=== PATIENT | female | born 1970 | race Caucasian/White ===

== ENCOUNTER 2020-06-22 14:26 | Outpatient (REF) | payer MEDICARE, MEDICAID, SELFPAY | END 2020-06-22 14:27 | disposition home or self-care (01) | LOC: HO.MRI 14:26 | PROVIDERS: Visit Provider Nurse Practitioner Family | DX: Z13.89 Encounter for screening for other disorder (principal) ==

== ENCOUNTER → 2020-07-28 14:13 | Outpatient (BNVA) | payer MEDICARE, MEDICAID, SELFPAY | PROVIDERS: PCP Family Medicine; Visit Provider Orthopaedic Surgery | DX: Z13.89 Encounter for screening for other disorder (principal) | CPT/HCPCS: Q3014 ==

== ENCOUNTER → 2020-12-03 12:54 | Outpatient (REF) | payer MEDICARE, MEDICAID, SELFPAY ==
--- NOTE | 2020-12-03 12:57 | CA_ITS ---
Transthoracic Echocardiogram Patient (Last, First, Middle): Nyla Wiley, Gender: Female Date of : 1970 Age: 50 Procedure Date: 12/03/2020 Procedure Type: Transthoracic Echocardiogram Location: OP Height: 167.64 cm Weight: 158.76 kg BSA: 2.54 m2 Heart Rate: bpm BP: 140 / 92 mmHg Digital Marketing Program Manager: UMAIR Khan MD: Rl Laguerre MD Chemistry Associate: Gautam Javier MD Symptoms: CHEST PAIN Study Quality: Fair ECG Rhythm: Sinus Conclusions: - 1. Normal LV systolic and diastolic function 2. Mild fibrocalcific aortic valve changes noted with trivial aortic regurgitation 3. No gross pericardial effusion Findings Left Ventricle Normal left ventricular size, thickness, and systolic function. The visually estimated ejection fraction is between 60-65%. Spectral Doppler is indicative of a normal filling pattern. Right Ventricle Normal right ventricular cavity size and systolic function. Atria The left atrium is normal in size. There is no evidence of interatrial shunt. The right atrium is normal in size. Aortic Valve There are fibrocalcifications on the aortic valve leaflets. There is no aortic valve stenosis. There is trace (trivial) aortic valve regurgitation. Mitral Valve Normal mitral valve structure and function. There is trace mitral valve regurgitation. There is no mitral valve stenosis. Pulmonic Valve The pulmonic valve was not well visualized. Tricuspid Valve The tricuspid valve was not well visualized. Tricuspid regurgitation envelope is inadequate for calculation of right ventricular systolic pressure. Great Vessels All visible segments of the aorta are normal in size. The pulmonary artery was not well visualized. Venous The inferior vena cava is normal in size and collapses greater than 50% with inspiration. Pericardium/Pleural There is no evidence of pericardial effusion. Prior Study Comparison No previous study in the last 5 years for comparison Measurements 2D Linear Measurements RVIDd: 2.93 RVIDd Index: 1.15 IVSd: 1.56 0.6-0.9/0.6-1.0 cm LVIDd: 4.36 3.9-5.3/4.2-5.9 cm LVIDd Index: 1.72 2.4-3.2/2.2-3.1 cm/m2 LVIDs: 3.18 2.0-3.6 cm LVPWd: 1.46 0.7-1.1 cm Ao Root: 3.10 2.1-3.5 cm LA Diam: 4.00 2.7-3.8/3.0-4.0 cm LAIDs Index: 1.57 1.5-2.3 cm/m2 LV Mass: 331.83 67-162/88-224 g LV Mass Index: 130.64 43-95/49-115 g/m2 LVOT Diam: 2.20 3.0+(-)1.3 cm 2D Systolic Function EF 4C: 60.90 >55% EF 2C: 77.60 >55% EF BiP: 70.30 >55% Mitral Valve MV Pk E: 0.73 MV PK A: 0.58 MV Decel Time: 138.00 E/A: 1.30 E'Lateral: 10.40 E'Medial: 6.96 E/E' Med: 10.50 E/E' Lat: 7.00 Aortic Valve AoV Pk Denys: 1.84 AoV Mn Denys: 1.31 AoV VTI: 0.34 AoV Pk Grad: 14.00 Aov Mn Grad: 8.00 WILFREDO Cont.VTI: 2.90 LVOT LVOT Pk Denys: 1.39 LVOT Mn Denys: 0.95 LVOT VTI: 0.26 LVOT Pk Grad: 8.00 LVOT Mn Grad: 4.00 LVOT Diam: 2.20 LVOT Area: 3.80 Diastolic Function MV Pk E: 0.73 MV Pk A: 0.58 E/A: 1.30 E'Medial: 6.96 E/E' Med: 10.50 E' Laterial: 10.40 E/E' Lat: 7.00 Tricuspid Valve RA Press: 3.00 Great Vessels Aorta Ao Root-2D: 3.10 2.0-3.7 cm Ao Asc: 3.70 2.1-3.4 cm Updated in Other Vendor System with Status of Final Gautam Javier MD electronically signed on 12/04/2020 2:44:51 PM with status of Final
== END ==
LOC: HO.CARD 12:54
PROVIDERS: PCP Family Medicine; Visit Provider Internal Medicine Cardiovascular Disease
DX: R07.9 Chest pain, unspecified (principal)
CPT/HCPCS: 93306

== ENCOUNTER → 2020-12-08 10:03 | Outpatient (REF) | payer MEDICARE, MEDICAID, SELFPAY ==
--- NOTE | ~2020-12-08 | NM_ITS ---
Myocardial perfusion study Indication: Chest pain to evaluate for myocardial ischemia Technique: The patient was brought in for a Lexiscan perfusion study on 12/08/2020. Patient performed low-level exercise and was injected 0.4 mg of Lexiscan intravenously. Within a minute of injection, 45 mCi of sestamibi was given intravenously. Images were obtained using the SPECT gamma camera interlaced with the gating device. Images were obtained in supine position. Resting perfusion study was performed on 12/09/2020. Patient was administered 45 mCi of sestamibi intravenously at rest. Images were then obtained in supine position. Images obtained with and without CT attenuation. Total DLP 200 mGy-cm. Images were processed with the software and compared side to side in short axis, horizontal long axis and vertical long axis views. Findings: The stress perfusion study showed nonattenuated images show mildly reduced uptake in the basal anterior and basal inferior wall of the LV myocardium. Remainder of the LV myocardium is normally perfused. Attenuation corrected images show mildly reduced uptake in the distal septum, distal anterior and apical wall of the LV myocardium.. The gated study shows normal LV systolic function with calculated LVEF of 57%. LV cavity is normal in size. The gated study shows normal systolic wall thickening and contraction of segments. Resting study shows no change in perfusion pattern compared to stress perfusion findings. Gating at rest reveals normal systolic wall motion with ejection fraction at 67%. The findings are consistent with no clear reversible defect suggestive of ischemia. Most likely normal myocardial perfusion. NM/NM russell perf SPECT rest & str Impression: 1. Myocardial perfusion imaging study shows likely normal myocardial perfusion 2. Gated LVEF is 57% 3. Transient ischemic dilatation not present EKG is nondiagnostic for ischemia
--- NOTE | 2020-12-08 10:08 | CA_ITS ---
Acquisition Time: 2020-12-08 10:13:02 Total Exercise Time: 00:02:00 Test Indications: cp on exertion Medications: see med list Protocol: LEXISCAN Max HR: 098 BPM 57% of Pred: 169 BPM Max BP: 122/080 mmHG Max Work Load: 1.0 METS Pharmacological stress test with Lexican injection, while sitting and kicking her legs, without anginal symptoms, without arrythmia, with normotensive response to injection, with nondiagnostic EKG for ischemia. At 5 min recovery she reported getting chest tightness, up to a 6/10, wihtout EKG changes, that was then treated with Aminophyllne 75mg IVP to reverse Lexiscan and given 6oz caffinated soda with resolution of symptom. Nuclear images pending. Test reviewed with Dr Rob. Referred By: Rl Laguerre Overread By: LEONA RIVERA
== END ==
LOC: HO.CARD 10:03
PROVIDERS: Visit Provider Internal Medicine Cardiovascular Disease
DX: R07.9 Chest pain, unspecified (principal)
CPT/HCPCS: 78452; 93017; A9500; J0280; J2785

== ENCOUNTER → 2020-12-09 12:14 | Outpatient (REF) | payer MEDICARE, MEDICAID, SELFPAY ==
--- NOTE | 2020-12-09 12:30 | ECG_ITS ---
Hook-up date: 2020-12-09 12:26:00 Duration: 47:59:00 Test Indications: UNSPEC CHEST PAIN Medications: 770800 QRS complexes 1 Ventricular ectopics which represent <1 % of total QRS comp. 10 Supraventricular ectopics which represent <1 % of total QRS comp. * Paced QRS complexs which represent % of total QRS comp. VENTRICULAR ECTOPY 1 Isolated 0 Bigeminal Cycles 0 Couplets 0 Runs 0 Beats in Runs * Beats LONGEST at * BPM at :: -- * Beats FASTEST at * BPM at :: -- SUPRAVENTRICULAR ECTOPY 10 Isolated 0 Couplets 0 Runs 0 Beats in Runs * Beats LONGEST at * BPM at :: -- * Beats FASTEST at * BPM at :: -- HEART RATES 73 MIN at 12:26:10 2020-12-10 87 AVG 122 MAX at 13:11:34 2020-12-09 LONGEST RR 0.8640 secs at 12:26:08 2020-12-10 S-T LEVELS Channel 1 - 128 mm at 12:26:00 2020-12-09 - 128 mm at 12:26:00 2020-12-09 Channel 2 - 128 mm at 12:26:00 2020-12-09 - 128 mm at 12:26:00 2020-12-09 Channel 3 - 128 mm at 03:14:51 -- - 128 mm at 03:14:51 Basic rhythm Normal sinus rhythm No long pause or profound bradycardia No dangerous dysrhythm periods No diary submitted Referred By: Smitha Coyne Overread By: TUAN DARNELL MD
== END ==
LOC: HO.CARD 12:14
PROVIDERS: Visit Provider Family Medicine
DX: R07.9 Chest pain, unspecified (principal)
CPT/HCPCS: 93225; 93226

== ENCOUNTER 2021-01-28 13:56 | Outpatient (REF) | payer MEDICARE, MEDICAID, SELFPAY ==
--- NOTE | ~2021-01-28 | XR_ITS ---
EXAMINATION: XR CHEST CLINICAL INFORMATION: Dysphagia COMPARISON: Previous chest x-rays most recent December 2017 TECHNIQUE: 2 views of the chest were obtained. FINDINGS: The cardiac and mediastinal contours are stable. The lungs are clear. There is no pleural effusion or pneumothorax. There are degenerative changes of the spine. XR/XR chest 2V IMPRESSION: No evidence for acute disease in the chest.
== END 2021-01-28 13:57 | disposition home or self-care (01) ==
LOC: HO.XRAY 13:56
PROVIDERS: PCP Family Medicine; Visit Provider Emergency Medicine
DX: R13.10 Dysphagia, unspecified (principal)
CPT/HCPCS: 71046

== ENCOUNTER → 2021-05-03 14:18 | Outpatient (BNVA) | payer MEDICARE, MEDICAID, SELFPAY | PROVIDERS: PCP Family Medicine; Visit Provider Internal Medicine | DX: M47.816 Spondylosis without myelopathy or radiculopathy, lumbar region (principal) | CPT/HCPCS: 99202 ==

== ENCOUNTER 2021-06-18 15:00 | Outpatient (RCR) | payer MEDICARE, MEDICAID, SELFPAY ==
--- NOTE | 2021-05-17 16:57 | MHC.PT.EP ---
[facility] [place] Office [place] Office [place] Office [address] Annalee Coronel [address] [phone] F: [phone] F: [phone] F: [phone] F: [phone] Physical Therapy Plan of Care Date of Evaluation: Date of Surgery: Diagnosis: Pt reports she has been having neck and back ache for years. Reports she has DDD of her spine and has been using heat and TENS unit. Pt reports her [pain is worse in the winter time and feels some significant tightness. Reports lower back her pain is a lot sharper; and states she can have sharp stabbing pains in her back with and without activity and is constant. Reports no real limitations Denies radicular Sx, saddle anesthesia, and incontinence. Reports she sits and spends a lot of time sitting on her futon playing playing laptop computer games on her coffee table. Assessment: Pt is a 51 y/o female referred to PT for eval and treat of lumbar spondylosis who presents with spinal instability and postural dysfunction resulting in decreased tolerance for standing chores, and chronic pain secondary to poor home computer posture, sedentary lifestyle, increased body habitus, decreased core strength, moderate decreased trunk ROM. Pt is deemed an appropriate candidate to receive skilled PT in order to address her physical limitations to improve her functional ability. Frequency and Duration: The patient will be seen 2 x / wk x 4 wks. Short Term Goals: Pt will change home sitting laptop setup in which she spends most of the day to an ergonomic set up. initiate HEP for gentle mobility and spinal stability. Retirement Goals: I with HEP. Pt will be able to perform standing tasks > 1 hour with managed Sx; initial 30 min tolerance. improve core strength to > Fair +, initial fair. Treatment Plan: Modalities to reduce pain, spasms and effusion. Manual therapy to restore motion and function. Therapeutic exercise to improve strength and flexibility. Neuromuscular re-education for posture and balance. Therapeutic activities to return to functional activities of daily living. Electronically signed by: Abel Palacio PT. Please sign and return to therapist. Thank you for your referral.
--- NOTE | 2021-06-18 16:30 | MHC.PT.DC ---
[facility] [place] Office [place] Office [place] Office [address] Annalee Coronel [address] [phone] F: [phone] F: [phone] F: [phone] F: [phone] Physical Therapy Discharge Report Diagnosis: Pt reports she has been having neck and back ache for years. Reports she has DDD of her spine and has been using heat and TENS unit. Pt reports her [pain is worse in the winter time and feels some significant tightness. Reports lower back her pain is a lot sharper; and states she can have sharp stabbing pains in her back with and without activity and is constant. Reports no real limitations Denies radicular Sx, saddle anesthesia, and incontinence. Reports she sits and spends a lot of time sitting on her futon playing playing laptop computer games on her coffee table. Date of Surgery: Date of Evaluation: 05/17/21 Date of Discharge: 06/18/21 Treatments to Date: 7 Cancellations to Date: No Shows to Date: Discharge Status: Achieved Goals Improved Function Independent with HEP Discharge Summary: Nyla elects to end therapy today, reports to PT that she has made some improvements though still has some pain. Pt was refused to make significant postural changes to her preferred activity of computer cyn which therapy suggests plays a role in her pain; Pt has been an active participant in her therapy in the clinic with fair to good home exercise compliance. She has met many of her therapeutic goals and is I with her home program; PT in agreement with DC at this time. Electronically signed by: Abel Palacio PT. Please sign and return to therapist. Thank you for your referral.
== END 2021-06-18 16:19 | disposition home or self-care (01) ==
LOC: HO.PTCHIC 15:00
PROVIDERS: PCP Family Medicine; Visit Provider Internal Medicine
DX: M47.816 Spondylosis without myelopathy or radiculopathy, lumbar region (principal)
CPT/HCPCS: 97014; 97110; 97140; 97150; 97161; 97530

== ENCOUNTER 2021-06-24 14:33 | Outpatient (REF) | payer MEDICARE, MEDICAID, SELFPAY ==
[2021-06-24 15:03] LABS: MANUAL DIFF FLAG NO
[2021-06-24 15:29] LABS: Basophils Absolute Auto 0.1 X10*3/uL (0.0-0.2); Basophils Percent Auto 0.7 % (0-2); Eosinophils Absolute Auto 0.3 X10*3/uL (0.0-0.4); Hematocrit 30.7 % (37.0-47.0); Hemoglobin 9.8 g/dl (12.0-16.0); Imm Gran Pct Auto 1.2 % (0.0-0.4); Lymphocytes Absolute Auto 1.3 X10*3/uL (1.2-4.9); Lymphocytes Percent Auto 15.1 % (20-40); Mean Corpuscular HGB Conc 31.9 g/dl (31.0-35.0); Mean Corpuscular Hemoglobin 26.3 pg (27.0-33.0); Mean Corpuscular Volume 82.5 fL (80.0-98.0); Mean Platelet Volume 9.3 fL (9.4-12.3); Monocytes Absolute Auto 0.4 X10*3/uL (0.1-1.2); Monocytes Percent Auto 4.7 % (2-11); Neutrophils Absolute Auto 6.1 x10*3/uL (2.0-8.3); Neutrophils Percent Auto 74.3 % (45-73); Platelet Count 220 X10*3/uL (160-400); Red Blood Count 3.72 X10*6/uL (4.20-5.50); Red Cell Distribution Width 14.6 % (11.0-16.0); White Blood Count 8.3 X10*3/uL (4.8-10.8)
[2021-06-24 16:00] LABS: Anion Gap 13 (12-20); Blood Urea Nitrogen 31 mg/dL (9-16); Calcium 9.2 mg/dL (8.4-10.2); Carbon Dioxide 22 mmol/L (22-29); Chloride 108 mmol/L (96-108); Estimated Glomerular Filt Rate 21; Iron 52 mcg/dL (30-160); Percent Iron Saturation 15 % (15-50); Potassium 5.4 mmol/L (3.3-5.1); Sodium 138 mmol/L (135-145); Total Iron Binding Capacity 337 mcg/dL (228-428); Unsaturated Iron Binding 285 ug/dL
== END 2021-06-24 14:34 | disposition home or self-care (01) ==
LOC: HO.LAB 14:33
PROVIDERS: Absent Provider Internal Medicine; PCP Family Medicine; Visit Provider Internal Medicine Nephrology
DX: R80.1 Persistent proteinuria, unspecified (principal); N20.0 Calculus of kidney; E11.21 Type 2 diabetes mellitus with diabetic nephropathy; N18.4 Chronic kidney disease, stage 4 (severe)
CPT/HCPCS: 36415; 80051; 82310; 82565; 83540; 84520; 85025

== ENCOUNTER 2021-06-28 14:01 | Outpatient (REF) | payer MEDICARE, MEDICAID, SELFPAY ==
[2021-06-28 15:05] LABS: Creatinine Urine 94.81 mg/dL
[2021-06-28 15:18] LABS: Microalbum/Creatinine Ratio Ur 1548.3 ug/mg cr; Protein/Creatinine Ratio, Ur 2.18 (<0.2); Total Protein Urine Random 207 mg/dL (<12)
[2021-06-28 15:35] LABS: Appearance Urine CLEAR; Color Urine YELLOW; Glucose Urine UA 250 MG/DL (NEG); Leukocyte Esterase Urine NEG (NEG); Nitrite Urine NEG (NEG); Specific Gravity - Urine >= 1.030 (1.005-1.025); Urine Blood TRACE (NEG); Urine Ketones NEG (NEG); Urine Protein 2+ MG/DL (NEG-TRACE)
[2021-06-28 17:55] LABS: Bacteria Urine 2+ /LPF; RBC Urine 0-2 /HPF (0); Squamous Epithelial Cell Urine 2+ /LPF
== END 2021-06-28 14:02 | disposition home or self-care (01) ==
LOC: HO.LNP 14:01
PROVIDERS: Visit Provider Internal Medicine Nephrology
DX: N20.0 Calculus of kidney (principal); R80.1 Persistent proteinuria, unspecified; E11.21 Type 2 diabetes mellitus with diabetic nephropathy; N18.4 Chronic kidney disease, stage 4 (severe)
CPT/HCPCS: 81001; 82043; 84156

== ENCOUNTER 2021-09-11 12:25 | Inpatient (IN) | payer MEDICARE, MEDICAID, SELFPAY ==
--- NOTE | ~2021-09-11 | XR_ITS ---
EXAMINATION: XR FOOT, RIGHT CLINICAL INFORMATION: Heel wound. COMPARISON: None TECHNIQUE: AP, lateral, and oblique views of the right foot. FINDINGS: There is a mild hallux valgus deformity. No acute fracture or dislocation is seen. The tarsal bones are normally aligned. There is a type I accessory navicular bone. Mild to moderate dorsal spurring is seen at the tarsometatarsal joints. There are very small plantar and retrocalcaneal spurs. Mild soft tissue swelling is seen. XR/XR foot RT 2V IMPRESSION: 1. Mild hallux valgus deformity and degenerative spurring without overt acute abnormality. 2. Mild soft tissue swelling without definitive soft tissue defect. No overt evidence for osteomyelitis.
[2021-09-11 12:39] VITALS: BP 109/62; PULSE 76; RESP 16; TEMP 37.2; O2SAT 96; BMI 55.5
--- NOTE | 2021-09-11 13:27 | ED.WOUNDLAC ---
HPI - Wound/Laceration General Chief Complaint: Wound/Laceration Stated Complaint: Foot wound Time Seen by Provider: 09/11/21 13:22 Source: patient Mode of arrival: ambulatory Limitations: no limitations History of Present Illness HPI narrative: 51 yo female with a history of IDDM, anemia, bipolar disorder, depression, GERD, HTN, HLD, UC, CKD here with complaints of wound to the right heel first noticed 08/23 as a 'blister . Patient tells me the wound opened up and then appeared red and painful so she was started on a 10 day course of keflex which she completed. Patient tells me she is concerned because the wound continues to have redness, pain and her temperature has been running high 99-100F). She has not been seen by any specialists for this. Related Data Home Medications Medication Instructions Recorded Confirmed aspirin 81 mg tablet,delayed 81 mg PO BEDTIME 07/08/20 09/11/21 release atorvastatin 20 mg tablet 1 tab PO BEDTIME 07/08/20 09/11/21 cholecalciferol (vitamin D3) 50 50 mcg PO BEDTIME 07/08/20 09/11/21 mcg (2,000 unit) capsule (Vitamin D3) enalapril maleate 20 mg tablet 1 tab PO BEDTIME 07/08/20 09/11/21 ferrous sulfate 325 mg (65 mg 325 mg PO BEDTIME 07/08/20 09/11/21 iron) tablet (Iron (ferrous sulfate)) insulin aspar prot-insulin aspart See Protocol SUBCUT BIDAC 07/08/20 09/11/21 100 unit/mL (70-30) subcutaneous pen (Novolog Mix 70-30FlexPen U-100) insulin degludec 200 unit/mL (3 66 unit SUBCUT BEDTIME 07/08/20 09/11/21 mL) subcutaneous pen (Tresiba FlexTouch U-200 insulin) metoprolol succinate 200 mg 1 tab PO BEDTIME 07/08/20 09/11/21 tablet,extended release 24 hr chlorthalidone 25 mg tablet 1 tab PO BEDTIME 09/11/21 09/11/21 cyanocobalamin (vitamin B-12) 1,000 mcg PO BEDTIME 09/11/21 09/11/21 1,000 mcg tablet (Vitamin B-12) hydrocodone 5 mg-acetaminophen 325 1 tab PO Q8H PRN 09/11/21 09/11/21 mg tablet lansoprazole 30 mg capsule,delayed 1 cap PO BEDTIME 09/11/21 09/11/21 release sodium zirconium cyclosilicate 10 1 packet PO BEDTIME 09/11/21 09/11/21 gram oral powder packet (Lokelma) Allergies Allergy/AdvReac Type Severity Reaction Status Date / Time oxcarbazepine Allergy Intermediate AGITATION Unverified 05/03/21 14:40 [From TRILEPTAL] topiramate [From TOPAMAX] Allergy Intermediate KIDNEY Unverified 05/03/21 14:40 STONES aripiprazole [From ABILIFY] Allergy Mild HIVES Unverified 05/03/21 14:40 acetaminophen [Percocet] Allergy Unknown Unknown Verified 05/03/21 14:40 carbamazepine [From Tegretol] Allergy Unknown AGITATION, Unverified 05/03/21 14:40 SUICIDAL clonazepam [From Klonopin] Allergy Unknown RASH Unverified 05/03/21 14:40 codeine [Codeine] Allergy Unknown VOMIT Unverified 05/03/21 14:40 cylert Allergy Unknown Unknown Unverified 05/03/21 14:40 haloperidol [From HALDOL] Allergy Unknown RASH Unverified 05/03/21 14:40 lorazepam [From ATIVAN] Allergy Unknown RASH Unverified 05/03/21 14:40 oxycodone [Percocet] Allergy Unknown Unknown Verified 05/03/21 14:40 pemoline [From Cylert] Allergy Unknown RASH Unverified 05/03/21 14:40 risperidone [From Risperdal] Allergy Unknown INCREASE Unverified 05/03/21 14:40 PROLECTIN LEVEL Sulfa (Sulfonamide Allergy Unknown JAUNDICE Unverified 05/03/21 14:40 Antibiotics) abilify Allergy Unknown Unknown Uncoded 05/03/21 14:40 ativan Allergy Unknown Unknown Uncoded 05/03/21 14:40 buspar Allergy Unknown Unknown Uncoded 05/03/21 14:40 celexa Allergy Unknown rash Uncoded 05/03/21 14:40 codeine Allergy Unknown Unknown Uncoded 05/03/21 14:40 depakote Allergy Unknown Unknown Uncoded 05/03/21 14:40 From BuSpar Allergy Unknown RASH Uncoded 05/03/21 14:40 From Celexa Allergy Unknown RASH Uncoded 05/03/21 14:40 From Tolectin Allergy Unknown RASH Uncoded 05/03/21 14:40 From Zoloft Allergy Unknown RASH,KIDNEY Uncoded 05/03/21 14:40 PAIN haldol Allergy Unknown Unknown Uncoded 05/03/21 14:40 hydrodiuril Allergy Unknown Unknown Uncoded 05/03/21 14:40 klonopin Allergy Unknown Unknown Uncoded 05/03/21 14:40 percocet Allergy Unknown Unknown Uncoded 05/03/21 14:40 risperdal Allergy Unknown Unknown Uncoded 05/03/21 14:40 tegretol Allergy Unknown Unknown Uncoded 05/03/21 14:40 tolectin DS Allergy Unknown Unknown Uncoded 05/03/21 14:40 Topamax Allergy Unknown kidney Uncoded 05/03/21 14:40 stones zesteril Allergy Unknown Unknown Uncoded 05/03/21 14:40 zoloft Allergy Unknown rash Uncoded 05/03/21 14:40 From Percocet AdvReac Unknown VOMIT Uncoded 05/03/21 14:40 Review of Systems Review of Systems: Yes all other systems are reviewed and are negative Constitutional: Constitutional: Reports no additional constitutional complaints, Denies body ache(s), Denies chills, Denies fever(s), Denies headache(s) and Denies weakness Eyes: Eyes: Reports no additional eye complaints and Denies change in vision ENT: Reports system reviewed and no additional complaints, except as documented, Denies dizziness, Denies headache(s), Denies nasal congestion, Denies nasal discharge and Denies neck pain Cardiovascular: Cardiovascular: Reports no additional cardiovascular complaints, Denies chest pain, Denies leg edema and Denies dyspnea Respiratory: Respiratory: Reports no additional respiratory complaints, Denies cough and Denies dyspnea Gastrointestinal: Gastrointestinal: Reports no additional gastrointestinal complaints, Denies abdominal pain, Denies diarrhea, Denies nausea and Denies vomiting Genitourinary: Genitourinary: Reports no additional female genitourinary complaints and Denies urinary incontinence Musculoskeletal: Musculoskeletal: Reports no additional musculoskeletal complaints, Denies back pain, Denies arthralgias, Denies joint swelling, Denies neck pain, Denies numbness and Denies tingling Integumentary/Breasts: Skin/Breast: Reports system reviewed and no additional complaints, except as docu, Reports swelling, Reports erythema, Denies rash and Reports wounds Neurologic: Reports system reviewed and no additional complaints, except as documented, Denies Abnormal speech present, Denies dizziness, Denies headache(s), Denies numbness, Denies tingling and Denies weakness PMFSH Past Medical History Attestation statement: The following information was validated with the patient. Source: old records reviewed and nursing notes reviewed Medical History Anemia Bipolar disorder Chronic kidney disease, stage 3 Chronic knee pain Depression Diabetes GERD (gastroesophageal reflux disease) HTN (hypertension) Hyperlipidemia Hypogammaglobulinemia Morbid obesity TYLOR (obstructive sleep apnea) Ulcerative colitis Surgical History Hx of resection of large bowel Family History Family History Mother Coronary artery disease Father High cholesterol HTN (hypertension) Social History Social History Alcohol intake: never Patient Tobacco Use Status: Never used Tobacco Cigarette Packs Per Day: 1 Use of substances other than those prescribed or required for medical reasons: No Advance Directives: No Advance Directives Information Provided: No Physical Exam Vital Signs: Vital Signs: Last Vital Signs Temp 99.5 F 09/11/21 13:43 Pulse 79 09/11/21 13:43 Resp 20 09/11/21 13:43 BP 116/75 09/11/21 14:05 Pulse Ox 95 09/11/21 13:43 BMI result Body Mass Index 55.5 Const: General: cooperative, healthy appearing, comfortable and no acute distress Orientation/consciousness: patient oriented x3 Limitations: no limitations HEENT: Head: Yes normal to inspection Ears: hearing grossly normal bilaterally General nose exam: Normal external nose present Face and sinus: Yes normal facial exam Mouth: Normal oral and palatal mucosa present Throat: Yes posterior oropharynx normal Eyes: General: appearance normal, both eyes and all related structures Pupils: Equal, round and reactive pupils present Neck: Neck: Yes normal visual inspection Chest: Chest palpation & inspection: normal inspection of the chest Resp: Effort & Inspection: normal respiratory effort Auscultation: clear to auscultation bilaterally Cardio: Rate: regular rate Rhythm: regular rhythm Peripheral pulses: Peripheral pulses 2+ throughout GI: Inspection: Yes normal to inspection Palpation (GI): Soft to palpation and nontender Auscultation: normal bowel sounds Back/Spine/Pelvis: Thoracic/Lumbar Spine: thoracic and lumbar spine normal to inspection Skin: General skin exam: no rashes or lesions noted Neuro: General: patient oriented x3, no focal motor deficits and normal sensation to monofilament Cranial nerves: Yes Equal, round and reactive pupils present Cognition (Neuro): normal cognition Speech: No Abnormal speech present Gait exam (Neuro): Normal gait present Motor exam (neuro): 5/5 motor strength present throughout Extrem: Other: No surrounding fluctuance/induration General: Yes normal to inspection Course Course Course Narrative: 51-year-old female here with nonhealing wound to the right heel and concern for fever at home which she describes as temperature 99- 100 degrees F despite completing a course of Keflex. Will obtain labs, x-ray Anticipate discharge on oral antibiotics and [facility] [id number] the patient has an acute on chronic kidney injury. Followed by Dr Mcgill. She tells me she has had decreased appetite and has not been eating or drinking much over the last few weeks. She is also on multiple medications that may worsen renal function. ?multifactorial. Will give NSB. Patient has a wound with evidence of leukopenia, thrombocytopenia, elevated inflammatory markers which may be from underlying infection. Anemia with no active bleeding. At this time infection suspected. Antibiotics ordered. Reevaluation(s) Reevaluation #1: BP low from dehydration and not infection. Giving fluids. Time: 14:45 [facility] - Wound/Laceration Medical Records Attestation: I reviewed the patient's medical records. Lab Data Attestation: I reviewed the patient's lab results. Result diagrams: 09/11/21 14:03 09/11/21 14:03 Labs: Lab Results 09/11/21 09/11/21 09/11/21 Range/Units 14:03 14:03 14:03 WBC 4.2 L (4.8-10.8) X10*3/uL RBC 3.50 L (4.20-5.50) X10*6/uL Hgb 9.0 L (12.0-16.0) g/dl Hct 28.0 L (37.0-47.0) % MCV 80.0 (80.0-98.0) fL MCH 25.7 L (27.0-33.0) pg MCHC 32.1 (31.0-35.0) g/dl RDW 15.5 (11.0-16.0) % Plt Count 149 L D (160-400) X10*3/uL MPV 9.5 (9.4-12.3) fL Immature Gran % (Auto) 0.5 H (0.0-0.4) % Neut % (Auto) 70.0 (45-73) % Lymph % (Auto) 18.7 L (20-40) % [place] % (Auto) 8.4 (2-11) % Eos % (Auto) 1.9 (0-4) % Baso % (Auto) 0.5 (0-2) % Lymph # (Auto) 0.8 L (1.2-4.9) X10*3/uL [place] # (Auto) 0.4 (0.1-1.2) X10*3/uL Eos # (Auto) 0.1 (0.0-0.4) X10*3/uL Baso # (Auto) 0.0 (0.0-0.2) X10*3/uL Abs Immat Gran (auto) 0.02 (0.00-0.03) X10*3/uL Absolute Neuts (auto) 2.9 (2.0-8.3) x10*3/uL Absolute Nucleated RBC 0.000 (0.0-0.012) X10*3/uL Nucleated RBC % (auto) 0.0 (0.0-0.2) /100WBC ESR 67 H (0-20) MM/HR Sodium 137 (135-145) mmol/L Potassium 4.7 (3.3-5.1) mmol/L Chloride 108 (96-108) mmol/L Carbon Dioxide 18 L (22-29) mmol/L Anion Gap 16 (12-20) BUN 66 H D (9-16) mg/dL Creatinine 4.14 H* (0.5-1.4) mg/dL Estim Creat Clear Calc 24.6 Estimated GFR 11 Random Glucose 204 H (60-115) mg/dL Lactic Acid (0.5-2.0) mmol/L Calcium 8.6 D (8.4-10.2) mg/dL Total Bilirubin 0.4 (0.0-1.0) mg/dL Direct Bilirubin 0.2 (0.0-0.5) mg/dL AST 34 H (5-31) U/L ALT 20 (0-31) U/L Alkaline Phosphatase 62 D (39-117) U/L C-Reactive Protein 2.04 H (< or = 0.50) mg/dL Total Protein 6.8 (6.5-8.0) g/dL Albumin 3.9 D (3.5-5.0) g/dL 09/11/21 Range/Units 14:03 WBC (4.8-10.8) X10*3/uL RBC (4.20-5.50) X10*6/uL Hgb (12.0-16.0) g/dl Hct (37.0-47.0) % MCV (80.0-98.0) fL MCH (27.0-33.0) pg MCHC (31.0-35.0) g/dl RDW (11.0-16.0) % Plt Count (160-400) X10*3/uL MPV (9.4-12.3) fL Immature Gran % (Auto) (0.0-0.4) % Neut % (Auto) (45-73) % Lymph % (Auto) (20-40) % [place] % (Auto) (2-11) % Eos % (Auto) (0-4) % Baso % (Auto) (0-2) % Lymph # (Auto) (1.2-4.9) X10*3/uL [place] # (Auto) (0.1-1.2) X10*3/uL Eos # (Auto) (0.0-0.4) X10*3/uL Baso # (Auto) (0.0-0.2) X10*3/uL Abs Immat Gran (auto) (0.00-0.03) X10*3/uL Absolute Neuts (auto) (2.0-8.3) x10*3/uL Absolute Nucleated RBC (0.0-0.012) X10*3/uL Nucleated RBC % (auto) (0.0-0.2) /100WBC ESR (0-20) MM/HR Sodium (135-145) mmol/L Potassium (3.3-5.1) mmol/L Chloride (96-108) mmol/L Carbon Dioxide (22-29) mmol/L Anion Gap (12-20) BUN (9-16) mg/dL Creatinine (0.5-1.4) mg/dL Estim Creat Clear Calc Estimated GFR Random Glucose (60-115) mg/dL Lactic Acid 1.2 (0.5-2.0) mmol/L Calcium (8.4-10.2) mg/dL Total Bilirubin (0.0-1.0) mg/dL Direct Bilirubin (0.0-0.5) mg/dL AST (5-31) U/L ALT (0-31) U/L Alkaline Phosphatase (39-117) U/L C-Reactive Protein (< or = 0.50) mg/dL Total Protein (6.5-8.0) g/dL Albumin (3.5-5.0) g/dL Imaging Data foot xray: Attestation: I personally reviewed and interpreted this imaging study as follows: Radiologist's impression: FINDINGS: There is a mild hallux valgus deformity. No acute fracture or dislocation is seen. The tarsal bones are normally aligned. There is a type I accessory navicular bone. Mild to moderate dorsal spurring is seen at the tarsometatarsal joints.? There are very small plantar and retrocalcaneal spurs. Mild soft tissue swelling is seen. XR/XR foot RT 2V IMPRESSION: 1. Mild hallux valgus deformity and degenerative spurring without overt acute abnormality. 2. Mild soft tissue swelling without definitive soft tissue defect. No overt evidence for osteomyelitis. Discharge Plan Discharge Clinical Impression: Acute on chronic kidney failure, Non-healing wound of right heel, Anemia Patient Disposition: Admitted As Inpatient
[2021-09-11 13:43] VITALS: BP 93/56; PULSE 79; RESP 20; TEMP 37.5; O2SAT 95
[2021-09-11 14:05] VITALS: BP 116/75
[2021-09-11 14:08] LABS: MANUAL DIFF FLAG NO
[2021-09-11 14:10] LABS: Basophils Percent Auto 0.5 % (0-2); Eosinophils Absolute Auto 0.1 X10*3/uL (0.0-0.4); Eosinophils Percent Auto 1.9 % (0-4); Imm Gran Abs Auto 0.02 X10*3/uL (0.00-0.03); Imm Gran Pct Auto 0.5 % (0.0-0.4); Lymphocytes Absolute Auto 0.8 X10*3/uL (1.2-4.9); Lymphocytes Percent Auto 18.7 % (20-40); Mean Corpuscular HGB Conc 32.1 g/dl (31.0-35.0); Mean Corpuscular Hemoglobin 25.7 pg (27.0-33.0); Mean Platelet Volume 9.5 fL (9.4-12.3); Monocytes Absolute Auto 0.4 X10*3/uL (0.1-1.2); Monocytes Percent Auto 8.4 % (2-11); Neutrophils Absolute Auto 2.9 x10*3/uL (2.0-8.3); Platelet Count 149 X10*3/uL (160-400); Red Cell Distribution Width 15.5 % (11.0-16.0); White Blood Count 4.2 X10*3/uL (4.8-10.8)
[2021-09-11 14:24] LABS: Lactic Acid 1.2 mmol/L (0.5-2.0)
[2021-09-11 14:32] LABS: Anion Gap 16 (12-20); Blood Urea Nitrogen 66 mg/dL (9-16); C Reactive Protein 2.04 mg/dL (< or = 0.50); Calcium 8.6 mg/dL (8.4-10.2); Carbon Dioxide 18 mmol/L (22-29); Chloride 108 mmol/L (96-108); Creatinine Clr Calc Pharmacy 24.6; Estimated Glomerular Filt Rate 11; Glucose Random 204 mg/dL (60-115); Potassium 4.7 mmol/L (3.3-5.1); Sodium 137 mmol/L (135-145)
[2021-09-11 14:51] LABS: Erythrocyte Sedimentation Rate 67 MM/HR (0-20)
[2021-09-11 15:07] LABS: Alanine Aminotransferase 20 U/L (0-31); Albumin Level 3.9 g/dL (3.5-5.0); Alkaline Phosphatase 62 U/L (39-117); Aspartate Amino Transferase 34 U/L (5-31); Bilirubin Direct 0.2 mg/dL (0.0-0.5); Bilirubin Total 0.4 mg/dL (0.0-1.0); Total Protein 6.8 g/dL (6.5-8.0)
--- NOTE | 2021-09-11 15:12 | PHA.MEDREC ---
Pharmacy Consult ? Medication Reconciliation Pharmacy has completed the medication reconciliation. Spoke with patient in the ED. She takes all of her medications at night. She takes her Metoprolol, lansoprazole, chlorthalidone, lokelma and enalapril every night. She takes insulin based on her BG level and does not take every day. She takes atorvastatin, vitamins and aspirin occasionally.
--- NOTE | 2021-09-11 15:15 | P.HPHOSP_ITS ---
History of Present Illness Date of Service: 09/11/21 Chief Complaint: foot wound, weakness a 51 years old lady with PMH of type 2 diabetes, bipolar, depression, HTN, CKD stage 4 among others who presents to the hospital with a complaint of right foot wound that was started 2 weeks ago as the blisters any fold over the last few weeks until popped 2 days ago and started to be painful with no reported discharge. She reported taking antibiotic of Keflex for the last 10 days with no improvement and associated fever of 99-100 Along with increased weakness and decreased oral intake. She reported decreased sensation in her feet secondary to diabetes this. Denies any chest pain, palpitation, shortness of breath, change in bowel habits or urinary symptoms. In the emergency blood work was consistent with acute on chronic kidney injury. Admitted for further evaluation and treatment. Review of Systems Review of Systems: reporting fever, chills and generalized weakness No chest pain, palpitation No shortness of breath or coughing No abdominal pain, nausea or vomiting No urinary symptoms foot wound PMFSH Medical History Anemia Bipolar disorder Chronic kidney disease, stage 3 Chronic knee pain Depression Diabetes GERD (gastroesophageal reflux disease) HTN (hypertension) Hyperlipidemia Hypogammaglobulinemia Morbid obesity TYLOR (obstructive sleep apnea) Ulcerative colitis Family History Mother Coronary artery disease Father High cholesterol HTN (hypertension) Surgical History Hx of resection of large bowel Social History Alcohol intake: never Patient Tobacco Use Status: Never used Tobacco Cigarette Packs Per Day: 1 Use of substances other than those prescribed or required for medical reasons: No Advance Directives: No Advance Directives Information Provided: No Meds Allergies Allergy/AdvReac Type Severity Reaction Status Date / Time oxcarbazepine Allergy Intermediate AGITATION Unverified 05/03/21 14:40 [From TRILEPTAL] topiramate [From TOPAMAX] Allergy Intermediate KIDNEY Unverified 05/03/21 14:40 STONES aripiprazole [From ABILIFY] Allergy Mild HIVES Unverified 05/03/21 14:40 acetaminophen [Percocet] Allergy Unknown Unknown Verified 05/03/21 14:40 carbamazepine [From Tegretol] Allergy Unknown AGITATION, Unverified 05/03/21 14:40 SUICIDAL clonazepam [From Klonopin] Allergy Unknown RASH Unverified 05/03/21 14:40 codeine [Codeine] Allergy Unknown VOMIT Unverified 05/03/21 14:40 cylert Allergy Unknown Unknown Unverified 05/03/21 14:40 haloperidol [From HALDOL] Allergy Unknown RASH Unverified 05/03/21 14:40 lorazepam [From ATIVAN] Allergy Unknown RASH Unverified 05/03/21 14:40 oxycodone [Percocet] Allergy Unknown Unknown Verified 05/03/21 14:40 pemoline [From Cylert] Allergy Unknown RASH Unverified 05/03/21 14:40 risperidone [From Risperdal] Allergy Unknown INCREASE Unverified 05/03/21 14:40 PROLECTIN LEVEL Sulfa (Sulfonamide Allergy Unknown JAUNDICE Unverified 05/03/21 14:40 Antibiotics) abilify Allergy Unknown Unknown Uncoded 05/03/21 14:40 ativan Allergy Unknown Unknown Uncoded 05/03/21 14:40 buspar Allergy Unknown Unknown Uncoded 05/03/21 14:40 celexa Allergy Unknown rash Uncoded 05/03/21 14:40 codeine Allergy Unknown Unknown Uncoded 05/03/21 14:40 depakote Allergy Unknown Unknown Uncoded 05/03/21 14:40 From BuSpar Allergy Unknown RASH Uncoded 05/03/21 14:40 From Celexa Allergy Unknown RASH Uncoded 05/03/21 14:40 From Tolectin Allergy Unknown RASH Uncoded 05/03/21 14:40 From Zoloft Allergy Unknown RASH,KIDNEY Uncoded 05/03/21 14:40 PAIN haldol Allergy Unknown Unknown Uncoded 05/03/21 14:40 hydrodiuril Allergy Unknown Unknown Uncoded 05/03/21 14:40 klonopin Allergy Unknown Unknown Uncoded 05/03/21 14:40 percocet Allergy Unknown Unknown Uncoded 05/03/21 14:40 risperdal Allergy Unknown Unknown Uncoded 05/03/21 14:40 tegretol Allergy Unknown Unknown Uncoded 05/03/21 14:40 tolectin DS Allergy Unknown Unknown Uncoded 05/03/21 14:40 Topamax Allergy Unknown kidney Uncoded 05/03/21 14:40 stones zesteril Allergy Unknown Unknown Uncoded 05/03/21 14:40 zoloft Allergy Unknown rash Uncoded 05/03/21 14:40 From Percocet AdvReac Unknown VOMIT Uncoded 05/03/21 14:40 Active Medications: Current Medications Sodium Chloride (Ns) 1,000 mls @ 999 mls/hr IV .Q1H1M STA Stop: 09/11/21 15:32 Pharmacy Consult (Consult Rx Perform Med Rec) 1 each MISCELLANE ONCE PRN PRN Reason: Consult order Home Medications Medication Instructions Recorded Confirmed Last Taken Type aspirin 81 mg tablet,delayed 81 mg PO BEDTIME 07/08/20 09/11/21 09/10/21 History release atorvastatin 20 mg tablet 1 tab PO BEDTIME 07/08/20 09/11/21 Unknown History cholecalciferol (vitamin D3) 50 50 mcg PO BEDTIME 07/08/20 09/11/21 Unknown History mcg (2,000 unit) capsule (Vitamin D3) enalapril maleate 20 mg tablet 1 tab PO BEDTIME 07/08/20 09/11/21 09/10/21 History ferrous sulfate 325 mg (65 mg 325 mg PO BEDTIME 07/08/20 09/11/21 09/10/21 History iron) tablet (Iron (ferrous sulfate)) insulin aspar prot-insulin aspart See Protocol SUBCUT BIDAC 07/08/20 09/11/21 09/10/21 History 100 unit/mL (70-30) subcutaneous pen (Novolog Mix 70-30FlexPen U-100) insulin degludec 200 unit/mL (3 66 unit SUBCUT BEDTIME 07/08/20 09/11/21 09/10/21 History mL) subcutaneous pen (Tresiba FlexTouch U-200 insulin) metoprolol succinate 200 mg 1 tab PO BEDTIME 07/08/20 09/11/21 09/10/21 History tablet,extended release 24 hr chlorthalidone 25 mg tablet 1 tab PO BEDTIME 09/11/21 09/11/21 09/10/21 History cyanocobalamin (vitamin B-12) 1,000 mcg PO BEDTIME 09/11/21 09/11/21 Unknown History 1,000 mcg tablet (Vitamin B-12) hydrocodone 5 mg-acetaminophen 325 1 tab PO Q8H PRN 09/11/21 09/11/21 09/10/21 History mg tablet lansoprazole 30 mg capsule,delayed 1 cap PO BEDTIME 09/11/21 09/11/21 09/10/21 History release sodium zirconium cyclosilicate 10 1 packet PO BEDTIME 09/11/21 09/11/21 09/10/21 History gram oral powder packet (Lokelma) Physical Exam Vital Signs and Narrative: Vital Signs: Last Vital Signs Temp 99.5 F 09/11/21 13:43 Pulse 79 09/11/21 13:43 Resp 20 09/11/21 13:43 BP 116/75 09/11/21 14:05 Pulse Ox 95 09/11/21 13:43 BMI result Body Mass Index 55.5 Const: Other: Constitutional : Alert, interactive, morbidly obese, not in distress Neck : Normal inspection, Supple Cardiovascular : RRR, no JVP, no lower extremity edema Respiratory : fair bilateral air entry, no crackles, wheezes or rhonchi Gastrointestinal: soft, lax, Normal bowel sounds, Non tender Skin : Warm, Dry covert 2 x 2 ft wound with mildly surrounding erythema at the heel with surrounding callus no drainagen noted. Neurological : Alert & oriented x3, No focal deficit , CN 2-12 within normal Results Labs CBC and Chem 7: 09/11/21 14:03 09/11/21 14:03 Labs: Laboratory Results - last 24 hr 09/11/21 09/11/21 09/11/21 14:03 14:03 14:03 MCV 80.0 MCH 25.7 L MCHC 32.1 RDW 15.5 Plt Count 149 L D MPV 9.5 Immature Gran % (Auto) 0.5 H Neut % (Auto) 70.0 Lymph % (Auto) 18.7 L [place] % (Auto) 8.4 Eos % (Auto) 1.9 Baso % (Auto) 0.5 Lymph # (Auto) 0.8 L [place] # (Auto) 0.4 Eos # (Auto) 0.1 Baso # (Auto) 0.0 Abs Immat Gran (auto) 0.02 Absolute Neuts (auto) 2.9 Absolute Nucleated RBC 0.000 Nucleated RBC % (auto) 0.0 ESR 67 H Anion Gap 16 Estim Creat Clear Calc 24.6 Estimated GFR 11 Random Glucose 204 H Lactic Acid Calcium 8.6 D Total Bilirubin 0.4 Direct Bilirubin 0.2 AST 34 H ALT 20 Alkaline Phosphatase 62 D C-Reactive Protein 2.04 H Total Protein 6.8 Albumin 3.9 D 09/11/21 14:03 MCV MCH MCHC RDW Plt Count MPV Immature Gran % (Auto) Neut % (Auto) Lymph % (Auto) [place] % (Auto) Eos % (Auto) Baso % (Auto) Lymph # (Auto) [place] # (Auto) Eos # (Auto) Baso # (Auto) Abs Immat Gran (auto) Absolute Neuts (auto) Absolute Nucleated RBC Nucleated RBC % (auto) ESR Anion Gap Estim Creat Clear Calc Estimated GFR Random Glucose Lactic Acid 1.2 Calcium Total Bilirubin Direct Bilirubin AST ALT Alkaline Phosphatase C-Reactive Protein Total Protein Albumin Imaging Radiologist's Impressions: Impressions Foot X-Ray 09/11/21 13:37 IMPRESSION: 1. Mild hallux valgus deformity and degenerative spurring without overt acute abnormality. 2. Mild soft tissue swelling without definitive soft tissue defect. No overt evidence for osteomyelitis. Assessment and Plan (1) Acute on chronic kidney failure: Status: Acute (2) Non-healing wound of right heel: Status: Acute Plan a 51 years old lady with PMH of type 2 diabetes, bipolar, depression, HTN, CKD stage4 among others who presents to the hospital with a complaint of right foot wound Found to have Robert I on CKD Robert I on CKD stage 4 non anion gap metabolic acidosis secondary to crease oral intake and medications To check urinalysis and electrolytes hold nephrotoxic medications Start gentle hydration Monitor intake and output Get Nephrology consult Monitor BMP Nonhealing wound in feet Diabetic foot with possible infection Will need good wound care, get wound care nurse consult Start doxycycline HTN Hold enalapril and chlorthalidone Continue metoprolol Type 2 diabetes Start Lantus 60 units bedtime SSI HLD continue statin DVT PPX Heparin the patient will likely need to overnight hospital stay for evaluation and treatment of acute kidney injury and evaluation of the diabetic foot wound. Quality Stroke Does the patient have a stroke diagnosis?: No VTE Prior VTE?: No VTE Risk Level:: Medical - moderate - high VTE Device Contraindication: Treatment Not Indicated VTE Drug Contraindication: N/A - Med Ordered
[2021-09-11 15:37] LABS: COVID-19 Test Positive (Negative); IDNOW Serial# 16C4AD1C
[2021-09-11 15:40] VITALS: BP 125/80; PULSE 80; RESP 19; TEMP 37.6; O2SAT 94
[2021-09-11] MEDS: 0.9 % Sodium Chloride Flush 3 ML SYRINGE IVFLUSH (15:42)
[2021-09-11] MEDS: Piperacillin Sodium/Tazobactam 2.25 GM in 0.9 % Sodium Chloride 50 ML IV (15:42)
[2021-09-11] MEDS: 0.9 % Sodium Chloride 1,000 ML 999 ML IV (15:44)
[2021-09-11 16:00] VITALS: BP 112/87; PULSE 88; RESP 18; TEMP 36.6; O2SAT 98
--- NOTE | 2021-09-11 17:17 | PC.NURSE ---
Maintenance fluids not running due to current bolus infusion runnng.
[2021-09-11 18:18] LABS: Glucose, Whole Blood 137 mg/dL (60-115)
[2021-09-11] MEDS: 0.9 % Sodium Chloride 1,000 ML 100 ML IVCONT (19:34)
[2021-09-11 19:38] VITALS: BP 127/89; PULSE 87; RESP 18; TEMP 36.7; O2SAT 98
--- NOTE | 2021-09-11 20:06 | PM.EVENT ---
Event Note Date of Service: 09/11/21 Event Note: doxy changed to Vanco as pt reports severe allergies to doxy
--- NOTE | 2021-09-11 20:23 | PHA.PROG ---
Admission Date/Time: September 11, 2021 15:13 Indication: diabetic foot infection Weight in k.036 kg Adjusted body weight in K kg [place] body weight in K.3 Obesity Dosing Indication % IBW: Serum Creatinine - Last 168 Hours 09/11/21 14:03 Creatinine 4.14 H* Estimated CrCl and GFR - Last 168 Hours 09/11/21 14:03 Estim Creat Clear Calc 24.6 Estimated GFR 11 Vancomycin Loading Dose: 1250 mg x 1 Current Vancomycin Dosing Regimen: 500 mg q24h Vancomycin Monitoring using AUC goal of 400 - 600 range with trough as surrogate marker: predicted auc 465 Date and Time for next Vancomycin Level to be drawn: 09/12/21 @1800 Pharmacist Comments on Vancomycin Plan: pt has ARMINDA on CKD. Check levels daily and dose based on level. Obese model used in insight. Vancomycin dosing will take advantage of [employer] as a clinical decision support tool that uses Bayesian modeling to calculate individual patient's pharmacokinetic parameters and forecast the patient's drug concentration time course with the target goal AUC 24 range of 400 - 600 mg/L/hr.
[2021-09-11 20:45] LABS: Glucose, Whole Blood 153 mg/dL (60-115)
[2021-09-11] MEDS: vancomycin HCL 1,250 MG in 0.9 % Sodium Chloride 250 ML 166.67 MG IV (21:06)
[2021-09-11] MEDS: Metoprolol Succinate ER 100 MG TAB.ER.24H 200 MG PO (21:09)
[2021-09-11] MEDS: Atorvastatin Calcium 20 MG TABLET PO (21:09)
[2021-09-11] MEDS: Insulin Glargine,Hum.rec.anlog 100 UNIT/ML 10 ML VIAL 60 UNIT SUBCUT (21:09)
[2021-09-11] MEDS: Aspirin Enteric Coated 81 MG TABLET.DR PO (21:09)
[2021-09-11] MEDS: Heparin Sodium,Porcine 5,000 UNIT/ML VIAL 5000 UNIT SUBCUT (21:10)
[2021-09-11] MEDS: Sodium Zirconium Cyclosilicate 10 GM POWD.PACK PO (21:11)
[2021-09-11] MEDS: Insulin Lispro 100 UNIT/ML 3 ML VIAL SUBCUT (21:19)
--- NOTE | 2021-09-11 22:51 | PC.NURSE ---
pt stated that she has cpap machine at home but she is not using it
[2021-09-12] VITALS: BP 99/57; PULSE 79; RESP 15; RESP 16; TEMP 36.3; O2SAT 98
[2021-09-12] MEDS: 0.9 % Sodium Chloride Flush 3 ML SYRINGE IVFLUSH (00:43)
[2021-09-12] MEDS: 0.9 % Sodium Chloride 1,000 ML 100 ML IVCONT ×2 (02:50→13:14)
[2021-09-12 03:40] VITALS: BP 113/57; PULSE 76; RESP 15; TEMP 36.3; O2SAT 96
[2021-09-12] MEDS: Omeprazole 20 MG CAPSULE.DR PO (05:37)
[2021-09-12 05:57] LABS: Appearance Urine CLEAR; Color Urine YELLOW; Glucose Urine UA NEG (NEG); Leukocyte Esterase Urine NEG (NEG); Nitrite Urine NEG (NEG); PH 5.5 (5.0-8.0); Specific Gravity - Urine 1.025 (1.005-1.025); UACC Culture Trigger NO; Urine Blood 2+ (NEG); Urine Ketones NEG (NEG); Urine Protein 2+ MG/DL (NEG-TRACE)
[2021-09-12 06:01] LABS: Hematocrit 26.5 % (37.0-47.0); Hemoglobin 8.3 g/dl (12.0-16.0); Mean Corpuscular HGB Conc 31.3 g/dl (31.0-35.0); Mean Corpuscular Hemoglobin 25.5 pg (27.0-33.0); Mean Corpuscular Volume 81.3 fL (80.0-98.0); Mean Platelet Volume 9.6 fL (9.4-12.3); Platelet Count 135 X10*3/uL (160-400); Red Blood Count 3.26 X10*6/uL (4.20-5.50); Red Cell Distribution Width 15.6 % (11.0-16.0); White Blood Count 3.7 X10*3/uL (4.8-10.8)
[2021-09-12 06:15] LABS: Creatinine Urine 144.91 mg/dL
[2021-09-12 06:18] LABS: Anion Gap 15 (12-20); Blood Urea Nitrogen 63 mg/dL (9-16); Calcium 8.1 mg/dL (8.4-10.2); Carbon Dioxide 17 mmol/L (22-29); Chloride 110 mmol/L (96-108); Creatinine Clr Calc Pharmacy 26.3; Estimated Glomerular Filt Rate 12; Glucose Random 145 mg/dL (60-115); Potassium 4.4 mmol/L (3.3-5.1); Sodium 138 mmol/L (135-145)
[2021-09-12 07:11] LABS: Bacteria Urine 1+ /LPF; Squamous Epithelial Cell Urine 1+ /LPF
[2021-09-12 07:35] LABS: Glucose, Whole Blood 158 mg/dL (60-115)
[2021-09-12 08:00] VITALS: BP 107/56; PULSE 76; RESP 20; TEMP 37; O2SAT 96
--- NOTE | 2021-09-12 09:18 | MHC.CM.PN ---
Patient lives at home alone (with cat). Per brother Zelalem, she is independent and still drives. She has a colostomy, he does not know who the supplier company is for the supplies, but he did indicate that she is independent with caring for this colostomy. He brought her the supplies to [facility] so she has them in the hospital. He indicated that he took her car keys from her at [facility] so that she could not leave prior to completion of treatment (he states she is very interested in getting home as soon as possible). Zelalem states he believes (but is unsure) that she previously had a VNA that comes into her house M, W, F to assist w/medication administration, as she struggles w/compliance issues. At time of D/C, plan is for CM dept to call Zelalem directly and he will bring her car keys and car back to the hospital for her so that she may drive herself home. CM to follow.
[2021-09-12] MEDS: Omeprazole 40 MG CAPSULE.DR PO ×2 (09:44→20:43)
[2021-09-12 11:03] LABS: Glucose, Whole Blood 160 mg/dL (60-115)
[2021-09-12 11:42] VITALS: BP 115/60; PULSE 72; RESP 20; TEMP 36.4; O2SAT 98
[2021-09-12] MEDS: Insulin Lispro 100 UNIT/ML 3 ML VIAL SUBCUT ×2 (12:16→20:46)
--- NOTE | 2021-09-12 12:32 | P.PNIM_ITS ---
Subjective Subjective Date of Service: 09/12/21 Review of Systems reporting fever, chills and generalized weakness No chest pain, palpitation No shortness of breath or coughing No abdominal pain, nausea or vomiting No urinary symptoms foot wound Physical Exam Vital Signs: Vital Signs: Last Vital Signs Temp 97.5 F 09/12/21 11:42 Pulse 72 09/12/21 11:42 Resp 20 09/12/21 11:42 BP 115/60 09/12/21 11:42 Pulse Ox 98 09/12/21 11:42 BMI result Body Mass Index 55.5 Const: Other: Constitutional : Alert, interactive, morbidly obese, not in distress Neck : Normal inspection, Supple Cardiovascular : RRR, no JVP, no lower extremity edema Respiratory : fair bilateral air entry, no crackles, wheezes or rhonchi Gastrointestinal: soft, lax, Normal bowel sounds, Non tender Skin : Warm, Dry covert 2 x 2 ft wound with mildly surrounding erythema at the heel with surrounding callus no drainagen noted. Neurological : Alert & oriented x3, No focal deficit , CN 2-12 within normal Objective Data Active Medications Acetaminophen (Acetaminophen 325 Mg Tablet) 650 mg PO Q6H PRN PRN Reason: Pain, Mild (Pain Scale 1-3) Hydrocodone Bitart/Acetaminophen (Hydrocodone Bit/Acetam 5/325 Tablet) 1 tab PO Q8H PRN PRN Reason: Pain (Scale Score 7-10) Aspirin (Aspirin Enteric Coated 81 Mg Tablet.) 81 mg PO BEDTIME [facility] Last Admin: 09/11/21 21:09 Dose: 81 mg Documented by: CLARE Atorvastatin Calcium (Atorvastatin Calcium 20 Mg Tablet) 20 mg PO BEDTIME [facility] Last Admin: 09/11/21 21:09 Dose: 20 mg Documented by: CLARE Cephalexin HCl (Cephalexin 250 Mg Capsule) 250 mg PO Q24H [facility] Heparin Sodium (Porcine) (Heparin Sodium,Porcine 5,000 Unit/Ml Vial) 5,000 unit SUBCUT Q12H [facility] Last Admin: 09/12/21 09:40 Dose: Not Given Documented by: TELMA Non-Admin Reason: Patient Refused Sodium Chloride (Ns) 1,000 mls @ 100 mls/hr IVCONT .Q10H [facility] Last Admin: 09/12/21 02:50 Dose: 100 mls/hr Documented by: LEOBARDO Insulin Glargine (Insulin Glargine,Hum.Rec.Anlog 100 Unit/Ml 10 Ml Vial) 60 unit SUBCUT BEDTIME [facility] Last Admin: 09/11/21 21:09 Dose: 60 unit Documented by: CLARE Insulin Human Lispro (Insulin Lispro 100 Unit/Ml 3 Ml Vial) 0 unit SUBCUT QIDACHS [facility]; Protocol Last Admin: 09/12/21 12:16 Dose: 2 unit Documented by: TELMA Metoprolol Succinate (Metoprolol Succinate Er 100 Mg Tab.Er.24h) 200 mg PO BEDTIME [facility]; Protocol Last Admin: 09/11/21 21:09 Dose: 200 mg Documented by: CLARE Omeprazole (Omeprazole 40 Mg Capsule.Dr) 40 mg PO BID [facility] Last Admin: 09/12/21 09:44 Dose: 40 mg Documented by: TELMA Ondansetron HCl (Ondansetron Hcl 4 Mg/2 Ml Vial) 4 mg IVPUSH Q8H PRN PRN Reason: Nausea and Vomiting Pharmacy Consult (Consult Rx Perform Med Rec) 1 each MISCELLANE ONCE PRN PRN Reason: Consult order Pharmacy Consult (Consult Rx Vancomycin Dosing) 1 each MISCELLANE DAILY PRN PRN Reason: Consult order Sodium Chloride (0.9 % Sodium Chloride Flush 3 Ml Syringe) 3 ml IVFLUSH QSHIFT [facility] Last Admin: 09/12/21 09:39 Dose: Not Given Documented by: TELMA Non-Admin Reason: IV Running Sodium Zirconium Cyclosilicate (Sodium Zirconium Cyclosilicate 10 Gm Powd.Pack) 10 gm PO BEDTIME [facility] Last Admin: 09/11/21 21:11 Dose: 10 gm Documented by: CLARE Labs CBC & Chem 7: 09/12/21 05:36 09/12/21 05:36 Labs: Laboratory Results - last 24 hr 09/11/21 09/11/21 09/11/21 14:03 14:03 14:03 MCV 80.0 MCH 25.7 L MCHC 32.1 RDW 15.5 Plt Count 149 L D MPV 9.5 Immature Gran % (Auto) 0.5 H Neut % (Auto) 70.0 Lymph % (Auto) 18.7 L [place] % (Auto) 8.4 Eos % (Auto) 1.9 Baso % (Auto) 0.5 Lymph # (Auto) 0.8 L [place] # (Auto) 0.4 Eos # (Auto) 0.1 Baso # (Auto) 0.0 Abs Immat Gran (auto) 0.02 Absolute Neuts (auto) 2.9 Absolute Nucleated RBC 0.000 Nucleated RBC % (auto) 0.0 ESR 67 H Anion Gap 16 Estim Creat Clear Calc 24.6 Estimated GFR 11 POC Glucose Random Glucose 204 H Lactic Acid Calcium 8.6 D Total Bilirubin 0.4 Direct Bilirubin 0.2 AST 34 H ALT 20 Alkaline Phosphatase 62 D C-Reactive Protein 2.04 H Total Protein 6.8 Albumin 3.9 D Urine Color Urine Appearance Urine pH Ur Specific [place] Urine Protein Urine Glucose (UA) Urine Ketones Urine Blood Urine Nitrite Ur Leukocyte Esterase Urine RBC Urine WBC Ur Squamous Epith Cells Urine Bacteria Ur Random Sodium Urine Creatinine COVID-19 (GARY) COVID-[employer] 09/11/21 09/11/21 09/11/21 14:03 15:26 18:14 MCV MCH MCHC RDW Plt Count MPV Immature Gran % (Auto) Neut % (Auto) Lymph % (Auto) [place] % (Auto) Eos % (Auto) Baso % (Auto) Lymph # (Auto) [place] # (Auto) Eos # (Auto) Baso # (Auto) Abs Immat Gran (auto) Absolute Neuts (auto) Absolute Nucleated RBC Nucleated RBC % (auto) ESR Anion Gap Estim Creat Clear Calc Estimated GFR POC Glucose 137 H Random Glucose Lactic Acid 1.2 Calcium Total Bilirubin Direct Bilirubin AST ALT Alkaline Phosphatase C-Reactive Protein Total Protein Albumin Urine Color Urine Appearance Urine pH Ur Specific [place] Urine Protein Urine Glucose (UA) Urine Ketones Urine Blood Urine Nitrite Ur Leukocyte Esterase Urine RBC Urine WBC Ur Squamous Epith Cells Urine Bacteria Ur Random Sodium Urine Creatinine COVID-19 (GARY) Positive A COVID-19 eRelyx See Note 09/11/21 09/12/21 09/12/21 20:13 05:36 05:36 MCV 81.3 MCH 25.5 L MCHC 31.3 RDW 15.6 Plt Count 135 L MPV 9.6 Immature Gran % (Auto) Neut % (Auto) Lymph % (Auto) [place] % (Auto) Eos % (Auto) Baso % (Auto) Lymph # (Auto) [place] # (Auto) Eos # (Auto) Baso # (Auto) Abs Immat Gran (auto) Absolute Neuts (auto) Absolute Nucleated RBC 0.000 Nucleated RBC % (auto) 0.0 ESR Anion Gap 15 Estim Creat Clear Calc 26.3 Estimated GFR 12 POC Glucose 153 H Random Glucose 145 H Lactic Acid Calcium 8.1 L Total Bilirubin Direct Bilirubin AST ALT Alkaline Phosphatase C-Reactive Protein Total Protein Albumin Urine Color Urine Appearance Urine pH Ur Specific [place] Urine Protein Urine Glucose (UA) Urine Ketones Urine Blood Urine Nitrite Ur Leukocyte Esterase Urine RBC Urine WBC Ur Squamous Epith Cells Urine Bacteria Ur Random Sodium Urine Creatinine COVID-19 (GARY) COVID-19 Clin Com 09/12/21 09/12/21 09/12/21 07:30 10:59 Unknown MCV MCH MCHC RDW Plt Count MPV Immature Gran % (Auto) Neut % (Auto) Lymph % (Auto) [place] % (Auto) Eos % (Auto) Baso % (Auto) Lymph # (Auto) [place] # (Auto) Eos # (Auto) Baso # (Auto) Abs Immat Gran (auto) Absolute Neuts (auto) Absolute Nucleated RBC Nucleated RBC % (auto) ESR Anion Gap Estim Creat Clear Calc Estimated GFR POC Glucose 158 H 160 H Random Glucose Lactic Acid Calcium Total Bilirubin Direct Bilirubin AST ALT Alkaline Phosphatase C-Reactive Protein Total Protein Albumin Urine Color Urine Appearance Urine pH Ur Specific [place] Urine Protein Urine Glucose (UA) Urine Ketones Urine Blood Urine Nitrite Ur Leukocyte Esterase Urine RBC Urine WBC Ur Squamous Epith Cells Urine Bacteria Ur Random Sodium Urine Creatinine 144.91 COVID-19 (GARY) COVID-19 Clin Com 09/12/21 09/12/21 Unknown Unknown MCV MCH MCHC RDW Plt Count MPV Immature Gran % (Auto) Neut % (Auto) Lymph % (Auto) [place] % (Auto) Eos % (Auto) Baso % (Auto) Lymph # (Auto) [place] # (Auto) Eos # (Auto) Baso # (Auto) Abs Immat Gran (auto) Absolute Neuts (auto) Absolute Nucleated RBC Nucleated RBC % (auto) ESR Anion Gap Estim Creat Clear Calc Estimated GFR POC Glucose Random Glucose Lactic Acid Calcium Total Bilirubin Direct Bilirubin AST ALT Alkaline Phosphatase C-Reactive Protein Total Protein Albumin Urine Color YELLOW Urine Appearance CLEAR Urine pH 5.5 Ur Specific [place] 1.025 Urine Protein 2+ H Urine Glucose (UA) NEG Urine Ketones NEG Urine Blood 2+ H Urine Nitrite NEG Ur Leukocyte Esterase NEG Urine RBC 1-4 Urine WBC 1-4 Ur Squamous Epith Cells 1+ Urine Bacteria 1+ Ur Random Sodium 60.0 Urine Creatinine COVID-19 (GARY) COVID-19 Clin Com Assessment and Plan (1) COVID-19: Status: Acute (2) Acute on chronic kidney failure: Status: Acute (3) Non-healing wound of right heel: Status: Acute Plan a 51 years old lady with PMH of type 2 diabetes, bipolar, depression, HTN, CKD stage4 among others who presents to the hospital with a complaint of right foot wound Found to have Robert I on CKD Robert I on CKD stage 4 non anion gap metabolic acidosis secondary to Decrease oral intake, medications creatinine mildly improved 3.8 from 4.1 at admission urinalysis and electrolytes showing large sodium in the urine ( unsure about the timing of the test) hold nephrotoxic medications continue gentle hydration Monitor intake and output pending Nephrology consult Monitor BMP Nonhealing wound in feet Diabetic foot with possible infection x-ray negative for osteomyelitis Will need good wound care, get wound care nurse consult start Levaquin renally adjusted dose COVID-19 infection Not requiring oxygen supplement Monitor hold on treatment for now HTN Hold enalapril and chlorthalidone Continue metoprolol Type 2 diabetes Start Lantus 60 units bedtime SSI HLD continue statin DVT PPX Heparin the patient will likely need to overnight hospital stay for evaluation and treatment of acute kidney injury and evaluation of the diabetic foot wound. Quality Stroke Does the patient have a stroke diagnosis?: No VTE Prior VTE?: No VTE Risk Level:: Medical - moderate - high VTE Device Contraindication: Treatment Not Indicated VTE Drug Contraindication: N/A - Med Ordered
[2021-09-12 15:25] VITALS: BP 90/60; PULSE 77; RESP 19; TEMP 37.1; O2SAT 98
[2021-09-12 15:39] LABS: Glucose, Whole Blood 155 mg/dL (60-115)
[2021-09-12] MEDS: HYDROcodone Bit/Acetam 5/325 TABLET 1 TAB PO (15:56)
[2021-09-12 18:55] VITALS: BP 100/58; PULSE 79; RESP 17; TEMP 37.1; O2SAT 98
[2021-09-12 20:33] LABS: Glucose, Whole Blood 177 mg/dL (60-115)
[2021-09-12] MEDS: Aspirin Enteric Coated 81 MG TABLET.DR PO (20:43)
[2021-09-12] MEDS: Metoprolol Succinate ER 100 MG TAB.ER.24H 200 MG PO (20:43)
[2021-09-12] MEDS: Atorvastatin Calcium 20 MG TABLET PO (20:44)
[2021-09-12] MEDS: levoFLOXacin 250 MG TABLET PO (20:44)
[2021-09-12] MEDS: Insulin Glargine,Hum.rec.anlog 100 UNIT/ML 10 ML VIAL 60 UNIT SUBCUT (20:45)
--- NOTE | 2021-09-12 22:49 | PC.NURSE ---
pt refused IV access,
[2021-09-13] VITALS: BP 127/64; PULSE 81; RESP 19; RESP 20; TEMP 36.7; O2SAT 95; O2SAT 97
[2021-09-13] MEDS: HYDROcodone Bit/Acetam 5/325 TABLET 1 TAB PO (02:35)
[2021-09-13 03:48] VITALS: BP 111/66; PULSE 89; RESP 20; TEMP 36.8; O2SAT 98
[2021-09-13 06:46] LABS: MANUAL DIFF FLAG NO
[2021-09-13 07:04] LABS: Basophils Percent Auto 0.5 % (0-2); Eosinophils Absolute Auto 0.1 X10*3/uL (0.0-0.4); Eosinophils Percent Auto 3.6 % (0-4); Hematocrit 25.8 % (37.0-47.0); Hemoglobin 8.1 g/dl (12.0-16.0); Imm Gran Abs Auto 0.02 X10*3/uL (0.00-0.03); Imm Gran Pct Auto 0.5 % (0.0-0.4); Mean Corpuscular HGB Conc 31.4 g/dl (31.0-35.0); Mean Corpuscular Volume 82.7 fL (80.0-98.0); Mean Platelet Volume 10.1 fL (9.4-12.3); Monocytes Absolute Auto 0.3 X10*3/uL (0.1-1.2); Monocytes Percent Auto 7.9 % (2-11); Neutrophils Absolute Auto 2.2 x10*3/uL (2.0-8.3); Neutrophils Percent Auto 60.5 % (45-73); Platelet Count 127 X10*3/uL (160-400); Red Blood Count 3.12 X10*6/uL (4.20-5.50); Red Cell Distribution Width 15.5 % (11.0-16.0); White Blood Count 3.7 X10*3/uL (4.8-10.8)
[2021-09-13 07:07] LABS: Anion Gap 14 (12-20); Blood Urea Nitrogen 62 mg/dL (9-16); Calcium 7.9 mg/dL (8.4-10.2); Carbon Dioxide 16 mmol/L (22-29); Chloride 113 mmol/L (96-108); Creatinine Clr Calc Pharmacy 28.5; Estimated Glomerular Filt Rate 13; Glucose Random 162 mg/dL (60-115); Potassium 4.5 mmol/L (3.3-5.1); Sodium 138 mmol/L (135-145)
[2021-09-13 07:09] LABS: C Reactive Protein 1.45 mg/dL (< or = 0.50)
[2021-09-13 07:29] LABS: Glucose, Whole Blood 150 mg/dL (60-115)
[2021-09-13 08:00] VITALS: BP 105/53; PULSE 71; RESP 16; TEMP 36.3; O2SAT 99
[2021-09-13 08:35] LABS: EOS Counted 0 CELLS; EOS QC POS YES; EOS Stain Quality OK YES; WBC, Counted 50 CELLS
[2021-09-13] MEDS: Omeprazole 40 MG CAPSULE.DR PO (10:00)
[2021-09-13 11:04] LABS: COVID-19 Test Negative (Negative); IDNOW Serial# 16C4AD1C
[2021-09-13 11:30] LABS: Glucose, Whole Blood 149 mg/dL (60-115)
--- NOTE | 2021-09-13 11:30 | PM.CNNEP ---
History of Present Illness Reason for Consult Consult date: 09/13/21 Reason for consult: ARMINDA Chief Complaint Chief complaint: Foot wound,ARMINDA History of Present Illness Narrative: 51 years old lady with known CKD among others who presented to the hospital with right foot wound that was started 2 weeks ago which has been getting worse.? She reported taking antibiotic of Keflex for the last 10 days with no improvement . She also had increased weakness and decreased oral intake.? She denies any chest pain, palpitation, shortness of breath, change in bowel habits or urinary symptoms.?In the emergency blood work was consistent with acute on chronic kidney injury.? She was admitted for further treatment. Nephrology has been consulted to assist in her clinical care during her current hospital stay Review of Systems Review of Systems Yes all other systems are reviewed and are negative PMFSH Past Medical History Medical History Anemia Bipolar disorder Chronic kidney disease, stage 3 Chronic knee pain Depression Diabetes GERD (gastroesophageal reflux disease) HTN (hypertension) Hyperlipidemia Hypogammaglobulinemia Morbid obesity TYLOR (obstructive sleep apnea) Ulcerative colitis Family History Family History Mother Coronary artery disease Father High cholesterol HTN (hypertension) Surgical History Surgical History Hx of resection of large bowel Social History Social History Household Members: None Housing: Apartment Do you presently have visiting nurse or other home services: No Alcohol intake: never Patient Tobacco Use Status: Never used Tobacco Cigarette Packs Per Day: 1 Use of substances other than those prescribed or required for medical reasons: No Currently Displaying Signs/Symptoms of Drug Intoxication Withdrawal: No Have you been hit, kicked, punched, or otherwise hurt by someone within the past year? If so, by whom?: No Do you feel safe in your current relationship?: No Current Relationship Is there a partner from a previous relationship who is making you feel unsafe now?: No Are you made to feel afraid or neglected: No Advance Directives: No Advance Directives Information Provided: No Do you have thoughts of harming others: None Do you have a plan to hurt others: No Plan Recently lost weight without trying: Yes How much weight loss: 2-13 pounds Eating poorly because of decreased appetite: Yes Nutrition screen score: 4 Nutrition Risks: No Nutritional Risk Patient : No : No Poor oral hygiene: No service: No Current occupational status: disabled Meds Allergies Allergy/AdvReac Type Severity Reaction Status Date / Time oxcarbazepine Allergy Intermediate AGITATION Unverified 05/03/21 14:40 [From TRILEPTAL] topiramate [From TOPAMAX] Allergy Intermediate KIDNEY Unverified 05/03/21 14:40 STONES aripiprazole [From ABILIFY] Allergy Mild HIVES Unverified 05/03/21 14:40 acetaminophen [Percocet] Allergy Unknown Unknown Verified 05/03/21 14:40 carbamazepine [From Tegretol] Allergy Unknown AGITATION, Unverified 05/03/21 14:40 SUICIDAL clonazepam [From Klonopin] Allergy Unknown RASH Unverified 05/03/21 14:40 codeine [Codeine] Allergy Unknown VOMIT Unverified 05/03/21 14:40 cylert Allergy Unknown Unknown Unverified 05/03/21 14:40 haloperidol [From HALDOL] Allergy Unknown RASH Unverified 05/03/21 14:40 lorazepam [From ATIVAN] Allergy Unknown RASH Unverified 05/03/21 14:40 oxycodone [Percocet] Allergy Unknown Unknown Verified 05/03/21 14:40 pemoline [From Cylert] Allergy Unknown RASH Unverified 05/03/21 14:40 risperidone [From Risperdal] Allergy Unknown INCREASE Unverified 05/03/21 14:40 PROLECTIN LEVEL Sulfa (Sulfonamide Allergy Unknown JAUNDICE Unverified 05/03/21 14:40 Antibiotics) doxycycline AdvReac Severe Chest Pain Verified 09/11/21 19:33 abilify Allergy Unknown Unknown Uncoded 05/03/21 14:40 ativan Allergy Unknown Unknown Uncoded 05/03/21 14:40 buspar Allergy Unknown Unknown Uncoded 05/03/21 14:40 celexa Allergy Unknown rash Uncoded 05/03/21 14:40 codeine Allergy Unknown Unknown Uncoded 05/03/21 14:40 depakote Allergy Unknown Unknown Uncoded 05/03/21 14:40 From BuSpar Allergy Unknown RASH Uncoded 05/03/21 14:40 From Celexa Allergy Unknown RASH Uncoded 05/03/21 14:40 From Tolectin Allergy Unknown RASH Uncoded 05/03/21 14:40 From Zoloft Allergy Unknown RASH,KIDNEY Uncoded 05/03/21 14:40 PAIN haldol Allergy Unknown Unknown Uncoded 05/03/21 14:40 hydrodiuril Allergy Unknown Unknown Uncoded 05/03/21 14:40 klonopin Allergy Unknown Unknown Uncoded 05/03/21 14:40 percocet Allergy Unknown Unknown Uncoded 05/03/21 14:40 risperdal Allergy Unknown Unknown Uncoded 05/03/21 14:40 tegretol Allergy Unknown Unknown Uncoded 05/03/21 14:40 tolectin DS Allergy Unknown Unknown Uncoded 05/03/21 14:40 Topamax Allergy Unknown kidney Uncoded 05/03/21 14:40 stones zesteril Allergy Unknown Unknown Uncoded 05/03/21 14:40 zoloft Allergy Unknown rash Uncoded 05/03/21 14:40 From Percocet AdvReac Unknown VOMIT Uncoded 05/03/21 14:40 Active Medications: Current Medications Acetaminophen (Acetaminophen 325 Mg Tablet) 650 mg PO Q6H PRN PRN Reason: Pain, Mild (Pain Scale 1-3) Hydrocodone Bitart/Acetaminophen (Hydrocodone Bit/Acetam 5/325 Tablet) 1 tab PO Q8H PRN PRN Reason: Pain (Scale Score 7-10) Last Admin: 09/13/21 02:35 Dose: 1 tab Documented by: Aspirin (Aspirin Enteric Coated 81 Mg Tablet.) 81 mg PO BEDTIME [facility] Last Admin: 09/12/21 20:43 Dose: 81 mg Documented by: Atorvastatin Calcium (Atorvastatin Calcium 20 Mg Tablet) 20 mg PO BEDTIME [facility] Last Admin: 09/12/21 20:44 Dose: 20 mg Documented by: Heparin Sodium (Porcine) (Heparin Sodium,Porcine 5,000 Unit/Ml Vial) 5,000 unit SUBCUT Q12H [facility] Last Admin: 09/13/21 10:02 Dose: Not Given Documented by: Insulin Glargine (Insulin Glargine,Hum.Rec.Anlog 100 Unit/Ml 10 Ml Vial) 60 unit SUBCUT BEDTIME [facility] Last Admin: 09/12/21 20:45 Dose: 60 unit Documented by: Insulin Human Lispro (Insulin Lispro 100 Unit/Ml 3 Ml Vial) 0 unit SUBCUT QIDACHS [facility]; Protocol Last Admin: 09/13/21 10:02 Dose: Not Given Documented by: Levofloxacin (Levofloxacin 250 Mg Tablet) 250 mg PO Q48H [facility] Last Admin: 09/12/21 20:44 Dose: 250 mg Documented by: Metoprolol Succinate (Metoprolol Succinate Er 100 Mg Tab.Er.24h) 200 mg PO BEDTIME [facility]; Protocol Last Admin: 09/12/21 20:43 Dose: 200 mg Documented by: Omeprazole (Omeprazole 40 Mg Capsule.Dr) 40 mg PO BID [facility] Last Admin: 09/13/21 10:00 Dose: 40 mg Documented by: Ondansetron HCl (Ondansetron Hcl 4 Mg/2 Ml Vial) 4 mg IVPUSH Q8H PRN PRN Reason: Nausea and Vomiting Pharmacy Consult (Consult Rx Perform Med Rec) 1 each MISCELLANE ONCE PRN PRN Reason: Consult order Pharmacy Consult (Consult Rx Vancomycin Dosing) 1 each MISCELLANE DAILY PRN PRN Reason: Consult order Sodium Chloride (0.9 % Sodium Chloride Flush 3 Ml Syringe) 3 ml IVFLUSH QSHIFT [facility] Last Admin: 09/13/21 10:02 Dose: Not Given Documented by: Sodium Zirconium Cyclosilicate (Sodium Zirconium Cyclosilicate 10 Gm Powd.Pack) 10 gm PO BEDTIME [facility] Last Admin: 09/12/21 20:53 Dose: Not Given Documented by: Home Medications Medication Instructions Recorded Confirmed Last Taken Type aspirin 81 mg tablet,delayed 81 mg PO BEDTIME 07/08/20 09/11/21 09/10/21 History release atorvastatin 20 mg tablet 1 tab PO BEDTIME 07/08/20 09/11/21 Unknown History cholecalciferol (vitamin D3) 50 50 mcg PO BEDTIME 07/08/20 09/11/21 Unknown History mcg (2,000 unit) capsule (Vitamin D3) enalapril maleate 20 mg tablet 1 tab PO BEDTIME 07/08/20 09/11/21 09/10/21 History ferrous sulfate 325 mg (65 mg 325 mg PO BEDTIME 07/08/20 09/11/21 09/10/21 History iron) tablet (Iron (ferrous sulfate)) insulin aspar prot-insulin aspart See Protocol SUBCUT BIDAC 07/08/20 09/11/21 09/10/21 History 100 unit/mL (70-30) subcutaneous pen (Novolog Mix 70-30FlexPen U-100) insulin degludec 200 unit/mL (3 66 unit SUBCUT BEDTIME 07/08/20 09/11/21 09/10/21 History mL) subcutaneous pen (Tresiba FlexTouch U-200 insulin) metoprolol succinate 200 mg 1 tab PO BEDTIME 07/08/20 09/11/21 09/10/21 History tablet,extended release 24 hr chlorthalidone 25 mg tablet 1 tab PO BEDTIME 09/11/21 09/11/21 09/10/21 History cyanocobalamin (vitamin B-12) 1,000 mcg PO BEDTIME 09/11/21 09/11/21 Unknown History 1,000 mcg tablet (Vitamin B-12) hydrocodone 5 mg-acetaminophen 325 1 tab PO Q8H PRN 09/11/21 09/11/21 09/10/21 History mg tablet lansoprazole 30 mg capsule,delayed 1 cap PO BEDTIME 09/11/21 09/11/21 09/10/21 History release sodium zirconium cyclosilicate 10 1 packet PO BEDTIME 09/11/21 09/11/21 09/10/21 History gram oral powder packet (Lokelma) Physical Exam Vital Signs: Last Vital Signs Temp 97.4 F 09/13/21 08:00 Pulse 71 09/13/21 08:00 Resp 16 09/13/21 08:00 BP 105/53 L 09/13/21 08:00 Pulse Ox 99 09/13/21 08:00 BMI result Body Mass Index 55.5 Const General: no acute distress Eyes EOM: EOMs intact bilaterally Neck Neck: Yes supple Resp Auscultation: diminished lung sounds Cardio Rate: regular rate GI Palpation (GI): Soft to palpation Neuro General: moves all extremities Results Lab Results Result Diagrams: 09/13/21 06:35 09/13/21 06:35 Lab results: Chemistry 09/11/21 09/12/21 09/13/21 14:03 05:36 06:35 Sodium 137 138 138 Potassium 4.7 4.4 4.5 Carbon Dioxide 18 L 17 L 16 L BUN 66 H D 63 H 62 H Creatinine 4.14 H* 3.87 H 3.57 H Calcium 8.6 D 8.1 L 7.9 L Hematology 09/11/21 09/12/21 09/13/21 14:03 05:36 06:35 WBC 4.2 L 3.7 L 3.7 L Hgb 9.0 L 8.3 L 8.1 L Plt Count 149 L D 135 L 127 L Urinalysis 09/12/21 Unknown Urine Color YELLOW Urine Appearance CLEAR Urine pH 5.5 Ur Specific [place] 1.025 Urine Protein 2+ H Urine Glucose (UA) NEG Urine Ketones NEG Urine Blood 2+ H Urine Nitrite NEG Ur Leukocyte Esterase NEG Urine RBC 1-4 Urine WBC 1-4 Ur Squamous Epith Cells 1+ Urine Studies 09/12/21 Unknown Urine Creatinine 144.91 Assessment and Plan (1) Acute on chronic kidney failure: Status: Acute Plan ARMINDA likely due to tubular injury Has CKD 4 at baseline Had been taking thiazide/ACEI @ home- On hold DDx- margie infectious GN/ AIN from Keflex( both unlikely as renal fn better with supp care) Ordered C3/C4 for AM; Metabolically acidotic- Could start NaHCO3 650 mg bid No reason to suspect obstructive uropathy; C/W rest of current supportive care Labs AM. Shall closely follow up Procedures Date of Service Date of Service: 09/13/21
--- NOTE | 2021-09-13 11:31 | MHC.CM.PN ---
pt dcd home no skilled servceis orderdf by
--- NOTE | 2021-09-13 11:44 | PM.DS ---
DS: Providers Provider Date of Service: 09/13/21 Date of admission: 09/11/21 15:13 Primary care physician: Smitha Coyne DO Consults: 09/11/21 15:11 Consult to Nephrology Routine Consulting Provider: Terri Gonzalez Reason for consultation: ARMINDA on CKD DS: Diagnosis Discharge Diagnosis (1) Acute on chronic kidney failure: Status: Acute (2) Pancytopenia: Status: Acute (3) Metabolic acidosis: Status: Acute (4) COVID-19: Status: Acute (5) Non-healing wound of right heel: Status: Acute DS: Summary Hospital Course Hospital Course: Admission note HPI ?a 51 years old lady with PMH of type 2 diabetes, bipolar, depression, HTN, CKD stage 4 among others who presents to the hospital with a complaint of right foot wound that was started 2 weeks ago as the blisters any fold over the last few weeks until popped 2 days ago and started to be painful with no reported discharge.? She reported taking antibiotic of Keflex for the last 10 days with no improvement and associated? fever of 99-100? Along with increased weakness and decreased oral intake.? She reported decreased sensation in her feet secondary to diabetes this.? Denies any chest pain, palpitation, shortness of breath, change in bowel habits or urinary symptoms.? In the emergency blood work was consistent with acute on chronic kidney injury.? Admitted for further evaluation and treatment. Hospital course The patient was admitted to the hospital for evaluation of acute kidney injury on top of CKD stage for associated with non anion gap metabolic acidosis which believed to be secondary to decreased oral intake, home medications and recent COVID infection. Her kidney function responded to IV fluids and improved from 4.1 at time of admission to 3.57 and remained stable around the number. Evaluated by Nephrology team who recommended starting sodium bicarbonate at time of discharge and to follow-up as outpatient the clinic in 2 weeks. Will repeat BMP as outpatient. She reported nonhealing right foot wound which an x-ray was negative for any osteomyelitis. Treated with IV antibiotics of vancomycin and then deescalated to Levaquin as no drainage, erythema noted. Wound looks generally clean and need better wound care. Tested positive for Covid19 at time of admission with symptoms of chills and weakness over the last few days. Repeated test at time of discharge was negative. The patient did not require any active treatment for COVID as she was saturating 99% on room air. She was noted to have pancytopenia which remained stable during the hospital stay and believed to be secondary to having COVID-19 infection advance kidney disease. To be re-evaluated as outpatient after her condition stabilize. Continue Levaquin for 4 more days To start sodium bicarbonate twice Daily To repeat BMP in 1 week To follow-up with Nephrology as outpatient in 2 weeks Time Spent with Patient Time attestation: Total time spent providing and/or coordinating discharge services: Discharge coordination time: Greater than 30 minutes Quality: Safe Use of Opioids Does Pt have an Active Cancer Diagnosis on the Problem List?: No Quality: Stroke Does the patient have a stroke diagnosis?: No Physical Exam Vital Signs: Vital Signs: Last Vital Signs Temp 97.4 F 09/13/21 08:00 Pulse 71 09/13/21 08:00 Resp 16 09/13/21 08:00 BP 105/53 L 09/13/21 08:00 Pulse Ox 99 09/13/21 08:00 BMI result Body Mass Index 55.5 Const: Other: Constitutional : Alert, interactive, morbidly obese, not in distress Neck : Normal inspection, Supple Cardiovascular : RRR, no JVP, no lower extremity edema Respiratory : fair bilateral air entry, no crackles, wheezes or rhonchi Gastrointestinal: soft, lax, Normal bowel sounds, Non tender Skin : Warm, Dry covert 2 x 2 ft wound with no surrounding erythema at the heel with surrounding callus no drainagen noted. Neurological : Alert & oriented x3, No focal deficit , CN 2-12 within normal DS: Data Data Completed and Pending Labs on day of discharge: Laboratory Results - last 24 hr 09/12/21 09/12/21 09/12/21 15:24 20:23 Unknown WBC RBC Hgb Hct MCV MCH MCHC RDW Plt Count MPV Immature Gran % (Auto) Neut % (Auto) Lymph % (Auto) [place] % (Auto) Eos % (Auto) Baso % (Auto) Lymph # (Auto) [place] # (Auto) Eos # (Auto) Baso # (Auto) Abs Immat Gran (auto) Absolute Neuts (auto) Absolute Nucleated RBC Nucleated RBC % (auto) Sodium Potassium Chloride Carbon Dioxide Anion Gap BUN Creatinine Estim Creat Clear Calc Estimated GFR POC Glucose 155 H 177 H Random Glucose Calcium C-Reactive Protein Urine Eosinophils % 0.0 COVID-19 (GARY) COVID-19 [employer] 09/13/21 09/13/21 09/13/21 06:35 06:35 06:35 WBC 3.7 L RBC 3.12 L Hgb 8.1 L Hct 25.8 L MCV 82.7 MCH 26.0 L MCHC 31.4 RDW 15.5 Plt Count 127 L MPV 10.1 Immature Gran % (Auto) 0.5 H Neut % (Auto) 60.5 Lymph % (Auto) 27.0 [place] % (Auto) 7.9 Eos % (Auto) 3.6 Baso % (Auto) 0.5 Lymph # (Auto) 1.0 L [place] # (Auto) 0.3 Eos # (Auto) 0.1 Baso # (Auto) 0.0 Abs Immat Gran (auto) 0.02 Absolute Neuts (auto) 2.2 Absolute Nucleated RBC 0.000 Nucleated RBC % (auto) 0.0 Sodium 138 Potassium 4.5 Chloride 113 H Carbon Dioxide 16 L Anion Gap 14 BUN 62 H Creatinine 3.57 H Estim Creat Clear Calc 28.5 Estimated GFR 13 POC Glucose Random Glucose 162 H Calcium 7.9 L C-Reactive Protein 1.45 H Urine Eosinophils % COVID-19 (GARY) COVID-[employer] 09/13/21 09/13/21 09/13/21 07:24 10:35 11:22 WBC RBC Hgb Hct MCV MCH MCHC RDW Plt Count MPV Immature Gran % (Auto) Neut % (Auto) Lymph % (Auto) [place] % (Auto) Eos % (Auto) Baso % (Auto) Lymph # (Auto) [place] # (Auto) Eos # (Auto) Baso # (Auto) Abs Immat Gran (auto) Absolute Neuts (auto) Absolute Nucleated RBC Nucleated RBC % (auto) Sodium Potassium Chloride Carbon Dioxide Anion Gap BUN Creatinine Estim Creat Clear Calc Estimated GFR POC Glucose 150 H 149 H Random Glucose Calcium C-Reactive Protein Urine Eosinophils % COVID-19 (GARY) Negative COVID-Contorion See Note Preliminary micro results at discharge 09/11/21 15:15 Blood Culture - Preliminary Blood - Venous No growth after 24 hours. 09/11/21 14:03 Blood Culture - Preliminary Blood - Venous No growth after 24 hours. Discharge Plan Discharge Patient Disposition: Home, Self-Care Discharge Diagnosis: Acute kidney injury Nonhealing wound of right heel Referrals: Smitha Coyne DO [Primary Care Provider] - 1 Week Discharge Medications: New levofloxacin 250 mg Tablet 250 mg PO Q24W 4 Days Qty: 1 0RF sodium bicarbonate 650 mg tablet 650 mg PO BID Qty: 60 0RF Continued atorvastatin 20 mg tablet 1 tab PO BEDTIME 0RF metoprolol succinate 200 mg tablet extended release 24 hr 1 tab PO BEDTIME 0RF aspirin 81 mg Tablet,Delayed Release (Dr/Ec) 81 mg PO BEDTIME 0RF insulin asp prt-insulin aspart [Novolog Mix 70-30FlexPen U-100] 100 unit/mL (70-30) insulin pen See Protocol unit subcut BIDAC 0RF Protocol: Insulin Correction Scale Less than or equal to 110 ---- Give (units): 0 111 to 150 Give (units): 0 151 to 200 Give (units): 2 201 to 250 Give (units): 4 251 to 300 Give (units): 6 301 to 350 Give (units): 8 Greater than 350 Give (units): 10 Call MD if Blood Glucose > : 350 Tresiba FlexTouch U-200 200 unit/mL (3 mL) insulin pen 66 unit subcut BEDTIME 0RF ferrous sulfate [Iron (ferrous sulfate)] 325 mg (65 mg iron) Tablet 325 mg PO BEDTIME 0RF cholecalciferol (vitamin D3) [Vitamin D3] 50 mcg (2,000 unit) Capsule 50 mcg PO BEDTIME 0RF hydrocodone-acetaminophen 5-325 mg tablet 1 tab PO Q8H PRN (Reason: Pain (Scale Score 7-10)) 0RF chlorthalidone 25 mg tablet 1 tab PO BEDTIME 0RF lansoprazole 30 mg capsule,delayed release(DR/EC) 1 cap PO BEDTIME 0RF Lokelma 10 gram powder in packet 1 packet PO BEDTIME 0RF cyanocobalamin (vitamin B-12) [Vitamin B-12] 1,000 mcg tablet 1,000 mcg PO BEDTIME 0RF Held enalapril maleate 20 mg tablet 1 tab PO BEDTIME 0RF Hold Instructions: Resume on 09/16/21. Discharge Orders: Discharge Order (Routine); Ordered 09/13/21 Ordered By: Joel Royal Diet: advance to usual diet Activity on Discharge: As tolerated Stand Alone Forms: Patient Portal Discharge page Other Ambulatory Orders: Basic Metabolic Panel (Routine) Timeframe: 1 Week Facility: [facility] - Location: Laboratory Ordered By: Joel Royal Care Plan Goals: Read below Health Concerns: Read below Plan of Treatment: Read below Assessment: You were admitted to the hospital for evaluation of nonhealing wound of the right she. Treated with IV antibiotics with fair response. To continue with Levaquin at time of discharge. Hold lisinopril for the next 3 days Start sodium bicarbonate twice Daily To repeat BMP next week To follow up with Nephrology as outpatient in 2 weeks. Discharge Date/Time: 09/13/21 13:06
== END 2021-09-13 13:06 | disposition home or self-care (01) | DRG 637 ==
LOC: HO.ED 15:01 → HO.EDOVER 15:31 → HO.IMC 16:42
PROVIDERS: Nurse Practitioner Family; Admitting Provider Student in an Organized Health Care Education/Training Program; Emergency Provider Emergency Medicine; PCP Family Medicine; Visit Provider Student in an Organized Health Care Education/Training Program
DX: E11.621 Type 2 diabetes mellitus with foot ulcer (principal); U07.1 COVID-19; E87.2 Acidosis; L97.419 Non-pressure chronic ulcer of right heel and midfoot with unspecified severity; Z68.43 Body mass index [BMI] 50.0-59.9, adult; D61.818 Other pancytopenia; N17.0 Acute kidney failure with tubular necrosis; N18.4 Chronic kidney disease, stage 4 (severe); E78.5 Hyperlipidemia, unspecified; I12.9 Hypertensive chronic kidney disease with stage 1 through stage 4 chronic kidney disease, or unspecified chronic kidney disease; K21.9 Gastro-esophageal reflux disease without esophagitis; E66.01 Morbid (severe) obesity due to excess calories; E11.22 Type 2 diabetes mellitus with diabetic chronic kidney disease; F31.9 Bipolar disorder, unspecified; G47.33 Obstructive sleep apnea (adult) (pediatric); Z88.5 Allergy status to narcotic agent; Z88.2 Allergy status to sulfonamides; Z79.4 Long term (current) use of insulin; Z79.82 Long term (current) use of aspirin; Z79.899 Other long term (current) drug therapy
CPT/HCPCS: 36415; 73620; 80048; 80076; 81001; 82947; 83605; 84300; 85025; 85027; 85652; 86140; 87040; 87635; 89190; 96361; 96374; 99284; 99285; J2543; J3370

== ENCOUNTER 2021-09-16 11:18 | Outpatient (REF) | payer MEDICARE, MEDICAID, SELFPAY ==
[2021-09-16 13:42] LABS: Potassium 5.3 mmol/L (3.3-5.1)
[2021-09-16 13:47] LABS: Anion Gap 17 (12-20); Blood Urea Nitrogen 52 mg/dL (9-16); Calcium 8.3 mg/dL (8.4-10.2); Carbon Dioxide 18 mmol/L (22-29); Chloride 110 mmol/L (96-108); Estimated Glomerular Filt Rate 14; Iron 85 mcg/dL (30-160); Percent Iron Saturation 26 % (15-50); Potassium 5.2 mmol/L (3.3-5.1); Sodium 140 mmol/L (135-145); Total Iron Binding Capacity 331 mcg/dL (228-428); Unsaturated Iron Binding 246 ug/dL
== END 2021-09-16 11:19 | disposition home or self-care (01) ==
LOC: HO.LAB 11:18
PROVIDERS: Absent Provider Internal Medicine Nephrology; PCP Family Medicine; Referring Provider Family Medicine; Visit Provider Surgery
DX: Z00.00 Encounter for general adult medical examination without abnormal findings (principal); N30.01 Acute cystitis with hematuria; I12.9 Hypertensive chronic kidney disease with stage 1 through stage 4 chronic kidney disease, or unspecified chronic kidney disease; N18.4 Chronic kidney disease, stage 4 (severe); E11.22 Type 2 diabetes mellitus with diabetic chronic kidney disease; N20.0 Calculus of kidney; R80.1 Persistent proteinuria, unspecified; L72.0 Epidermal cyst
CPT/HCPCS: 36415; 80051; 82310; 82565; 83540; 84132; 84520; 99202

== ENCOUNTER 2021-11-15 13:26 | Outpatient (REF) | payer MEDICARE, MEDICAID, SELFPAY | END 2021-11-15 13:27 | disposition home or self-care (01) | LOC: HO.LAB 13:26 | PROVIDERS: PCP Family Medicine; Visit Provider Surgery | DX: L72.0 Epidermal cyst (principal) | CPT/HCPCS: 11404; 88304 ==

== ENCOUNTER 2021-11-19 12:21 | Outpatient (REF) | payer MEDICARE, MEDICAID, SELFPAY ==
--- NOTE | 2021-11-19 12:32 | ECG_ITS ---
Test Reason : ESSENT. HTN Blood Pressure : / mmHG Vent. Rate : 073 BPM Atrial Rate : 073 BPM P-R Int : 162 ms QRS Dur : 078 ms QT Int : 388 ms P-R-T Axes : 006 022 072 degrees QTc Int : 427 ms Normal sinus rhythm Nonspecific T wave abnormality Abnormal ECG When compared with ECG of 06-DEC-2012 15:16, Nonspecific T wave abnormality now evident in Lateral leads Referred By: Janie Lynch Electronically Signed By:Lauri Vasquez
[2021-11-19 12:52] LABS: MANUAL DIFF FLAG NO
[2021-11-19 13:11] LABS: Basophils Percent Auto 0.5 % (0-2); Eosinophils Absolute Auto 0.4 X10*3/uL (0.0-0.4); Eosinophils Percent Auto 4.2 % (0-4); Hematocrit 29.8 % (37.0-47.0); Hemoglobin 9.4 g/dl (12.0-16.0); Imm Gran Abs Auto 0.05 X10*3/uL (0.00-0.03); Imm Gran Pct Auto 0.6 % (0.0-0.4); Lymphocytes Percent Auto 11.7 % (20-40); Mean Corpuscular HGB Conc 31.5 g/dl (31.0-35.0); Mean Corpuscular Volume 82.5 fL (80.0-98.0); Mean Platelet Volume 9.5 fL (9.4-12.3); Monocytes Absolute Auto 0.5 X10*3/uL (0.1-1.2); Monocytes Percent Auto 5.7 % (2-11); Neutrophils Absolute Auto 6.5 x10*3/uL (2.0-8.3); Neutrophils Percent Auto 77.3 % (45-73); Platelet Count 186 X10*3/uL (160-400); Red Blood Count 3.61 X10*6/uL (4.20-5.50); Red Cell Distribution Width 15.9 % (11.0-16.0); White Blood Count 8.4 X10*3/uL (4.8-10.8)
[2021-11-19 13:19] LABS: Estimated Average Glucose 169 mg/dL; Hemoglobin A1C 150.3916 umol/L; Hemoglobin A1c % 7.5 %
[2021-11-19 13:42] LABS: Alanine Aminotransferase 13 U/L (0-31); Albumin Level 3.7 g/dL (3.5-5.0); Alkaline Phosphatase 83 U/L (39-117); Anion Gap 13 (12-20); Aspartate Amino Transferase 18 U/L (5-31); Bilirubin Direct 0.3 mg/dL (0.0-0.5); Bilirubin Total 0.5 mg/dL (0.0-1.0); Blood Urea Nitrogen 32 mg/dL (9-16); Calcium 8.5 mg/dL (8.4-10.2); Carbon Dioxide 21 mmol/L (22-29); Chloride 109 mmol/L (96-108); Cholesterol 126 mg/dL; Estimated Glomerular Filt Rate 16; Glucose Random 200 mg/dL (60-115); HDL Cholesterol 40 mg/dL; Iron 36 mcg/dL (30-160); LDL Cholesterol Calculated 55 mg/dl; Percent Iron Saturation 11 % (15-50); Phosphorus 4.5 mg/dL (2.7-4.5); Potassium 5.3 mmol/L (3.3-5.1); Sodium 138 mmol/L (135-145); Total Iron Binding Capacity 341 mcg/dL (228-428); Total Protein 6.4 g/dL (6.5-8.0); Triglycerides 155 mg/dL; Unsaturated Iron Binding 305 ug/dL
[2021-11-19 13:43] LABS: Magnesium 1.2 mg/dL (1.6-2.6)
[2021-11-19 13:56] LABS: Syphilis Screen Nonreactive (Nonreactive)
[2021-11-19 14:03] LABS: Ferritin 172 ng/mL (10-250); Free T4 (Free Thyroxine) 1.22 ng/dL (0.71-1.85); Thyroid Stimulating Hormone 1.18 uIU/mL (0.32-4.0)
[2021-11-19 14:11] LABS: Folate 7.8 ng/mL (> or = 4.0); Vitamin B12 348 pg/mL (200-900)
[2021-11-19 14:20] LABS: Appearance Urine HAZY; Color Urine YELLOW; Glucose Urine UA NEG (NEG); Leukocyte Esterase Urine 1+ (NEG); Nitrite Urine NEG (NEG); PH 5.5 (5.0-8.0); Specific Gravity - Urine 1.025 (1.005-1.025); UACC Culture Trigger YES; Urine Blood 3+ (NEG); Urine Ketones NEG (NEG); Urine Protein 3+ MG/DL (NEG-TRACE)
[2021-11-19 14:28] LABS: RBC Urine TNTC /HPF (0); Squamous Epithelial Cell Urine 1+ /LPF
[2021-11-19 14:29] LABS: Bacteria Urine 2+ /LPF
[2021-11-19 14:46] LABS: Protein/Creatinine Ratio, Ur 3.04 (<0.2); Total Protein Urine Random 368 mg/dL (<12)
[2021-11-19 15:01] LABS: Microalbum/Creatinine Ratio Ur 1333.3 ug/mg cr
[2021-11-22 04:02] LABS: HBS Num1 0.82 mIU/mL (0-7.99); HBsAGNum1 0.18 S/CO (0.00-0.99); HIV AB/AG Nonreactive (Nonreactive); HIV Num 1 0.09 S/CO (0.00-0.99); Hepatitis B Surface Antigen Negative (Negative); ~Hepatitis B Surface Antibody NONREACTIVE (Nonreactive)
[2021-11-22 04:12] LABS: ~HepC Num1 0.05 S/CO (0.00-0.79); ~Hepatitis C Antibody Nonreactive (Nonreactive)
[2021-11-22 16:21] LABS: Calcium (PTHI) 8.5 mg/dL (8.6-10.4); PTHI 100 pg/mL (16-77)
[2021-11-24 04:04] LABS: Hepatitis A Antibody IgG Nonreactive (Nonreactive); ~Hepatitis A Antibody IgG 0.37 S/CO (0.00-0.99)
== END 2021-11-19 12:22 | disposition home or self-care (01) ==
LOC: HO.LAB 12:21
PROVIDERS: Absent Provider Internal Medicine Nephrology; PCP Family Medicine; Visit Provider Internal Medicine
DX: Z11.4 Encounter for screening for human immunodeficiency virus [HIV] (principal); I12.9 Hypertensive chronic kidney disease with stage 1 through stage 4 chronic kidney disease, or unspecified chronic kidney disease; N18.4 Chronic kidney disease, stage 4 (severe); E11.22 Type 2 diabetes mellitus with diabetic chronic kidney disease; E78.5 Hyperlipidemia, unspecified; E11.65 Type 2 diabetes mellitus with hyperglycemia; D63.1 Anemia in chronic kidney disease
CPT/HCPCS: 36415; 80048; 80061; 80076; 81001; 82043; 82306; 82607; 82728; 82746; 83036; 83540; 83735; 83970; 84100; 84156; 84439; 84443; 85025; 86706; 86708; 86780; 86803; 87086; 87340; 87389; 93005

== ENCOUNTER 2021-11-22 13:27 | Outpatient (REF) | payer MEDICARE, MEDICAID, SELFPAY ==
[2021-11-22 14:20] LABS: Anion Gap 15 (12-20); Blood Urea Nitrogen 28 mg/dL (9-16); Calcium 8.2 mg/dL (8.4-10.2); Carbon Dioxide 19 mmol/L (22-29); Chloride 109 mmol/L (96-108); Estimated Glomerular Filt Rate 15; Potassium 5.3 mmol/L (3.3-5.1); Sodium 138 mmol/L (135-145)
== END 2021-11-22 13:28 | disposition home or self-care (01) ==
LOC: HO.LAB 13:27
PROVIDERS: PCP Family Medicine; Visit Provider Internal Medicine Hypertension Specialist
DX: N18.4 Chronic kidney disease, stage 4 (severe) (principal)
CPT/HCPCS: 36415; 80051; 82310; 82565; 84520

== ENCOUNTER 2021-12-22 15:14 | Outpatient (REF) | payer MEDICARE, MEDICAID, SELFPAY ==
--- NOTE | ~2021-12-22 | US_ITS ---
EXAMINATION: US VENOUS WITH DOPPLER UPPER EXTREMITY, RIGHT CLINICAL INFORMATION: Pain in right forearm with swelling COMPARISON: None TECHNIQUE: Ultrasound of the upper extremity is performed using compression sonography and color and pulse Doppler flow with assessment of augmentation of flow. There is also imaging and Doppler assessment of the jugular and subclavian veins. Spectral analysis with color-flow imaging is performed. FINDINGS: There is normal compressibility and augmentation in the deep venous system of the right arm. There is lack of compressibility and intraluminal thrombus in the right cephalic vein extending into the mid to distal forearm. No suspicious fluid collections. If the patient's symptoms progress, a followup ultrasound in 5 -7 days might be of value to exclude proximal propagation from a nonvisualized distal arm vein. US/US venous duplex UE RT IMPRESSION: No DVT demonstrated in the right upper extremity. Noncompressibility and intraluminal thrombus in the right cephalic vein extending into the forearm as noted above.
== END 2021-12-22 15:15 | disposition home or self-care (01) ==
LOC: HO.US 15:14
PROVIDERS: PCP Family Medicine; Visit Provider Emergency Medicine
DX: R60.0 Localized edema (principal); M79.631 Pain in right forearm
CPT/HCPCS: 93971

== ENCOUNTER 2021-12-29 13:43 | Outpatient (REF) | payer MEDICARE, MEDICAID, SELFPAY ==
[2021-12-29 14:23] LABS: Hematocrit 29.4 % (37.0-47.0); Hemoglobin 9.4 g/dl (12.0-16.0); Mean Corpuscular Hemoglobin 26.9 pg (27.0-33.0); Mean Platelet Volume 9.9 fL (9.4-12.3); Platelet Count 224 X10*3/uL (160-400); Red Cell Distribution Width 15.9 % (11.0-16.0); White Blood Count 8.5 X10*3/uL (4.8-10.8)
[2021-12-29 14:56] LABS: Anion Gap 15 (12-20); Blood Urea Nitrogen 37 mg/dL (9-16); Calcium 8.2 mg/dL (8.4-10.2); Carbon Dioxide 23 mmol/L (22-29); Chloride 107 mmol/L (96-108); Estimated Glomerular Filt Rate 14; Glucose Random 220 mg/dL (60-115); Iron 60 mcg/dL (30-160); Percent Iron Saturation 17 % (15-50); Potassium 5.3 mmol/L (3.3-5.1); Sodium 140 mmol/L (135-145); Total Iron Binding Capacity 352 mcg/dL (228-428); Unsaturated Iron Binding 292 ug/dL
[2021-12-29 15:16] LABS: Ferritin 528 ng/mL (10-250)
[2021-12-29 15:27] LABS: Folate 12.3 ng/mL (> or = 4.0); Vitamin B12 319 pg/mL (200-900)
== END 2021-12-29 13:44 | disposition home or self-care (01) ==
LOC: HO.LAB 13:43
PROVIDERS: PCP Family Medicine; Visit Provider Family Medicine
DX: N17.9 Acute kidney failure, unspecified (principal)
CPT/HCPCS: 36415; 80048; 82607; 82728; 82746; 83540; 85027; 99211

== ENCOUNTER 2022-01-13 14:16 | Outpatient (REF) | payer MEDICARE, MEDICAID, SELFPAY ==
[2022-01-13 14:56] LABS: MANUAL DIFF FLAG NO
[2022-01-13 15:08] LABS: Basophils Percent Auto 0.5 % (0-2); Eosinophils Absolute Auto 0.3 X10*3/uL (0.0-0.4); Hematocrit 26.3 % (37.0-47.0); Hemoglobin 8.7 g/dl (12.0-16.0); Imm Gran Abs Auto 0.02 X10*3/uL (0.00-0.03); Imm Gran Pct Auto 0.3 % (0.0-0.4); Lymphocytes Percent Auto 15.9 % (20-40); Mean Corpuscular HGB Conc 33.1 g/dl (31.0-35.0); Mean Corpuscular Hemoglobin 27.1 pg (27.0-33.0); Mean Corpuscular Volume 81.9 fL (80.0-98.0); Mean Platelet Volume 9.1 fL (9.4-12.3); Monocytes Absolute Auto 0.3 X10*3/uL (0.1-1.2); Monocytes Percent Auto 4.1 % (2-11); Neutrophils Absolute Auto 4.9 x10*3/uL (2.0-8.3); Neutrophils Percent Auto 75.2 % (45-73); Platelet Count 121 X10*3/uL (160-400); Red Blood Count 3.21 X10*6/uL (4.20-5.50); Red Cell Distribution Width 15.3 % (11.0-16.0); White Blood Count 6.6 X10*3/uL (4.8-10.8)
[2022-01-13 15:52] LABS: Ferritin 454 ng/mL (10-250); Vitamin D 25-OH Total 27.7 ng/mL (>30)
[2022-01-13 15:59] LABS: Albumin Level 3.8 g/dL (3.5-5.0); Anion Gap 16 (12-20); Blood Urea Nitrogen 39 mg/dL (9-16); Calcium 8.7 mg/dL (8.4-10.2); Carbon Dioxide 25 mmol/L (22-29); Chloride 103 mmol/L (96-108); Estimated Glomerular Filt Rate 15; Iron 95 mcg/dL (30-160); Magnesium 1.2 mg/dL (1.6-2.6); Percent Iron Saturation 28 % (15-50); Phosphorus 3.7 mg/dL (2.7-4.5); Potassium 4.7 mmol/L (3.3-5.1); Sodium 139 mmol/L (135-145); Total Iron Binding Capacity 342 mcg/dL (228-428); Unsaturated Iron Binding 247 ug/dL
[2022-01-13 16:12] LABS: Creatinine Urine 78.25 mg/dL; Protein/Creatinine Ratio, Ur 3.02 (<0.2); Total Protein Urine Random 236 mg/dL (<12)
[2022-01-14 12:27] LABS: Calcium (PTHI) 9.1 mg/dL (8.6-10.4); PTHI 98 pg/mL (16-77)
== END 2022-01-13 14:17 | disposition home or self-care (01) ==
LOC: HO.LAB 14:16
PROVIDERS: PCP Family Medicine; Visit Provider Internal Medicine Nephrology
DX: N18.4 Chronic kidney disease, stage 4 (severe) (principal); D63.1 Anemia in chronic kidney disease; E11.22 Type 2 diabetes mellitus with diabetic chronic kidney disease; E66.01 Morbid (severe) obesity due to excess calories; N25.0 Renal osteodystrophy; R80.1 Persistent proteinuria, unspecified
CPT/HCPCS: 36415; 80051; 82040; 82043; 82306; 82310; 82565; 82728; 83540; 83735; 83970; 84100; 84156; 84520; 85025; 87086

== ENCOUNTER 2022-01-27 16:03 | Outpatient (REF) | payer MEDICARE, MEDICAID, SELFPAY | END 2022-01-27 16:04 | disposition home or self-care (01) | LOC: HO.LNP 16:03 | PROVIDERS: Visit Provider Internal Medicine | DX: N39.0 Urinary tract infection, site not specified (principal) | CPT/HCPCS: 87086 ==

== ENCOUNTER 2022-04-07 12:08 | Outpatient (REF) | payer MEDICARE, MEDICAID, SELFPAY ==
--- NOTE | ~2022-04-07 | XR_ITS ---
EXAMINATION: CERVICAL THORACIC AND LUMBAR SPINE. BILATERAL SHOULDERS. CLINICAL INFORMATION: Pain. COMPARISON: None TECHNIQUE: Cervical spine 3 views. Dorsal spine 3 views. Lumbar spine 3 views. 4 views left shoulder and 3 views right shoulder. FINDINGS: Cervical spine: There is mild straightening of cervical lordosis. The vertebral heights and alignment is normal. There is loss of C5-C6 disc height with moderate ventral spondylosis. Rest of the disc heights, vertebral heights and alignment is normal. There is no visible acute fracture, dislocation or subluxation seen. There is moderate left C3-C4 facet joint arthropathy and hypertrophy. Dorsal spine: There is normal thoracic kyphosis. The vertebral heights, alignment and disc heights are normal. There is moderate ventral and lateral spondylosis throughout dorsal spine. No lytic or sclerotic process seen. The paravertebral soft tissues are normal. Lumbar spine: There is abnormal segmentation of lumbar spine with 6 lumbar vertebrae. There is normal lumbar lordosis. Grade 1 anterolisthesis L5 over L6 is seen. Rest of the vertebral alignment is normal. There is mild ventral spondylosis L4-L5 and L5-L6 disc levels. No visible acute fracture, dislocation or lytic process seen. No aggressive lytic or sclerotic process seen. There are surgical christian in the presacral space from previous intervention. Right shoulder: There is loss of right glenohumeral joint space. The AC joint space is normal. No visible acute fracture, dislocation or subluxation seen. No lytic or sclerotic process seen. Left shoulder: There is loss of left glenohumeral joint space with inferior spurring. The AC joint space is normal. No visible acute fracture, dislocation or subluxation seen. The soft tissues are normal. XR/XR shoulder LT min 2V IMPRESSION: 1. Degenerative disc changes C5-C6 disc level with moderate ventral spondylosis. No visible acute fracture, dislocation or subluxation seen. There is moderate left C3-C4 facet joint arthropathy and hypertrophy. 2. Moderate ventral and lateral spondylosis dorsal spine. No acute fracture or lytic process seen. 3. Grade 1 anterolisthesis L5 over L6. There is mild ventral spondylosis L3-L4 and L5-S1 disc levels. Abnormal segmentation of lumbar spine with 6 lumbar vertebrae. 4. Mild degenerative changes bilateral glenohumeral joint space with inferior spurring. No visible acute fracture or dislocation seen.
[2022-04-07 12:25] LABS: MANUAL DIFF FLAG NO
[2022-04-07 12:41] LABS: Basophils Absolute Auto 0.1 X10*3/uL (0.0-0.2); Basophils Percent Auto 0.8 % (0-2); Eosinophils Absolute Auto 0.3 X10*3/uL (0.0-0.4); Eosinophils Percent Auto 3.2 % (0-4); Hematocrit 35.3 % (37.0-47.0); Hemoglobin 11.2 g/dl (12.0-16.0); Imm Gran Abs Auto 0.06 X10*3/uL (0.00-0.03); Imm Gran Pct Auto 0.6 % (0.0-0.4); Lymphocytes Absolute Auto 1.5 X10*3/uL (1.2-4.9); Lymphocytes Percent Auto 14.5 % (20-40); Mean Corpuscular HGB Conc 31.7 g/dl (31.0-35.0); Mean Corpuscular Hemoglobin 26.3 pg (27.0-33.0); Mean Corpuscular Volume 82.9 fL (80.0-98.0); Mean Platelet Volume 9.3 fL (9.4-12.3); Monocytes Absolute Auto 0.4 X10*3/uL (0.1-1.2); Monocytes Percent Auto 4.2 % (2-11); Neutrophils Absolute Auto 7.7 x10*3/uL (2.0-8.3); Neutrophils Percent Auto 76.7 % (45-73); Platelet Count 167 X10*3/uL (160-400); Red Blood Count 4.26 X10*6/uL (4.20-5.50); Red Cell Distribution Width 14.6 % (11.0-16.0); White Blood Count 10.1 X10*3/uL (4.8-10.8)
[2022-04-07 13:26] LABS: Anion Gap 16 (12-20); Blood Urea Nitrogen 54 mg/dL (9-16); Calcium 9.4 mg/dL (8.4-10.2); Carbon Dioxide 21 mmol/L (22-29); Chloride 105 mmol/L (96-108); Estimated Glomerular Filt Rate 17; Glucose Random 195 mg/dL (60-115); Magnesium 1.4 mg/dL (1.6-2.6); Phosphorus 4.4 mg/dL (2.7-4.5); Potassium 5.3 mmol/L (3.3-5.1); Sodium 137 mmol/L (135-145)
[2022-04-07 13:43] LABS: Vitamin D 25-OH Total 29.3 ng/mL (>30)
[2022-04-07 13:57] LABS: Appearance Urine Turbid; Color Urine Yellow; Glucose Urine UA 100 mg/dL (Negative); Leukocyte Esterase Urine Moderate (2+) (Negative); Nitrite Urine Negative (Negative); PH 5.5 (5.0-9.0); Specific Gravity - Urine 1.015 (1.005-1.025); UMIC TRIGGER UA YES; Urine Blood Moderate (2+) (Negative); Urine Ketones Negative (Negative); Urine Protein >=1000 (4+) mg/dL (Neg-Trace)
[2022-04-07 14:23] LABS: Creatinine Urine 102.45 mg/dL; Protein/Creatinine Ratio, Ur 5.64 (<0.2); Total Protein Urine Random 578 mg/dL (<12)
[2022-04-07 14:27] LABS: Bacteria Urine None Seen (None Seen); WBC Urine >50 /HPF (0-5)
[2022-04-07 14:40] LABS: Microalbum/Creatinine Ratio Ur 3900.4 ug/mg cr
[2022-04-11 12:42] LABS: Calcium (PTHI) 9.3 mg/dL (8.6-10.4); PTHI 87 pg/mL (16-77)
== END 2022-04-07 12:09 | disposition home or self-care (01) ==
LOC: HO.LAB 12:08
PROVIDERS: Absent Provider Family Medicine; PCP Family Medicine; Visit Provider Internal Medicine Nephrology
DX: R10.2 Pelvic and perineal pain (principal); M54.50 Low back pain, unspecified; M25.511 Pain in right shoulder; M25.512 Pain in left shoulder; N18.5 Chronic kidney disease, stage 5; D63.1 Anemia in chronic kidney disease
CPT/HCPCS: 36415; 72040; 72070; 72100; 73030; 80048; 81001; 81003; 82040; 82043; 82306; 83735; 83970; 84100; 84156; 85025; 87086; 87088; 87186

== ENCOUNTER 2022-04-19 14:05 | Outpatient (REF) | payer MEDICARE, MEDICAID, SELFPAY ==
[2022-04-19 15:47] LABS: Appearance Urine Cloudy; Color Urine Yellow; Glucose Urine UA 100 mg/dL (Negative); Leukocyte Esterase Urine Moderate (2+) (Negative); Nitrite Urine Negative (Negative); Specific Gravity - Urine 1.025 (1.005-1.025); UMIC TRIGGER UA YES; Urine Blood Large (3+) (Negative); Urine Ketones Negative (Negative); Urine Protein 300 (3+) mg/dL (Neg-Trace)
[2022-04-19 16:10] LABS: WBC Urine >50 /HPF (0-5)
[2022-04-19 16:11] LABS: Bacteria Urine 1+ (None Seen); Hyaline Casts Urine 0-2 /LPF (0-2)
[2022-04-19 16:24] LABS: Anion Gap 15 (12-20); Blood Urea Nitrogen 51 mg/dL (9-16); Carbon Dioxide 21 mmol/L (22-29); Chloride 108 mmol/L (96-108); Estimated Glomerular Filt Rate 17; Glucose Random 189 mg/dL (60-115); Magnesium 1.3 mg/dL (1.6-2.6); Potassium 4.9 mmol/L (3.3-5.1); Sodium 139 mmol/L (135-145)
== END 2022-04-19 14:06 | disposition home or self-care (01) ==
LOC: HO.LAB 14:05
PROVIDERS: PCP Family Medicine; Visit Provider Family Medicine
DX: N18.4 Chronic kidney disease, stage 4 (severe) (principal); N39.0 Urinary tract infection, site not specified
CPT/HCPCS: 36415; 80048; 81001; 83735; 87086; 87147

== ENCOUNTER → 2022-05-05 13:35 | Outpatient (BNVA) | payer MEDICARE, MEDICAID, SELFPAY | PROVIDERS: PCP Family Medicine; Visit Provider Physician Assistant | DX: M75.21 Bicipital tendinitis, right shoulder (principal) | CPT/HCPCS: 99202; 99212 ==

== ENCOUNTER 2022-08-24 15:23 | Outpatient (REF) | payer MEDICARE, MEDICAID, SELFPAY ==
[2022-08-24 15:46] LABS: MANUAL DIFF FLAG NO
[2022-08-24 16:03] LABS: Basophils Absolute Auto 0.1 X10*3/uL (0.0-0.2); Basophils Percent Auto 0.7 % (0-2); Eosinophils Absolute Auto 0.4 X10*3/uL (0.0-0.4); Eosinophils Percent Auto 3.8 % (0-4); Hematocrit 32.1 % (37.0-47.0); Hemoglobin 10.2 g/dl (12.0-16.0); Imm Gran Pct Auto 0.9 % (0.0-0.4); Lymphocytes Absolute Auto 1.2 X10*3/uL (1.2-4.9); Lymphocytes Percent Auto 10.3 % (20-40); Mean Corpuscular HGB Conc 31.8 g/dl (31.0-35.0); Mean Corpuscular Hemoglobin 25.9 pg (27.0-33.0); Mean Corpuscular Volume 81.5 fL (80.0-98.0); Mean Platelet Volume 9.3 fL (9.4-12.3); Monocytes Absolute Auto 0.5 X10*3/uL (0.1-1.2); Monocytes Percent Auto 4.2 % (2-11); Neutrophils Absolute Auto 8.9 x10*3/uL (2.0-8.3); Neutrophils Percent Auto 80.1 % (45-73); Platelet Count 294 X10*3/uL (160-400); Red Blood Count 3.94 X10*6/uL (4.20-5.50); Red Cell Distribution Width 14.7 % (11.0-16.0); White Blood Count 11.1 X10*3/uL (4.8-10.8)
[2022-08-24 17:02] LABS: Albumin Level 3.7 g/dL (3.5-5.0); Anion Gap 18 (12-20); Blood Urea Nitrogen 58 mg/dL (9-16); Carbon Dioxide 15 mmol/L (22-29); Chloride 109 mmol/L (96-108); Estimated Glomerular Filt Rate 10; Iron 31 mcg/dL (30-160); Magnesium 1.2 mg/dL (1.6-2.6); Percent Iron Saturation 13 % (15-50); Potassium 5.3 mmol/L (3.3-5.1); Sodium 137 mmol/L (135-145); Total Iron Binding Capacity 234 mcg/dL (228-428); Unsaturated Iron Binding 203 ug/dL
[2022-08-26 16:23] LABS: Calcium (PTHI) 8.9 mg/dL (8.6-10.4); PTHI 81 pg/mL (16-77)
== END 2022-08-24 15:24 | disposition home or self-care (01) ==
LOC: HO.LAB 15:23
PROVIDERS: PCP Family Medicine; Visit Provider Internal Medicine Nephrology
DX: E11.22 Type 2 diabetes mellitus with diabetic chronic kidney disease (principal); N18.5 Chronic kidney disease, stage 5; N25.0 Renal osteodystrophy; E11.21 Type 2 diabetes mellitus with diabetic nephropathy; R80.1 Persistent proteinuria, unspecified
CPT/HCPCS: 36415; 80051; 82040; 82306; 82310; 82565; 83540; 83735; 83970; 84100; 84520; 85025

== ENCOUNTER 2023-03-16 18:42 | Outpatient (REF) | payer MEDICARE, MEDICAID, SELFPAY | END 2023-03-16 18:43 | disposition home or self-care (01) | LOC: HO.HHCLNP 18:42 | PROVIDERS: Visit Provider Pediatrics | DX: R30.9 Painful micturition, unspecified (principal) | CPT/HCPCS: 87086 ==

== ENCOUNTER 2023-03-30 11:25 | Outpatient (REF) | payer MEDICARE, MEDICAID, SELFPAY ==
[2023-03-31 11:33] LABS: Appearance Urine Cloudy; Color Urine Yellow; Glucose Urine UA 100 mg/dL (Negative); Leukocyte Esterase Urine Large (3+) (Negative); Nitrite Urine Negative (Negative); UMIC TRIGGER UACC YES; Urine Blood Large (3+) (Negative); Urine Ketones Negative (Negative); Urine Protein 300 (3+) mg/dL (Neg-Trace)
[2023-03-31 11:55] LABS: Bacteria Urine None Seen (None Seen); Hyaline Casts Urine 0-2 /LPF (0-2); RBC Urine >20 /HPF (0-2); Squamous Epithelial Cell Urine 0-2 /HPF (0-2); UACC Culture Trigger YES; WBC Urine >50 /HPF (0-5)
== END 2023-03-30 11:26 | disposition home or self-care (01) ==
LOC: HO.HHCLNP 11:25
PROVIDERS: Visit Provider Nurse Practitioner Primary Care
DX: Z13.89 Encounter for screening for other disorder (principal)
CPT/HCPCS: 81001; 87086

== ENCOUNTER 2023-03-30 11:27 | Outpatient (REF) | payer MEDICARE, MEDICAID, SELFPAY ==
--- NOTE | ~2023-03-30 | MM_ITS ---
EXAMINATION: MM SCREENING DIGITAL BREAST TOMOSYNTHESIS, BILATERAL CLINICAL INFORMATION: Screening. Asymptomatic. COMPARISON: Mammography: This study is compared with prior exams dating back to 2013. TECHNIQUE: Digital breast tomosynthesis is performed in both the craniocaudal and mediolateral oblique views along with computer-aided detection (CAD). Synthesized 2D images are generated from the tomosynthesis. FINDINGS: There are scattered areas of fibroglandular density (ACR BI-RADS breast composition Category b). There are no significant masses, abnormal calcifications, or other abnormalities. There is a tissue marker present in the right breast from prior benign percutaneous biopsy. There are few, bilateral, unchanged, benign secretory calcifications in each breast. MM/MM tomosynthesis screening BI IMPRESSION: No mammographic evidence of malignancy. ASSESSMENT: BI-RADS BI-RADS 2 - Benign Findings RECOMMENDATION: Routine annual mammography screening. 1 year F/U This examination should not preclude the clinical evaluation of a suspicious palpable abnormality. This patient's information was entered into a reminder system with a target due date for their next mammogram.
== END 2023-03-30 11:28 | disposition home or self-care (01) ==
LOC: HO.MAMMO 11:27
PROVIDERS: PCP Family Medicine; Visit Provider Family Medicine
DX: Z12.31 Encounter for screening mammogram for malignant neoplasm of breast (principal); R30.0 Dysuria
CPT/HCPCS: 77063; 77067; 81001; 87086

== ENCOUNTER → 2023-03-30 11:45 | Outpatient (BNV) | payer MEDICARE, MEDICAID, SELFPAY | PROVIDERS: PCP Family Medicine; Visit Provider Radiology Diagnostic Radiology | DX: Z12.31 Encounter for screening mammogram for malignant neoplasm of breast (principal) | CPT/HCPCS: 77063; 77067 ==

== ENCOUNTER 2023-05-11 13:35 | Outpatient (REF) | payer MEDICARE, MEDICAID, SELFPAY ==
[2023-05-15 08:37] LABS: Codeine, Ur NEGATIVE; Hydrocodone, Ur NEGATIVE; Hydromorphone, Ur NEGATIVE; Morphine, Ur NEGATIVE; Norhydrocodone, Ur NEGATIVE; Noroxycodone, Ur NEGATIVE; Oxycodone, Ur NEGATIVE; Oxymorphone, Ur NEGATIVE
== END 2023-05-11 13:36 | disposition home or self-care (01) ==
LOC: HO.HHCLNP 13:35
PROVIDERS: Visit Provider Family Medicine
DX: M54.40 Lumbago with sciatica, unspecified side (principal); G89.29 Other chronic pain; R30.0 Dysuria
CPT/HCPCS: 80365; 87086; 87088; 87186; G0480

== ENCOUNTER 2023-06-01 18:05 | Outpatient (REF) | payer MEDICARE, MEDICAID, SELFPAY | END 2023-06-01 18:06 | disposition home or self-care (01) | LOC: HO.HHCLNP 18:05 | PROVIDERS: Visit Provider Family Medicine | DX: L03.317 Cellulitis of buttock (principal) | CPT/HCPCS: 36415; 87070; 87147; 87205; 87255 ==

== ENCOUNTER 2023-07-20 17:45 | Outpatient (REF) | payer MEDICARE, MEDICAID, SELFPAY | END 2023-07-20 17:46 | disposition home or self-care (01) | LOC: HO.HHCLNP 17:45 | PROVIDERS: Visit Provider Internal Medicine | DX: R30.9 Painful micturition, unspecified (principal) | CPT/HCPCS: 87086; 87147 ==

== ENCOUNTER 2023-08-22 12:14 | Outpatient (REF) | payer MEDICARE, MEDICAID, SELFPAY ==
[2023-08-22 13:42] LABS: Hematocrit 34.2 % (37.0-47.0); Hemoglobin 11.1 g/dl (12.0-16.0); Mean Corpuscular HGB Conc 32.5 g/dl (31.0-35.0); Mean Corpuscular Hemoglobin 31.2 pg (27.0-33.0); Mean Corpuscular Volume 96.1 fL (80.0-98.0); Mean Platelet Volume 9.8 fL (9.4-12.3); Platelet Count 149 X10*3/uL (160-400); Red Blood Count 3.56 X10*6/uL (4.20-5.50); Red Cell Distribution Width 17.6 % (11.0-16.0); White Blood Count 8.8 X10*3/uL (4.8-10.8)
[2023-08-22 13:52] LABS: Estimated Average Glucose 206 mg/dL; Hemoglobin A1c % 8.8 % (<6.0)
[2023-08-22 16:53] LABS: Free T4 (Free Thyroxine) 1.16 ng/dL (0.71-1.85); Thyroid Stimulating Hormone 1.37 uIU/mL (0.32-4.0); Vitamin D 25-OH Total 14.7 ng/mL (>30)
[2023-08-22 17:39] LABS: Alanine Aminotransferase 16 U/L (0-31); Albumin Level 3.8 g/dL (3.5-5.0); Alkaline Phosphatase 111 U/L (39-117); Anion Gap 19 (12-20); Aspartate Amino Transferase 19 U/L (5-31); Bilirubin Direct 0.2 mg/dL (0.0-0.5); Bilirubin Total 0.4 mg/dL (0.0-1.0); Blood Urea Nitrogen 23 mg/dL (9-16); Calcium 9.8 mg/dL (8.4-10.2); Carbon Dioxide 29 mmol/L (22-29); Chloride 96 mmol/L (96-108); Cholesterol 106 mg/dL (<200); Estimated Glomerular Filt Rate 7; Glucose Random 299 mg/dL (60-115); HDL Cholesterol 31 mg/dL (>40); LDL Cholesterol Calculated 33 mg/dL (<100); Potassium 4.9 mmol/L (3.3-5.1); Sodium 139 mmol/L (135-145); Total Protein 7.4 g/dL (6.5-8.0); Triglycerides 211 mg/dL (<150)
== END 2023-08-22 12:15 | disposition home or self-care (01) ==
LOC: HO.HHCL 12:14
PROVIDERS: Visit Provider Family Medicine
DX: E11.22 Type 2 diabetes mellitus with diabetic chronic kidney disease (principal); N18.6 End stage renal disease; M75.21 Bicipital tendinitis, right shoulder; M19.011 Primary osteoarthritis, right shoulder
CPT/HCPCS: 36415; 80048; 80061; 80076; 82306; 83036; 84439; 84443; 85027; 99212

== ENCOUNTER 2023-08-22 14:34 | Outpatient (AMB) | payer MEDICARE, MEDICAID, SELFPAY ==
--- NOTE | 2023-08-22 14:39 | MHC.OFFVIS ---
Intake Vital Signs 08/22/23 14:45 Height 5 ft 6 in Weight 315 lb BMI 50.8 Handedness Right Intake Visit Reasons: o/v Biceps tendinitis of right shoulder Intake Note: Nyla is a 52 year old right hand dominant female who presents today for right shoulder pain. Patient reports her pain has been getting worse. She states when she went to PT it didn't give her relief. Patient would like to see what she can do to relieve some of her pain. Allergies oxcarbazepine [From TRILEPTAL] Allergy (Intermediate, Verified 08/22/23 14:42) AGITATION topiramate [From TOPAMAX] Allergy (Intermediate, Verified 08/22/23 14:42) KIDNEY STONES aripiprazole [From ABILIFY] Allergy (Mild, Verified 08/22/23 14:42) HIVES insulin lispro [From Humalog U-100 Insulin] Allergy (Mild, Verified 08/22/23 14:42) rash acetaminophen [Percocet] Allergy (Unknown, Verified 08/22/23 14:42) Unknown carbamazepine [From Tegretol] Allergy (Unknown, Verified 08/22/23 14:42) AGITATION, SUICIDAL clonazepam [From Klonopin] Allergy (Unknown, Verified 08/22/23 14:42) RASH codeine [Codeine] Allergy (Unknown, Verified 08/22/23 14:42) VOMIT cylert Allergy (Unknown, Verified 08/22/23 14:42) Unknown haloperidol [From HALDOL] Allergy (Unknown, Verified 08/22/23 14:42) RASH lorazepam [From ATIVAN] Allergy (Unknown, Verified 08/22/23 14:42) RASH oxycodone [Percocet] Allergy (Unknown, Verified 08/22/23 14:42) Unknown pemoline [From Cylert] Allergy (Unknown, Verified 08/22/23 14:42) RASH risperidone [From Risperdal] Allergy (Unknown, Verified 08/22/23 14:42) INCREASE PROLECTIN LEVEL Sulfa (Sulfonamide Antibiotics) Allergy (Unknown, Verified 08/22/23 14:42) JAUNDICE doxycycline Adverse Reaction (Severe, Verified 08/22/23 14:42) Chest Pain abilify Allergy (Unknown, Uncoded 11/15/21 13:36) Unknown ativan Allergy (Unknown, Uncoded 11/15/21 13:36) Unknown buspar Allergy (Unknown, Uncoded 11/15/21 13:36) Unknown celexa Allergy (Unknown, Uncoded 11/15/21 13:36) rash codeine Allergy (Unknown, Uncoded 11/15/21 13:36) Unknown depakote Allergy (Unknown, Uncoded 11/15/21 13:36) Unknown From BuSpar Allergy (Unknown, Uncoded 11/15/21 13:36) RASH From Celexa Allergy (Unknown, Uncoded 11/15/21 13:36) RASH From Tolectin Allergy (Unknown, Uncoded 11/15/21 13:36) RASH From Zoloft Allergy (Unknown, Uncoded 11/15/21 13:36) RASH,KIDNEY PAIN haldol Allergy (Unknown, Uncoded 11/15/21 13:36) Unknown hydrodiuril Allergy (Unknown, Uncoded 11/15/21 13:36) Unknown klonopin Allergy (Unknown, Uncoded 11/15/21 13:36) Unknown percocet Allergy (Unknown, Uncoded 11/15/21 13:36) Unknown risperdal Allergy (Unknown, Uncoded 11/15/21 13:36) Unknown tegretol Allergy (Unknown, Uncoded 11/15/21 13:36) Unknown tolectin DS Allergy (Unknown, Uncoded 11/15/21 13:36) Unknown Topamax Allergy (Unknown, Uncoded 11/15/21 13:36) kidney stones zesteril Allergy (Unknown, Uncoded 11/15/21 13:36) Unknown zoloft Allergy (Unknown, Uncoded 11/15/21 13:36) rash From Percocet Adverse Reaction (Unknown, Uncoded 11/15/21 13:36) VOMIT HPI o/v Biceps tendinitis of right shoulder HPI Details 53-year-old right hand dominant female who presents in the office today for a follow up of right shoulder bicep tendinitis. I last saw the patient in the office on 05/05/2022 at which time I discussed options with the patient that include oral anti-inflammatories, physical therapy, and cortisone injections all of which were deferred. She decided she would rest and take Dilaudid and Hydrocodone to get pain relief. While in the office today the patient reports she is not having any crunching in the shoulder. She feels the pain is getting worse. She states physical therapy did not give her relief. She would like to know how to get pain relief. Patient has a history of bilateral shoulder fractures. Patient reports having issues with the right knee and states she needs a replacement. She states it flares up when she switches shoes. [facility] Medical History Anemia Anemia Bipolar disorder Chronic kidney disease, stage 3 Chronic knee pain Depression Diabetes Epidermal cyst GERD (gastroesophageal reflux disease) HTN (hypertension) Hyperlipidemia Hypogammaglobulinemia Morbid obesity TYLOR (obstructive sleep apnea) Ulcerative colitis Surgical History Hx of resection of large bowel Family History Mother Coronary artery disease Father High cholesterol HTN (hypertension) Social History Household Members: None Housing: Apartment Do you presently have visiting nurse or other home services: No Alcohol intake: never Patient Tobacco Use Status: Never used Tobacco Cigarette Packs Per Day: 1 service: No Current occupational status: disabled Review of Systems Const All systems reviewed & are unremarkable except as noted in HPI and below Physical Exam Vital Signs: BMI result Body Mass Index 50.8 Const General: cooperative, healthy appearing and no acute distress Resp Effort & Inspection: normal respiratory effort and able to speak in complete sentences Cardio Rate: regular rate Peripheral pulses: Peripheral pulses 2+ throughout GI Palpation (GI): Soft to palpation Skin Lesions: no lesions Rashes: no rashes Extrem Other: Right shoulder: Normal to inspection. No ecchymosis, erythema, or edema. Full shoulder ROM in all planes. Pain with cross-body reach. 4/5 strength with empty can. Negative drop arm. NVI. Assessment & Plan Assessment & Plan (1) Biceps tendinitis of right shoulder: Code(s): M75.21 - Bicipital tendinitis, right shoulder (2) Osteoarthritis of right glenohumeral joint: Code(s): M19.011 - Primary osteoarthritis, right shoulder Plan Ms. Wiley is a 53-year-old right hand dominant female who presents in the office today for a follow up of right shoulder bicep tendinitis. I last saw the patient in the office on 05/05/2022 at which time I discussed options with the patient that include oral anti-inflammatories, physical therapy, and cortisone injections all of which were deferred. She decided she would rest and take Dilaudid and Hydrocodone to get pain relief. While in the office today the patient reports she is not having any crunching in the shoulder. She feels the pain is getting worse. She states physical therapy did not give her relief. She would like to know how to get pain relief. Patient has a history of bilateral shoulder fractures. Patient reports having issues with the right knee and states she needs a replacement. She states it flares up when she switches shoes. We discussed the role of cortisone injections and physical therapy. She states she has an issue with attending physical therapy due to having dialysis 3 days a week. She is not currently interested in an intra-articular cortisone injection at this time due to past cortisone injections not give relief in her knees. She reports taking Vicodin PRN with minor relief. We discussed a referral for Pain Management as well as physical therapy, but she does not want to proceed due to having to attend dialysis three times per week. She was given my card and will contact the office should she decide to move forward with any of these options. Follow up will be PRN, or sooner if needed. X-rays on 04/07/2022 revealed mild glenohumeral joint osteoarthritis. No acute fracture or dislocation. Patient Instructions: Scribed by Aye Corea medical records field technician, for Kelley Del Real PA-C on 08/22/2023 at 2:37 pm, EST. Coding Level of Care Code Est Pt Level 3 (84191) Diagnoses Biceps tendinitis of right shoulder M75.21 Osteoarthritis of right glenohumeral joint M19.011
[2023-08-22 14:45] VITALS: BMI 50.8
== END 2023-08-22 14:57 | disposition home or self-care (01) ==
PROVIDERS: PCP Family Medicine; Visit Provider Physician Assistant
DX: M75.21 Bicipital tendinitis, right shoulder (principal); M19.011 Primary osteoarthritis, right shoulder
CPT/HCPCS: 99213

== ENCOUNTER 2023-09-21 17:33 | Outpatient (REF) | payer MEDICARE, MEDICAID, SELFPAY | END 2023-09-21 17:34 | disposition home or self-care (01) | LOC: HO.HHCLNP 17:33 | PROVIDERS: Visit Provider Family Medicine | DX: M54.50 Low back pain, unspecified (principal); G89.29 Other chronic pain | CPT/HCPCS: 36415; 80307 ==

== ENCOUNTER 2023-12-20 17:45 | Outpatient (REF) | payer MEDICARE, MEDICAID, SELFPAY | END 2023-12-20 17:46 | disposition home or self-care (01) | LOC: HO.LNP 17:45 | PROVIDERS: Visit Provider Family Medicine | DX: L03.311 Cellulitis of abdominal wall (principal) | CPT/HCPCS: 87070; 87147; 87205 ==

== ENCOUNTER → 2024-01-31 14:34 | Outpatient (RCR) | payer MEDICARE, MEDICAID, SELFPAY ==
[2020-07-08 14:39] VITALS: BP 140/84; PULSE 88; RESP 14; TEMP 36.3; O2SAT 97; BMI 56.7
--- NOTE | 2020-07-08 15:16 | MHC.HEMONCMA ---
Patient came in for a follow up on her bloodwork. States she is in pain from back spasms and her knee but other ridley ok. Allergies and medications reviewed and updated. She will have labs and come back in 6 months for a follow up. Appt made and given to patient.
[2020-07-08 15:28] LABS: MANUAL DIFF FLAG NO
[2020-07-08 15:37] LABS: Basophils Absolute Auto 0.1 X10*3/uL (0.0-0.2); Basophils Percent Auto 0.9 % (0-2); Eosinophils Absolute Auto 0.3 X10*3/uL (0.0-0.4); Eosinophils Percent Auto 3.8 % (0-4); Hematocrit 29.5 % (37-47); Hemoglobin 9.8 g/dl (12.0-16.0); Imm Gran Abs Auto 0.05 X10*3/uL (0.00-0.03); Imm Gran Pct Auto 0.7 % (0.0-0.4); Lymphocytes Absolute Auto 1.3 X10*3/uL (1.2-4.9); Lymphocytes Percent Auto 18.9 % (20-40); Mean Corpuscular HGB Conc 33.2 g/dl (31.0-35.0); Mean Corpuscular Hemoglobin 27.7 pg (27.0-33.0); Mean Corpuscular Volume 83.3 fL (80-98); Mean Platelet Volume 9.5 fL (9.4-12.3); Monocytes Absolute Auto 0.4 X10*3/uL (0.1-1.2); Monocytes Percent Auto 5.2 % (2-11); Neutrophils Absolute Auto 4.8 X10*3/uL (2.0-8.3); Neutrophils Percent Auto 70.5 % (45-73); Platelet Count 198 X10*3/uL (160-400); Red Blood Count 3.54 X10*6/uL (4.20-5.50); Red Cell Distribution Width 14.9 % (11.0-16.0); White Blood Count 6.8 X10*3/uL (4.8-10.8)
--- NOTE | 2020-07-08 16:07 | P.PNHO_ITS ---
Medical Summary - Medical Summary Date of Service: 07/10/20 Chief complaint: Scheduled follow-up Medical Summary: DIAGNOSIS: LEUCOCYTOSIS. ANEMIA. Patient has been told of elevated white count as well as anemia for several years. She was diagnosed with ulcerative colitis at the age of 5 or 6, had large bowel resection at the age of 17 and had revision of ileostomy twice since then. She has been told of iron deficiency anemia over the years. Intermittent neutrophilic leukocytosis with a white count going up to 18,000, microcytic anemia with hemoglobin as low as 9 g per DL. Elevated ESR of 67, beta-2 microglobulin elevated 4.13, serum protein electrophoresis consistent with inflammatory pattern, immunofixation showed no monoclonal protein. Chronic renal insufficiency contributing to anemia. Vitamin B12 level in the low range of normal in June 2020. Interval History Interval history: Patient is here in follow-up. She denies any complaints or recent medical issues. She has been home during this pandemic and state healthy. She states that she is compliant with her medications. She denies any fever, chills, chest pain or shortness of breath. Review of Systems - Constitutional Reports no additional constitutional complaints - Cardiovascular Reports no additional cardiovascular complaints - Respiratory Reports no additional respiratory complaints - Gastrointestinal Reports no additional gastrointestinal complaints [facility] Medical History: Medical History (Last Updated 07/08/20 @ 10:25 by Mishel Ladd) Anemia Bipolar disorder Chronic kidney disease, stage 3 Chronic knee pain Depression Diabetes GERD (gastroesophageal reflux disease) HTN (hypertension) Hyperlipidemia Hypogammaglobulinemia Morbid obesity TYLOR (obstructive sleep apnea) Ulcerative colitis Family History: Family History (Last Updated 07/08/20 @ 10:25 by Mishel Ladd) Mother Coronary artery disease Father High cholesterol HTN (hypertension) Surgical History: Surgical History (Last Updated 07/08/20 @ 10:25 by Mishel Ladd) Hx of resection of large bowel Social History: Social History (Last Updated 07/08/20 @ 14:44 by Mishel Ladd) Alcohol History: Alcohol intake: former Alcohol History Details: Alcohol intake frequency: does not drink Tobacco History: Smoking Status: Former smoker Packs Per Day: 1 Smoking Quit Date: 11/2000 Substance Use History: Use of substances other than those prescribed or required for medical reasons : No Smoking status: Former smoker Oncology Screenings - ECOG Performance Status ECOG Performance Status: 1 Home Medications and Allergies Home Medications Medication Instructions Recorded Confirmed Type aspirin [Aspir-81] 81 mg PO DAILY 07/08/20 07/08/20 History atorvastatin 1 tab PO DAILY 07/08/20 07/08/20 History cholecalciferol (vitamin D3) 50 mcg PO DAILY 07/08/20 07/08/20 History [Vitamin D3] cranberry 400 mg PO DAILY 07/08/20 07/08/20 History enalapril maleate 1 tab PO DAILY 07/08/20 07/08/20 History famotidine [Pepcid] 20 mg PO BID 07/08/20 07/08/20 History ferrous sulfate [Iron (ferrous 325 mg PO BID 07/08/20 07/08/20 History sulfate)] insulin asp prt-insulin aspart 100 ml SUBCUT USEASDIRECTD 07/08/20 07/08/20 History [Novolog Mix 70-30FlexPen U-100] insulin degludec [Tresiba 200 unit SUBCUT DAILY 07/08/20 07/08/20 History FlexTouch U-200] magnesium 250 mg PO DAILY 07/08/20 07/08/20 History metoprolol succinate 1 tab PO DAILY 07/08/20 07/08/20 History multivitamin 1 tab PO DAILY 07/08/20 07/08/20 History omeprazole 40 mg PO DAILY 07/08/20 07/08/20 History paroxetine HCl 1 tab PO DAILY 07/08/20 07/08/20 History ranitidine HCl [Zantac] 300 mg PO BEDTIME 07/08/20 07/08/20 History Allergies Allergy/AdvReac Type Severity Reaction Status Date / Time oxcarbazepine Allergy Intermediate AGITATION Unverified 02/20/20 15:50 [From TRILEPTAL] topiramate [From TOPAMAX] Allergy Intermediate KIDNEY Unverified 02/20/20 15:50 STONES aripiprazole [From ABILIFY] Allergy Mild HIVES Unverified 02/20/20 15:50 acetaminophen [Percocet] Allergy Unknown Verified 05/10/19 00:00 carbamazepine [From Tegretol] Allergy Unknown AGITATION, Unverified 02/20/20 15:50 SUICIDAL clonazepam [From Klonopin] Allergy Unknown RASH Unverified 02/20/20 15:50 codeine [Codeine] Allergy Unknown VOMIT Unverified 02/20/20 15:50 cylert Allergy Unknown Unverified 05/10/19 00:00 haloperidol [From HALDOL] Allergy Unknown RASH Unverified 02/20/20 15:50 lorazepam [From ATIVAN] Allergy Unknown RASH Unverified 02/20/20 15:50 oxycodone [Percocet] Allergy Unknown Verified 05/10/19 00:00 pemoline [From Cylert] Allergy Unknown RASH Unverified 02/20/20 15:50 risperidone [From Risperdal] Allergy Unknown INCREASE Unverified 02/20/20 15:50 PROLECTIN LEVEL Sulfa (Sulfonamide Allergy Unknown JAUNDICE Unverified 02/20/20 15:50 Antibiotics) abilify Allergy Unknown Uncoded 05/10/19 00:00 ativan Allergy Unknown Uncoded 05/10/19 00:00 buspar Allergy Unknown Uncoded 05/10/19 00:00 celexa Allergy Unknown rash Uncoded 05/10/19 00:00 codeine Allergy Unknown Uncoded 05/10/19 00:00 depakote Allergy Unknown Uncoded 05/10/19 00:00 From BuSpar Allergy Unknown RASH Uncoded 02/20/20 15:50 From Celexa Allergy Unknown RASH Uncoded 02/20/20 15:50 From Tolectin Allergy Unknown RASH Uncoded 02/20/20 15:50 From Zoloft Allergy Unknown RASH,KIDNEY Uncoded 02/20/20 15:50 PAIN haldol Allergy Unknown Uncoded 05/10/19 00:00 hydrodiuril Allergy Unknown Uncoded 05/10/19 00:00 klonopin Allergy Unknown Uncoded 05/10/19 00:00 percocet Allergy Unknown Uncoded 05/10/19 00:00 risperdal Allergy Unknown Uncoded 05/10/19 00:00 tegretol Allergy Unknown Uncoded 05/10/19 00:00 tolectin DS Allergy Unknown Uncoded 05/10/19 00:00 Topamax Allergy Unknown kidney Uncoded 05/10/19 00:00 stones zesteril Allergy Unknown Uncoded 05/10/19 00:00 zoloft Allergy Unknown rash Uncoded 05/10/19 00:00 From Percocet AdvReac Unknown VOMIT Uncoded 02/20/20 15:50 Exam Vital signs: Vital Signs Temp 97.4 F 07/08/20 14:39 Pulse 88 07/08/20 14:39 Resp 14 07/08/20 14:39 BP 140/84 H 07/08/20 14:39 Pulse Ox 97 07/08/20 14:39 Intake & Output 07/07/20 07/08/20 07/08/20 18:59 06:59 18:59 Other: Weight 159.6 kg Weight 159.6 kg Body Mass Index 56.7 - Constitutional Present: no acute distress, obese - Routine HEENT Exam Head: Present: normal inspection - Routine Respiratory Exam Present: decreased breath sounds - Routine Cardiovascular Exam Cardiovascular: Present: S1, S2 Data - Labs CBC & Chem 7: 07/08/20 15:25 07/08/20 15:25 Labs: 07/08/20 15:25 Complete Blood Count Auto Diff Routine Laboratory Last Values WBC 6.8 X10*3/uL (4.8-10.8) 07/08/20 15:25 RBC 3.54 X10*6/uL (4.20-5.50) L 07/08/20 15:25 Hgb 9.8 g/dl (12.0-16.0) L 07/08/20 15:25 Hct 29.5 % (37-47) L 07/08/20 15:25 MCV 83.3 fL (80-98) 07/08/20 15:25 MCH 27.7 pg (27.0-33.0) 07/08/20 15:25 MCHC 33.2 g/dl (31.0-35.0) 07/08/20 15:25 RDW 14.9 % (11.0-16.0) 07/08/20 15:25 Plt Count 198 X10*3/uL (160-400) 07/08/20 15:25 MPV 9.5 fL (9.4-12.3) 07/08/20 15:25 Immature Gran % (Auto) 0.7 % (0.0-0.4) H 07/08/20 15:25 Neut % (Auto) 70.5 % (45-73) 07/08/20 15:25 Lymph % (Auto) 18.9 % (20-40) L 07/08/20 15:25 [place] % (Auto) 5.2 % (2-11) 07/08/20 15:25 Eos % (Auto) 3.8 % (0-4) 07/08/20 15:25 Baso % (Auto) 0.9 % (0-2) 07/08/20 15:25 Lymph # (Auto) 1.3 X10*3/uL (1.2-4.9) 07/08/20 15:25 [place] # (Auto) 0.4 X10*3/uL (0.1-1.2) 07/08/20 15:25 Eos # (Auto) 0.3 X10*3/uL (0.0-0.4) 07/08/20 15:25 Baso # (Auto) 0.1 X10*3/uL (0.0-0.2) 07/08/20 15:25 Abs Immat Gran (auto) 0.05 X10*3/uL (0.00-0.03) H 07/08/20 15:25 Absolute Neuts (auto) 4.8 X10*3/uL (2.0-8.3) 07/08/20 15:25 Absolute Nucleated RBC 0.000 X10*3/uL (0.0-0.012) 07/08/20 15:25 Nucleated RBC % (auto) 0.0 /100WBC (0.0-0.2) 07/08/20 15:25 Progress Note: A/P (1) Anemia Status: Chronic Assessment and plan: 1. This is a 50 year-old female with Chronic Intermittent Neutrophilic Leukocytosis and Iron Deficiency Anemia. 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 She has been taking iron supplementation intermittently. Blood work today shows mild worsening of her renal function as well as anemia. Her iron studies are normal. Vitamin B12 levels are in the low range of normal. I will ask her to take oral vitamin B12 1000 micro g daily, She was advised about her elevated blood sugars. Follow-up in 6 months. - Time Spent With Patient Total time spent is greater than 50% in coordination of care (as documented) at patient's floor/unit and/or counseling patient: 15 - 24 minutes
[2020-07-08 16:09] LABS: Alanine Aminotransferase 29 U/L (0-31); Albumin Level 3.2 g/dL (3.5-5.0); Alkaline Phosphatase 86 U/L (39-117); Anion Gap 14 (12-20); Aspartate Amino Transferase 38 U/L (5-31); Bilirubin Total 0.3 mg/dL (0.0-1.0); Blood Urea Nitrogen 26 mg/dL (9-16); Calcium 8.2 mg/dL (8.4-10.2); Carbon Dioxide 23 mmol/L (22-29); Chloride 106 mmol/L (96-108); Creatinine Clr Calc Pharmacy 47.4; Estimated Glomerular Filt Rate 24; Glucose Random 422 mg/dL (60-115); Potassium 5.2 mmol/L (3.3-5.1); Sodium 138 mmol/L (135-145); Total Protein 5.9 g/dL (6.5-8.0)
[2020-07-08 16:35] LABS: Immature Retic Fraction 18.1 % (3.0-15.9); Retic HGB Equivalent 29.8 pg (30.0-35.0); Reticulocyte Percent 3.1 % (0.5-1.8); Reticulocytes Absolute 0.109 X10*6/uL (0.026-0.095)
[2020-07-08 16:44] LABS: Iron 55 mcg/dL (30-160); Percent Iron Saturation 17 % (15-50); Total Iron Binding Capacity 315 mcg/dL (228-428); Unsaturated Iron Binding 260 ug/dL
[2020-07-08 17:32] LABS: Folate 12.3 ng/mL (> or = 4.0); Vitamin B12 266 pg/mL (200-900)
--- NOTE | 2020-07-09 16:13 | MHC.HEMONC ---
Late entry for 07/08/20, 1610- Lab called with glucose of 422. Result faxed to [facility]. Spoke with [facility] this morning to confirm that office received result.
--- NOTE | 2020-07-10 09:39 | MHC.HEMONC ---
Spoke with pt on phone. Instructed to take [address] Ceron. Instructed to pick up attendant B-12 prescription at pharmacy
--- NOTE | 2021-07-01 14:19 | HE.ONCSEC ---
PATIENT CAME , SHE THOUGHT SHE HAD AN APPT TODAY , UPON LOOKING AT THE SCHEDULE SHE WAS NOT ON IT , AND I LOOKED AT ALL HER PREVIOUS APPTS AND WHAT I SAW WAS THAT THE PT HAD AN APPT Mon07/01/20 AT 2:00PM IN WHICH WAS CANCELLED , SHE HAD ANOTHER APPT Mon01/06/21 AT 12:30PM AND PT NO SHOWED . I INFORMED PATIENT WE CAN RESCHEDULE AND SHE DECLINED SHE SAID SHE WILL RATHER CALL TO RESCHEDULE .
== END | disposition home or self-care (01) ==
LOC: HO.ONC 07-08 14:28
PROVIDERS: PCP Family Medicine; Visit Provider Internal Medicine
DX: D72.829 Elevated white blood cell count, unspecified (principal); D50.9 Iron deficiency anemia, unspecified; N18.9 Chronic kidney disease, unspecified; Z79.899 Other long term (current) drug therapy
CPT/HCPCS: 36415; 80053; 82607; 82746; 83540; 85025; 85045; 99213

== ENCOUNTER 2024-02-21 16:33 | Outpatient (REF) | payer MEDICARE, MEDICAID, SELFPAY | END 2024-02-21 16:34 | disposition home or self-care (01) | LOC: HO.HHCLNP 16:33 | PROVIDERS: Visit Provider Family Medicine | DX: M54.40 Lumbago with sciatica, unspecified side (principal); G89.29 Other chronic pain | CPT/HCPCS: 36415; 80307 ==

== ENCOUNTER 2024-03-11 18:17 | Outpatient (REF) | payer MEDICARE, MEDICAID, SELFPAY | END 2024-03-11 18:18 | disposition home or self-care (01) | LOC: HO.HHCLNP 18:17 | PROVIDERS: Visit Provider Internal Medicine | DX: R39.9 Unspecified symptoms and signs involving the genitourinary system (principal) | CPT/HCPCS: 87086; 87147 ==

== ENCOUNTER 2024-04-24 17:54 | Outpatient (REF) | payer MEDICARE, MEDICAID, SELFPAY | END 2024-04-24 17:55 | disposition home or self-care (01) | LOC: HO.HHCLNP 17:54 | PROVIDERS: Visit Provider Family Medicine | DX: M54.50 Low back pain, unspecified (principal); G89.29 Other chronic pain | CPT/HCPCS: 36415; 80307 ==

== ENCOUNTER 2024-05-13 09:39 | Outpatient (AMB) | payer MEDICARE, MEDICAID, SELFPAY ==
--- NOTE | 2024-05-13 09:40 | MHC.OFFVIS ---
Vital Signs 05/13/24 09:47 Height 5 ft 6 in Weight 325 lb BMI 52.5 BP 141/74 H Blood Pressure Location Rt radial Position Sitting Pulse 104 H Intake Visit Reasons: Suprapubic abscess Intake Note: Patient referred by pcp Dr. Bryan for recurrent abscess on suprapubic area. Present for months Patient c/o: looks like it healed. Has been I&Ded 3x in the past. Vegetable Handler Required: No Accompanied by: Self / Same As Patient Allergies oxcarbazepine [From TRILEPTAL] Allergy (Intermediate, Verified 05/13/24 09:45) AGITATION topiramate [From TOPAMAX] Allergy (Intermediate, Verified 05/13/24 09:45) KIDNEY STONES aripiprazole [From ABILIFY] Allergy (Mild, Verified 05/13/24 09:45) HIVES insulin lispro [From Humalog U-100 Insulin] Allergy (Mild, Verified 05/13/24 09:45) rash acetaminophen [Percocet] Allergy (Unknown, Verified 05/13/24 09:45) Unknown carbamazepine [From Tegretol] Allergy (Unknown, Verified 05/13/24 09:45) AGITATION, SUICIDAL clonazepam [From Klonopin] Allergy (Unknown, Verified 05/13/24 09:45) RASH codeine [Codeine] Allergy (Unknown, Verified 05/13/24 09:45) VOMIT cylert Allergy (Unknown, Verified 05/13/24 09:45) Unknown haloperidol [From HALDOL] Allergy (Unknown, Verified 05/13/24 09:45) RASH lorazepam [From ATIVAN] Allergy (Unknown, Verified 05/13/24 09:45) RASH oxycodone [Percocet] Allergy (Unknown, Verified 05/13/24 09:45) Unknown pemoline [From Cylert] Allergy (Unknown, Verified 05/13/24 09:45) RASH risperidone [From Risperdal] Allergy (Unknown, Verified 05/13/24 09:45) INCREASE PROLECTIN LEVEL Sulfa (Sulfonamide Antibiotics) Allergy (Unknown, Verified 05/13/24 09:45) JAUNDICE doxycycline Adverse Reaction (Severe, Verified 05/13/24 09:45) Chest Pain abilify Allergy (Unknown, Uncoded 05/13/24 09:45) Unknown ativan Allergy (Unknown, Uncoded 05/13/24 09:45) Unknown buspar Allergy (Unknown, Uncoded 05/13/24 09:45) Unknown celexa Allergy (Unknown, Uncoded 05/13/24 09:45) rash codeine Allergy (Unknown, Uncoded 05/13/24 09:45) Unknown depakote Allergy (Unknown, Uncoded 05/13/24 09:45) Unknown From BuSpar Allergy (Unknown, Uncoded 05/13/24 09:45) RASH From Celexa Allergy (Unknown, Uncoded 05/13/24 09:45) RASH From Tolectin Allergy (Unknown, Uncoded 05/13/24 09:45) RASH From Zoloft Allergy (Unknown, Uncoded 05/13/24 09:45) RASH,KIDNEY PAIN haldol Allergy (Unknown, Uncoded 05/13/24 09:45) Unknown hydrodiuril Allergy (Unknown, Uncoded 05/13/24 09:45) Unknown klonopin Allergy (Unknown, Uncoded 05/13/24 09:45) Unknown percocet Allergy (Unknown, Uncoded 05/13/24 09:45) Unknown risperdal Allergy (Unknown, Uncoded 05/13/24 09:45) Unknown tegretol Allergy (Unknown, Uncoded 05/13/24 09:45) Unknown tolectin DS Allergy (Unknown, Uncoded 05/13/24 09:45) Unknown Topamax Allergy (Unknown, Uncoded 05/13/24 09:45) kidney stones zesteril Allergy (Unknown, Uncoded 05/13/24 09:45) Unknown zoloft Allergy (Unknown, Uncoded 05/13/24 09:45) rash From Percocet Adverse Reaction (Unknown, Uncoded 05/13/24 09:45) VOMIT HPI Comments Details: Patient presents for follow-up status post I&D of a left suprapubic infected sebaceous cyst. She has complete resolution of her symptoms. Patient was a complicated past surgical history. She had a total colectomy in her youth and had an ileostomy which was then repositioned. She now has several ventral hernias as well as a massively corpulent abdomen. [facility] Medical History Anemia Anemia Bipolar disorder Chronic kidney disease, stage 3 Chronic knee pain Depression Diabetes Epidermal cyst GERD (gastroesophageal reflux disease) HTN (hypertension) Hyperlipidemia Hypogammaglobulinemia Morbid obesity TYLOR (obstructive sleep apnea) Ulcerative colitis Surgical History Hx of resection of large bowel Family History Mother Coronary artery disease Father High cholesterol HTN (hypertension) Social History Household Members: None Housing: Apartment Do you presently have visiting nurse or other home services: No Alcohol intake: never Patient Tobacco Use Status: Never used Tobacco Cigarette Packs Per Day: 1 service: No Current occupational status: disabled Physical Exam Vital Signs: Last Vital Signs Pulse 104 H 05/13/24 09:47 BP 141/74 H 05/13/24 09:47 BMI result Body Mass Index 52.5 GI Other: Abdominal findings as noted above. Suprapubic area demonstrates resolution of the infected sebaceous cyst of the left groin. Assessment & Plan Assessment & Plan (1) Infected sebaceous cyst: Code(s): L72.3 - Sebaceous cyst; L08.9 - Local infection of the skin and subcutaneous tissue, unspecified Category: Surgical Plan At present, no further intervention required for sebaceous cyst. Patient will otherwise follow-up p.r.n.. All questions answered Coding Level of Care Code New Pt Level 4 (43836) Diagnoses Infected sebaceous cyst L72.3; L08.9
[2024-05-13 09:47] VITALS: BP 141/74; PULSE 104; BMI 52.5
== END 2024-05-13 09:52 | disposition home or self-care (01) ==
PROVIDERS: PCP Family Medicine; Visit Provider Surgery
DX: L72.3 Sebaceous cyst (principal); L08.9 Local infection of the skin and subcutaneous tissue, unspecified
CPT/HCPCS: 99204

== ENCOUNTER → 2024-05-13 09:39 | Outpatient (BNVA) | payer MEDICARE, MEDICAID, SELFPAY | PROVIDERS: PCP Family Medicine; Visit Provider Surgery | DX: Z09 Encounter for follow-up examination after completed treatment for conditions other than malignant neoplasm (principal); Z87.2 Personal history of diseases of the skin and subcutaneous tissue | CPT/HCPCS: 99202 ==

== ENCOUNTER 2024-06-21 14:15 | Outpatient (REF) | payer MEDICARE, MEDICAID, SELFPAY | END 2024-06-21 14:16 | disposition home or self-care (01) | LOC: HO.MAMMO 14:15 | PROVIDERS: PCP Family Medicine; Visit Provider Family Medicine | DX: Z12.31 Encounter for screening mammogram for malignant neoplasm of breast (principal) | CPT/HCPCS: 77063; 77067 ==

== ENCOUNTER 2024-08-26 12:23 | Outpatient (REF) | payer MEDICARE, MEDICAID, SELFPAY ==
--- NOTE | ~2024-08-26 | XR_ITS ---
EXAMINATION: XR HAND 3 OR MORE VIEWS RIGHT HISTORY: R thumb pain and swelling x one week COMPARISON: Comparison is made with the prior examination dated 12/15/2017. FINDINGS: Three views of the right hand are submitted. Osseous mineralization is normal. There is no fracture or dislocation. The joint spaces are preserved. The soft tissues are unremarkable. XR/XR hand RT min 3V IMPRESSION: Unremarkable examination of the right hand. Electronically signed by: Manuel Gleason MD 08/26/2024 12:53 PM EDT
== END 2024-08-26 12:24 | disposition home or self-care (01) ==
LOC: HO.HHCX 12:23
PROVIDERS: Visit Provider Family Medicine
DX: R39.9 Unspecified symptoms and signs involving the genitourinary system (principal); M79.644 Pain in right finger(s)
CPT/HCPCS: 73130; 87086; 87147

== ENCOUNTER → 2024-08-26 12:25 | Outpatient (BNV) | payer MEDICARE, MEDICAID, SELFPAY | PROVIDERS: Visit Provider Radiology Diagnostic Radiology | DX: M79.641 Pain in right hand (principal) | CPT/HCPCS: 73130 ==

== ENCOUNTER 2024-09-10 11:55 | Outpatient (REF) | payer MEDICARE, MEDICAID, SELFPAY ==
--- OUTSIDE RECORDS SUMMARY | 2024-09-11 14:02 | XMS_ITS | Clinical Summary ---
Author Organization [facility] Address [address] [place] [address] Care Team Providers Care Transaction Manager Name Role Phone Smitha Coyne Kacy Primary Care Provider +1- [phone] Allergies Active Allergy Reactions Criticality Noted Date Comments Aripiprazole Rash,Hives,Other (see comments) 09/29/2015 Other reaction(s): Other (see comments) Other reaction(s): Hives Carbamazepine Suicidal ideation High 05/03/2012 Other reaction(s): suicidal Citalopram Rash Low 10/04/2021 Other reaction(s): rash Clindamycin Heartburn 10/04/2021 Acid reflux Acid reflux Other reaction(s): Acid reflux Acid reflux Other reaction(s): Acid reflux Acid reflux Clonazepam Rash 01/27/2022 Other reaction(s): rash Codeine Vomiting 05/03/2012 Other reaction(s): gi upset Divalproex Unknown 11/14/2023 Doxycycline Heartburn 11/08/2021 Acid Reflux Acid Reflux Other reaction(s): Acid reflux Acid Reflux Acid Reflux Haloperidol Rash Low 06/30/2022 Hydrochlorothiazide Rash Low 11/21/2005 Other reaction(s): rash Hydromorphone Rash 11/22/2022 Other reaction(s): rash nausaea nauseahives nauseahives Other reaction(s): rash nausaea nauseahives Other reaction(s): rash nausaea nauseahives nauseahives Insulin Lispro Rash Low 06/30/2022 Lamotrigine Tachycardia 10/04/2021 Other reaction(s): Tachycardia Lisinopril Rash Low 10/04/2021 Other reaction(s): rash Lorazepam Rash Low 10/04/2021 Fwk-Mrrwo-Wwxf-Lidocaine Unknown 05/19/2023 Other reaction(s): Rash, Inflammation Rotpzpes-Levtmtlrfd-Hpufei mark Dermatitis 11/14/2023 Oxcarbazepine Agitation,Other (see comments),Unknown 01/27/2022 Other reaction(s): Irritability Oxycodone Vomiting 12/12/2011 Other reaction(s): Gi upset Pemoline Rash 05/03/2012 Other reaction(s): rash Perphenazine Rash Low 06/30/2022 Risperidone Vomiting 01/27/2022 Other reaction(s): increase prolectin level Sertraline Rash Low 11/21/2005 Other reaction(s): rash Sulfa (Sulfonamide Antibiotics) Other (see comments) Low 11/21/2005 Sulfa drug Other reaction(s): Jaundice Jaundicehas previously tolerated tamsulosin Other reaction(s): Jaundice Jaundicehas previously tolerated tamsulosin Sumatriptan Rash Low 06/30/2022 Tolmetin Rash Low 01/27/2022 Medications Alcohol Prep Pads pads, medicated 4 Active amitriptyline (ELAVIL) 10 mg tablet Take 2 tablets by mouth at bed time. 4 Active atorvastatin (LIPITOR) 20 mg tablet Take 1 tablet by mouth at bed time. 4 Active baclofen (LIORESAL) 10 mg tablet Take 10 mg by mouth 2 times daily as needed. 3 Active cholecalciferol (VITAMIN D3) 2,000 unit capsule Take 1 capsule by mouth. Active clotrimazole-be tamethasone (LOTRISONE) cream Apply 1 Application topically to the affected area daily. Active Trulicity 0.75 mg/0.5 mL injection dose SMARTSIG:SUB-Q Active ferrous sulfate 325 mg (65 mg iron) EC tablet Take 1 tablet by mouth daily. Active HYDROcodone-sidney taminophen (NORCO) 5-325 mg tablet 4 Active NovoLOG Mix 70-30FlexPen U-100 100 unit/mL (70-30) injection pen inject twice daily per sliding scale: BS 100-149: 28 units, BS 150-199: 30 units, BS 200-249: 32 units, BS: 250-299 34 units, BS 300-349: 36 units, BS 359-399: 38 units, BS >400: 40 units 3 Active Tresiba FlexTouch U-200 200 unit/mL (3 mL) insulin pen Inject 54 Units under the skin. 3 Active lansoprazole (PREVACID) 30 mg capsule TAKE ONE CAPSULE BY MOUTH TWICE A DAY BEFORE MEALS 3 Active loperamide (IMODIUM) 2 mg capsule TAKE ONE TO TWO CAPSULES BY MOUTH EVERY MORNING, AT NOON, IN THE EVENING, AND AT BEDTIME NEEDED FOR DIARRHEA 4 Active loratadine (CLARITIN) 10 mg tablet TAKE ONE TABLET BY MOUTH ONCE DAILY NEEDED FOR ALLERGIES 4 Active metoprolol succinate XL (TOPROL-XL) 200 mg 24 hr tablet Take 1 tablet by mouth. Active midodrine (PROAMATINE) 5 mg tablet 4 Active QUEtiapine (SEROquel) 50 mg tablet 4 Active QUEtiapine (SEROquel) 25 mg tablet 4 Active Active Problems Problem Noted Date Diagnosed Date Recurrent nephrolithiasis 11/14/2023 Chronic interstitial cystitis 06/01/2023 Arteriovenous fistula 01/10/2023 Dependence on renal dialysis 10/06/2022 End stage renal disease on dialysis 10/06/2022 Overview (11/14/2023): Last Assessment & Plan: Continues to go to her dialysis as schedule Ileostomy present 08/18/2022 Severe obesity 11/08/2021 Anemia in chronic kidney disease 06/28/2021 Type 2 diabetes mellitus wit h diabetic chronic kidney disease 06/28/2021 Bipolar disorder 04/20/2015 Essential hypertension 04/20/2015 Overview (11/14/2023): Last Assessment & Plan: - Aerobic exercise to reduce BP. Initial goal of 30 min walk 3-5x/week. Increase as tolerated. - low-sodium diet (goal: <2g/day) and heart healthy diet such as DASH to reduce BP and prevent ASCVD. - Home BP monitoring 1-2 x day with goal of <140/90. - Seek immediate medical attention for chest pain, palpitations, SOB, syncope, or sudden changes in mental status. - Do not change or discontinue current prescriptions without first consulting health care provider Gastroesophageal reflux disease 04/20/2015 Hyperlipidemia 04/20/2015 Mild intermittent asthma 04/20/2015 Obstructive sleep apnea syndrome 04/20/2015 Ulcerative colitis 04/20/2015 Social History Tobacco Use Types Packs/Day Years Used Date Smoking Tobacco: Former Cigarettes Smokeless Tobacco: Never Tobacco Cessation:Counseling Given: Not Answered Comments Unknown Sex and Gender Information Value Date Recorded Sex Assigned at Not on file Legal Sex Female 5:51 PM EDT Gender Identity Not on file Sexual Orientation Not on file Last Filed Vital Signs Vital Sign Reading Time Taken Comments Blood Pressure 121/58 11/14/2023 1:49 PM EDT Pulse 102 11/14/2023 1:49 PM EDT Temperature - - Respiratory Rate - - Oxygen Saturation - - Inhaled Oxygen Concentration - - Weight - - Height - - Body Mass Index - - Plan of Treatment Health Maintenance Due Date Last Done Comments Cervical Cancer Screening 1969 Cologuard 1969 Colonoscopy 1969 HPV and Pap Smear 1969 Hepatitis C Screening 1969 Pap Smear 1969 Medicare AWV 1970 Ophthalmology Exam 1979 Pneumococcal Vaccine: 50+ Ye ars (1 of 2 - PCV) 01/21/1988 CT Lung Cancer Screening (Baseline) 2019 Zoster Vaccines (1 of 2) 2019 Sigmoidoscopy 04/20/2020 04/20/2015 COVID-19 Vaccine ( - season) 2024 Hemoglobin A1C 02/17/2024 08/17/2023 Alcohol/Substance Use Screening 06/05/2024 Depression Screening and Follow-Up 06/05/2024 Social Drivers of Health Randee ual Screening 06/05/2024 Basic Metabolic Panel 08/21/2024 08/22/2023 Colon Cancer Screening 08/21/2024 FOBT / Fit Test 08/21/2024 08/22/2023, 04/20/2015 Influenza Vaccine (Season Ended) 2025 Mammogram 03/30/2025 03/30/2023, 03/06, 03/27/2018 DTaP,Tdap,and Td Vaccines (4 - Td or Tdap) 09/16/2029 09/17/2019, 06/03/2009, 06/03/2001 RSV Vaccine (60+ years old a nd patients) (1 - 1-dose 75+ series) 01/21/2044 Hepatitis B Vaccines Completed 12/14/2006, 07/27/2006, 06/26/2006 HIV Screening Completed 01/28/2021 Insurance MEDICARE [facility] Care Teams Transaction Manager Relationship Specialty Start Date End Date Smitha Coyne [address] [place] [id number] PCP - General Family Medicine 09/05/23
--- OUTSIDE RECORDS SUMMARY | 2024-09-11 14:02 | XMS_ITS | Encounter Summary ---
Author Organization [employer] Address [address] [facility] [address] [place] [address] Care Team Providers Care Leather Scrubber Name Role Phone MirlandeSmitha grande Primary Care Provider + [phone] Encounter Details Date Type Department Care Team (Late st Contact Info) Description 09/10/2024 6:40 PM EDT Office Visit [facility] [address] [phone] Heraclio Bernabe MD [address] [place], [place] [phone] Recurrent UTI Social History Tobacco Use Types Packs/Day Years Used Date Smoking Tobacco: Former Cigarettes Passive Smoke Exposure: Past Smokeless Tobacco: Never Alcohol Use Standard Drinks/Week Comments Not Currently 0 (1 standard drink = 0.6 oz pur e alcohol) Alcohol Answer Date Recorded Frequency of Alcohol Consumption Not on file 08/17/2023 Average Number of Drinks Not on file 024 Frequency of Binge Drinking Not on file 08/03 Score 0 08/17/2023 Depression Answer Date Recorded Patient Health Questionnaire-9 Score 0 08/17/2023 Patient Health Questionnaire-9 Score 0 08/17/2023 Last PHQ-9: Questionnaire Data Not on file 0 08/17/2023 Housing Stability Answer Date Recorded What is your housing situation today? I have yair hyde 03/20/[address] you li ve. Do you have problems with any of the following? None of the above 03/20/2023 Food Insecurity Answer Date Recorded Within the past 12 months, y ou worried that your food would run out before you got money to buy more: Never True 03/20/2023 Within the past 12 months,th e food you bought just didn't last and you didn't have enough money to get more: Never True Transportation Answer Date Recorded In the past 12 months, has l ack of transportation kept you from medical appts, meetings, work or from getting things needed for daily living? No 06/26/2023 Utilities Answer Date Recorded In the past 12 months, has t he electric, gas, oil or water company threatened to shut off services in your home? No 03/20/2023 Depression Answer Date Recorded Patient Health Questionnaire-2 Score 0 08/17/2023 Comments Unknown Sex and Gender Information Value Date Recorded Sex Assigned at Female 04/04/2022 10:16 AM EDT Legal Sex Female 10:16 AM EDT Gender Identity Female 04/04/2022 10:16 AM EDT Sexual Orientation Choose not to disclose 2021 10:16 AM EDT documented as of this encounter Last Filed Vital Signs Vital Sign Reading Time Taken Comments Blood Pressure 152/89 09/10/2024 6:00 PM EDT Pulse 99 09/10/2024 6:00 PM EDT Temperature 36.7 ??C (98 ??F) 09/10/2024 6:00 PM EDT Respiratory Rate 18 09/10/2024 6:00 PM EDT Oxygen Saturation - - Inhaled Oxygen Concentration - - Weight 144 kg (316 lb 12.8 oz) 09/10/2024 6:00 P M EDT Height 167.6 cm (5' 6 ) 09/10/2024 6:00 PM EDT Body Mass Index 51.13 09/10/2024 6:00 PM EDT documented in this encounter Progress Notes * Heraclio Bernabe MD - 09/10/2024 6:40 PM EDT Subjective History was provided by the patient. Nyla Wiley is a 54 y.o. female who presents for evaluation of 2-day duration of dysuria, hematuria, and urinary frequency. Had a temp of 100.0 at the onset of her symptoms. Denies current F/C.Denies N/V/D. Denies flank pain. Underlying interstitial cystitis. Saw her PCP 2 weeks ago (08/26/2024) and was treated for UTI with Levofloxacin. Her Urine Culture showed likely contamination and Streptococcus agalactiae (<10,000cfu/mL). States her symptoms improved until now. She is scheduled to see [facility] on 11/04/2024. Patient has multiple drug allergies, but states she tolerates PCN, Cephalosporins, and Bactrim. Objective Vitals: 09/10/24 1800 BP: (!) 152/89 BP Location: Left arm Patient Position: Sitting BP Cuff Size: Large adult Pulse: 99 Resp: 18 Temp: 98 ??F (36.7 ??C) TempSrc: Temporal Weight: 316 lb 12.8 oz (144 kg) Height: 5' 6 (1.676 m) Physical Exam Constitutional: General: She is not in acute distress. Appearance: Normal appearance. She is not ill-appearing, toxic-appearing or diaphoretic. HENT: Head: Normocephalic and atraumatic. Right Ear: External ear normal. Left Ear: External ear normal. Nose: Nose normal. Mouth/Throat: Mouth: Mucous membranes are dry. Pharynx: Oropharynx is clear. Eyes: Extraocular Movements: Extraocular movements intact. Conjunctiva/sclera: Conjunctivae normal. Pulmonary: Effort: Pulmonary effort is normal. Abdominal: General: There is no distension. Palpations: Abdomen is soft. Tenderness: There is no abdominal tenderness. There is no right CVA tenderness, left CVA tenderness, guarding or rebound. Musculoskeletal: Cervical back: Neck supple. Skin: General: Skin is warm. Neurological: General: No focal deficit present. Mental Status: She is alert and oriented to person, place, and time. Psychiatric: Mood and Affect: Mood normal. Behavior: Behavior normal. Office Visit on 09/10/2024 Component Date Value Ref Range Status Color, UA 09/10/2024 Colorless Final Cream color Clarity, UA 09/10/2024 Turbid Final Glucose, UA 09/10/2024 Negative Final Bilirubin, UA 09/10/2024 Negative Final Ketones, UA 09/10/2024 Negative Final Spec Grav, UA 09/10/2024 1.025 Final Blood, UA 09/10/2024 Positive (A) Negative, None Detected Final LARGE pH, UA 09/10/2024 7.0 Final Protein, UA 09/10/2024 Trace Final 300MG Urobilinogen, UA 09/10/2024 0.2 Final Leukocytes, UA 09/10/2024 Trace Negative, Rare, Trace Final LARGE Nitrite, UA 09/10/2024 Positive (A) Negative, None Detected Final Appearance, UA 09/10/2024 CREAMY TURB Final QC Media Lot # 09/10/2024 [id number] Final Lot# Expiration Date 09/10/2024 [id number] Final Diagnoses and all orders for this visit: Recurrent UTI - POCT Urinalysis - Culture, Urine, Routine; Future - cephalexin (Keflex) 500 MG capsule; Take 1 capsule (500 mg) by mouth 2 times daily for 7 days. Patient with a clinical presentation of acute UTI No clinical evidence of acute abdomen or pyelonephritis Will send out UCx and start antibiotic medication Was recently treated presumed UTI with Levofloxacin (UCx grew low colony Streptococcus agalactiae) Underlying interstitial cystitis Will be seeing [facility] in 11/2024 Will treat with Keflex 500mg PO BID for 7 days Potential adverse effects of the medication reviewed Probiotic use discussed Allergies reviewed Discussed strategies to prevent future infections Advised to contact the clinic if no improvement of symptoms Indications for UC/ER use reviewed documented in this encounter Plan of Treatment Upcoming Encounters Date Type Department Care Team (Late st Contact Info) Description 10/11/2024 1:00 PM EDT Office Visit [facility] [address] [place] [address] Mauricio, Kayleigh, OD [address] [place] [address] 10/30/2024 2:00 PM EDT Clinical Support [facility] [address] [place] [phone] Elza Graham, ROSA 11/01/2024 11:00 AM EDT Office Visit [facility] [address] [place] [phone] Smitha Coyne DO [address] [place] [address] Scheduled Orders Name Type Priority Associated Diagnoses Orde r Schedule Culture, Urine, Routine Microbiology Routine Recurrent UTI Expected: 09/10/2024 (Approximate), Expires: 09/10/2025 documented as of this encounter Goals Goal Patient Goal Type Associated Problems Recent Progress Patient-Stated? Author Patient will adhere to medication regimen General No Puia, Harini, PharmD Record your blood sugar as directed Result Component No Puia, Harini, PharmD Hemoglobin A1c < 7.5 Result Component 8.2( 4 2:42 PM EST) No Puia, Harini, PharmD documented as of this encounter Procedures Procedure Name Priority Date/Time Associated Diagnosis Comments POCT URINALYSIS DIPSTICK Routine 09/10/2024 5:31 PM EDT Recurrent UTI documented in this encounter Results * (ABNORMAL) POCT Urinalysis (09/10/2024 5:31 PM EDT) Color, UA Colorless Comment:Cream color Clarity, UA Turbid Glucose, UA Negative Bilirubin, UA Negative Ketones, UA Negative Spec Grav, UA 1.025 Blood, UA Positive(A) Negative, None Detected Comment:LARGE pH, UA 7.0 Protein, UA Trace Comment:300MG Urobilinogen, UA 0.2 Leukocytes, UA Trace Negative, Rare, Trace Comment:LARGE Nitrite, UA Positive(A) Negative, None Detected Appearance, UA CREAMY TURB QC Media Lot # [id number] Lot# Expiration Date [id number] Urine 09/10/2024 5:31 PM EDT Heraclio Bernabe MD POINT OF CARE TEST ENTER/EDIT OR DERABLES Final Result documented in this encounter Visit Diagnoses Diagnosis Recurrent UTI Urinary tract infection, site not specified documented in this encounter Additional Health Concerns Assessment Noted Time PHQ-9 Depression Total Score: 0 08/17/19 24 11:11 AM EDT documented as of this encounter Care Teams Leather Scrubber Relationship Specialty Start Date End Date Smitha Coyne DO [address] [place] [phone] PCP - General Family Medicine 06/05/18 documented as of this encounter
--- OUTSIDE RECORDS SUMMARY | 2024-09-11 14:02 | XMS_ITS | Encounter Summary ---
Author Organization [employer] Address [address] [facility] [address] [place] [address] Care Team Providers Care Asp Net Mvc Developer Name Role Phone Smitha Coyne DO Primary Care Provider +1- [phone] Harini Marshall PharmD Unavailable [phone] Encounter Details Date Type Department Care Team (Late st Contact Info) Description 08/11/[address] [facility] [address] [place], [place] [phone] Smitha Coyne DO [address] [place], [place] [phone] Social History Tobacco Use Types Packs/Day Years Used Date Smoking Tobacco: Former Cigarettes Smokeless Tobacco: Never Alcohol Use Standard Drinks/Week Comments Not Currently 0 (1 standard drink = 0.6 oz pur e alcohol) PHQ-2 Answer Date Recorded Patient Health Questionnaire-2 Score 2 11/22/2022 Housing Stability Answer Date Recorded What is [...] Answer Date Recorded Patient Health Questionnaire-2 Score 2 11/22/2022 Comments Unknown Sex and Gender Information Value Date Recorded Sex Assigned at Female 04/04/2022 10:16 AM EDT Legal Sex Female 10:16 AM EDT Gender Identity Female 04/04/2022 10:16 AM EDT Sexual Orientation Choose not to disclose 2021 10:16 AM EDT documented as of this encounter Miscellaneous Notes * Telephone Encounter - Fady Gaytan - 08/11/2023 11:59 AM EST Tc from pt stated they received a call, freelance writer didn't see anything tasked. documented in this encounter Plan of Treatment Upcoming Encounters Date Type Department Care Team (Late st Contact Info) Description 10/11/2024 1:00 PM EDT Office Visit [facility] [address] [place] [address] Mauricio, Kayleigh, OD [address] [place] [address] 10/30/2024 2:00 PM EDT Clinical Support [facility] [address] [place] [address] Elza Graham RN 11/01/2024 11:00 AM EDT Office Visit [facility] [address] [place] [address] Smitha Coyne DO [address] [place] [address] documented as of this encounter Visit Diagnoses Not on filedocumented in this encounter Care Teams Asp Net Mvc Developer Relationship Specialty Start Date End Date Smitha Coyne DO [address] [place] [address] PCP - General Family Medicine 06/05/18 Harini Marshall PharmD [address] [place] [id number] Pharmacist Internal Medicine 08/22/23 09/21/23 Elza Au Mottler Machine Feeder 07/04/23 10/03/23 documented as of this encounter
--- OUTSIDE RECORDS SUMMARY | 2024-09-11 14:02 | XMS_ITS | Encounter Summary ---
Author Organization [facility] Address [address] [address] Phone Care Team Providers Care Presser And Blocker Knitted Goods Name Role Phone Unavailable Primary Care Provider Unavailabl e Encounter Details Date Type Department Care Team (Late st Contact Info) Description 09/10/2024 Treatment [facility]. [address] [address] Kylah Thompson MD [address] [address] End stage renal disease; Dependence on renal dialysis Social History Tobacco Use Types Packs/Day Years Used Date Smoking Tobacco: Former Smokeless Tobacco: Never Alcohol Use Standard Drinks/Week Comments No 0 (1 standard drink = 0.6 oz pur e alcohol) Comments Unknown Sex and Gender Information Value Date Recorded Sex Assigned at Not on file Legal Sex Female 5:06 PM EST Gender Identity Not on file Sexual Orientation Not on file documented as of this encounter Miscellaneous Notes * Dialysis Note - Kylah Thompson MD - 09/10/2024 12:00 AM EDT BASIC NOTE Patient: Nyla Wiley : 1970 Note Author: KYLAH THOMPSON MD Service Date: 09/10/2024 This patient was personally seen for a basic visit as part of routine monthly dialysis care for end stage renal disease. Attending Commercial Airplane Pilot: KYLAH THOMPSON MD Dialysis Location: [facility] Schedule: Shift: 2 OVERVIEW Patient is stable. 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 HOME MEDICATIONS Current [facility] Epic Outpatient Medications amLODIPine (NORVASC) 2.5 MG tablet Take 1 tablet (2.5 mg total) by mouth 1 (one) time each day Start Date: 05/03/2022 atorvastatin (LIPITOR) tablet Take 20 mg by mouth Start Date: 10/27/2021 BACLOFEN 5 MG PO TABS Take 10 mg by mouth Start Date: 10/27/2021 BD PEN NEEDLE TEMO U/F 32G X 4 MM MISC Start Date: 08/04/2020 CHOLECALCIFEROL 50 MCG (1999 UT) PO CAPS Take 1 capsule by mouth 1 (one) time each day Start Date: ferrous sulfate EC tablet 325 mg (65 mg elemental) Take 1 tablet by mouth 2 (two) times a day Start Date: fosfomycin (MONUROL) packet DISSOLVE 1 PACKET IN 4 OZ OF WATER AND DRINK ONCE EVERY OTHER MONDAY. ALTERNATE EVERY MONDAY WITH CEPHALEXIN PRESCRIPTION Start Date: 01/07/2022 HYDROcodone-acetaminophen (NORCO) tablet 5-325 mg Take 1 tablet by mouth Start Date: 10/27/2021 HYDROmorphone (DILAUDID) tablet TAKE 1 TABLET BY MOUTH EVERY 4 HOURS NEEDED FOR SEVERE PAIN Start Date: 01/07/2022 metoprolol succinate (TOPROL-XL) 24 hr tablet Take 1 tablet by mouth 1 (one) time each day Start Date: NOVOLOG MIX 70/30 FLEXPEN (70-30) 100 UNIT/ML SC SUPN as directed Start Date: OMRON 3 SERIES BP MONITOR NATALI USE TO CHECK BLOOD PRESSURE 2 OR 3 TIMES DAILY, SEATED WITH FEET ON FLOOR Start Date: 08/04/2020 SM ALCOHOL PREP 70 % PADS Start Date: 08/04/2020 sodium bicarbonate tablet Take 325 mg by mouth in the morning and 325 mg in the evening. Start Date: SODIUM CITRATE PO Take 5 mL by mouth Start Date: TRESIBA FLEXTOUCH 200 UNIT/ML SC SOPN 36 Units Start Date: Current [facility] Epic Allergies Allergen: Abilify [ARIPIPRAZOLE] Reaction: Other (see comments) Allergen: CARBAMAZEPINE Allergen: CITALOPRAM Reaction: Rash Severity: Low Allergen: CLINDAMYCIN Allergen: CODEINE Allergen: DOXYCYCLINE Allergen: HALOPERIDOL Reaction: Rash Severity: Low Allergen: HYDROCHLOROTHIAZIDE Allergen: INSULIN LISPRO Reaction: Rash Severity: Low Allergen: LAMOTRIGINE Allergen: LISINOPRIL Reaction: Rash Severity: Low Allergen: LORAZEPAM Allergen: OXCARBAZEPINE Reaction: Other (see comments) Allergen: OXYCODONE Allergen: PEMOLINE Allergen: PERPHENAZINE Reaction: Rash Severity: Low Allergen: PHENAZOPYRIDINE Reaction: Rash Vomiting Severity: Low Low Allergen: RISPERIDONE Allergen: SERTRALINE Reaction: Rash Severity: Low Allergen: SULFA ANTIBIOTICS Reaction: Other (see comments) Allergen: SUMATRIPTAN Reaction: Rash Severity: Low Allergen: TOLMETIN Reaction: Rash Severity: Low Allergen: VALPROIC ACID ADEQUACY ASSESSMENT Kt/V, Natural Log 1.39 (09/05/24) 1.41 (08/10/24) 1.07 (08/08/24) UREA REDUCTION RATIO (%) 71 (09/05/24) 71 (08/10/24) 62 (08/08/24) BUN 31 (09/05/24) 28 (08/10/24) 29 (08/08/24) BUN Post Dialysis 9 (09/05/24) 8 (08/10/24) 11 (08/08/24) Creatinine 7.39 (09/05/24) 7.63 (08/08/24) 6.12 (07/13/24) Bicarbonate (CO2) 25 (09/05/24) 25 (08/08/24) 23 (07/13/24) Sodium 134 (09/05/24) 138 (08/08/24) 134 (07/13/24) ANEMIA ASSESSMENT Hgb 10.0 (09/05/24) 10.9 (08/22/24) 10.0 (08/08/24) Iron Saturation (TSat) 16 (09/05/24) 27 (08/08/24) 15 (07/13/24) Ferritin 1,754 (09/05/24) 1,805 (08/08/24) 1,758 (07/13/24) Iron 40 (09/05/24) 58 (08/08/24) 35 (07/13/24) TIBC 251 (09/05/24) 216 (08/08/24) 231 (07/13/24) MCV 88.9 (09/05/24) 90.1 (08/08/24) 90.3 (07/13/24) Platelets 182 (09/05/24) 187 (08/08/24) 190 (07/13/24) BMM ASSESSMENT Calcium, Adjusted Total 8.7 09/05/24 8.4 08/08/24 8.9 07/13/24 Calcium 8.7 09/05/24 8.4 08/08/24 8.9 07/13/24 Phosphorus, Serum 4.2 09/05/24 4.3 08/08/24 3.6 07/13/24 Ca*PO4 36.5 09/05/24 36.1 08/08/24 32.0 07/13/24 PTH, Intact 393 09/05/24 329 06/13/24 314 04/11/24 Magnesium 1.6 09/05/24 1.6 08/08/24 1.4 07/13/24 Alkaline Phosphatase 136 09/05/24 146 08/08/24 160 07/13/24 Aluminum 6 06/13/24 2 05/21/24 NUTRITION ASSESSMENT Albumin 4.4 09/05/24 4.0 08/08/24 4.2 07/13/24 Potassium 4.7 09/05/24 4.3 08/08/24 5.0 07/13/24 Hemoglobin A1C 8.9 09/05/24 8.9 06/13/24 ADDITIONAL LABS White Blood Cells 7.2 (09/05/24) 6.8 (08/08/24) 6.8 (07/13/24) Cholesterol 109 (09/05/24) 102 (06/13/24) HDL 29 (09/05/24) 33 (06/13/24) LDL-Calc 25 (09/05/24) 24 (06/13/24) Triglycerides 274 (09/05/24) 226 (06/13/24) Hep B Surface Antibody <4 (06/13/24) Uric Acid 6.6 (06/13/24) ADDITIONAL COMMENT 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
--- OUTSIDE RECORDS SUMMARY | 2024-09-11 14:02 | XMS_ITS | Encounter Summary ---
Author Organization [facility] Address [address] [place] [address] Phone Care Team Providers Care Power Originator Name Role Phone Smitha Coyne DO Primary Care Provider Unava ilable Encounter Details Date Type Department Care Team (Late st Contact Info) Description 02/24/2022 Telephone [facility] [address] [place] [address] Mynor Mcgill MD [address] [facility] [address] [place] [id number] Social History Tobacco Use Types Packs/Day Years [...] encounter Miscellaneous Notes * Telephone Encounter - Alisson Espinal RN - 03/17/2022 12:19 PM EDT Pt called today stating since she has been getting retacrit injections she is not sleeping more then 2 hours a night * Telephone Encounter - Keiry Krishnan - 02/24/2022 4:40 PM EDT Pt called she got a refill for potassium citrate but she was previously told to stop taking this medication. Is this something she needs to continue taking? documented in this encounter Plan of Treatment Not on file documented as of this encounter Visit Diagnoses Not on filedocumented in this encounter Care Teams Power Originator Relationship Specialty Start Date End Date Smitha Coyne DO PCP - General 06/15/20 12/25/22 documented as of this encounter
--- OUTSIDE RECORDS SUMMARY | 2024-09-11 14:02 | XMS_ITS | Encounter Summary ---
Author Organization [employer] Address [address] [facility] 7t [place] [address] Care Team Providers Care Senior Back End Java Developer Name Role Phone Smitha Coyne DO Primary Care Provider [phone]- [phone] Harini Marshall PharmD Unavailable [phone] Reason for Visit * Reason Comments Med Refill Encounter Details Date Type Department Care Team ([facility] st Contact Info) Description 04/22/2023 Refill [facility] [address] [place], [place] [phone] Smitha Coyne DO 230 [place] [address] Watery stools Social History Tobacco Use Types Packs/Day Years [...] from getting things needed for daily living? Yes, it has kept me from medical appointments or getting medications. 03/14/2023 Utilities Answer Date Recorded In the past [...] AM EDT documented as of this encounter Plan of Treatment Upcoming Encounters Date Type Department Care Team (Late st Contact Info) Description 10/11/2024 1:00 PM EDT Office Visit [facility] [address] [place] [address] MauricioKayleigh aguiar, OD [address] [place] [address] 10/30/2024 2:00 PM EDT Clinical Support [facility] [address] [place] [address] Elza Graham RN 11/01/2024 11:00 AM EDT Office Visit [facility] [address] [place] [address] Smitha Coyne DO [address] [place] [phone] documented as of this encounter Visit Diagnoses Diagnosis Watery stools Abnormal feces documented in this encounter Care Teams Senior Back End Java Developer Relationship Specialty Start Date End Date Smitha Coyne DO [address] [place] [phone] PCP - General Family Medicine 06/05/18 Harini Marshall PharmD [address] [place] [phone] Pharmacist Internal Medicine 08/22/23 09/21/23 Elza Au Fish Skinning Machine Feeder 07/04/23 10/03/23 documented as of this encounter
--- OUTSIDE RECORDS SUMMARY | 2024-09-11 14:02 | XMS_ITS | Encounter Summary ---
Author Organization [employer] Address [address] [facility] 7t [place] [address] Care Team Providers Care Quick Print Operator Name Role Phone Smitha Coyne DO Primary Care Provider + [phone] Reason for Visit * Reason Onset Date Comments Hospital Follow-up 04/22/2024 Encounter Details Date Type Department Care Team ([facility] st Contact Info) Description 04/22/2024 Telephone [facility] [address] [place], [place] [phone] Smitha Coyne DO [address] [place], [place] [phone] Hospital Follow-up Social History Tobacco Use Types Packs/Day Years [...] encounter Miscellaneous Notes * Telephone Encounter - Kaitlyn Urias - 04/22/2024 10:31 AM EST Tc from pt requesting a HDF appt. Hospital: [facility] Date of admission: 04/16 Discharge date: 04/21 Diagnosed: Kidney infection *Send message to [place] Clinical Care Coordinators documented in this encounter Plan of Treatment Upcoming Encounters Date Type Department Care Team (Late st Contact Info) Description 10/11/2024 1:00 PM EDT Office Visit [facility] [address] [place] [address] Kayleigh Martínez, OD [address] [place] [address] 10/30/2024 2:00 PM EDT Clinical Support [facility] [address] [place] [address] Elza Graham RN 11/01/2024 11:00 AM EDT Office Visit [facility] [address] [place] [address] Smitha Coyne DO [address] [place] [address] documented as of this encounter Goals Goal Patient Goal Type Associated Problems Recent Progress Patient-Stated? Author Patient will adhere to medication regimen General No Puia, Harini, PharmD Record your blood sugar as directed Result Component No Joanna Harini, PharmD Hemoglobin A1c < 7.5 Result Component 8.2( 4 2:42 PM EST) No Harini Marshall, PharmD documented as of this encounter Visit Diagnoses Not on filedocumented in this encounter Additional Health Concerns Assessment Noted Time PHQ-9 Depression Total Score: 0 08/17/19 24 11:11 AM EDT documented as of this encounter Care Teams Quick Print Operator Relationship Specialty Start Date End Date Smitha Coyne DO [address] [place] [address] PCP - General Family Medicine 06/05/18 documented as of this encounter
--- OUTSIDE RECORDS SUMMARY | 2024-09-11 14:02 | XMS_ITS | Encounter Summary ---
Author Organization [employer] Address [address] [facility] 7t [place] [address] Care Team Providers Care Grant Manager Name Role Phone Smitha Coyne DO Primary Care Provider [phone] Harini Marshall PharmD Unavailable [phone] Reason for Visit * Reason Onset Date Comments Hospital Follow-up 06/26/2023 Encounter Details Date Type Department Care Team (Late st Contact Info) Description 06/26/2023 Telephone [facility] [address] [place], [place] [phone] Smitha Coyne DO [address] [place] [address] Hospital Follow-up Social History Tobacco Use Types [...] * Telephone Encounter - Fady Gaytan - 06/26/2023 11:45 AM EST Tc from pt requesting a HDF appt. Hospital: [facility] Date of admission: 06/09/23 Discharge date: 06/23/23 Diagnosed: N/A documented in this encounter Plan of Treatment Upcoming Encounters Date Type Department Care Team (Late st Contact Info) Description 10/11/2024 1:00 PM EDT Office Visit [facility] [address] [place] [address] Mauricio, Kayleigh, OD [address] [place] [address] 10/30/2024 2:00 PM EDT Clinical Support [facility] [address] [place] [address] Elza Graham, ROSA 11/01/2024 11:00 AM EDT Office Visit [facility] [address] [place] [address] Smitha Coyne DO [address] [place] [address] documented as of this encounter Visit Diagnoses Not on filedocumented in this encounter Care Teams Grant Manager Relationship Specialty Start Date End Date Smitha Coyne DO [address] [place] [address] PCP - General Family Medicine 06/05/18 Harini Marshall, Ronaldo [address] [place] [address] Pharmacist Internal Medicine 08/22/23 09/21/23 Elza Au Sales Representative Aircraft 07/04/23 10/03/23 documented as of this encounter
--- OUTSIDE RECORDS SUMMARY | 2024-09-11 14:02 | XMS_ITS | Encounter Summary ---
Author Organization [employer] Address [address] [facility] 7t [place] [address] Care Team Providers Care Dry Wall Installer Name Role Phone OctaviaSmitha short Primary Care Provider + [phone] Encounter Details Date Type Department Care Team (Latest Contact Info) Description 09/10/2024 Travel Social History Tobacco Use Types Packs/Day Years [...] Description 10/11/2024 1:00 PM EDT Office Visit [facility] [address] [place] [address] Mauricio, Kayleigh, OD 230 [place] [address] 10/30/2024 2:00 PM EDT Clinical Support [facility] [address] [place] [address] Elza Graham, ROSA 11/01/2024 11:00 AM EDT Office Visit [facility] [address] [place] [address] Smitha Coyne DO [address] [place], [place] [phone] documented as of this encounter Goals Goal Patient Goal Type Associated Problems Recent Progress Patient-Stated? Author Patient will adhere to medication regimen General No Puia, Harini, PharmD Record your blood sugar as directed Result Component No Puia, Harini, PharmD Hemoglobin A1c < 7.5 Result Component 8.2( 2:42 PM EST) No Puia, Harini, PharmD documented as of this encounter Visit Diagnoses Not on filedocumented in this encounter Additional Health Concerns Assessment Noted Time PHQ-9 Depression Total Score: 0 08/17/19 24 11:11 AM EDT documented as of this encounter Care Teams Dry Wall Installer Relationship Specialty Start Date End Date Smitha Coyne DO [address] [place] [address] PCP - General Family Medicine 06/05/18 documented as of this encounter
--- OUTSIDE RECORDS SUMMARY | 2024-09-11 14:02 | XMS_ITS | Encounter Summary ---
Author Organization [employer] Address [address] [facility] 7t [place] [address] Care Team Providers Care Cmv Driver Name Role Phone Smitha Coyne DO Primary Care Provider + [phone] Reason for Visit * Reason Onset Date Comments Med Refill 12/06/2023 Encounter Details Date Type Department Care Team (Late st Contact Info) Description 12/06/2023 Telephone [facility] [address] [place], [place] [phone] Smitha Coyne DO 230 [place], [place] [phone] Med Refill Social History Tobacco Use Types Packs/Day Years [...] encounter Miscellaneous Notes * Telephone Encounter - Smitha Moya LPN - 12/06/2023 12:47 PM EDT Medication pended to PCP. * Telephone Encounter - Susan Gao - 12/06/2023 12:32 PM EDT TC from pt requesting medication refill. Medications needing refill : metoprolol succinate XL (Toprol XL) 100 MG 24 hr tablet To be sent to: [facility] - [place] [facility] [address] [facility] documented in this encounter Plan of Treatment Upcoming Encounters Date Type Department Care Team (Late st Contact Info) Description 10/11/2024 1:00 PM EDT Office Visit [facility] [address] [place] [address] Kayleigh Martínez, OD [address] [place] [address] 10/30/2024 2:00 PM EDT Clinical Support [facility] [address] [place] [address] Elza Graham RN 11/01/2024 11:00 AM EDT Office Visit [facility] [address] [place] [address] Smitha Coyne DO [address] [place] [address] documented as of this encounter Goals Goal Patient Goal Type Associated Problems Recent Progress Patient-Stated? Author Patient will adhere to medication regimen General No Puia, Harini, PharmD Record your blood sugar as directed Result Component No PuHector haydenyssa, PharmD Hemoglobin A1c < 7.5 Result Component 8.2( 4 2:42 PM EST) No Puia, Harini, PharmD documented as of this encounter Visit Diagnoses Not on filedocumented in this encounter Additional Health Concerns Assessment Noted Time PHQ-9 Depression Total Score: 0 08/17/19 24 11:11 AM EDT documented as of this encounter Care Teams Cmv Driver Relationship Specialty Start Date End Date Smitha Coyne DO [address] [place] [address] PCP - General Family Medicine 06/05/18 documented as of this encounter
--- OUTSIDE RECORDS SUMMARY | 2024-09-11 14:02 | XMS_ITS | Encounter Summary ---
Author Organization [employer] Address [address] [facility] 7t [place] [address] Care Team Providers Care Community Health Program Coordinator Name Role Phone Smitha Coyne DO Primary Care Provider + [phone] Reason for Visit * Reason Onset Date Comments Nurse Triage 09/10/2024 Encounter Details Date Type Department Care Team (Late st Contact Info) Description 09/10/2024 Telephone [facility] [address] [place], [place] [phone] Smitha Coyne DO [address] [place], [place] [phone] Nurse Triage Social History Tobacco Use Types Packs/Day Years [...] encounter Miscellaneous Notes * Telephone Encounter - Terri Delacruz RN - 09/10/2024 4:40 PM EDT called pt to triage, spoke to pt. pt reports recurrent UTI symptoms and requesting appt. pt states had a UTI about a month ago and completed the antibiotics with partial resolution. pt states in the last several days having increasing urinary burning, pressure, and mild intermittent fevers. pt denies blood in urine, known high fevers, or other associated symptoms. pt completed her dialysis today.pt in no acute distress and was advised no available appt to schedule at this time and advised walkin center. given location, hours, and wait times cautions. advised home care: rest, fluids, monitortemperature, and call back as needed. pt will come into the walk in center later possibly around 6. looking in pt's chart, has frequent UTI and is followed by Urology whom she last saw a little overa month ago. pt's last UTI was Klebsiella and her history is very complicated. insurance verified. Protocol Used: Urinary Symptoms (Adult) Protocol-Based Disposition: See in Office or Video Visit Today or Tomorrow Video visit offer not recorded Positive Triage Question: * Patient wants to be seen * All higher-acuity triage questions were negative Care Advice Discussed: * Reasons To Call Back - Fever occurs - Pain or burning with urination - Unable to urinate and bladder feels full - You become worse * Telephone Encounter - Minerva Francine Verma - 09/10/2024 3:59 PM EDT Symptom: Urination Pain Outcome: Schedule a same-day appointment or talk to a nurse or provider today Reason: Caller denied all higher acuity questions The caller accepted this outcome. [phone] documented in this encounter Plan of Treatment Upcoming Encounters Date Type Department Care Team (Late st Contact Info) Description 10/11/2024 1:00 PM EDT Office Visit [facility] [address] [place], [place] [phone] Kayleigh Martínez, OD 230 [place] [address] 10/30/2024 2:00 PM EDT Clinical Support [facility] [address] [place], [place] [phone] Elza Graham RN 11/01/2024 11:00 AM EDT Office Visit [facility] [address] [place], [place] [phone] Smitha Coyne DO [address] [place], [place] [phone] documented as of this encounter Goals Goal [...] documented as of this encounter Care Teams Community Health Program Coordinator Relationship Specialty Start Date End Date Simtha Coyne DO [address] [place] [phone] PCP - General Family Medicine 06/05/18 documented as of this encounter
--- OUTSIDE RECORDS SUMMARY | 2024-09-11 14:02 | XMS_ITS | Referral Summary ---
Author Organization [facility] Address [address] [place] [address] Care Team Providers Care Vice President Business Development Name Role Phone Smitha Coyne Kacy Primary Care Provider +[phone]- [phone] Allergies Active Allergy Reactions Criticality Noted Date [...] Other reaction(s): rash Lorazepam Rash Low 10/04/2021 Pkr-Jbhks-Yuqs-Lidocaine Unknown 05/19/2023 Other reaction(s): Rash, Inflammation Amnqugtw-Gpteicupvn-Hrsmpx mark Dermatitis 11/14/2023 Oxcarbazepine Agitation,Other (see comments),Unknown [...] Mass Index - - Plan of Treatment Not on file Insurance * Guarantor: Nyla Wiley Account Type Relation to Patient Date of Phone Billing Address Personal/Family Self [address] [place] [address] MEDICARE [facility] Care Teams Vice President Business Development Relationship Specialty Start Date End Date Smitha Coyne [address] [place] [phone] PCP - General Family Medicine 09/05/23
--- OUTSIDE RECORDS SUMMARY | 2024-09-11 14:03 | XMS_ITS | Encounter Summary ---
Author Organization [employer] Address [address] [facility] 7t [place] [address] Care Team Providers Care Security Public Safety Officer Name Role Phone Smitha Coyne DO Primary Care Provider +1- [phone] Harini Marshall PharmD Unavailable [phone] Reason for Visit * Reason Comments Med Refill Encounter Details Date Type Department Care Team (Late st Contact Info) Description 04/20/2023 Refill [facility] [address] [place], [place] [phone] Smitha Coyne DO [address] [place] [address] Social History Tobacco Use Types Packs/Day Years [...] Description 10/11/2024 1:00 PM EDT Office Visit [facility] OPT[facility] [address] [place] [address] Mauricio, Kayleigh, OD [address] [place] [address] 10/30/2024 2:00 PM EDT Clinical Support [facility] [address] [place] [address] Elza Graham RN 11/01/2024 11:00 AM EDT Office Visit [facility] [address] [place] [address] Smitha Coyne DO [address] [place] [address] documented as of this encounter Visit Diagnoses Not on filedocumented in this encounter Care Teams Security Public Safety Officer Relationship Specialty Start Date End Date Smitha Coyne DO [address] [place] [address] PCP - General Family Medicine 06/05/18 Harini Marshall, Ronaldo [address] [place] [phone] Pharmacist Internal Medicine 08/22/23 09/21/23 Elza Au Ironworker Apprentice 07/04/23 10/03/23 documented as of this encounter
--- OUTSIDE RECORDS SUMMARY | 2024-09-11 14:03 | XMS_ITS | Encounter Summary ---
Author Organization [facility] Address [address] [facility] [address] [place] [address] Phone Care Team Providers Care Cinder Pit Worker Name Role Phone Smitha Coyne DO Primary Care Provider Unava ilable Encounter Details Date Type Department Care Team ([facility] st Contact Info) Description 10/26/2021 Telephone [facility] [address] [place] [address] Mynor Mcgill MD [phone] [facility] [address] [place] [address] Social History Tobacco Use Types Packs/Day Years Used Date Smoking Tobacco: Former Smokeless Tobacco: Never Alcohol Use Standard Drinks/Week Comments No 0 (1 standard drink = 0.6 oz pur e alcohol) Comments Unknown Sex and Gender Information Value Date Recorded Sex Assigned at Not on file Legal Sex Female 5:06 PM EST Gender Identity Not on file Sexual Orientation Not on file COVID-19 Exposure Response Date Recorded In the last 10 days, have yo u been in contact with someone who was confirmed or suspected to have Coronavirus/COVID-19? No / Unsure 10/27/2021 3:19 PM EDT documented as of this encounter Miscellaneous Notes * Telephone Encounter - Keiry Krishnan - 10/26/2021 5:02 PM EDT Pt called to let you know she will be going to the ER [facility] due to a kidney stone flare up. If you'd like to speak with her she can be reached at [phone] Thank you documented in this encounter Plan of Treatment Not on file documented as of this encounter Visit Diagnoses Not on filedocumented in this encounter Care Teams Cinder Pit Worker Relationship Specialty Start Date End Date Smitha Coyne DO PCP - General 06/15/20 12/25/22 documented as of this encounter
--- OUTSIDE RECORDS SUMMARY | 2024-09-11 14:03 | XMS_ITS | Clinical Summary ---
Author Organization [employer] Address [address] [place] [address] [address] [place] [address] Care Team Providers Care Major General Name Role Phone OctaviaSmitha short DO Primary Care Provider [phone] Allergies Active Allergy Reactions Criticality Noted Date Comments Wound Dressings 05/19/2023 Other reaction(s): Rash Any type of tape as well as Tegaderm Aripiprazole Hives 09/29/2015 Other reaction(s): Hives Buspirone Rash Low 01/27/2022 Other reaction(s): rash Carbamazepine 05/03/2012 Other reaction(s): suicidal Citalopram Rash Low 10/04/2021 Other reaction(s): rash Clindamycin 10/04/2021 Acid reflux Other reaction(s): Acid reflux Acid reflux Other reaction(s): Acid reflux Acid reflux Clonazepam 01/27/2022 Other reaction(s): rash Codeine 05/03/2012 Other reaction(s): gi upset Doxycycline 11/08/2021 Acid Reflux Other reaction(s): Acid reflux Acid Reflux Acid Reflux Haloperidol Rash Low 06/30/2022 Hydrochlorothiazide Rash Low 11/21/2005 Other reaction(s): rash Hydromorphone 11/22/2022 Other reaction(s): rash nausaea nauseahives nauseahives Other reaction(s): rash nausaea nauseahives Other reaction(s): rash nausaea nauseahives Insulin Lispro Rash Low 06/30/2022 Lamotrigine 10/04/2021 Other reaction(s): Tachycardia Lisinopril Rash Low 10/04/2021 Other reaction(s): rash Lorazepam Rash Low 10/04/2021 Oxcarbazepine Unknown 01/27/2022 Other reaction(s): Irritability Oxycodone 12/12/2011 Other reaction(s): Gi upset Oxycodone-Acetaminophen 11/22/2022 Other reaction(s): gi upset Pemoline 05/03/2012 Other reaction(s): rash Perphenazine Rash Low 06/30/2022 Phenazopyridine Rash Low 06/30/2022 Other reaction(s): Vomiting Risperidone 01/27/2022 Other reaction(s): increase prolectin level Ofy-Ohdwp-Wlzo-Lidocaine 05/19/2023 Other reaction(s): Rash, Inflammation Sertraline Rash Low 11/21/2005 Other reaction(s): rash Sulfa Antibiotics Low 11/21/2005 Other reaction(s): Jaundice Jaundicehas previously tolerated tamsulosin Other reaction(s): Jaundice Jaundicehas previously tolerated tamsulosin Sumatriptan Rash Low 06/30/2022 Tolmetin Rash Low 01/27/2022 Valproic Acid 05/03/2012 Other reaction(s): unknown Medications calcium acetate (Phoslo) 667 MG tablet Take 1 tablet by mouth 3 times daily. 02/04/20 22 Active cholecalciferol (Vitamin D-3) 25 MCG (1000 UT) capsule Take 1 capsule by mouth 1 (one) time each day. Active estradiol (Estrace) 0.1 MG/GM vaginal cream Insert 1 gram vaginally at bedtime twice weekly 04/21/20 22 Active ferrous sulfate 325 (65 Fe) MG EC tablet Take 1 tablet by mouth 1 (one) time each day. Active Lancets 33G misc Test blood sugar 3 times daily Active albuterol 108 (90 Base) MCG/ACT inhalerIndicatio ns:Uncomplicated asthma, unspecified asthma severity, unspecified whether persistent Inhale 2 puffs every 4 (four) hours if needed for wheezing. 18 g 1 07/12/19 23 Active Additional Information Patient not taking.Reported on 07/03/2023 albuterol (2.5 MG/3ML) 0.083% nebulizer solutionIndicati ons:Uncomplicate d asthma, unspecified asthma severity, unspecified whether persistent Inhale 3 mL by nebulization route every 4 hours as needed for cough, wheeze, or shortness of breath. 90 mL 1 07/13/19 23 Active Additional Information Patient not taking.Reported on 07/03/2023 midodrine (Proamatine) 5 MG tablet Take 1 tablet by mouth three times daily Only uses on dialysis days when BP gets low. 09/10/19 23 Active magnesium oxide (Mag-Ox) 400 mg tablet Take 1 tablet by mouth in the morning. OTC Active Multiple Vitamin (multivitamin) tablet Take 1 tablet by mouth in the morning. OTC Active clotrimazole-bet amethasone (Lotrisone) cream Apply 1 Application. topically in the morning. As needed Active budesonide (Pulmicort Flexhaler) 90 MCG/ACT inhaler Inhale 1 puff in the morning and at bedtime. Rinse mouth with water after use to reduce aftertaste and incidence of candidiasis. Do not swallow. 1 each 08/17/19 24 Active NovoLOG MIX 70/30 FLEXPEN (70-30) 100 UNIT/ML injectionIndicat ions:Type 2 diabetes mellitus with ESRD (end-stage renal disease) ([facility]) inject twice daily per sliding scale: BS 100-149: 28 units, BS 150-199: 30 units, BS 200-249: 32 units, BS: 250-299 34 units, BS 300-349: 36 units, BS 359-399: 38 units, BS >400: 40 units 15 mL 5 08/22/19 24 Active metoprolol succinate XL (Toprol-XL) 100 MG 24 hr tabletIndication s:Essential hypertension TAKE ONE TABLET BY MOUTH EVERY MORNING. DO NOT CRUSH OR CHEW 90 tablet 3 12/06/19 24 Active insulin pen needle (BD Pen Needle Archana U/F) 32G x 4 mm [facility] USE WITH LANTUS AND NOVOLOG INSULIN INSTRUCTED. 150 each 12/25/19 24 Active glucose blood (FREESTYLE LITE) test stripIndications :Type 2 diabetes mellitus with ESRD (end-stage renal disease) ([facility]) TEST BLOOD SUGAR THREE TIMES A DAY 100 strip 01/24/20 24 Active Alcohol Swabs (Alcohol Prep) 70 % pads APPLY ONE SWAB TOPICALLY TWO TIMES A DAY 100 each 11 02/08/20 24 Active dulaglutide (Trulicity) 1.5 MG/0.5ML solution pen-injectorIndi cations:Type 2 diabetes mellitus with ESRD (end-stage renal disease) ([facility]) Inject 1.5 mg under the skin 1 (one) time per week. 4 each 11 02/12/20 24 Active lansoprazole (Prevacid) [address] capsule TAKE ONE CAPSULE BY MOUTH TWICE A DAY BEFORE MEALS 180 capsule 1 02/13/20 24 Active baclofen (Lioresal) 10 MG tabletIndication s:Chronic bilateral low back pain, unspecified whether sciatica present Take 0.5 tablets (5 mg) by mouth if needed in the morning and at bedtime for muscle spasms. 30 tablet 3 04/05/20 24 025 Active Diclofenac Sodium 1 % gel Apply 2 g topically if needed in the morning, at noon, in the evening, and at bedtime (pain). 150 g 3 04/05/20 24 Active Tresiba FlexTouch 100 UNIT/ML injection 04/07/20 24 Active QUEtiapine (SEROquel) 25 MG tablet 03/13/20 24 Active atorvastatin (Lipitor) 20 MG tablet TAKE ONE TABLET BY MOUTH AT BEDTIME 90 tablet 1 05/14/20 24 Active amitriptyline (Elavil) 50 MG tablet TAKE ONE TABLET BY MOUTH AT BEDTIME 30 tablet 3 06/17/19 25 Active loperamide (Imodium) 2 MG capsuleIndicatio ns:Watery stools TAKE ONE TO TWO CAPSULES BY MOUTH EVERY MORNING, AT NOON, IN THE EVENING, AND AT BEDTIME NEEDED FOR DIARRHEA 60 capsule 1 08/07/19 25 Active loratadine (Allergy Relief) 10 MG tablet TAKE ONE TABLET BY MOUTH ONCE DAILY NEEDED FOR ALLERGIES 90 tablet 1 08/07/19 25 Active cephalexin (Keflex) 500 MG capsuleIndicatio ns:Recurrent UTI Take 1 capsule (500 mg) by mouth 2 times daily for 7 days. 14 capsule 09/11/19 25 025 Active oxybutynin XL (Ditropan-XL) 5 MG 24 hr tablet Take 1 tablet (5 mg) by mouth in the morning. Do not crush, chew, or split. 30 tablet 11 08/17/19 24 025 HYDROcodone-acet aminophen (Kennedy) 5-325 MG tabletIndication s:Pain of right thumb Take 2 tablets by mouth every 6 (six) hours if needed for severe pain for up to 5 days. 40 tablet 08/27/19 25 025 levoFLOXacin (Levaquin) 750 MG tablet Take 1 tablet (750 mg) by mouth 1 (one) time for 1 dose. Take 750mg tablet today then start 500mg tabs tomorrow after dialysis 1 tablet 08/27/19 25 025 levoFLOXacin (Levaquin) 500 MG tablet Take 1 tablet (500 mg) by mouth every other day for 3 doses. Take after dialaysis. 3 tablet 08/27/19 25 025 Active Problems Problem Noted Date Diagnosed Date Le's esophagus 08/26/2024 Recurrent nephrolithiasis 11/14/2023 Lichen simplex chronicus 08/17/2023 Depression 07/04/2023 Assessment & Plan (07/05/2023 12:04 PM EST): C/w therapist and seroquel 50mg daily Chronic interstitial cystitis 06/01/2023 Arteriovenous fistula 01/10/2023 Osteoarthritis 11/22/2022 Chronic right shoulder pain 11/22/2022 Acquired complex renal cyst 10/28/2022 Lung nodule 10/28/2022 Assessment & Plan (10/28/2022 1:42 PM EDT): CT of the chest to be order in 6-12 months for f/u End stage renal disease on dialysis 10/06/2022 Assessment & Plan (07/05/2023 12:02 PM EST): Continues to go to her dialysis as schedule Assessment & Plan (12/13/2022 11:52 AM EDT): On HD TIW via permacath and chest FU renal, fistula in place Ileostomy present 08/18/2022 Chronic pain of both knees 06/09/2022 History of COVID-19 03/30/2022 Overview (11/22/2022): Problem added by Discern Expert Type 2 diabetes mellitus 09/23/2021 Assessment & Plan (01/04/2023 2:37 PM EDT): F/u with PCP Assessment & Plan (12/13/2022 11:51 AM EDT): pt noncompliant with diet mainly due to MH issues FU with equipment engineering technician this afternoon Assessment & Plan (10/28/2022 1:41 PM EDT): Continue with current interventions f/u with PCP Anemia 04/20/2015 Bipolar disorder 04/20/2015 Chronic low back pain 04/20/2015 Essential hypertension 04/20/2015 Assessment & Plan (07/05/2023 12:02 PM EST): - Aerobic exercise to reduce BP. Initial [...] prescriptions without first consulting health care provider Assessment & Plan (01/04/2023 2:35 PM EDT): F/u with PCP Assessment & Plan (10/28/2022 1:43 PM EDT): Today BP is stable 132/81 she is already taking metoprolol 100mg daily so I will continue with same dose F/u with PCP Chronic gastroesophageal reflux disease 04/20/20 15 Hyperlipidemia 04/20/2015 Mild intermittent asthma 04/20/2015 BMI 50.0-59.9, adult 04/20/2015 Obstructive sleep apnea 04/20/2015 Ulcerative colitis 04/20/2015 Resolved Problems Problem Noted Date Diagnosed Date Resolved Date Hospital discharge follow-up 05/08/2024 08/26/2024 Assessment & Plan (05/08/2024 4:44 PM EST): UTI symptoms have resolved Pt is incontinent and d/t multiple chronic conditions prone to chronic UTIs Educated patient about prophylactic treatment for recurrent cystitis however pt declined at this time. Pt will f/u with PCP prn Abdominal wall cellulitis 12/20/2023 Assessment & Plan (12/20/2023 3:38 PM EDT): Due to stoma. Rx Bactrim with instructions for hemodialysis dosing. Pt reports does not have true sulfa allergy to antibiotics and took earlier without difficulty. Other concerns of choric tachycardia deferred to cardiology and pt advised for chest pain lasting more than a few seconds to go to ER for evaluation. She agrees. Multiple EKGs with artifact but SR 102., no obvious ST changes . Complicated UTI (urinary tract infection) 08/15/2023 08/17/2023 Assessment & Plan (08/15/2023 2:01 PM EDT): Patient could not produce a urine sample today In light of hemodialysis levofloxacin dose adjusted to 500mg every 48hrs for 2 weeks, she will f/u with urology If symptoms persist or worse she will have to go to the emergency room for possible IV antibiotics Hospital discharge follow-up 07/04/2023 08/17/2023 Assessment & Plan (07/05/2023 12:04 PM EST): Medication list reviewed with patient Osteoarthritis of right shoulder 07/04/2023 02/12/2024 Panniculitis 05/19/2023 05/19/2023 06/01/2023 First time seizure 01/04/2023 Assessment & Plan (01/04/2023 2:36 PM EDT): Patient already has an appointment to see neurology ED precautions reviewed Other chest pain 01/04/2023 02/23/2023 Assessment & Plan (01/04/2023 2:36 PM EDT): Patient already has an appointment to see cardiology ED precautions where reviewed Hyperkalemia 12/13/2022 02/23/2023 Assessment & Plan (12/13/2022 11:50 AM EDT): Pt will have hemodylisis office to fax BP she will continue HD per renal Continuous leakage of urine 12/13/2022 02/23/2023 Assessment & Plan (12/13/2022 11:47 AM EDT): see issue #2 secondary to cystocele prescription for pullups XXL to use as needed FU with urology for surgical correction counseled regarding weight reduction and kegel exercises Ulcer of right lower extremity 10/28/2022 06/01/2023 Assessment & Plan (12/13/2022 11:49 AM EDT): almost 100% healing, use lac hydrin cream to prevent skin cracks and ulcerations Assessment & Plan (10/28/2022 1:41 PM EDT): Patient reports her wound is healing, she is being follow by [facility] for this Dependence on renal dialysis 10/06/2022 08/26/2024 Sensitivity to sunlight 09/29/202209/04 Iron deficiency anemia 06/30/202211/22 Recurrent urinary tract infection 06/09/2022 08/17/2023 Assessment & Plan (12/13/2022 11:51 AM EDT): most likely related to urinary incontinence/cystocele no evidence of UTI today, FU urine culture and treat accordingly FU with Urology hopefully for surgical correction of cystocele use desitin daily on perineal area CKD (chronic kidney disease) stage 4, GFR 15-29 ml/min 01/27/2022 02/23/2023 Encounters Date Type Department Care Team Description 09/10/2024 6:40 PM EDT Office Visit [facility] [address] [place] [phone] Heraclio Bernabe MD Recurrent UTI 09/10/2024 Travel 09/10/2024 Telephone [facility] [address] [place] [id number] Smitha Coyne DO Nurse Triage 08/26/2024 11:30 AM EDT Office Visit [address] [address] Smitha Coyne DO Complicated UTI (urinary tract infection) (Primary Dx); UTI symptoms; Pain of right thumb 08/12/2024 Travel 08/09/2024 Telephone [facility] [address] Smitha Coyne DO Results; Appointment Request 08/05/2024 Refill [facility] [place] [address] Smitha Coyne DO 08/05/2024 Refill [facility] [place] [address] Smitha Coyne DO Watery stools 07/24/2024 Telephone [facility] [place] [address] Smitha Coyne DO Recall Letter (Recall Letter sent 07/24/24.); Recall Appt.; Appointment Request 07/01/2024 11:30 AM EST Clinical Support [facility] [place] [address] Elza Graham RN Chronic bilateral low back pain, unspecified whether sciatica present (Primary Dx) 07/01/2024 Travel 07/01/2024 Telephone [facility] [place] [address] Elza Graham RN Recommend DISPENSARY TECHNICIAN Tier 3 06/16/2024 Refill [facility] [address] Smitha Coyne DO from Last 3 Months Immunizations Name Administration Dates Next Due Hep B, adult 12/14/2006,07/27/2006,06/26/2006 Tdap 09/17/2019,06/03/2009,06/03/2001 Family History Medical History Relation Name Comments Colon cancer Father Diabetes type II Father Hypertension Father Relation Name Status Comments Father Social History Tobacco Use Types Packs/Day Years Used Date Smoking Tobacco: Former Cigarettes Passive Smoke Exposure: Past Smokeless Tobacco: Never Tobacco Cessation:Counseling Given: Not Answered Alcohol Use Standard Drinks/Week Comments Not Currently [...] not to disclose 2021 10:16 AM EDT Last Filed Vital Signs Vital Sign Reading Time Taken Comments Blood Pressure 152/89 09/10/2024 6:00 PM EDT Pulse 99 09/10/2024 6:00 PM EDT Temperature 36.7 ??C (98 ??F) 09/10/2024 6:00 PM EDT Respiratory Rate 18 09/10/2024 6:00 PM EDT Oxygen Saturation 98% 08/26/2024 11:12 AM EDT Inhaled Oxygen Concentration - - Weight 144 kg (316 lb 12.8 oz) 09/10/2024 6:00 P M EDT Height 167.6 cm (5' 6 ) 09/10/2024 6:00 PM EDT Body Mass Index 51.13 09/10/2024 6:00 PM EDT Plan of Treatment Upcoming Encounters Date Type Department Care Team (Late st Contact Info) Description 10/11/2024 1:00 PM EDT Office Visit [facility] [address] [place] [address] Mauricio, Kayleigh, OD [address] [place] [address] 10/30/2024 2:00 PM EDT Clinical Support [facility] [address] [place] [address] Elza Graham, ROSA 11/01/2024 11:00 AM EDT Office Visit [facility] [address] [place] [address] Smitha Coyne, [address] [place] [address] Health Maintenance Due Date Last Done Comments CT Colonography 1969 Colonoscopy 1969 Colorectal Cancer Screening 1969 FIT DNA/Cologuard 1969 FIT 1969 FOBT 1969 Sigmoidoscopy 1969 Diabetes: Foot Exam 1979 Alcohol/Substance Use Screening 1981 Pneumococcal Vaccine: 50+ Years (1 of 2 - PCV) 01/21/1988 Pap Smear 1990 Zoster Vaccines (1 of 2) 2019 Cervical Cancer Screening 03/31/2022 HPV/Cotest 03/31/2022 03/31/2017 COVID-19 Vaccine ( - season) 2024 Influenza Vaccine (#1) 2024 Diabetes: Hemoglobin A1C 08/06/202405/08/ 024, 02/12/2024, 08/22/2023, Additional history exists Depression Screening 08/16/2024 08/17/2023, 08/17/19 24 SDOH Screening 08/16/2024 08/17/2023 Lipid Panel 08/21/2024 08/22/2023, 01/28/2021 Eye Exam 04/10/2025 04/10/2024, 11/0 11/2023, 04/10/2024, Additional history exists Mammogram 06/21/2025 06/21/2024, 03/06, 03/27/2018 Tobacco Screening 09/10/2025 09/10/2024 DTaP/Tdap/Td Vaccines (4 - Td or Tdap) 09/16/2029 09/17/2019, 06/03/2009, 06/03/2001 RSV Patients and Patients Aged 60 years or older (1 - 1-dose 75+ series) 01/21/2044 Hepatitis B Vaccines Completed 12/14/2006, 07/27/2006, 06/26/2006 HIV Screening Completed 11/19/2021, 01/28/2021 Hepatitis C Screening Completed 11/19/2021, 021 HIB Vaccines Aged Out No longer eligi ble based on patient's age to complete this topic HPV Vaccines Aged Out No longer eligi ble based on patient's age to complete this topic Hepatitis A Vaccines Aged Out No long er eligible based on patient's age to complete this topic IPV Vaccines Aged Out No longer eligi ble based on patient's age to complete this topic Meningococcal Vaccine Aged Out No cedric ko eligible based on patient's age to complete this topic RSV under 20 months Aged Out No longe r eligible based on patient's age to complete this topic Rotavirus Vaccines Aged Out No longer eligible based on patient's age to complete this topic Goals Goal Patient Goal Type Associated Problems Recent Progress Patient-Stated? Author Patient will adhere to medication regimen General No Puia, Harini, PharmD Record your blood sugar as directed Result Component No Puia, Harini, PharmD Hemoglobin A1c < 7.5 Result Component 8.2( 4 2:42 PM EST) No Puia, Harini, PharmD Procedures Procedure Name Priority Date/Time Associated Diagnosis Comments POCT URINALYSIS DIPSTICK Routine 09/10/2024 5:31 PM EDT Recurrent UTI XR HAND 3+ VIEWS RIGHT STAT 12:25 PM EDT Pain of right thumb CULTURE, URINE, ROUTINE Routine 08/26/2024 11:32 AM EDT UTI symptoms POCT URINALYSIS DIPSTICK Routine 08/26/2024 11:27 AM EDT UTI symptoms POCT RAFAEL-14 URINE DRUG SCREEN Routine 07/01/2024 11:30 AM EST Chronic bilateral low back pain, unspecified whether sciatica present BI MAMMOGRAM SCREENING TOMOSYNTHESIS BILATERAL Routine 06/21/2024 2:20 PM EST Encounter for screening mammogram for malignant neoplasm of breast POCT GLYCATED HEMOGLOBIN, TOTAL Routine 05/08/2024 2:42 PM EST Type 2 diabetes mellitus with ESRD (end-stage renal disease) (CMS/HCC) LIPID PANEL, STANDARD Routine 08/22/2023 12:20 PM EDT Type 2 diabetes mellitus with ESRD (end-stage renal disease) (CMS/HCC) [facility] HISTORICAL HEPATITIS C ANTIBODY RFLX Routine 11/19/2021 12:50 PM EDT [facility] HISTORICAL HEPATITIS B SURFACE ANTIBODY Routine 11/19/2021 12:50 PM EDT [facility] HISTORICAL HPV E6/E7 RFLX ALEJANDRO 16 18/45 Routine 03/31/2017 11:35 AM EDT from Last 3 Months or Most Recently Relevant to Health Maintenance Results * (ABNORMAL) POCT Urinalysis (09/10/2024 5:31 PM EDT) Only the most recent of2 resultswithin the time period is included. Color, UA Colorless Comment:Cream color Clarity, UA Turbid Glucose, UA Negative Bilirubin, UA Negative Ketones, UA Negative Spec Grav, UA 1.025 Blood, UA Positive(A) Negative, None Detected Comment:LARGE pH, UA 7.0 Protein, UA Trace Comment:300MG Urobilinogen, UA 0.2 Leukocytes, UA Trace Negative, Rare, Trace Comment:LARGE Nitrite, UA Positive(A) Negative, None Detected Appearance, UA CREAMY TURB QC Media Lot # [id number] Lot# Expiration Date [id number] Urine 09/10/2024 5:31 PM EDT us Heraclio Bernabe MD POINT OF CARE TEST ENTER/EDIT OR DERABLES Final Result * XR Hand 3+ Views Right (08/26/2024 12:25 PM EDT) Anatomical Region Laterality Modality Upper Extremities, Hand Right Radiogra phic Imaging 08/26/2024 12:2 5 PM EDT Narrative 08/26/2024 12:56 PM EDT ?[facility] ?[address] ?[place] [address] ?XRay Report ? Signed ? Patient: Saurabh,Nyla ?MR#: [id number] ?? [id number] ? : 1970 ?Acct:[id number] ? Age/Sex: 54 / F ?ADM Date: 08/26/24 ? Loc: HO.HHCX ? Attending Dr: Smitha Coyne DO ? Ordering Physician: Smitha Coyne DO ?? Date of Service: 08/26/24 ?? Procedure(s): XR hand RT min 3V ?? Accession Number(s): [id number] ? cc: Smitha Coyne DO ? EXAMINATION: ??XR HAND 3 OR MORE VIEWS RIGHT ? HISTORY: R thumb pain and swelling x one week ? COMPARISON: Comparison is made with the prior examination dated ?? 12/15/2017. ? FINDINGS: ? Three views of the right hand are submitted. ??Osseous mineralization is ?? normal. ??There is no fracture or dislocation. ??The joint spaces are ?? preserved. ??The soft tissues are unremarkable. ? XR/XR hand RT min 3V ?? IMPRESSION: ? Unremarkable examination of the right hand. ? Electronically signed by: ??Manuel Gleason MD ??08/26/2024 12:53 PM EDT ?? RP ? Dictated By: ?Manuel Gleason MD ? Signed By: ?<Electronically signed by Manuel Gleason MD in OV> ?08/26/24 1253 ? DD/ 1225 ? TD/TT: 08/26/24 1249 ? Restaurant Assistant Manager: ? Procedure Note Donotuseinterpreter, Image - 08/26/2024 [facility] [address] [place] [address] XRay Report Signed Patient: Kelvin Wiley#: [id number] : 1970Acct:[id number] Age/Sex: 54 / FADM Date: 08/26/24 Loc: HO.HHCX Attending Dr: Smitha Coyne DO Ordering Physician: Smitha Coyne DO Date of Service: 08/26/24 Procedure(s): XR hand RT min 3V Accession Number(s): [id number] cc: Smitha Coyne DO EXAMINATION: XR HAND 3 OR MORE VIEWS RIGHT HISTORY: R thumb pain and swelling x one week COMPARISON: Comparison is made with the prior examination dated 12/15/2017. FINDINGS: Three views of the right hand are submitted. Osseous mineralization is normal. There is no fracture or dislocation. The joint spaces are preserved. The soft tissues are unremarkable. XR/XR hand RT min 3V IMPRESSION: Unremarkable examination of the right hand. Electronically signed by: Manuel Gleason MD 08/26/2024 12:53 PM EDT Dictated By: Manuel Gleason MD Signed By: <Electronically signed by Manuel Gleason MD in OV> 08/26/24 1253 DD/ 1225 TD/TT: 08/26/24 1249 Restaurant Assistant Manager: us Smitha Coyne DO IMG XR PROCEDURES Final Resu lt * Culture, Urine, Routine (08/26/2024 11:32 AM EDT) Urine Urine specimen obtained by clean catch procedure / Unknown 08/26/2024 11:32 AM EDT 08/26/2024 4:47 PM EDT Comment:[facility] - 08/28/2024 1:58 PM EDT Urine Culture Report Result Urine Culture 10,000 to 50,000 cfu/ml Urine Culture Mixed bacterial vamsi characteristic of Urine Culture urogenital contamination. Strep agalactiae (Grp B) Quant < 10,000 cfu/mL Susc N/A Susceptibility not routinely performed on this isolate. Specimen Source: Urine clean catch Smitha Coyne DO LAB MICROBIOLOGY - GENERAL O RDERABLES Final Result [facility] [address] [place] [address] [phone] * POCT RAFAEL-14 Urine Drug Screen (07/01/2024 11:30 AM EST) TCA, Urine Positive Urine Urine specimen obtained by clean catch procedure / Unknown 07/01/2024 11:30 AM EST Narrative Elza Graham RN - 07/01/2024 11:30 AM EST UTOX cup Lot#[id number] Exp. 02/27/26 Internal Pass Control Smitha Coyne DO POINT OF CARE TEST ENTER/JOSE T ORDERABLES Final Result * BI Mammogram Screening Tomosynthesis Bilateral (06/21/2024 2:20 PM EST) Anatomical Region Laterality Modality Breast Bilateral Mammography 06/21/2024 2:20 PM EST Narrative 06/30/2024 4:20 PM EST ? [facility] [place] ? [address] ?[place] [address] ? Mammography Report ? Signed ? Patient: Saurabh,Nyla ?MR#: [id number] ?? [id number] ? : 1970 ?Acct:[id number] ? Age/Sex: 54 / F ?ADM Date: 01/17/25 ? Loc: HO.MAMMO ? Attending Yary Coyne DO ? Ordering Physician: Smitha Coyne DO ?Results: 2B ?? enign Findings ? Date of Service: 06/21/24 ?Follow Up: 1 Year From Orig ?? inal Mammogram ? Procedure(s): MM tomosynthesis screening BI ?? Accession Number(s): [id number] ? cc: Smitha Coyne DO ? EXAMINATION: ?? MM SCREENING DIGITAL BREAST TOMOSYNTHESIS, BILATERAL ? CLINICAL INFORMATION: ? Screening. Asymptomatic. ? COMPARISON: ?? Mammography: Comparison is made with available priors ? TECHNIQUE: ?? Digital breast mammography with tomosynthesis is performed in both the ?? craniocaudal and mediolateral oblique views along with computer-aided ?? detection (CAD). ? FINDINGS: ?? There are scattered areas of fibroglandular density (ACR BI-RADS breast ?? composition Category b). ?? Right marker clip. ?? Bilateral secretory calcifications. ?? There are no significant masses, abnormal calcifications, or other ?? abnormalities. ? MM/MM tomosynthesis screening BI ?? IMPRESSION: ?? No mammographic evidence of malignancy. ? ASSESSMENT: ? BI-RADS BI-RADS 2 - Benign Findings ? RECOMMENDATION: ?? Routine annual mammography screening. ? 1 year F/U ? This examination should not preclude the clinical evaluation of a ?? suspicious palpable abnormality. ? This patient's information was entered into a reminder system with a ?? target due date for their next mammogram. ? Electronically signed by: ??Lexus Norton DO ??06/30/2024 04:17 PM EST ?? RP ? Dictated By: ?Lexus Norton DO ? Signed By: ?<Electronically signed by Lexus Norton, DO in OV> ? 06/30/24 1617 ? DD/ 1420 ? TD/TT: 06/21/24 1455 ? Restaurant Assistant Manager: ? Procedure Note Donotuseinterpreter, Image - 06/30/2024 [facility] [address] [place] [address] Mammography Report Signed Patient: Kelvin Wiley#: [id number] : 1970Acct:[id number] Age/Sex: 54 / FADM Date: 06/21/24 Loc: HO.MAMMO Attending Dr: Smitha Coyne DO Ordering Physician: Smitha Coyneults: 2B enign Findings Date of Service: 06/21/24Follow Up: 1 Year From Orig ina Mammogram Procedure(s): MM tomosynthesis screening BI Accession Number(s): [id number] cc: Smitha Coyne DO EXAMINATION: MM SCREENING DIGITAL BREAST TOMOSYNTHESIS, BILATERAL CLINICAL INFORMATION: Screening. Asymptomatic. COMPARISON: Mammography: Comparison is made with available priors TECHNIQUE: Digital breast mammography with tomosynthesis is performed in both the craniocaudal and mediolateral oblique views along with computer-aided detection (CAD). FINDINGS: There are scattered areas of fibroglandular density (ACR BI-RADS breast composition Category b). Right marker clip. Bilateral secretory calcifications. There are no significant masses, abnormal calcifications, or other abnormalities. MM/MM tomosynthesis screening BI IMPRESSION: No mammographic evidence of malignancy. ASSESSMENT: BI-RADS BI-RADS 2 - Benign Findings RECOMMENDATION: Routine annual mammography screening. 1 year F/U This examination should not preclude the clinical evaluation of a suspicious palpable abnormality. This patient's information was entered into a reminder system with a target due date for their next mammogram. Electronically signed by: Lexus Norton DO 06/30/2024 04:17 PM EST Dictated By: Lexus Norton DO Signed By: <Electronically signed by Lexus Norton DO in OV> 06/30/24 1617 DD/ 1420 TD/TT: 06/21/24 1455 Restaurant Assistant Manager: Smitha Coyne DO IMG BI PROCEDURES Edited Res ult - Final * (ABNORMAL) POCT HGB A1C (05/08/2024 2:42 PM EST) Hemoglobin A1C 8.2(A) 4.0 - 6.0 % QC Media Lot # [id number] Lot# Expiration Date Blood 05/08/2024 2:42 PM EST Savannah Frye NP POINT OF CARE TEST ENTER/EDIT OR DERABLES Final Result * (ABNORMAL) Lipid Panel, Standard (08/22/2023 12:20 PM EDT) Triglycerides 211(H) <150 mg/dL [facility] Comment:Desirable Triglyceri de: less than 150 mg/dLBorderline High Triglyceride 150-199 mg/dLHigh Triglyceride: 200-499 mg/dLVery High Triglyceride: greater than or equal to 5OO mg/dL Cholesterol 106 <200 mg/dL [facility] Comment:Desirable Cholestero l: less than 200 mg/dLBorderline High Cholesterol: 200-239 mg/dLHigh Cholesterol: greater than 239 mg/dL LDL Cholesterol Calculated 33 <100 mg/dL [facility] Comment:Desirable LDL: less than 100 mg/dLNear Optimal/Above Optimal LDL: 110- 129 mg/dLBorderline High LDL: 130-159 mg/dLHigh LDL: 160-189 mg/dLVery High LDL: greater than or equal to 190 mg/dL HDL Cholesterol 31(L) >40 mg/dL [facility] Comment:Desirable HDL: great er than 40 mg/dL Note: This HDL assay may give artificially low results in patients with liver disease. Blood Venous blood specimen / Unknown 08/22/2023 12:20 PM EDT 08/22/2023 4:13 PM EDT Smitha Coyne DO LAB BLOOD ORDERABLES Final R esult Performing Organization Address City/State/[facility] Co de Phone Number [facility] [address] [place] [address] [phone] * HEPATITIS B SURFACE ANTIBODY (11/19/2021 12:50 PM EDT) Hepatitis B Surface Antibody NONREACTIVE Nonreactive [facility] Comment:Nonreactive: < 8.00 mIU/mL Hepatitis B Surface Antigen Negative Negative [facility] HIV AB/AG Nonreactive Nonreactive [facility] Comment: HIV-1 p24 Ag and/or HIV-1/HIV-2 Ab not detected. ?? A test result that is nonreactive does not exclude the possibility of exposure to or infection with HIV-1 and/or HIV-2. Nonreactive results in this assay for individuals with prior exposure to HIV-1 and/or HIV-2 may be due to antigen and antibody levels that are below the limit of detection of this assay. ?? The Lynn Bonderizer Operator HIV Ag/Ab Combo assay result and supplemental assay results should be interpreted in conjunction with the patient's clinical presentation, history and other laboratory results. ??If the results are inconsistent with clinical evidence, additional testing is suggested to confirm the result. 11/19/2021 12:5 0 PM EDT Smitha Coyne DO HISTORICAL/NON ORDERABLE LAB S Final Result Performing Organization Address [facility] de Phone Number [facility] [address] [place] [address], * HEPATITIS C ANTIBODY RFLX (11/19/2021 12:50 PM EDT) Pathologist [facility] Hepatitis C Antibody Nonreactive Nonreactive [facility] Comment: Antibodies to HCV not detected; does not exclude early acute HCV infection. 11/19/2021 12:5 0 PM EDT Smitha Coyne DO HISTORICAL/NON ORDERABLE LAB S Final Result Performing Organization Address [facility] Co de Phone Number [facility] [address] [place] [address], * HPV E6/E7 RFLX ALEJANDRO 16 18/45 (03/31/2017 11:35 AM EDT) HPV mRNA E6/E7 Not Detected NOT DETECTED [facility] Comment: This test was performed using the APTIMA(R) HPV Assay ([employer] This assay detects E6/E7 viral messenger RNA (mRNA) from 14 high-risk HPV types (16,18,31,33,35,39,45,51, 52,56,58,59,66,68). For additional information please refer to: http://education.[employer]poseMatch (formerly [employer]ARXlife)/faq/EXF073g9 (This link is being provided for informational/ educational purposes only.) Please note: ??Effective 02/15/2016, HPV testing will be performed using [employer]'s APTIMA test which targets mRNA. Detecting mRNA instead of DNA, as in older methods, offers significant improvements in specificity. HPV 18/45 RNA Test not performed [facility] ADDITIONAL TESTING Not indicated () [facility] Comment: Test Performed by JareeOpal, WISHI [facility], [address] [place] [address] Misha Lauren M.D., Ph.D., Director of Laboratories , [facility] [id number] HPV 16 RNA Test not performed [facility] 03/31/2017 11:3 5 AM EDT Smitha Coyne DO HISTORICAL/NON ORDERABLE LAB S Final Result [facility] [address] from Last 3 Months or Most Recently Relevant to Health Maintenance Insurance [address] [id number] MEDICARE [facility] Care Teams Major General Relationship Specialty Start Date End Date Smitha Coyne DO [address] [place] [address] PCP - General Family Medicine 06/05/18
--- OUTSIDE RECORDS SUMMARY | 2024-09-11 14:03 | XMS_ITS | Encounter Summary ---
Author Organization [employer] Address [address] [facility] 7t [place] [address] Care Team Providers Care Layboy Operator Name Role Phone Smitha Coyne DO Primary Care Provider Harini Marshall PharmD Unavailable Reason for Visit * Reason Onset Date Comments Med Refill 09/23/2022 Encounter Details Date Type Department Care Team (Late st Contact Info) Description 09/23/2022 Telephone [facility] [address] [place], [place] [phone] Smitha Coyne DO [address] [place] [address] Med Refill Social History Tobacco Use Types [...] not to disclose 2021 10:16 AM EDT COVID-19 Exposure Response Date Recorded In the last 10 days, have yo u been in contact with someone who was confirmed or suspected to have Coronavirus/COVID-19? No / Unsure 08/26/2022 3:06 PM EDT documented as of this encounter Miscellaneous Notes * Telephone Encounter - Velia Colon - 09/23/2022 4:58 PM EDT PA submitted through Cover my Meds and approved, pharmacy notified. * Telephone Encounter - Olvin Boggs - 09/23/2022 3:57 PM EDT Tc from [facility] pharmacy requesting a PA for medication lansoprazole (Prevacid) [address] capsule documented in this encounter Plan of Treatment Upcoming Encounters Date Type Department Care Team (Late st Contact Info) Description 10/11/2024 1:00 PM EDT Office Visit [facility] OPTOMETRY [address] [place] [address] Kayleigh Martínez, OD [address] [place] [address] 10/30/2024 2:00 PM EDT Clinical Support [facility] [address] [place] [address] Elza Graham, ROSA 11/01/2024 11:00 AM EDT Office Visit [facility] [address] [place] [address] Smitha Coyne DO [address] [place] [address] documented as of this encounter Visit Diagnoses Not on filedocumented in this encounter Care Teams Layboy Operator Relationship Specialty Start Date End Date Smitha Coyne DO [address] [place] [address] PCP - General Family Medicine 06/05/18 Harini Marshall PharmD [address] [place] [address] Pharmacist Internal Medicine 08/22/23 09/21/23 Elza Au Men'S Furnishings Salesperson 07/04/23 10/03/23 documented as of this encounter
--- OUTSIDE RECORDS SUMMARY | 2024-09-11 14:03 | XMS_ITS | Encounter Summary ---
Author Organization [employer] Address [address] [facility] 7t [place] [address] Care Team Providers Care Lubrication Technician Name Role Phone StanfordSmitha Primary Care Provider [phone] Harini Marshall PharmD Unavailable [phone] Encounter Details Date Type Department Care Team ([facility] Contact Info) Description 10/03/2022 Orders Only [facility] MEDICINE [address] [place] [address] Alexa Gramajo FNP [address] [place] [address] Social History Tobacco Use Types Packs/Day Years [...] suspected to have Coronavirus/COVID-19? No / Unsure 09/29/2022 12:22 PM EDT documented as of this encounter Plan of Treatment Upcoming Encounters Date Type Department Care Team ([facility] Contact Info) Description 10/11/2024 1:00 PM EDT Office Visit [facility] OPTOMETRY [address] [place] [address] Kayleigh Martínez, OD [address] [place] [address] 10/30/2024 2:00 PM EDT Clinical Support [address] [phone] Elza Graham, ROSA 11/01/2024 11:00 AM EDT Office Visit [address] [phone] Smitha Coyne DO [address] [place] [address] documented as of this encounter Visit Diagnoses Not on filedocumented in this encounter Care Teams Lubrication Technician Relationship Specialty Start Date End Date Smitha Coyne DO [address] [place] [address] PCP - General Family Medicine 06/05/18 Harini Marshall, Mary BethD [address] [place] [address] Pharmacist Internal Medicine 08/22/23 09/21/23 lEza Au School Vocational Educator 07/04/23 10/03/23 documented as of this encounter
--- OUTSIDE RECORDS SUMMARY | 2024-09-11 14:03 | XMS_ITS | Encounter Summary ---
Author Organization [employer] Address [address] [facility] 7t [place] [address] Care Team Providers Care Distillation Operator Helper Name Role Phone StanfordSmitha Primary Care Provider Harini Marshall PharmD Unavailable [phone] Encounter Details Date Type Department Care Team ([facility] Contact Info) Description 08/26/2022 Orders Only [facility] MEDICINE [address] [place] [address] Nery Treadwell MD [address] [place] [address] Chronic pelvic pain in female; Chronic lower urinary tract infection Social History Tobacco Use Types Packs/Day Years [...] Encounters Date Type Department Care Team (Late Contact Info) Description 10/11/2024 1:00 PM EDT Office Visit [facility] OPTOMETRY [address] [place] [address] Kayleigh Martínez, OD [address] [place] [address] 10/30/2024 2:00 PM EDT Clinical Support [address] [address] Elza Graham, RN 11/01/2024 11:00 AM EDT Office Visit [address] [address] Smitha Coyne DO [address] [place] [address] documented as of this encounter Visit Diagnoses Diagnosis Chronic pelvic pain in female Unspecified symptom associated with female genital organs Chronic lower urinary tract infection documented in this encounter Care Teams Distillation Operator Helper Relationship Specialty Start Date End Date Smitha Coyne DO [address] [place] [address] PCP - General Family Medicine 06/05/18 Harini Marshall PharmD [address] [place] [address] Pharmacist Internal Medicine 08/22/23 09/21/23 Elza Au Merchandising Intern 07/04/23 10/03/23 documented as of this encounter
--- OUTSIDE RECORDS SUMMARY | 2024-09-11 14:03 | XMS_ITS | Encounter Summary ---
Author Organization [employer] Address 75 [facility] 7t [place] [address] Care Team Providers Care Off Premise Service Representative Name Role Phone Smitha Coyne DO Primary Care Provider Harini Marshall PharmD Unavailable Reason for Visit * Reason Onset Date Comments Med Refill 08/03/2022 Encounter Details Date Type Department Care Team (Late st Contact Info) Description 08/03/2022 Telephone [facility] MEDICINE [address] [place], [place] [phone] Smitha Coyne DO [address] [place] [address] Med Refill Social History Tobacco Use Types [...] suspected to have Coronavirus/COVID-19? No / Unsure 07/15/2022 1:58 PM EST documented as of this encounter Miscellaneous Notes * Telephone Encounter - Olvin Boggs - 08/03/2022 10:23 AM EST Tc from pt requesting med refill Hydromorphone 2 mg documented in this encounter Plan of Treatment Upcoming Encounters Date Type Department Care Team (Late st Contact Info) Description 10/11/2024 1:00 PM EDT Office Visit [facility] OPTOMETRY [address] [place] [address] Kayleigh Martínez, OD [address] [place] [address] 10/30/2024 2:00 PM EDT Clinical Support [facility] MEDICINE [address] [place] [address] Elza Graham, ROSA 11/01/2024 11:00 AM EDT Office Visit [facility] MEDICINE [address] [place] [address] Smitha Coyne DO [address] [place] [address] documented as of this encounter Visit Diagnoses Not on filedocumented in this encounter Care Teams Off Premise Service Representative Relationship Specialty Start Date End Date Smitha Coyne DO [address] [place] [address] PCP - General Family Medicine 06/05/18 Harini Marshall PharmD [address] [place] [address] Pharmacist Internal Medicine 08/22/23 09/21/23 Elza Au Manager Operational 07/04/23 10/03/23 documented as of this encounter
--- OUTSIDE RECORDS SUMMARY | 2024-09-11 14:03 | XMS_ITS | Encounter Summary ---
Author Organization [employer] Address 75 [facility] 7t [place] [address] Care Team Providers Care Communication Center Coordinator Name Role Phone Smitha Coyne DO Primary Care Provider Harini Marshall PharmD Unavailable [phone] Reason for Visit * Reason Onset Date Comments Appointment Request 11/08/2022 Encounter Details Date Type Department Care Team ([facility] st Contact Info) Description 11/08/2022 Telephone [facility] MEDICINE [address] [place], [place] [phone] Smitha Coyne DO [address] [place], [place] [phone] Appointment Request Social History Tobacco Use Types Packs/Day Years [...] suspected to have Coronavirus/COVID-19? No / Unsure 10/28/2022 12:36 PM EDT documented as of this encounter Miscellaneous Notes * Telephone Encounter - Allyn Rock - 11/08/2022 10:13 AM EDT Tc from pt requesting to r/s appt for 11/22/22 Follow up Extended. Pt would like a sooner appt withprovider. Please contact pt at [phone] documented in this encounter Plan of Treatment Upcoming Encounters Date Type Department Care Team (Late st Contact Info) Description 10/11/2024 1:00 PM EDT Office Visit [facility] OPTOMETRY [address] [place] [address] Kayleigh Martínez, OD [address] [place] [address] 10/30/2024 2:00 PM EDT Clinical Support [facility] MEDICINE [address] [place] [address] Elaz Graham, ROSA 11/01/2024 11:00 AM EDT Office Visit [facility] MEDICINE [address] [place] [address] Smitha Coyne DO [address] [place] [address] documented as of this encounter Visit Diagnoses Not on filedocumented in this encounter Care Teams Communication Center Coordinator Relationship Specialty Start Date End Date Smitha Coyne DO [address] [place] [address] PCP - General Family Medicine 06/05/18 Harini Marshall PharmD [address] [place] [address] Pharmacist Internal Medicine 08/22/23 09/21/23 Elza Au [employer] Consultant 07/04/23 10/03/23 documented as of this encounter
--- OUTSIDE RECORDS SUMMARY | 2024-09-11 14:03 | XMS_ITS | Encounter Summary ---
Author Organization [employer] Address [address] [facility] 7t [place] [address] Care Team Providers Care Machine Pack Assembler Name Role Phone Smitha Coyne DO Primary Care Provider [phone] Harini Marshall PharmD Unavailable [phone] Encounter Details Date Type Department Care Team (Late st Contact Info) Description 04/20/2023 Abstract [facility] MEDICINE [address] [place], [place] [phone] Smitha Coyne DO [address] [place] [address] Social History Tobacco Use Types Packs/Day Years [...] Description 10/11/2024 1:00 PM EDT Office Visit [facility] OPTOMETRY [address] [place] [address] Mauricio, Kayleigh, OD [address] [place] [address] 10/30/2024 2:00 PM EDT Clinical Support [facility] MEDICINE [address] [place] [address] Elza Graham, ROSA 11/01/2024 11:00 AM EDT Office Visit [facility] MEDICINE [address] [place] [address] Smitha Coyne DO [address] [place] [address] documented as of this encounter Visit Diagnoses Not on filedocumented in this encounter Care Teams Machine Pack Assembler Relationship Specialty Start Date End Date Smitha Coyne DO [address] [place] [address] PCP - General Family Medicine 06/05/18 Harini Marshall PharmD [address] [place] [address] Pharmacist Internal Medicine 08/22/23 09/21/23 Elza Au Computer Operations Technician 07/04/23 10/03/23 documented as of this encounter
--- OUTSIDE RECORDS SUMMARY | 2024-09-11 14:03 | XMS_ITS | Clinical Summary ---
Author Organization [facility] Address [address] [address] Phone Care Team Providers Care Microbiology Lab Analyst Name Role Phone Unavailable Primary Care Provider Unavailabl e Allergies Active Allergy Reactions Criticality Noted Date Comments Aripiprazole Other (see comments) 10/01/2020 Carbamazepine 05/03/2012 Citalopram Rash Low 10/04/2021 Clindamycin 10/04/2021 Acid reflux Codeine 05/03/2012 Doxycycline 11/08/2021 Acid Reflux Haloperidol Rash Low 06/30/2022 Hydrochlorothiazide 11/21/2005 Other reaction(s): rash Insulin Lispro Rash Low 06/30/2022 Lamotrigine 10/04/2021 Lisinopril Rash Low 10/04/2021 Lorazepam 10/04/2021 Oxcarbazepine Other (see comments) 01/27/2022 Oxycodone 12/12/2011 Pemoline 05/03/2012 Perphenazine Rash Low 06/30/2022 Phenazopyridine Rash,Vomiting Low 06/30/2022 Risperidone 01/27/2022 Sertraline Rash Low 11/21/2005 Sulfa Antibiotics Other (see comments) 10/02/19 21 Sulfa drug Sumatriptan Rash Low 06/30/2022 Tolmetin Rash Low 01/27/2022 Valproic Acid 05/03/2012 Medications metoprolol succinate XL (TOPROL-XL) 200 MG 24 hr tablet Take 1 tablet by mouth 1 (one) time each day Active insulin degludec (Tresiba FlexTouch) 200 UNIT/ML injection 36 Units Active insulin aspart protamine-insul in aspart (NovoLOG MIX 70/30 FLEXPEN) (70-30) 100 UNIT/ML injection as directed Active ferrous sulfate 325 (65 Fe) MG EC tablet Take 1 tablet by mouth 2 (two) times a day Active Cholecalciferol 50 MCG (1999 UT) capsule Take 1 capsule by mouth 1 (one) time each day Active Alcohol Swabs (SM Alcohol Prep) 70 % pads 1 Active Blood Pressure Monitoring (Omron 3 Series BP Monitor) device USE TO CHECK BLOOD PRESSURE 2 OR 3 TIMES DAILY, SEATED WITH FEET ON FLOOR 1 Active BD Pen Needle Archana U/F 32G X 4 MM misc 1 Active atorvastatin (LIPITOR) 20 MG tablet Take 20 mg by mouth 2 Active Baclofen 5 MG tablet Take 10 mg by mouth 2 Active HYDROcodone-sidney taminophen (NORCO) 5-325 MG per tablet Take 1 tablet by mouth 2 Active fosfomycin (MONUROL) 3 g packet DISSOLVE 1 PACKET IN 4 OZ OF WATER AND DRINK ONCE EVERY OTHER MONDAY. ALTERNATE EVERY MONDAY WITH CEPHALEXIN PRESCRIPTION 2 Active HYDROmorphone (DILAUDID) 2 MG tablet TAKE 1 TABLET BY MOUTH EVERY 4 HOURS NEEDED FOR SEVERE PAIN 2 Active amLODIPine (NORVASC) 2.5 MG tablet Take 1 tablet (2.5 mg total) by mouth 1 (one) time each day 90 tablet 3 2 Active sodium bicarbonate 325 MG tablet Take 325 mg by mouth in the morning and 325 mg in the evening. Active SODIUM CITRATE PO Take 5 mL by mouth Active Active Problems Problem Noted Date Diagnosed Date End stage renal disease 10/06/2022 Dependence on renal dialysis 10/06/2022 Ileostomy present 08/18/2022 Iron deficiency anemia 06/30/2022 Osteoarthritis of right knee joint 06/09/2022 Urinary tract infectious disease 06/09/2022 Chronic lower urinary tract infection 06/09/2022 Stage 5 chronic kidney disease 01/27/2022 COVID-19 12/20/2021 Overview (12/30/2021): Problem added by Discern Expert Severe obesity 11/08/2021 Renal osteodystrophy 10/04/2021 Type 2 diabetes mellitus 09/23/2021 Type 2 diabetes mellitus wit h diabetic chronic kidney disease 06/28/2021 Anemia in chronic kidney disease 06/28/2021 Chronic kidney disease, stage 4 (severe) 021 Chronic kidney disease stage 3 10/01/2020 Chronic kidney disease stage 3 10/01/2020 Edema 10/01/2020 Hypertensive renal disease 10/01/2020 Renal stone 10/01/2020 Proteinuria 10/01/2020 Renal disorder due to type 2 diabetes mellitus 0 10/01/2020 Ulcerative colitis 04/20/2015 Obstructive sleep apnea syndrome 04/20/2015 Mild intermittent asthma 04/20/2015 Hyperlipidemia 04/20/2015 Gastroesophageal reflux disease 04/20/2015 Chronic low back pain 04/20/2015 Bipolar disorder 04/20/2015 Anemia 04/20/2015 Essential hypertension 04/20/2015 Encounters Date Type Department Care Team Description 09/10/2024 Treatment [facility] [address] [phone] Paramjit Thompson MD End stage renal disease; Dependence on renal dialysis 09/03/2024 Treatment [facility] [address] [phone] Paramjit Thompson MD End stage renal disease; Dependence on renal dialysis 08/24/2024 Treatment [facility] [address] [phone] Paramjit Thompson MD End stage renal disease; Dependence on renal dialysis 08/20/2024 Treatment [facility] [address] [phone] Paramjit Thompson MD End stage renal disease; Dependence on renal dialysis 08/15/2024 Treatment [facility] [address] [phone] Paramjit Thompson MD End stage renal disease; Dependence on renal dialysis 08/10/2024 Treatment [facility] [address] [place] [address] Paramjit Thompson MD End stage renal disease; Dependence on renal dialysis 07/27/2024 Treatment [facility] [address] [phone] Paramjit Thompson MD 07/20/2024 Treatment [facility] [address] [phone] Paramjit Thompson MD 07/16/2024 Treatment [facility] [address] [phone] Mynor Mcgill MD 07/13/2024 Orders Only [facility] [address] [phone] Paramjit Thompson MD 07/09/2024 Treatment [facility] [address] [phone] Paramjit Thompson MD 06/22/2024 Treatment [facility] [address] [phone] Paramjit Thompson MD 06/18/2024 Treatment [facility] [address] [phone] Mynor Mcgill MD 06/13/2024 Treatment [facility] [address] [phone] Paramjit Thompson MD from Last 3 Months Immunizations Name Administration Dates Next Due Hepatitis B 12/14/2006,07/27/2006,06/26/2006 Tdap 09/17/2019,06/03/2009,06/03/2001 Family History Medical History Relation Comments Cancer Father Diabetes Father Hypertension Father Cancer Mother Heart disease Mother Hypertension Sibling Relation Status Comments Father Alive Mother Alive Sibling Social History Tobacco Use Types Packs/Day Years Used Date Smoking Tobacco: Former Smokeless Tobacco: Never Tobacco Cessation:Counseling Given: No Alcohol Use Standard Drinks/Week Comments No 0 (1 standard drink = 0.6 oz pur e alcohol) Comments Unknown Sex and Gender Information Value Date Recorded Sex Assigned at Not on file Legal Sex Female 5:06 PM EST Gender Identity Not on file Sexual Orientation Not on file Last Filed Vital Signs Vital Sign Reading Time Taken Comments Blood Pressure 140/80 08/01/2022 12:34 PM EST Pulse 86 08/01/2022 12:34 PM EST Temperature - - Respiratory Rate - - Oxygen Saturation 98% 08/01/2022 12:34 PM EST Inhaled Oxygen Concentration - - Weight 148 kg (326 lb) 08/01/2022 12:34 PM EST 3 26.4lb Height 167.6 cm (5' 6 ) 03/26/2019 12:00 PM EDT Body Mass Index 52.62 03/26/2019 12:00 PM EDT Plan of Treatment Health Maintenance Due Date Last Done Comments Breast Cancer Screening 1969 Pneumococcal Vaccine: Pediat rics (0 to 5 Years) and At-Risk Patients (6 to 64 Years) (1 of 2 - PCV) 1975 Hepatitis B Vaccine (1 of 5 - Risk Dialysis 4-dose series) 1989 12/14/2006, 07/27/2006, 06/26/2006 Colorectal Cancer Screening: Annual FOBT 2018 Colorectal Cancer Screening: Colonoscopy 2018 Colorectal Cancer Screening: Sigmoidoscopy 2018 Diabetes: Ophthalmology Exam 07/06/2020 Diabetes: Pedal Pulse Checked 07/06/2020 Diabetes: Sensory Foot Exam 07/06/2020 Diabetes: Visual Foot Exam 07/06/2020 Diabetes: Hemoglobin A1C 12/05/2024 025, 06/13/2024, 11/22/2022, Additional history exists Influenza Vaccine (Season Ended) 2025 Procedures Procedure Name Priority Date/Time Associated Diagnosis Comments FERRITIN Routine 09/05/2024 3:00 AM EDT HEMOGLOBIN A1C Routine 09/05/2024 3:00 AM EDT HEPATITIS B SURFACE ANTIGEN W/REFL CONFIRM Routine 09/05/2024 3:00 AM EDT TRANSFERRIN SATURATION Routine 3:00 AM EDT PROTEIN, TOTAL, SERUM Routine 09/05/2024 3:00 AM EDT ELECTROLYTE PANEL Routine 09/05/2024 3:0 0 AM EDT MAGNESIUM Routine 09/05/2024 3:00 AM EDT LIPID PANEL Routine 09/05/2024 3:00 AM EDT LACTATE DEHYDROGENASE Routine 09/05/2024 3:00 AM EDT GLUCOSE, RANDOM Routine 09/05/2024 3:00 AM EDT LIH (HC) Routine 09/05/2024 3:00 AM EDT CREATININE, SERUM Routine 09/05/2024 3:0 0 AM EDT BILIRUBIN, TOTAL Routine 09/05/2024 3:00 AM EDT AST Routine 09/05/2024 3:00 AM EDT ALKALINE PHOSPHATASE Routine 09/05/2024 3:00 AM EDT CALCIUM PHOSPHORUS PRODUCT, ADJUSTED (HC) Routine 09/05/2024 3:00 AM EDT ALT Routine 09/05/2024 3:00 AM EDT PTH, INTACT Routine 09/05/2024 3:00 AM EDT KT/V NATURAL LOG, URR (HC) Routine 09/05/2024 3:00 AM EDT CBC AND DIFFERENTIAL Routine 09/05/2024 3:00 AM EDT HEMOGLOBIN Routine 08/22/2024 3:00 AM EDT LIH () Routine 08/10/2024 3:00 AM EST COLLECTION DATE () Routine 08/10/2024 3:00 AM EST KT/V NATURAL LOG, URR () Routine 08/10/2024 3:00 AM EST FERRITIN Routine 08/08/2024 3:00 AM EST HEPATITIS B SURFACE ANTIGEN W/REFL CONFIRM Routine 08/08/2024 3:00 AM EST TRANSFERRIN SATURATION Routine 3:00 AM EST PROTEIN, TOTAL, SERUM Routine 08/08/2024 3:00 AM EST ELECTROLYTE PANEL Routine 08/08/2024 3:0 0 AM EST MAGNESIUM Routine 08/08/2024 3:00 AM EST LACTATE DEHYDROGENASE Routine 08/08/2024 3:00 AM EST LIH () Routine 08/08/2024 3:00 AM EST GLUCOSE, RANDOM Routine 08/08/2024 3:00 AM EST CREATININE, SERUM Routine 08/08/2024 3:0 0 AM EST AST Routine 08/08/2024 3:00 AM EST BILIRUBIN, TOTAL Routine 08/08/2024 3:00 AM EST ALT Routine 08/08/2024 3:00 AM EST CALCIUM PHOSPHORUS PRODUCT, ADJUSTED (HC) Routine 08/08/2024 3:00 AM EST ALKALINE PHOSPHATASE Routine 08/08/2024 3:00 AM EST CBC AND DIFFERENTIAL Routine 08/08/2024 3:00 AM EST KT/V NATURAL LOG, URR (HC) Routine 08/08/2024 3:00 AM EST HEMOGLOBIN Routine 08/01/2024 3:00 AM EST HEMOGLOBIN Routine 07/27/2024 3:00 AM EST COLLECTION DATE (HC) Routine 07/27/2024 3:00 AM EST HEMOGLOBIN Routine 07/25/2024 3:00 AM EST FERRITIN Routine 07/13/2024 3:00 AM EST HEPATITIS B SURFACE ANTIGEN W/REFL CONFIRM Routine 07/13/2024 3:00 AM EST TRANSFERRIN SATURATION Routine 3:00 AM EST PROTEIN, TOTAL, SERUM Routine 07/13/2024 3:00 AM EST LIH (HC) Routine 07/13/2024 3:00 AM EST ELECTROLYTE PANEL Routine 07/13/2024 3:0 0 AM EST MAGNESIUM Routine 07/13/2024 3:00 AM EST GLUCOSE, RANDOM Routine 07/13/2024 3:00 AM EST LACTATE DEHYDROGENASE Routine 07/13/2024 3:00 AM EST BILIRUBIN, TOTAL Routine 07/13/2024 3:00 AM EST AST Routine 07/13/2024 3:00 AM EST CREATININE, SERUM Routine 07/13/2024 3:0 0 AM EST ALT Routine 07/13/2024 3:00 AM EST CALCIUM PHOSPHORUS PRODUCT, ADJUSTED (HC) Routine 07/13/2024 3:00 AM EST ALKALINE PHOSPHATASE Routine 07/13/2024 3:00 AM EST CBC AND DIFFERENTIAL Routine 07/13/2024 3:00 AM EST KT/V NATURAL LOG, URR (HC) Routine 07/13/2024 3:00 AM EST COLLECTION DATE (HC) Routine 07/13/2024 3:00 AM EST HEMOGLOBIN Routine 06/27/2024 3:00 AM EST ALUMINUM LEVEL Routine 06/13/2024 3:00 AM EST FERRITIN Routine 06/13/2024 3:00 AM EST HEPATITIS C ABS W/REFLEX RNA DETECTR Routine 06/13/2024 3:00 AM EST CONFIRMATION TEST HCV Routine 06/13/2024 3:00 AM EST HEMOGLOBIN A1C Routine 06/13/2024 3:00 AM EST HEPATITIS B SURFACE ANTIGEN W/REFL CONFIRM Routine 06/13/2024 3:00 AM EST HEPATITIS B SURFACE ANTIBODY QUANT Routine 06/13/2024 3:00 AM EST TRANSFERRIN SATURATION Routine 3:00 AM EST URIC ACID Routine 06/13/2024 3:00 AM EST PROTEIN, TOTAL, SERUM Routine 06/13/2024 3:00 AM EST ELECTROLYTE PANEL Routine 06/13/2024 3:0 0 AM EST MAGNESIUM Routine 06/13/2024 3:00 AM EST LIPID PANEL Routine 06/13/2024 3:00 AM EST LIH (HC) Routine 06/13/2024 3:00 AM EST LACTATE DEHYDROGENASE Routine 06/13/2024 3:00 AM EST GLUCOSE, RANDOM Routine 06/13/2024 3:00 AM EST BILIRUBIN, TOTAL Routine 06/13/2024 3:00 AM EST CREATININE, SERUM Routine 06/13/2024 3:0 0 AM EST ALT Routine 06/13/2024 3:00 AM EST AST Routine 06/13/2024 3:00 AM EST ALKALINE PHOSPHATASE Routine 06/13/2024 3:00 AM EST CALCIUM PHOSPHORUS PRODUCT, ADJUSTED (HC) Routine 06/13/2024 3:00 AM EST PTH, INTACT Routine 06/13/2024 3:00 AM EST CBC AND DIFFERENTIAL Routine 06/13/2024 3:00 AM EST KT/V NATURAL LOG, URR (HC) Routine 06/13/2024 3:00 AM EST from Last 3 Months Results * [facility] (09/05/2024 3:00 AM EDT) Only the most recent of5 resultswithin the time period is included. Lipemia Normal Normal [facility] Icterus Normal Normal [facility] Hemolysis Normal Normal [facility] 09/05/2024 3:00 AM EDT 09/07/2024 2:00 PM EDT us Paramjit Thompson MD LAB HISTORICA [id number] RESULTS Final Result Performing Organization Address [facility] de Phone Number APS [facility] [address] [place] [address] * (ABNORMAL) Kt/V Natural Log, URR (09/05/2024 3:00 AM EDT) Only the most recent of5 resultswithin the time period is included. Treatment Time 230 min [facility] Pre-Weight, lb 144.2 kg [facility] Post-Weight, lb 142.2 kg [facility] Ultrafiltration Rate 4 <=13 mL/kg/hr [facility] Comment: Recommend achieving Ultrafiltration Rate (UFR) <=10 mL/kg/hr References: Sofie SAMANO et al. Kidney Int. 2010; 79(2):250-257 BUN 31(H) 7 - 25 mg/dL [facility] BUN Post Dialysis 9 7 - 25 mg/dL [facility] UREA REDUCTION RATIO (%) 71 >=65 % [facility] Kt/V Natural Log 1.39 >=1.2 [facility] 09/05/2024 3:00 AM EDT 09/07/2024 1:34 PM EDT Paramjit Thompson MD LAB HISTORICA [id number] RESULTS Final Result Performing Organization Address [facility] de Phone Number APS [facility] [address] [place] [address] * Calcium Phosphorus Product, Adjusted (09/05/2024 3:00 AM EDT) Only the most recent of4 resultswithin the time period is included. Albumin 4.4 3.6 - 5.4 g/dL [facility] Calcium 8.7 8.6 - 10.3 mg/dL [facility] Phosphorus, Serum 4.2 2.5 - 5.0 mg/dL [facility] Ca*PO4 36.5 <55.0 mg2/dL2 [facility] Calcium, Adjusted Total 8.7 8.6 - 10.3 mg/dL [facility] CA*PO4 CORRCTD 36.5 <55.0 mg2/dL2 [facility] 09/05/2024 3:00 AM EDT 09/07/2024 2:00 PM EDT Paramjit Thompson MD LAB HISTORICA [id number] RESULTS Final Result Performing Organization Address [facility] Co de Phone Number APS [facility] [address] [place] [address] * Hepatitis B Surface Ag w/Reflex Confirmation (09/05/2024 3:00 AM EDT) Only the most recent of4 resultswithin the time period is included. Hep B Surface Antigen Negative Negative [facility] 09/05/2024 3:00 AM EDT 09/07/2024 2:00 PM EDT us Paramjit Thompson MD LAB BLOOD ORDERABLES Final Result Performing Organization Address [facility] de Phone Number APS [facility] [address] [place] [address] * (ABNORMAL) TSAT (09/05/2024 3:00 AM EDT) Only the most recent of4 resultswithin the time period is included. Iron 40(L) 50 - 170 ug/dL [facility] Transferrin 179(L) 250 - 380 mg/dL [facility] TIBC 251 211 - 406 ug/dL [facility] Iron Saturation (TSat) 16(L) 22 - 52 % [facility] 09/05/2024 3:00 AM EDT 09/07/2024 2:00 PM EDT Paramjit Thompson MD LAB BLOOD ORDERABLES Final Result Performing Organization Address [facility] Co de Phone Number [facility]PS [facility] [address] [place] [address] * (ABNORMAL) CBC and Differential (09/05/2024 3:00 AM EDT) Only the most recent of4 resultswithin the time period is included. DIFFERENTIAL MANUAL, 2 Not Indicated [facility] White Blood Cells 7.2 4.0 - 10.0 K/uL [facility] RBC 3.68(L) 3.93 - 5.22 M/uL [facility] Hgb 10.0(L) 11.2 - 15.7 g/dL [facility] Hemoglobin x 3 30.0(L) 33.6 - 47.1 g/dL [facility] Hematocrit 32.7(L) 34.1 - 44.9 % [facility] MCV 88.9 79.4 - 94.8 fL [facility] MCH 27.2 25.6 - 32.2 pg [facility] MCHC 30.6(L) 32.2 - 35.5 g/dL [facility] Platelets 182 182 - 369 K/uL [facility] RDW 18.5(H) 11.7 - 14.4 % [facility] Neutrophils Relative 73.4(H) 34.0 - 71.1 % [facility] Lymphocytes Relative 12.6(L) 19.3 - 51.7 % [facility] Monocytes 5.4 4.7 - 12.5 % [facility] Eosinophils Relative 3.4 0.7 - 5.8 % [facility] Basophils Relative 1.1 0.1 - 1.2 % [facility] Immature Granulocytes 4.1(H) 0.0 - 1.0 % [facility] 09/05/2024 3:00 AM EDT 09/07/2024 1:30 PM EDT us Paramjit Thompson MD LAB BLOOD ORDERABLES Final Result [facility] [address] [place] [address] * ALT (09/05/2024 3:00 AM EDT) Only the most recent of4 resultswithin the time period is included. ALT (SGPT) 10 10 - 49 U/L [facility] 09/05/2024 3:00 AM EDT 09/07/2024 2:00 PM EDT us Paramjit Thompson MD LAB BLOOD ORDERABLES Final Result Performing Organization Address [facility] Co de Phone Number [facility]PS [facility] [address] [place] [address] * AST (09/05/2024 3:00 AM EDT) Only the most recent of4 resultswithin the time period is included. AST (SGOT) 17 <34 U/L [facility] 09/05/2024 3:00 AM EDT 09/07/2024 2:00 PM EDT us Paramjit Thompson MD LAB BLOOD ORDERABLES Final Result Performing Organization Address [facility] de Phone Number [facility] [address] [place] [address] * Protein, total (09/05/2024 3:00 AM EDT) Only the most recent of4 resultswithin the time period is included. Total Protein 6.8 6.4 - 8.9 g/dL [facility] 09/05/2024 3:00 AM EDT 09/07/2024 2:00 PM EDT us Paramjit Thompson MD LAB BLOOD ORDERABLES Final Result Performing Organization Address [facility] de Phone Number APS [facility] [address] [place] [address] * (ABNORMAL) Alkaline phosphatase (09/05/2024 3:00 AM EDT) Only the most recent of4 resultswithin the time period is included. Alkaline Phosphatase 136(H) 46 - 116 U/L [facility] 09/05/2024 3:00 AM EDT 09/07/2024 2:00 PM EDT us Paramjit Thompson MD LAB BLOOD ORDERABLES Final Result Performing Organization Address [facility] de Phone Number [facility]PS [facility] [address] [place] [address] * PTH, Intact (09/05/2024 3:00 AM EDT) Only the most recent of2 resultswithin the time period is included. PTH, Intact 393 160 - 721 pg/mL [facility] Comment: Suggested (KDIGO) ESRD maintenance range is two to nine times the upper normal limit (80.1 pg/mL) for the laboratory. 09/05/2024 3:00 AM EDT 09/07/2024 2:00 PM EDT us Paramjit Thompson MD LAB BLOOD ORDERABLES Final Result Performing Organization Address [facility] Phone Number [facility] [address] [place] [address] * (ABNORMAL) Magnesium (09/05/2024 3:00 AM EDT) Only the most recent of4 resultswithin the time period is included. Magnesium 1.6(L) 1.9 - 2.7 mg/dL [facility] 09/05/2024 3:00 AM EDT 09/07/2024 2:00 PM EDT us Paramjit Thompson MD LAB BLOOD ORDERABLES Final Result Performing Organization Address [facility] de Phone Number [facility] [address] [place] [address] * Lactate dehydrogenase (09/05/2024 3:00 AM EDT) Only the most recent of4 resultswithin the time period is included. LDH 218 120 - 246 U/L [facility] 09/05/2024 3:00 AM EDT 09/07/2024 2:00 PM EDT us Paramjit Thompson MD LAB BLOOD ORDERABLES Final Result Performing Organization Address [facility] de Phone Number [facility] [address] [place] [address] * (ABNORMAL) Hemoglobin A1c (09/05/2024 3:00 AM EDT) Only the most recent of2 resultswithin the time period is included. Hemoglobin A1C 8.9(H) <5.7 % [facility] Comment: Methodology: Enzymatic HbA1c (NGSP %) ?Suggested Diagnosis >6.4% ? Diabetic 5.7-6.4% ?Pre-Diabetic <5.7% ? Non-Diabetic Diabetic Glucose Control Evaluation: Therapeutic action suggested at >8.0% ADA recommends a glycemic goal of <7.0% 09/05/2024 3:00 AM EDT 09/07/2024 1:30 PM EDT Paramjit Thompson MD LAB BLOOD ORDERABLES Final Result Performing Organization Address [facility] de Phone Number [facility] [address] [place] [address] * (ABNORMAL) Glucose, random (09/05/2024 3:00 AM EDT) Only the most recent of4 resultswithin the time period is included. Glucose 256(H) 74 - 109 mg/dL [facility] 09/05/2024 3:00 AM EDT 09/07/2024 2:00 PM EDT Paramjit Thompson MD LAB BLOOD ORDERABLES Final Result Performing Organization Address [facility] de [facility] [address] [place] [address] * (ABNORMAL) Ferritin (09/05/2024 3:00 AM EDT) Only the most recent of4 resultswithin the time period is included. Ferritin 1,754(H) 10 - 291 ng/mL [facility] 09/05/2024 3:00 AM EDT 09/07/2024 2:00 PM EDT us Paramjit Thompson MD LAB BLOOD ORDERABLES Final Result Performing Organization Address [facility] de Phone Number [facility] [address] [place] [address] * (ABNORMAL) Creatinine, serum (09/05/2024 3:00 AM EDT) Only the most recent of4 resultswithin the time period is included. Creatinine 7.39(H) 0.55 - 1.02 mg/dL [facility] 09/05/2024 3:00 AM EDT 09/07/2024 2:00 PM EDT us Paramjit Thompson MD LAB BLOOD ORDERABLES Final Result Performing Organization Address [facility] de Phone Number [facility] [address] [place] [address] * Bilirubin, total (09/05/2024 3:00 AM EDT) Only the most recent of4 resultswithin the time period is included. Total Bilirubin 0.3 0.3 - 1.2 mg/dL [facility] 09/05/2024 3:00 AM EDT 09/07/2024 2:00 PM EDT Paramjit Thompson MD LAB BLOOD ORDERABLES Final Result Performing Organization Address [facility] de Phone Number [facility] [address] [place] [address] * (ABNORMAL) Lipid panel (09/05/2024 3:00 AM EDT) Only the most recent of2 resultswithin the time period is included. Cholesterol 109 <200 mg/dL [facility] Comment: Optimal: ?<200 Borderline: ? 200-239 Higher Risk: ?>239 Triglycerides 274(A) <150 mg/dL [facility] Comment: Optimal: ?<150 Borderline High: ??150-199 High: ? 200-499 Very High: ?>499 HDL 29(A) >59 mg/dL [facility] Comment: Desirable: ?>59 Higher Risk: ?<40 LDL-Calc 25 <100 mg/dL [facility] Comment: Optimal: ?<100 Above Optimal: ?100-129 Borderline High: ??130-159 High: ? 160-189 Very High: ?>189 VLDL Cholesterol [place] 55(A) <30 mg/dL [facility] Comment: Optimal: ?<30 Borderline High: ??30-39 High: ? 40-99 Very High: ?>99 Chol/HDL Ratio 3.8(A) <3.3 [facility] Comment: Optimal: ?<3.3 Higher Risk: ?>6.2 09/05/2024 3:00 AM EDT 09/07/2024 2:00 PM EDT Paramjit Thompson MD LAB BLOOD ORDERABLES Final Result [facility] [address] [place] [address] * (ABNORMAL) Electrolyte panel (09/05/2024 3:00 AM EDT) Only the most recent of4 resultswithin the time period is included. Sodium 134(L) 136 - 145 mEq/L [facility] Potassium 4.7 3.4 - 5.0 mEq/L [facility] Chloride 100 98 - 107 mEq/L [facility] Bicarbonate (CO2) 25 21 - 31 mEq/L [facility] Anion Gap 9 3 - 14 mEq/L [facility] 09/05/2024 3:00 AM EDT 09/07/2024 2:00 PM EDT us Paramjit Thompson MD LAB BLOOD ORDERABLES Final Result Performing Organization Address [facility] de Phone Number [facility] [address] [place] [address] * (ABNORMAL) Hemoglobin (08/22/2024 3:00 AM EDT) Only the most recent of5 resultswithin the time period is included. Hgb 10.9(L) 11.2 - 15.7 g/dL [facility] Hemoglobin x 3 32.7(L) 33.6 - 47.1 g/dL [facility] 08/22/2024 3:00 AM EDT 08/23/2024 12:32 PM EDT us Paramjit Thompson MD LAB BLOOD ORDERABLES Final Result Performing Organization Address [facility] de Phone Number [facility] [address] [place] [address] * Collection Date (08/10/2024 3:00 AM EST) Only the most recent of3 resultswithin the time period is included. Collection Date See Comment [facility] Comment: Patient sample received may exceed specimen stability, based on the collection date electronically provided. ??When reviewing patient results, verify collection information and consider specimen stability before acting on any critical or panic results. 08/10/2024 3:00 AM EST Paramjit Thompson MD LAB HISTORICA [id number] RESULTS Final Result Performing Organization Address [facility] de Phone Number [facility] [address] [place] [address] * Confirmation Test HCV (06/13/2024 3:00 AM EST) Hep C Ab Confirmation Not needed [facility] 06/13/2024 3:00 AM EST 06/15/2024 12:37 PM EST us Paramjit Thompson MD LAB BLOOD ORDERABLES Final Result Performing Organization Address [facility] de Phone Number [facility]PS [facility] [address] [place] [address] * HEPATITIS C ABS W/REFLEX RNA DETECTR (06/13/2024 3:00 AM EST) Hep C Virus Ab Non-Reacti ve Non-Reacti ve [facility] 06/13/2024 3:00 AM EST 06/15/2024 12:29 PM EST us Paramjit Thompson MD LAB HISTORICA [id number] RESULTS Final Result Performing Organization Address [facility] de Phone Number [facility] [address] [place] [address] * Aluminum level (06/13/2024 3:00 AM EST) Aluminum 6 1 - 20 ug/L [facility] 06/13/2024 3:00 AM EST 06/15/2024 12:32 PM EST us Paramjit Thompson MD LAB BLOOD ORDERABLES Final Result Performing Organization Address [facility] de Phone Number [facility] [address] [place] [address] * (ABNORMAL) Hepatitis B Surface Antibody (06/13/2024 3:00 AM EST) Hep B Surface Antibody <4(A) mIU/mL [facility] Comment: Interpretation: <10: No Immunity >=10: Probable Immunity 06/13/2024 3:00 AM EST 06/15/2024 12:29 PM EST us Paramjit Thompson MD LAB BLOOD ORDERABLES Final Result Performing Organization Address [facility]/ZIP Co de Phone Number [facility] [address] [place] [address] * Uric Acid (06/13/2024 3:00 AM EST) Uric Acid 6.6 2.3 - 6.6 mg/dL [facility] 06/13/2024 3:00 AM EST 06/15/2024 12:29 PM EST Paramjit Thompson MD LAB BLOOD ORDERABLES Final Result [facility] [address] [place] [address] from Last 3 Months Insurance [place]
--- OUTSIDE RECORDS SUMMARY | 2024-09-11 14:03 | XMS_ITS | Encounter Summary ---
Author Organization [employer] Address [address] [facility] 7t [place] [address] Care Team Providers Care Certified Professional Controller Name Role Phone Smitha Coyne DO Primary Care Provider [phone] Harini Marshall PharmD Unavailable Encounter Details Date Type Department Care Team ([facility] st Contact Info) Description 10/07/2022 Telephone [facility] [address] [place], [place] [phone] Smitha Coyne DO [address] [place] [address] Social History Tobacco Use Types Packs/Day Years [...] * Telephone Encounter - Allyn Rock - 10/07/2022 10:28 AM EDT Tc from pt requesting to r/s appt for a follow up on 10/07/2022. Pt states she is currently in [facility]. Please contact pt at [phone] documented in this encounter Plan of Treatment Upcoming Encounters Date Type Department Care Team (Late st Contact Info) Description 10/11/2024 1:00 PM EDT Office Visit [facility] [address] [place] [address] Kayleigh Martínze, OD [address] [place] [address] 10/30/2024 2:00 PM EDT Clinical Support [facility] [address] [place] [address] Elza Graham, ROSA 11/01/2024 11:00 AM EDT Office Visit [facility] [address] [place] [phone] Smitha Coyne DO [address] [place] [address] documented as of this encounter Visit Diagnoses Not on filedocumented in this encounter Care Teams Certified Professional Controller Relationship Specialty Start Date End Date Smitha Coyne DO [address] [place] [phone] PCP - General Family Medicine 06/05/18 Harini Marshall PharmD [address] [place] [phone] Pharmacist Internal Medicine 08/22/23 09/21/23 Elza Au Harness Rigger 07/04/23 10/03/23 documented as of this encounter
--- OUTSIDE RECORDS SUMMARY | 2024-09-11 14:03 | XMS_ITS | Encounter Summary ---
Author Organization [facility] Address [address] [place] [address] Phone Care Team Providers Care Business Systems Technician Name Role Phone Smitha Coyne DO Primary Care Provider Unava ilable Encounter Details Date Type Department Care Team ([facility] st Contact Info) Description 08/04/2021 Telephone [facility] [address] [place] [address] Mynor Mcgill MD [address] [facility] [address] [place] [address] Social History Tobacco Use Types Packs/Day Years Used Date Smoking Tobacco: Former Alcohol Use Standard Drinks/Week Comments No 0 (1 standard drink = 0.6 oz pur e alcohol) Comments Unknown Sex and Gender Information Value Date Recorded Sex Assigned at Not on file Legal Sex Female 5:06 PM EST Gender Identity Not on file Sexual Orientation Not on file documented as of this encounter Miscellaneous Notes * Telephone Encounter - Keiry Krishnan - 08/04/2021 3:27 PM EST Pt called, she would like to speka with you reg her CT scan from 07/19/21. Please call her back at [phone] pt will be unavalible after 4 today documented in this encounter Plan of Treatment Not on file documented as of this encounter Visit Diagnoses Not on filedocumented in this encounter Care Teams Business Systems Technician Relationship Specialty Start Date End Date Smitha Coyne DO PCP - General 06/15/20 12/25/22 documented as of this encounter
== END 2024-09-10 11:56 | disposition home or self-care (01) ==
LOC: HO.HHCLNP 11:55
PROVIDERS: Visit Provider Family Medicine
DX: R39.9 Unspecified symptoms and signs involving the genitourinary system (principal)
CPT/HCPCS: 87086

== ENCOUNTER 2024-09-20 08:06 | Outpatient (REF) | payer MEDICARE, MEDICAID, SELFPAY ==
--- NOTE | ~2024-09-20 | XR_ITS ---
EXAMINATION: XR HAND, RIGHT CLINICAL INFORMATION: M79.641 - Pain in right hand COMPARISON: 08/26/2024. TECHNIQUE: PA, lateral, and oblique views of the right hand. FINDINGS: No fracture, dislocation, or suspicious bone lesion. Normal bone mineralization. Normal alignment. Minimal degenerative arthritis first CMC and first MCP joints. Joint spaces are otherwise preserved. Soft tissues appear normal. XR/XR hand RT min 3V IMPRESSION: 1. No acute bony abnormalities. 2. 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 Electronically signed by: Sunny Pugh MD 09/20/2024 01:25 PM EDT
--- OUTSIDE RECORDS SUMMARY | 2024-09-20 08:18 | XMS_ITS | Encounter Summary ---
Author Organization [employer] Address [address] [facility] 7t [place] [address] Care Team Providers Care Sample Display Preparer Name Role Phone Smitha Coyne DO Primary Care Provider [phone] Harini Marshall PharmD Unavailable [phone] Reason for Visit * Reason Comments Med Refill Encounter Details Date Type Department Care Team ([facility] st Contact Info) Description 04/22/2023 Refill [facility] [address] [place], [place] [phone] Smitha Coyne DO [address] [place] [address] Watery stools Social History Tobacco Use Types [...] Description 10/11/2024 1:00 PM EDT Office Visit [facility] OPTOMETRY [address] [place] [address] MauricioKayleigh aguiar, OD [address] [place] [address] 10/30/2024 2:00 PM EDT Clinical Support [facility] [address] [place] [address] Elza Graham RN 11/01/2024 11:00 AM EDT Office Visit [facility] [address] [place] [address] Smitha Coyne DO [address] [place] [address] documented as of this encounter Visit Diagnoses Diagnosis Watery stools Abnormal feces documented in this encounter Care Teams Sample Display Preparer Relationship Specialty Start Date End Date Smitha Coyne DO [address] [place] [phone] PCP - General Family Medicine 06/05/18 Harini Marshall PharmD [address] [place] [phone] Pharmacist Internal Medicine 08/22/23 09/21/23 Elza Au General Utility Machine Operator 07/04/23 10/03/23 documented as of this encounter
--- OUTSIDE RECORDS SUMMARY | 2024-09-20 08:18 | XMS_ITS | Encounter Summary ---
Author Organization [employer] Address [address] [facility] 7t [place] [address] Care Team Providers Care Leather Goods Assembler Name Role Phone Smitha Coyne DO Primary Care Provider [phone] Harini Marshall PharmD Unavailable [phone] Reason for Visit * Reason Onset Date Comments Hospital Follow-up 06/26/2023 Encounter Details Date Type Department Care Team (Late st Contact Info) Description 06/26/2023 Telephone [facility] [address] [place], [place] [phone] Smitha Coyne DO [address] [place] [address] Hospital Follow-up Social History Tobacco Use Types [...] from pt requesting a HDF appt. Hospital: [facility] Date of admission: 06/09/23 Discharge date: 06/23/23 Diagnosed: N/A documented in this encounter Plan of Treatment Upcoming Encounters Date Type Department Care Team (Late st Contact Info) Description 10/11/2024 1:00 PM EDT Office Visit [facility] OPTOMETRY [address] [place] [address] Mauricio, Kayleigh, OD [address] [place] [address] 10/30/2024 2:00 PM EDT Clinical Support [facility] [address] [place] [address] Elza Graham, ROSA 11/01/2024 11:00 AM EDT Office Visit [facility] [address] [place] [address] Smitha Coyne DO [address] [place] [address] documented as of this encounter Visit Diagnoses Not on filedocumented in this encounter Care Teams Leather Goods Assembler Relationship Specialty Start Date End Date Smitha Coyne DO [address] [place] [address] PCP - General Family Medicine 06/05/18 Harini Marshall, Ronaldo [address] [place] [address] Pharmacist Internal Medicine 08/22/23 09/21/23 Elza Au Sample Grinder 07/04/23 10/03/23 documented as of this encounter
--- OUTSIDE RECORDS SUMMARY | 2024-09-20 08:18 | XMS_ITS | Clinical Summary ---
Author Organization [facility] Address [address] [place] [address] Care Team Providers Care Marketing Strategy Analyst Name Role Phone Smitha Coyne Kacy Primary Care Provider [phone] Allergies Active Allergy Reactions Criticality Noted Date [...] Other reaction(s): rash Lorazepam Rash Low 10/04/2021 Twy-Vzxwj-Bbte-Lidocaine Unknown 05/19/2023 Other reaction(s): Rash, Inflammation Wmqylnro-Ylkqagtiou-Yrhwyr mark Dermatitis 11/14/2023 Oxcarbazepine Agitation,Other (see comments),Unknown [...] 06/26/2006 HIV Screening Completed 01/28/[address] [facility] Care Teams Marketing Strategy Analyst Relationship Specialty Start Date End Date Smitha Coyne [address] [place] [address] PCP - General Family Medicine 09/05/23
--- OUTSIDE RECORDS SUMMARY | 2024-09-20 08:18 | XMS_ITS | Encounter Summary ---
Author Organization [employer] Address [address] [facility] 7t [place] [address] Care Team Providers Care Head Golf Professional Name Role Phone Smitha Coyne DO Primary Care Provider + [phone] Reason for Visit * Reason Onset Date Comments Hospital Follow-up 04/22/2024 Encounter Details Date Type Department Care Team ([facility] st Contact Info) Description 04/22/2024 Telephone [facility] MEDICINE [address] [place], [place] [phone] Smitha Coyne DO [address] [place], [place] [phone] Hospital Follow-up Social History Tobacco Use Types [...] from pt requesting a HDF appt. Hospital: [facility] Date of admission: 04/16 Discharge date: 04/21 Diagnosed: Kidney infection *Send message to [facility] Clinical Care Coordinators documented in this encounter Plan of Treatment Upcoming Encounters Date Type Department Care Team (Late st Contact Info) Description 10/11/2024 1:00 PM EDT Office Visit [facility] OPTOMETRY [address] [place] [address] Kayleigh Martínez, OD [address] [place] [address] 10/30/2024 2:00 PM EDT Clinical Support [facility] [address] [place] [address] Elza Graham RN 11/01/2024 11:00 AM EDT Office Visit [facility] [address] [place] [phone] Smitha Coyne DO [address] [place] [address] documented as of this encounter Goals Goal [...] documented as of this encounter Care Teams Head Golf Professional Relationship Specialty Start Date End Date Smitha Coyne DO [address] [place] [address] PCP - General Family Medicine 06/05/18 documented as of this encounter
--- OUTSIDE RECORDS SUMMARY | 2024-09-20 08:18 | XMS_ITS | Referral Summary ---
Author Organization [facility] Address [address] [place] [address] Care Team Providers Care Retail Wireless Sales Consultant Name Role Phone Smitha Coyne Kacy Primary Care Provider [phone] Allergies Active Allergy Reactions Criticality Noted Date [...] Other reaction(s): rash Lorazepam Rash Low 10/04/2021 Kzh-Slfkq-Uvhf-Lidocaine Unknown 05/19/2023 Other reaction(s): Rash, Inflammation Iddrzmtp-Zqypaswzgb-Egvvde mark Dermatitis 11/14/2023 Oxcarbazepine Agitation,Other (see comments),Unknown [...] Plan of Treatment Not on file Insurance MEDICARE [facility] Care Teams Retail Wireless Sales Consultant Relationship Specialty Start Date End Date Smitha Coyne [address] [place] [phone] PCP - General Family Medicine 09/05/23
--- OUTSIDE RECORDS SUMMARY | 2024-09-20 08:18 | XMS_ITS | Encounter Summary ---
Author Organization [facility] Address [address] [place] [address] Phone Care Team Providers Care Stitcher Standard Machine Name Role Phone Smitha Coyne DO Primary Care Provider Unava ilable Encounter Details Date Type Department Care Team ([facility] st Contact Info) Description 02/24/2022 Telephone [facility] [address] [place] [address] Mynor Mcgill MD [address] [facility] [address] [place] [phone] Social History Tobacco Use Types Packs/Day Years [...] on filedocumented in this encounter Care Teams Stitcher Standard Machine Relationship Specialty Start Date End Date Smitha Coyne DO PCP - General 06/15/20 12/25/22 documented as of this encounter
--- OUTSIDE RECORDS SUMMARY | 2024-09-20 08:18 | XMS_ITS | Encounter Summary ---
Author Organization [facility] Address [address] [address] Phone Care Team Providers Care Dipper Fish Name Role Phone Unavailable Primary Care Provider Unavailabl e Encounter Details Date Type Department Care Team (Late st Contact Info) Description 09/14/2024 Treatment [facility]. [address] [address] Kylah Thompson MD [address] [address] End stage renal disease; Dependence [...] Dialysis Note - Kylah Thompson MD - 09/14/2024 12:00 AM EDT BASIC NOTE Patient: Nyla Wiley : 1970 Note Author: KYLAH THOMPSON MD Service Date: 09/14/2024 This patient was personally seen for a basic visit as part of routine monthly dialysis care for end stage renal disease. Attending Police Liaison: KYLAH THOMPSON MD Dialysis Location: [facility] Schedule: Shift: 2 OVERVIEW Patient is stable. COMMENTS: Note in dialysis food and beverage assistant manager HOME MEDICATIONS Current [facility] [...] (06/13/24) ADDITIONAL COMMENT COMMENTS: Note in dialysis food and beverage assistant manager 03/14/24 same issues 06/18/24 cont f/u urol Dr Guerrero 07/16/24 stable Signed by: KYLAH THOMPSON MD on 09/14/2024 at 01:47:40 PM documented in this encounter Plan of Treatment Not on file documented as of this encounter Visit Diagnoses Diagnosis End stage renal disease Dependence on renal dialysis documented in this encounter
--- OUTSIDE RECORDS SUMMARY | 2024-09-20 08:18 | XMS_ITS | Encounter Summary ---
Author Organization [employer] Address [address] [facility] 7t [place] [address] Care Team Providers Care Dial Marker Name Role Phone Smitha Coyne DO Primary Care Provider + [phone] Reason for Visit * Reason Onset Date Comments Med Refill 12/06/2023 Encounter Details Date Type Department Care Team (Late st Contact Info) Description 12/06/2023 Telephone [facility] MED[facility]INE [address] [place], [place] [phone] Smitha Coyne DO [address] [place], [place] [phone] Med Refill Social History Tobacco Use Types [...] 24 hr tablet To be sent to: [facility] - [place] - [address] [facility] documented in this encounter Plan of Treatment Upcoming Encounters Date Type Department Care Team (Late st Contact Info) Description 10/11/2024 1:00 PM EDT Office Visit [facility] OPTOMETRY [address] [place] [address] Kayleigh Martínez, OD [address] [place] [address] 10/30/2024 2:00 PM EDT Clinical Support [facility] MEDICINE [address] [place] [address] Elza Graham RN 11/01/2024 11:00 AM EDT Office Visit [facility] [address] [place] [address] Smitha Coyne DO [address] [place] [address] documented as of this encounter Goals Goal [...] documented as of this encounter Care Teams Dial Marker Relationship Specialty Start Date End Date Smitha Coyne DO [address] [place] [address] PCP - General Family Medicine 06/05/18 documented as of this encounter
--- OUTSIDE RECORDS SUMMARY | 2024-09-20 08:18 | XMS_ITS | Clinical Summary ---
Author Organization [employer] Address [address] [place] [address] 7t [place] [address] Care Team Providers Care Planer Off Bearer Name Role Phone OctaviaSmitha short DO Primary Care Provider [phone] Allergies Active Allergy Reactions Criticality Noted Date [...] Risperidone 01/27/2022 Other reaction(s): increase prolectin level Xyi-Joamm-Iqmc-Lidocaine 05/19/2023 Other reaction(s): Rash, Inflammation Sertraline Rash [...] daily Active albuterol 108 (90 Base) MCG/ACT inhalerIndicati ons:Uncomplicat ed asthma, unspecified asthma severity, unspecified whether persistent Inhale 2 puffs every 4 (four) hours if needed for wheezing. 18 g 1 07/12/19 23 Active Additional Information Patient not taking.Reported on 07/03/2023 albuterol (2.5 MG/3ML) 0.083% nebulizer solutionIndicat ions:Uncomplica kelsey asthma, unspecified asthma severity, unspecified whether persistent [...] by mouth in the morning. OTC Active clotrimazole-be tamethasone (Lotrisone) cream Apply 1 Application. topically in the morning. As needed Active budesonide (Pulmicort Flexhaler) 90 MCG/ACT inhaler Inhale 1 puff in the morning and at bedtime. Rinse mouth with water after use to reduce aftertaste and incidence of candidiasis. Do not swallow. 1 each 08/17/19 24 Active metoprolol succinate XL (Toprol-XL) 100 MG 24 hr tabletIndicatio ns:Essential hypertension TAKE ONE TABLET BY MOUTH EVERY MORNING. DO NOT CRUSH OR CHEW 90 tablet 3 12/06/19 24 Active insulin pen needle (BD Pen Needle Archana U/F) 32G x 4 mm misc USE WITH LANTUS AND NOVOLOG INSULIN INSTRUCTED. 150 each 12/25/19 24 Active glucose blood (FREESTYLE LITE) test stripIndication s:Type 2 diabetes mellitus with ESRD (end-stage renal disease) ([facility]) TEST BLOOD SUGAR THREE TIMES A DAY 100 strip 01/24/20 24 Active Alcohol Swabs (Alcohol Prep) 70 % pads APPLY ONE SWAB TOPICALLY TWO TIMES A DAY 100 each 02/08/20 24 Active dulaglutide (Trulicity) 1.5 MG/0.5ML solution pen-injectorInd ications:Type 2 diabetes mellitus with ESRD (end-stage renal disease) ([facility]) Inject 1.5 mg under the skin 1 (one) time per week. 4 each 02/12/20 24 Active lansoprazole (Prevacid) [address] capsule TAKE ONE CAPSULE BY MOUTH TWICE A DAY BEFORE MEALS 180 capsule 1 02/13/20 24 Active baclofen (Lioresal) 10 MG tabletIndicatio ns:Chronic bilateral low back pain, unspecified whether sciatica present Take 0.5 tablets (5 mg) by mouth if needed in the morning and at bedtime for muscle spasms. 30 tablet 3 04/05/20 24 2024 Active Diclofenac Sodium 1 % gel Apply [...] 06/17/19 25 Active loperamide (Imodium) 2 MG capsuleIndicati ons:Watery stools TAKE ONE TO TWO CAPSULES BY MOUTH EVERY MORNING, AT NOON, IN THE EVENING, AND AT BEDTIME NEEDED FOR DIARRHEA 60 capsule 1 08/07/19 25 Active loratadine (Allergy Relief) 10 MG tablet TAKE ONE TABLET BY MOUTH ONCE DAILY NEEDED FOR ALLERGIES 90 tablet 1 08/07/19 25 Active NovoLOG MIX 70/30 FLEXPEN (70-30) 100 UNIT/ML injectionIndica tions:Type 2 diabetes mellitus with ESRD (end-stage renal disease) ([facility]) INJECT TWO TIMES A DAY PER SLIDING SCALE- FOR BS BETWEEEN 100-149=28U, 150-199=30U, 200-249=32U, 250-299=34U, 300-349=36U, 350-399=38U, OVER 400=40U 15 mL 09/18/19 25 Active NovoLOG MIX 70/30 FLEXPEN (70-30) 100 UNIT/ML injectionIndica tions:Type 2 diabetes mellitus with ESRD (end-stage renal disease) ([facility]) inject twice daily per sliding scale: BS 100-149: 28 units, BS 150-199: 30 units, BS 200-249: 32 units, BS: 250-299 34 units, BS 300-349: 36 units, BS 359-399: 38 units, BS >400: 40 units 15 mL 5 08/22/19 24 2024 Discontinued HYDROcodone-sidney taminophen ([place]) 5-325 MG tabletIndicatio ns:Pain of right thumb Take 2 tablets by mouth every 6 (six) hours if needed for severe pain for up to 5 days. 40 tablet 08/27/19 25 2024 levoFLOXacin (Levaquin) 750 MG tablet Take 1 tablet (750 mg) by mouth 1 (one) time for 1 dose. Take 750mg tablet today then start 500mg tabs tomorrow after dialysis 1 tablet 08/27/19 25 2024 levoFLOXacin (Levaquin) 500 MG tablet Take 1 tablet (500 mg) by mouth every other day for 3 doses. Take after dialaysis. 3 tablet 08/27/19 25 2024 cephalexin (Keflex) 500 MG capsuleIndicati ons:Recurrent UTI Take 1 capsule (500 mg) by mouth 2 times daily for 7 days. 14 capsule 09/11/19 25 2024 Active Problems Problem Noted Date Diagnosed Date [...] mainly due to MH issues FU with senior information security architect this afternoon Assessment & Plan (10/28/2022 1:41 [...] Encounters Date Type Department Care Team Description 09/16/2024 Refill [facility] MEDICINE [address] [place] [address] Smitha Coyne DO Type 2 diabetes mellitus with ESRD (end-stage renal disease) ([facility]) 09/10/2024 6:40 PM EDT Office Visit [facility] [place] [address] Heraclio Bernabe MD Recurrent UTI 09/10/2024 Travel 09/10/2024 Telephone [facility] [place] [address] Smitha Coyne DO Nurse Triage 08/26/2024 11:30 AM EDT Office Visit [facility] [place] [address] Smitha Coyne DO Complicated UTI (urinary tract infection) (Primary Dx); UTI symptoms; Pain of right thumb 08/12/2024 Travel 08/09/2024 Telephone [facility] [place] [address] Simtha Coyne DO Results; Appointment Request 08/05/[address] [address] Smitha Coyne DO 08/05/[address] [address] Smitha Coyne DO Watery stools 07/24/2024 Telephone [facility] [place] [address] Smitha Coyne DO Recall Letter (Recall Letter sent 07/24/24.); Recall Appt.; Appointment Request 07/01/2024 11:30 AM EST Clinical Support [address] [address] Elza Graham, watershed coordinator bilateral low back pain, unspecified whether sciatica present (Primary Dx) 07/01/2024 Travel 07/01/2024 Telephone [facility] [place] [address] Elza Graham, RN Recommend MEDICAL CARE EVALUATION SPECIALIST Tier 3 from Last 3 Months Immunizations Name Administration [...] Description 10/11/2024 1:00 PM EDT Office Visit [facility] OPTOMETRY [address] [place] [address] Kayleigh Martínez, OD [address] [place] [address] 10/30/2024 2:00 PM EDT Clinical Support [facility] MEDICINE [address] [place] [address] Elza Graham, ROSA 11/01/2024 11:00 AM EDT Office Visit [facility] MEDICINE [address] [place] [address] Smitha Coyne DO [address] [place] [address] Health Maintenance Due Date Last Done Comments CT Colonography 1969 Colonoscopy 1969 Colorectal Cancer Screening 1969 FIT DNA/Cologuard 1969 FIT 1969 FOBT 1969 Sigmoidoscopy 1969 Diabetes: Foot Exam 1979 Alcohol/Substance Use Screening 1981 Pneumococcal Vaccine: 50+ Years (1 of 2 - PCV) 01/21/1988 Pap Smear 1990 Zoster Vaccines (1 of 2) 2019 Cervical Cancer Screening 03/31/2022 HPV/Cotest 03/31/2022 03/31/2017 COVID-19 Vaccine ( season) 2024 Influenza Vaccine (#1) 2024 Diabetes: Hemoglobin A1C 08/06/2024 024, 02/12/2024, 08/22/2023, Additional history exists Depression Screening 08/16/2024 08/17/2023, 08/17/19 SDOH Screening 08/16/2024 08/17/2023 Lipid Panel 08/21/2024 08/22/2023, 01/28/2021 Eye Exam 04/10/2025 04/10/2024, 1111/2023, 04/10/2024, Additional history exists Mammogram 06/21/2025 06/21/2024, [...] will adhere to medication regimen General No Hector Marshallyssa, PharmD Record your blood sugar as directed Result Component No Harini Marshall, PharmD Hemoglobin A1c < 7.5 Result Component 8.2( 4 2:42 PM EST) No Harini Marshall, PharmD Procedures Procedure Name Priority Date/Time Associated Diagnosis Comments POCT URINALYSIS DIPSTICK Routine 09/10/2024 5:31 PM EDT Recurrent UTI CULTURE, URINE, ROUTINE Routine 09/10/2024 11:56 AM EDT Recurrent UTI XR HAND 3+ VIEWS [...] mellitus with ESRD (end-stage renal disease) (CMS/HCC) ZZZ HISTORICAL HEPATITIS C ANTIBODY RFLX Routine 11/19/2021 12:50 PM EDT ZZZ HISTORICAL HEPATITIS B SURFACE ANTIBODY Routine 11/19/2021 12:50 PM EDT ZZZ HISTORICAL HPV E6/E7 RFLX ALEJANDRO 16 18/45 [...] Media Lot # [id number] Lot# Expiration Date [id number] Urine 09/10/2024 5:31 PM EDT Heraclio Bernabe MD POINT OF CARE TEST ENTER/EDIT OR DERABLES Final Result * Culture, Urine, Routine (09/10/2024 11:56 AM EDT) Only the most recent of2 resultswithin the time period is included. Urine Urine specimen obtained by clean catch procedure / Unknown 09/10/2024 11:56 AM EDT 09/11/2024 11:56 AM EDT Comment:UACC Narrative [facility] - 09/12/2024 10:14 AM EDT Urine Culture No growth. Specimen Source: Urine clean catch Heraclio Bernabe MD LAB MICROBIOLOGY - GENERAL ORDER YASMIN Final Result [facility] [address] [place] [address] [phone] * XR Hand 3+ Views Right (08/26/2024 12:25 PM EDT) Anatomical Region Laterality Modality Upper Extremities, Hand Right Radiogra phic Imaging 08/26/2024 12:2 5 PM EDT Narrative 08/26/2024 12:56 PM EDT ?[facility] ?[address] ?[place] [address] ?XRay Report ? Signed ? Patient: Saurabh,Nyla ?MR#: [id number] ?? 069 ? : 1970 ?Acct:[id number] ? Age/Sex: 54 / F ?ADM Date: 08/26/24 ? Loc: HO.HHCX ? Attending Dr: Smitha Coyne DO ? Ordering Physician: Smitha Coyne DO ?? Date of Service: 08/26/24 ?? Procedure(s): XR hand RT min 3V ?? Accession Number(s): [id number] ? cc: Smitha Coyne DO ? EXAMINATION: [...] DD/ 1225 ? TD/TT: 08/26/24 1249 ? Lard Tub Washer: ? Procedure Note Flaquita, Image - 08/26/[address] [address] XRay Report Signed Patient: Kelvin Wiley#: [id number] [id number] : 1970Acct:[id number] Age/Sex: 54 / FADM Date: 08/26/24 Loc: HO.HHCX Attending Dr: Smitha Coyne DO Ordering Physician: Smitha Coyne DO Date of Service: 08/26/24 Procedure(s): XR hand RT min 3V Accession Number(s): [id number] cc: Smitha Coyne DO EXAMINATION: XR HAND [...] Manuel Gleason MD 08/26/2024 12:53 PM EDT RP Dictated By: Manuel Gleason MD Signed By: <Electronically signed by Manuel Gleason MD in OV> 08/26/24 1253 DD/ 1225 TD/TT: 08/26/24 1249 Lard Tub Washer: us Smitha Coyne DO IMG XR PROCEDURES Final Resu lt * POCT RAFAEL-14 Urine Drug Screen (07/01/2024 11:30 AM EST) TCA, Urine Positive Urine Urine specimen obtained by clean catch procedure / Unknown 07/01/2024 11:30 AM EST Elza Yao, ROSA - 07/01/2024 11:30 AM EST UTOX cup Lot#[id number] Exp. 02/27/26 Internal Pass Control Smitha Coyen DO POINT OF CARE TEST ENTER/JOSE T ORDERABLES Final Result * BI Mammogram Screening Tomosynthesis Bilateral (06/21/2024 2:20 PM EST) Anatomical Region Laterality Modality Breast Bilateral Mammography 06/21/2024 2:20 PM EST Narrative 06/30/2024 4:20 PM EST ? [facility] [place] ? [address] ?[place] [address] ? Mammography Report ? Signed ? Patient: Saurabh,Nyla ?MR#: [id number] ?? 069 ? : 1970 ?Acct:[id number] ? Age/Sex: 54 / F ?ADM Date: 01/17/25 ? Loc: HO.MAMMO ? Attending Dr: Smitha Coyne DO ? Ordering Physician: Smitha Coyne DO ?Results: 2B ?? enign Findings ? Date of Service: 06/21/24 ?Follow Up: 1 Year From Orig ?? inal Mammogram ? Procedure(s): MM tomosynthesis screening BI ?? Accession Number(s): [id number] ? cc: Smitha Coyne DO ? EXAMINATION: [...] DD/ 1420 ? TD/TT: 06/21/24 1455 ? Lard Tub Washer: ? Procedure Note Donelfegointerpreter, Image - 06/30/2024 [facility] [address] [place] [address] Mammography Report Signed Patient: Kelvin Wiley#: [id number] 069 : 1970Acct:[id number] Age/Sex: 54 / FADM Date: 06/21/24 Loc: HO.MAMMO Attending Dr: Smitha Coyne DO Ordering Physician: Smitha Coyneults: 2B enign Findings Date of Service: 06/21/24Follow Up: 1 Year From Orig inal Mammogram Procedure(s): MM tomosynthesis screening BI Accession Number(s): [id number] cc: Smitha Coyne DO EXAMINATION: MM SCREENING [...] Lexus Norton DO 06/30/2024 04:17 PM EST RP Dictated By: Lexus Norton DO Signed By: <Electronically signed by Lexus Norton DO in OV> 06/30/24 1617 DD/ 1420 TD/TT: 06/21/24 1455 Lard Tub Washer: Smitha Coyne DO IMG BI PROCEDURES Edited [...] 12:20 PM EDT) Triglycerides 211(H) <150 mg/dL [facility] Comment:Desirable Triglyceri de: less than 150 mg/dLBorderline High Triglyceride 150-199 mg/dLHigh Triglyceride: 200-499 mg/dLVery High Triglyceride: greater than or equal to 5OO mg/dL Cholesterol 106 <200 mg/dL [facility] Comment:Desirable Cholestero l: less than 200 mg/dLBorderline High Cholesterol: 200-239 mg/dLHigh Cholesterol: greater than 239 mg/dL LDL Cholesterol Calculated 33 <100 mg/dL [facility] Comment:Desirable LDL: less than 100 mg/dLNear Optimal/Above Optimal LDL: 110- 129 mg/dLBorderline High LDL: 130-159 mg/dLHigh LDL: 160-189 mg/dLVery High LDL: greater than or equal to 190 mg/dL HDL Cholesterol 31(L) >40 mg/dL [facility] Comment:Desirable HDL: great er than 40 mg/dL Note: This HDL assay may give artificially low results in patients with liver disease. Blood Venous blood specimen / Unknown 08/22/2023 12:20 PM EDT 08/22/2023 4:13 PM EDT Smitha Coyne DO LAB BLOOD ORDERABLES Final R esult Performing Organization Address [facility]/ZIP Co de Phone Number [facility] [address] [place] [address] [phone] * HEPATITIS B SURFACE ANTIBODY (11/19/2021 12:50 PM EDT) Hepatitis B Surface Antibody NONREACTIVE Nonreactive [facility] Comment:Nonreactive: < 8.00 mIU/mL Hepatitis B Surface Antigen Negative Negative [facility] HIV AB/AG Nonreactive Nonreactive [facility] Comment: HIV-1 p24 Ag and/or [...] detection of this assay. ?? The [employer] HIV Ag/Ab Combo assay result and supplemental assay results should be interpreted in conjunction with the patient's clinical presentation, history and other laboratory results. ??If the results are inconsistent with clinical evidence, additional testing is suggested to confirm the result. 11/19/2021 12:5 0 PM EDT Smitha Coyne DO HISTORICAL/NON ORDERABLE LAB S Final Result Performing Organization Address City/[facility]/ZIP Co de Phone Number [facility] [address] * HEPATITIS C ANTIBODY RFLX (11/19/2021 12:50 PM EDT) Hepatitis C Antibody Nonreactive Nonreactive [facility] Comment: Antibodies to HCV not detected; does not exclude early acute HCV infection. 11/19/2021 12:5 0 PM EDT Smitha Coyne DO HISTORICAL/NON ORDERABLE LAB S Final Result Performing Organization Address [facility]/ZIP Co de Phone Number [facility] [address] * HPV E6/E7 RFLX ALEJANDRO 16 18/45 (03/31/2017 11:35 AM EDT) HPV mRNA E6/E7 Not Detected NOT DETECTED [facility] Comment: This test was performed using the APTIMA(R) HPV Assay ([employer] This assay detects E6/E7 viral messenger RNA (mRNA) from 14 high-risk HPV types (16,18,31,33,35,39,45,51, 52,56,58,59,66,68). For additional information please refer to: http://education.[employer]/faq/VNM943f9 (This link is being provided for informational/ educational purposes only.) Please note: ??Effective 02/15/2016, HPV testing will be performed using [employer]'s APTIMA test which targets mRNA. Detecting mRNA instead of DNA, as in older methods, offers significant improvements in specificity. HPV 18/45 RNA Test not performed [facility] ADDITIONAL TESTING Not indicated () [facility] Comment: Test Performed by Opal Farrell, [facility] [facility], [address] [place] [address] Misha Lauren M.D., Ph.D., Director of Laboratories , [facility] [id number] HPV 16 RNA Test not performed [facility] 03/31/2017 11:3 5 AM EDT Smitha Coyne DO HISTORICAL/NON ORDERABLE LAB S Final Result Performing Organization Address [facility] Co de Phone Number [facility] [address] from Last 3 Months or Most Recently Relevant to Health Maintenance Insurance [address] [place] [address] [place] [phone] [facility] Care Teams Planer Off Bearer Relationship Specialty Start Date End Date Smitha Coyne DO [address] [place] [address] PCP - General Family Medicine 06/05/18
--- OUTSIDE RECORDS SUMMARY | 2024-09-20 08:18 | XMS_ITS | Encounter Summary ---
Author Organization [employer] Address [address] [facility] 7t [place] [address] Care Team Providers Care Rice Dryer Mechanic Name Role Phone Smitha Coyne DO Primary Care Provider [phone] Harini Marshall PharmD Unavailable [phone] Encounter Details Date Type Department Care Team (Late st Contact Info) Description 08/11/2023 Telephone [facility] MEDICINE [address] [place], [place] [phone] Smitha Coyne DO [address] [place], [place] [phone] Social History Tobacco Use Types Packs/Day Years [...] from pt stated they received a call, adjusto writer operator didn't see anything tasked. documented in this encounter Plan of Treatment Upcoming Encounters Date Type Department Care Team (Late st Contact Info) Description 10/11/2024 1:00 PM EDT Office Visit [facility] OPTOMETRY [address] [place] [address] Mauricio, Kayleigh, OD [address] [place] [address] 10/30/2024 2:00 PM EDT Clinical Support [facility] MEDICINE [address] [place] [address] Elza Graham RN 11/01/2024 11:00 AM EDT Office Visit [facility] MEDICINE [address] [place] [address] Smitha Coyne DO [address] [place] [address] documented as of this encounter Visit Diagnoses Not on filedocumented in this encounter Care Teams Rice Dryer Mechanic Relationship Specialty Start Date End Date Smitha Coyne DO [address] [place] [address] PCP - General Family Medicine 06/05/18 Harini Marshall PharmD [address] [place] [address] Pharmacist Internal Medicine 08/22/23 09/21/23 Elza Au Tilting Head Band Sawyer 07/04/23 10/03/23 documented as of this encounter
--- OUTSIDE RECORDS SUMMARY | 2024-09-20 08:19 | XMS_ITS | Encounter Summary ---
Author Organization [employer] Address [address] [facility] 7t [place] [address] Care Team Providers Care Java Programming Professor Name Role Phone Smitha Coyne DO Primary Care Provider Harini Marshall PharmD Unavailable Reason for Visit * Reason Onset Date Comments Med Refill 09/23/2022 Encounter Details Date Type Department Care Team (Late st Contact Info) Description 09/23/2022 Telephone [facility] MEDICINE [address] [place], [place] [phone] Smitha Coyne DO [address] [place] [address] Med Refill Social History Tobacco Use Types [...] - 09/23/2022 3:57 PM EDT Tc from [facility] requesting a PA for medication lansoprazole (Prevacid) [address] capsule documented in this encounter Plan of Treatment Upcoming Encounters Date Type Department Care Team (Late st Contact Info) Description 10/11/2024 1:00 PM EDT Office Visit [facility] OPTOMETRY [address] [place] [address] Kayleigh Martínez, OD [address] [place] [address] 10/30/2024 2:00 PM EDT Clinical Support [facility] MEDICINE [address] [place] [address] Elza Graham, ROSA 11/01/2024 11:00 AM EDT Office Visit [facility] MEDICINE [address] [place] [address] Smitha Coyne DO [address] [place] [address] documented as of this encounter Visit Diagnoses Not on filedocumented in this encounter Care Teams Java Programming Professor Relationship Specialty Start Date End Date Smitha Coyne DO [address] [place] [address] PCP - General Family Medicine 06/05/18 Harini Marshall PharmD [address] [place] [address] Pharmacist Internal Medicine 08/22/23 09/21/23 Elza Au Plaster Machine Tender 07/04/23 10/03/23 documented as of this encounter
--- OUTSIDE RECORDS SUMMARY | 2024-09-20 08:19 | XMS_ITS | Encounter Summary ---
Author Organization [facility] Address [address] [place] [address] Phone Care Team Providers Care Remote Advisor Name Role Phone Smitha Coyne DO Primary Care Provider Unava ilable Encounter Details Date Type Department Care Team ([facility] st Contact Info) Description 08/04/2021 Telephone [facility] [address] [place] [address] Mynor Mcgill MD [address] [facility] [address] [place] [address] Social History Tobacco Use Types [...] from 07/19/21. Please call her back at [phone] pt will be unavalible after 4 today documented in this encounter Plan of Treatment Not on file documented as of this encounter Visit Diagnoses Not on filedocumented in this encounter Care Teams Remote Advisor Relationship Specialty Start Date End Date Smitha Coyne DO PCP - General 06/15/20 12/25/22 documented as of this encounter
--- OUTSIDE RECORDS SUMMARY | 2024-09-20 08:19 | XMS_ITS | Encounter Summary ---
Author Organization [employer] Address [address] [facility] 7t [place] [address] Care Team Providers Care Inclusion Internship Name Role Phone Smitha Coyne DO Primary Care Provider [phone] Harini Marshall PharmD Unavailable [phone] Encounter Details Date Type Department Care Team (Late st Contact Info) Description 04/20/2023 Abstract [facility] MEDICINE [address] [place], [place] [phone] Smitha Coyne DO [address] [place] [address] Social History Tobacco Use Types Packs/Day Years [...] Description 10/11/2024 1:00 PM EDT Office Visit [facility] OPTOMETRY [address] [place] [address] Mauricio, Kayleigh, OD [address] [place] [address] 10/30/2024 2:00 PM EDT Clinical Support [facility] MEDICINE [address] [place] [address] Elza Graham, ROSA 11/01/2024 11:00 AM EDT Office Visit [facility] MEDICINE [address] [place] [address] Smitha Coyne DO [address] [place] [address] documented as of this encounter Visit Diagnoses Not on filedocumented in this encounter Care Teams Inclusion Internship Relationship Specialty Start Date End Date Smitha Coyne DO [address] [place] [address] PCP - General Family Medicine 06/05/18 Harini Marshall PharmD [address] [place] [address] Pharmacist Internal Medicine 08/22/23 09/21/23 Elza Au Warehousing Technician 07/04/23 10/03/23 documented as of this encounter
--- OUTSIDE RECORDS SUMMARY | 2024-09-20 08:19 | XMS_ITS | Encounter Summary ---
Author Organization [facility] Address [address] [place] [address] Phone Care Team Providers Care Tattoo And Body Artist Name Role Phone Smitha Coyne DO Primary Care Provider Unava ilable Encounter Details Date Type Department Care Team ([facility] st Contact Info) Description 10/26/2021 Telephone [facility] [address] [place] [address] Mynor Mcgill MD [address] [facility] [address] [place] [address] Social History Tobacco Use Types [...] she will be going to the ER [facility] due to a kidney stone flare up. If you'd like to speak with her she can be reached at [phone] Thank you documented in this encounter Plan of Treatment Not on file documented as of this encounter Visit Diagnoses Not on filedocumented in this encounter Care Teams Tattoo And Body Artist Relationship Specialty Start Date End Date Smitha Coyne DO PCP - General 06/15/20 12/25/22 documented as of this encounter
--- OUTSIDE RECORDS SUMMARY | 2024-09-20 08:19 | XMS_ITS | Encounter Summary ---
Author Organization [employer] Address [address] [facility] 7t [place] [address] Care Team Providers Care Label Printer Name Role Phone Smitha Coyne DO Primary Care Provider [phone] Harini Marshall PharmD Unavailable [phone] Reason for Visit * Reason Comments Med Refill Encounter Details Date Type Department Care Team (Late st Contact Info) Description 04/20/2023 Refill [facility] MEDICINE [address] [place], [place] [phone] Smitha Coyne DO 230 [place] [address] Social History Tobacco Use Types Packs/Day Years [...] Description 10/11/2024 1:00 PM EDT Office Visit [facility] OPTOMETRY [address] [place] [address] Mauricio, Kayleigh, OD 230 [place] [address] 10/30/2024 2:00 PM EDT Clinical Support [facility] MEDICINE [address] [place] [address] Elza Graham RN 11/01/2024 11:00 AM EDT Office Visit [facility] MEDICINE [address] [place] [address] Smitha Coyne DO [address] [place] [address] documented as of this encounter Visit Diagnoses Not on filedocumented in this encounter Care Teams Label Printer Relationship Specialty Start Date End Date Smitha Coyne DO [address] [place] [address] PCP - General Family Medicine 06/05/18 Harini Marshall, Ronaldo [address] [place] [address] Pharmacist Internal Medicine 08/22/23 09/21/23 Elza Au Arc Welding Machine Operator 07/04/23 10/03/23 documented as of this encounter
--- OUTSIDE RECORDS SUMMARY | 2024-09-20 08:19 | XMS_ITS | Encounter Summary ---
Author Organization [employer] Address [address] [facility] 7t [place] [address] Care Team Providers Care Ware Cleaner Name Role Phone StanfordSmitha Primary Care Provider Harini Marshall PharmD Unavailable Encounter Details Date Type Department Care Team ([facility] Contact Info) Description 08/26/2022 Orders Only [facility] MEDICINE 230 [place] [address] Nery Treadwell MD 230 [place] [address] Chronic pelvic pain in female; Chronic lower [...] 1:00 PM EDT Office Visit [facility] OPTOMETRY [address] [place] [address] Kayleigh Martínez, OD 230 [place] [address] 10/30/2024 2:00 PM EDT Clinical Support [address] [address] Elza Graham, RN 11/01/2024 11:00 AM EDT Office Visit [address] [address] Smitha Coyne DO [address] [place] [address] documented as of this encounter Visit Diagnoses Diagnosis Chronic pelvic pain in female Unspecified symptom associated with female genital organs Chronic lower urinary tract infection documented in this encounter Care Teams Ware Cleaner Relationship Specialty Start Date End Date Smitha Coyne DO [address] [place] [address] PCP - General Family Medicine 06/05/18 Harini Marshall PharmD [address] [place] [address] Pharmacist Internal Medicine 08/22/23 09/21/23 Elza Au Class B Truck Driver 07/04/23 10/03/23 documented as of this encounter
--- OUTSIDE RECORDS SUMMARY | 2024-09-20 08:19 | XMS_ITS | Encounter Summary ---
Author Organization [employer] Address [address] [facility] 7t [place] [address] Care Team Providers Care Wildland Fire Fighter Name Role Phone StanfordSmitha Primary Care Provider Harini Marshall PharmD Unavailable Encounter Details Date Type Department Care Team ([facility] Contact Info) Description 10/03/2022 Orders Only [facility] MEDICINE [address] [place] [address] Alexa Gramajo FNP [address] [place] [address] Social History Tobacco Use Types Packs/Day Years [...] Upcoming Encounters Date Type Department Care Team ([facility] Contact Info) Description 10/11/2024 1:00 PM EDT Office Visit [facility] OPTOMETRY [address] [place] [address] Kayleigh Martínez, OD 230 [place] [address] 10/30/2024 2:00 PM EDT Clinical Support [address] [phone] Elza Graham, ROSA 11/01/2024 11:00 AM EDT Office Visit [address] [phone] Smitha Coyne DO 230 [place] [address] documented as of this encounter Visit Diagnoses Not on filedocumented in this encounter Care Teams Wildland Fire Fighter Relationship Specialty Start Date End Date Smitha Coyne DO [address] [place] [address] PCP - General Family Medicine 06/05/18 Harini Marshall, Mary BethD [address] [place] [address] Pharmacist Internal Medicine 08/22/23 09/21/23 Elza Au Power Driven Brush Maker 07/04/23 10/03/23 documented as of this encounter
--- OUTSIDE RECORDS SUMMARY | 2024-09-20 08:19 | XMS_ITS | Encounter Summary ---
Author Organization [employer] Address [address] [facility] 7t [place] [address] Care Team Providers Care Environmental Sustainability Manager Name Role Phone Smitha Coyne DO Primary Care Provider Harini Marshall PharmD Unavailable Reason for Visit * Reason Onset Date Comments Appointment Request 11/08/2022 Encounter Details Date Type Department Care Team ([facility] st Contact Info) Description 11/08/2022 Telephone [facility] MEDICINE 230 [place], [place] [phone] Smitha Coyne DO [address] [place], [place] [phone] Appointment Request Social History Tobacco Use Types [...] sooner appt withprovider. Please contact pt at [phone] documented in this encounter Plan of Treatment Upcoming Encounters Date Type Department Care Team (Late st Contact Info) Description 10/11/2024 1:00 PM EDT Office Visit [facility] OPTOMETRY [address] [place] [address] Kayleigh Martínez, OD 230 [place] [address] 10/30/2024 2:00 PM EDT Clinical Support [facility] MEDICINE [address] [place] [address] Elza Graham, ROSA 11/01/2024 11:00 AM EDT Office Visit [facility] MEDICINE [address] [place] [address] Smitha Coyne DO [address] [place] [address] documented as of this encounter Visit Diagnoses Not on filedocumented in this encounter Care Teams Environmental Sustainability Manager Relationship Specialty Start Date End Date Smitha Coyne DO [address] [place] [address] PCP - General Family Medicine 06/05/18 Harini Marshall PharmD [address] [place] [address] Pharmacist Internal Medicine 08/22/23 09/21/23 Elza Au Staff Design Engineer 07/04/23 10/03/23 documented as of this encounter
--- OUTSIDE RECORDS SUMMARY | 2024-09-20 08:19 | XMS_ITS | Encounter Summary ---
Author Organization [employer] Address [address] [facility] 7t [place] [address] Care Team Providers Care Marine Meteorologist Name Role Phone Smitha Coyne DO Primary Care Provider Harini Marshall PharmD Unavailable Reason for Visit * Reason Onset Date Comments Med Refill 08/03/2022 Encounter Details Date Type Department Care Team (Late st Contact Info) Description 08/03/2022 Telephone [facility] MEDICINE 230 [place], [place] [phone] Smitha Coyne DO 230 [place] [address] Med Refill Social History Tobacco Use Types [...] 10/11/2024 1:00 PM EDT Office Visit [facility] OPTOMETRY [address] [place] [address] Kayleigh Martínez, OD 230 [place] [address] 10/30/2024 2:00 PM EDT Clinical Support [facility] MEDICINE [address] [place] [address] Elza Graham, ROSA 11/01/2024 11:00 AM EDT Office Visit [facility] MEDICINE [address] [place] [address] Smitha Coyne DO 230 [place] [address] documented as of this encounter Visit Diagnoses Not on filedocumented in this encounter Care Teams Marine Meteorologist Relationship Specialty Start Date End Date Smitha Coyne DO [address] [place] [address] PCP - General Family Medicine 06/05/18 Harini Marshall PharmD [address] [place] [address] Pharmacist Internal Medicine 08/22/23 09/21/23 Elza Au Oracle Sql Developer 07/04/23 10/03/23 documented as of this encounter
--- OUTSIDE RECORDS SUMMARY | 2024-09-20 08:19 | XMS_ITS | Clinical Summary ---
Author Organization [facility] Address [address] [address] Phone Care Team Providers Care Self Propelled Dredge Operator Name Role Phone Unavailable Primary Care Provider [...] Encounters Date Type Department Care Team Description 09/14/2024 Treatment [facility] [address] [phone] Paramjit Thompson MD End stage renal disease; Dependence on renal dialysis 09/10/2024 Treatment [facility] [address] [phone] Paramjit Thompson MD End stage renal disease; Dependence on renal dialysis 09/03/2024 Treatment [facility] [address] [phone] Paramjit Thompson MD End stage renal disease; Dependence on renal dialysis 08/24/2024 Treatment [facility] [address] [address] Paramjit Thompson MD End stage renal disease; Dependence on renal dialysis 08/20/2024 Treatment [facility] [address] [phone] Paramjit Thompson MD End stage renal disease; Dependence on renal dialysis 08/15/2024 Treatment [facility] [address] [place] [address] Paramjit Thompson MD End stage renal disease; Dependence on renal dialysis 08/10/2024 Treatment [facility] [address] [address] Paramjit Thompson MD End stage renal disease; Dependence on renal dialysis 07/27/2024 Treatment [facility] [address] [address] Paramjit Thompson MD 07/20/2024 Treatment [facility] [address] [address] Paramjit Thompson MD 07/16/2024 Treatment [facility] [address] [address] Mynor Mcgill MD 07/13/2024 Orders Only [facility] [address] [address] Paramjit Thompson MD 07/09/2024 Treatment [facility] [address] [address] Paramjit Thompson MD 06/22/2024 Treatment [facility] [address] [address] Paramjit Thompson MD from Last 3 Months Immunizations Immunization Administration Dates Next Due Hepatitis B 12/14/2006,07/27/2006,06/26/2006 [...] Comments Breast Cancer Screening 1970 Pneumococcal Vaccine: 50+ Ye ars (1 of 2 - PCV) 01/21/1988 Hepatitis B Vaccine (1 of 5 - [...] EST HEMOGLOBIN Routine 06/27/2024 3:00 AM EST from Last 3 Months Results * [facility] (09/05/2024 3:00 AM EDT) Only the most recent of4 resultswithin the time period is included. Lipemia Normal Normal [facility] Icterus Normal Normal [facility] Hemolysis Normal Normal [facility] 09/05/2024 3:00 AM EDT 09/07/2024 2:00 PM EDT us Paramjit Thompson MD LAB HISTORICA [id number] RESULTS Final Result [facility]PS [facility] [address] [place] [address] * (ABNORMAL) Kt/V Natural Log, URR (09/05/2024 3:00 AM EDT) Only the most recent of4 resultswithin the time period is included. Treatment [...] PM EDT Paramjit Thompson MD LAB HISTORICA [id number] RESULTS Final Result Performing Organization Address [facility] de Phone Number [facility]PS [facility] [address] [place] [address] * Calcium Phosphorus Product, Adjusted (09/05/2024 3:00 AM EDT) Only the most recent of3 resultswithin the time period is included. Albumin 4.4 3.6 - 5.4 g/dL [facility] Calcium 8.7 8.6 - 10.3 mg/dL [facility] Phosphorus, Serum 4.2 2.5 - 5.0 mg/dL [facility] Ca*PO4 36.5 <55.0 mg2/dL2 [facility] Calcium, Adjusted Total 8.7 8.6 - 10.3 mg/dL [facility] CA*PO4 CORRCTD 36.5 <55.0 mg2/dL2 [facility] 09/05/2024 3:00 AM EDT 09/07/2024 2:00 PM EDT Paramjit Thompson MD LAB HISTORICA [id number] RESULTS Final Result Performing Organization Address [facility] de Phone Number [facility]PS [facility] [address] [place] [address] * Hepatitis B Surface Ag w/Reflex Confirmation (09/05/2024 3:00 AM EDT) Only the most recent of3 resultswithin the time period is included. Hep B Surface Antigen Negative Negative [facility] 09/05/2024 3:00 AM EDT 09/07/2024 2:00 PM EDT Paramjit Thompson MD LAB BLOOD ORDERABLES Final Result Performing Organization Address [facility] Co de Phone Number [facility]PS [facility] [address] [place] [address] * (ABNORMAL) TSAT (09/05/2024 3:00 AM EDT) Only the most recent of3 resultswithin the time period is included. [facility] Iron 40(L) 50 - 170 ug/dL [facility] Transferrin 179(L) 250 - 380 mg/dL [facility] TIBC 251 211 - 406 ug/dL [facility] Iron Saturation (TSat) 16(L) 22 - 52 % [facility] 09/05/2024 3:00 AM EDT 09/07/2024 2:00 PM EDT Paramjit Thompson MD LAB BLOOD ORDERABLES Final Result Performing Organization Address [facility] de Phone Number [facility]PS [facility] [address] [place] [address] * (ABNORMAL) CBC and Differential (09/05/2024 3:00 AM EDT) Only the most recent of3 resultswithin the time period is included. [facility] DIFFERENTIAL MANUAL, 2 Not Indicated [facility] White [...] BLOOD ORDERABLES Final Result Performing Organization Address City/[facility]/ZIP Co de Phone Number [facility] [address] [place] [address] * ALT (09/05/2024 3:00 AM EDT) Only the most recent of3 resultswithin the time period is included. ALT (SGPT) 10 10 - 49 U/L [facility] 09/05/2024 3:00 AM EDT 09/07/2024 2:00 PM EDT Paramjit Thompson MD LAB BLOOD ORDERABLES Final Result Performing Organization Address [facility] de Phone Number [facility]PS [facility] [address] [place] [address] * AST (09/05/2024 3:00 AM EDT) Only the most recent of3 resultswithin the time period is included. AST (SGOT) 17 <34 U/L [facility] 09/05/2024 3:00 AM EDT 09/07/2024 2:00 PM EDT Paramjit Thompson MD LAB BLOOD ORDERABLES Final Result Performing Organization Address [facility] Co de Phone Number [facility] [address] [place] [address] * Protein, total (09/05/2024 3:00 AM EDT) Only the most recent of3 resultswithin the time period is included. Total Protein 6.8 6.4 - 8.9 g/dL [facility] 09/05/2024 3:00 AM EDT 09/07/2024 2:00 PM EDT Paramjit Thompson MD LAB BLOOD ORDERABLES Final Result Performing Organization Address [facility] Co de Phone Number [facility] [address] [place] [address] * (ABNORMAL) Alkaline phosphatase (09/05/2024 3:00 AM EDT) Only the most recent of3 resultswithin the time period is included. Alkaline Phosphatase 136(H) 46 - 116 U/L [facility] 09/05/2024 3:00 AM EDT 09/07/2024 2:00 PM EDT Paramjit Thompson MD LAB BLOOD ORDERABLES Final Result Performing Organization Address [facility] de Phone Number [facility] [address] [place] [address] * PTH, Intact (09/05/2024 3:00 AM EDT) PTH, Intact 393 160 - 721 pg/mL [facility] Comment: Suggested (KDIGO) ESRD maintenance range is two to nine times the upper normal limit (80.1 pg/mL) for the laboratory. 09/05/2024 3:00 AM EDT 09/07/2024 2:00 PM EDT Paramjit Thompson MD LAB BLOOD ORDERABLES Final Result Performing Organization Address [facility] de Phone Number [facility] [address] [place] [address] * (ABNORMAL) Magnesium (09/05/2024 3:00 AM EDT) Only the most recent of3 resultswithin the time period is included. Magnesium 1.6(L) 1.9 - 2.7 mg/dL [facility] 09/05/2024 3:00 AM EDT 09/07/2024 2:00 PM EDT us Paramjit Thompson MD LAB BLOOD ORDERABLES Final Result Performing Organization Address [facility] de Phone Number [facility] [address] [place] [address] * Lactate dehydrogenase (09/05/2024 3:00 AM EDT) Only the most recent of3 resultswithin the time period is included. LDH 218 120 - 246 U/L [facility] 09/05/2024 3:00 AM EDT 09/07/2024 2:00 PM EDT Paramjit Thompson MD LAB BLOOD ORDERABLES Final Result Performing Organization Address [facility] de Phone Number [facility] [address] [place] [address] * (ABNORMAL) Hemoglobin A1c (09/05/2024 3:00 AM EDT) Hemoglobin A1C 8.9(H) <5.7 % [facility] Comment: Methodology: Enzymatic HbA1c (NGSP %) ?Suggested Diagnosis >6.4% ? Diabetic 5.7-6.4% ?Pre-Diabetic <5.7% ? Non-Diabetic Diabetic Glucose Control Evaluation: Therapeutic action suggested at >8.0% ADA recommends a glycemic goal of <7.0% 09/05/2024 3:00 AM EDT 09/07/2024 1:30 PM EDT us Paramjit Thompson MD LAB BLOOD ORDERABLES Final Result Performing Organization Address [facility] de Phone Number [facility] [address] [place] [address] * (ABNORMAL) Glucose, random (09/05/2024 3:00 AM EDT) Only the most recent of3 resultswithin the time period is included. Glucose 256(H) 74 - 109 mg/dL [facility] 09/05/2024 3:00 AM EDT 09/07/2024 2:00 PM EDT Paramjit Thompson MD LAB BLOOD ORDERABLES Final Result Performing Organization Address [facility] Co de Phone Number [facility] [address] [place] [address] * (ABNORMAL) Ferritin (09/05/2024 3:00 AM EDT) Only the most recent of3 resultswithin the time period is included. Ferritin 1,754(H) 10 - 291 ng/mL [facility] 09/05/2024 3:00 AM EDT 09/07/2024 2:00 PM EDT Paramjit Thompson MD LAB BLOOD ORDERABLES Final Result Performing Organization Address [facility] de Phone Number [facility] [address] [place] [address] * (ABNORMAL) Creatinine, serum (09/05/2024 3:00 AM EDT) Only the most recent of3 resultswithin the time period is included. Creatinine 7.39(H) 0.55 - 1.02 mg/dL [facility] 09/05/2024 3:00 AM EDT 09/07/2024 2:00 PM EDT Paramjit Thompson MD LAB BLOOD ORDERABLES Final Result Performing Organization Address [facility] Co de Phone Number [facility] [address] [place] [address] * Bilirubin, total (09/05/2024 3:00 AM EDT) Only the most recent of3 resultswithin the time period is included. Total Bilirubin 0.3 0.3 - 1.2 mg/dL [facility] 09/05/2024 3:00 AM EDT 09/07/2024 2:00 PM EDT us Paramjit Thompson MD LAB BLOOD ORDERABLES Final Result [facility] [address] [place] [address] * (ABNORMAL) Lipid panel (09/05/2024 3:00 AM EDT) Cholesterol 109 <200 mg/dL [facility] Comment: Optimal: [...] BLOOD ORDERABLES Final Result Performing Organization Address [facility] Co de Phone Number [facility] [address] [place] [address] * (ABNORMAL) Electrolyte panel (09/05/2024 3:00 AM EDT) Only the most recent of3 resultswithin the time period is included. Sodium 134(L) 136 - 145 mEq/L [facility] Potassium 4.7 3.4 - 5.0 mEq/L [facility] Chloride 100 98 - 107 mEq/L [facility] Bicarbonate (CO2) 25 21 - 31 mEq/L [facility] Anion Gap 9 3 - 14 mEq/L [facility] 09/05/2024 3:00 AM EDT 09/07/2024 2:00 PM EDT us Paramjit Thompson MD LAB BLOOD ORDERABLES Final Result Performing Organization Address [facility] de Phone Number [facility] [address] [place] [address] * (ABNORMAL) Hemoglobin (08/22/2024 3:00 AM EDT) Only the most recent of5 resultswithin the time period is included. Hgb 10.9(L) 11.2 - 15.7 g/dL [facility] Hemoglobin x 3 32.7(L) 33.6 - 47.1 g/dL [facility] 08/22/2024 3:00 AM EDT 08/23/2024 12:32 PM EDT us Paramjit Thompson MD LAB BLOOD ORDERABLES Final Result Performing Organization Address [facility] Co de Phone Number [facility] [address] [place] [address] * Collection Date (08/10/2024 3:00 AM EST) Only the most recent of3 resultswithin the time period is included. Collection Date See Comment [facility] Comment: Patient sample received may exceed specimen stability, based on the collection date electronically provided. ??When reviewing patient results, verify collection information and consider specimen stability before acting on any critical or panic results. 08/10/2024 3:00 AM EST us Paramjit Thompson MD LAB HISTORICA [id number] RESULTS Final Result [facility] [address] [place] [address] from Last 3 Months Insurance Medicare [place]
--- OUTSIDE RECORDS SUMMARY | 2024-09-20 08:19 | XMS_ITS | Encounter Summary ---
Author Organization [employer] Address [address] [facility] 7t [place] [address] Care Team Providers Care Silk Screen Etcher Name Role Phone Smitha Coyne DO Primary Care Provider Harini Marshall PharmD Unavailable Encounter Details Date Type Department Care Team ([facility] st Contact Info) Description 10/07/2022 Telephone [facility] MEDICINE [address] [place], [place] [phone] Smitha Coyne DO [address] [place] [address] Social History Tobacco Use Types Packs/Day Years [...] 10/07/2022. Pt states she is currently in [facility]. Please contact pt at [phone] documented in this encounter Plan of Treatment Upcoming Encounters Date Type Department Care Team (Late st Contact Info) Description 10/11/2024 1:00 PM EDT Office Visit [facility] OPTOMETRY [address] [place] [address] Kayleigh Martínez, OD [address] [place] [address] 10/30/2024 2:00 PM EDT Clinical Support [facility] [address] [place] [address] Elza Graham, ROSA 11/01/2024 11:00 AM EDT Office Visit [facility] [address] [place] [address] Smitha Coyne DO [address] [place] [address] documented as of this encounter Visit Diagnoses Not on filedocumented in this encounter Care Teams Silk Screen Etcher Relationship Specialty Start Date End Date Smitha Coyne DO [address] [place] [address] PCP - General Family Medicine 06/05/18 Harini Marshall PharmD [address] [place] [address] Pharmacist Internal Medicine 08/22/23 09/21/23 Elza Au Senior Government Program Analyst 07/04/23 10/03/23 documented as of this encounter
--- OUTSIDE RECORDS SUMMARY | 2024-09-20 08:20 | XMS_ITS | Encounter Summary ---
Author Organization [employer] Address [address] [facility] [address] [place] [address] Care Team Providers Care City Sanitarian Name Role Phone Smitha Coyne DO Primary Care Provider + [phone] Reason for Visit * Reason Comments Med Refill Encounter Details Date Type Department Care Team (Late st Contact Info) Description 09/16/2024 Refill [facility] MEDICINE [address] [place], [place] [phone] Smitha Coyne DO [address] [place], [place] [phone] Type 2 diabetes mellitus with ESRD (end-stage renal disease) ([facility]) Social History Tobacco Use Types Packs/Day Years [...] the past 12 months, has t he [employer], gas, oil or water company threatened to [...] 10/11/2024 1:00 PM EDT Office Visit [facility] OPTOMETRY [address] [place] [address] Kayleigh Martínez, OD [address] [place] [address] 10/30/2024 2:00 PM EDT Clinical Support [facility] MEDICINE [address] [place], [place] [phone] Elza Graham RN 11/01/2024 11:00 AM EDT Office Visit [facility] [address] [place] [address] Smitha Coyne DO [address] [place], [place] [phone] documented as of this encounter Goals Goal Patient Goal Type Associated Problems Recent Progress Patient-Stated? Author Patient will adhere to medication regimen General No Harini Marshall, PharmD Record your blood sugar as directed Result Component No Harini Marshall PharmD Hemoglobin A1c < 7.5 Result Component 8.2(12/04/202 4 2:42 PM EST) No Harini Marshall, Ronaldo documented as of this encounter Visit Diagnoses Diagnosis Type 2 diabetes mellitus with ESRD (end-stage renal disease) ([facility]) documented in this encounter Additional Health Concerns Assessment Noted Time PHQ-9 Depression Total Score: 0 08/17/19 24 11:11 AM EDT documented as of this encounter Care Teams City Sanitarian Relationship Specialty Start Date End Date Smitha Coyne DO [address] [place] [phone] PCP - General Family Medicine 06/05/18 documented as of this encounter
== END 2024-09-20 08:07 | disposition home or self-care (01) ==
LOC: HO.HOSX 08:06
DX: M19.041 Primary osteoarthritis, right hand (principal); M79.641 Pain in right hand
CPT/HCPCS: 73130; 99202

== ENCOUNTER 2024-09-20 12:44 | Outpatient (AMB) | payer MEDICARE, MEDICAID, SELFPAY ==
--- NOTE | 2024-09-20 13:17 | A.OFFVIS_ITS ---
Vital Signs 09/20/24 13:19 Handedness Right Intake Visit Reasons: NewProb- RT thumb pain Intake Note: Nyla is a 54 year old right hand dominant female who presents today for a new problem visit with complaints of right thumb pain. Patient reports she has pain starting at her 1st MCP and radiates down into the radial aspect of the right hand. She states at age 17 she chipped her 1st MCP joint of right hand when she was sparring with her graphic arts instructor and punched his knee accidentally. She is unable to take ibuprofen. She takes Vicodin as need for pain and states it takes the edge off. . Hx of Type 2 DM. Allergies adhesive tape Allergy (Intermediate, Verified 09/20/24 13:22) Hives oxcarbazepine [From TRILEPTAL] Allergy (Intermediate, Verified 09/20/24 13:22) AGITATION topiramate [From TOPAMAX] Allergy (Intermediate, Verified 09/20/24 13:22) KIDNEY STONES aripiprazole [From ABILIFY] Allergy (Mild, Verified 09/20/24 13:22) HIVES insulin lispro [From Humalog U-100 Insulin] Allergy (Mild, Verified 09/20/24 13:22) rash acetaminophen [Percocet] Allergy (Unknown, Verified 09/20/24 13:22) Unknown carbamazepine [From Tegretol] Allergy (Unknown, Verified 09/20/24 13:22) AGITATION, SUICIDAL clonazepam [From Klonopin] Allergy (Unknown, Verified 09/20/24 13:22) RASH codeine [Codeine] Allergy (Unknown, Verified 09/20/24 13:22) VOMIT cylert Allergy (Unknown, Verified 09/20/24 13:22) Unknown haloperidol [From HALDOL] Allergy (Unknown, Verified 09/20/24 13:22) RASH lorazepam [From ATIVAN] Allergy (Unknown, Verified 09/20/24 13:22) RASH oxycodone [Percocet] Allergy (Unknown, Verified 09/20/24 13:22) Unknown pemoline [From Cylert] Allergy (Unknown, Verified 09/20/24 13:22) RASH risperidone [From Risperdal] Allergy (Unknown, Verified 09/20/24 13:22) INCREASE PROLECTIN LEVEL Sulfa (Sulfonamide Antibiotics) Allergy (Unknown, Verified 09/20/24 13:22) JAUNDICE doxycycline Adverse Reaction (Severe, Verified 09/20/24 13:22) Chest Pain abilify Allergy (Unknown, Uncoded 09/20/24 13:22) Unknown ativan Allergy (Unknown, Uncoded 09/20/24 13:22) Unknown buspar Allergy (Unknown, Uncoded 09/20/24 13:22) Unknown celexa Allergy (Unknown, Uncoded 09/20/24 13:22) rash codeine Allergy (Unknown, Uncoded 09/20/24 13:22) Unknown depakote Allergy (Unknown, Uncoded 09/20/24 13:22) Unknown From BuSpar Allergy (Unknown, Uncoded 09/20/24 13:22) RASH From Celexa Allergy (Unknown, Uncoded 09/20/24 13:22) RASH From Tolectin Allergy (Unknown, Uncoded 09/20/24 13:22) RASH From Zoloft Allergy (Unknown, Uncoded 09/20/24 13:22) RASH,KIDNEY PAIN haldol Allergy (Unknown, Uncoded 09/20/24 13:22) Unknown hydrodiuril Allergy (Unknown, Uncoded 09/20/24 13:22) Unknown klonopin Allergy (Unknown, Uncoded 09/20/24 13:22) Unknown percocet Allergy (Unknown, Uncoded 09/20/24 13:22) Unknown risperdal Allergy (Unknown, Uncoded 09/20/24 13:22) Unknown tegretol Allergy (Unknown, Uncoded 09/20/24 13:22) Unknown tolectin DS Allergy (Unknown, Uncoded 09/20/24 13:22) Unknown Topamax Allergy (Unknown, Uncoded 09/20/24 13:22) kidney stones zesteril Allergy (Unknown, Uncoded 09/20/24 13:22) Unknown zoloft Allergy (Unknown, Uncoded 09/20/24 13:22) rash From Percocet Adverse Reaction (Unknown, Uncoded 09/20/24 13:22) VOMIT HPI HPI NewProb- RT thumb pain: Details: Nyla is a 54 year old right hand dominant female who presents today for a new problem visit with complaints of right thumb pain. Patient reports she has pain starting at her 1st MCP and radiates down into the radial aspect of the right hand. She states at age 17 she chipped her 1st MCP joint of right hand when she was sparring with her graphic arts instructor and punched his knee accidentally. She is unable to take ibuprofen. She takes Vicodin as need for pain and states it takes the edge off. . Hx of Type 2 DM. [facility] Medical History Anemia Anemia Bipolar disorder Chronic kidney disease, stage 3 Chronic knee pain Depression Diabetes Epidermal cyst GERD (gastroesophageal reflux disease) HTN (hypertension) Hyperlipidemia Hypogammaglobulinemia Morbid obesity TYLOR (obstructive sleep apnea) Ulcerative colitis Surgical History Hx of resection of large bowel Family History Mother Coronary artery disease Father High cholesterol HTN (hypertension) Social History Household Members: None Housing: Apartment Do you presently have visiting nurse or other home services: No Alcohol intake: never Patient Tobacco Use Status: Never used Tobacco Cigarette Packs Per Day: 1 service: No Current occupational status: disabled Review of Systems Const All systems reviewed & are unremarkable except as noted in HPI and below Physical Exam Extrem Other: Patient is alert, oriented, and in no acute distress. Neuro: Normal sensation of the tips of all digits of the right hand at this time Vascular: Cap refill brisk Pain: No tenderness to palpation of the IP, MCP, CMC joint of the right thumb Minimally positive CMC grind on the right thumb ROM: Patient is able to make a closed fist and extend all digits of the right hand fully, minimal discomfort when doing so Skin: No lacerations or abrasions. General: No ecchymosis, erythema, or evidence of infection. Psych: Appears grossly normal Affect normal Attitude cooperative Results Reviewed Results Reviewed: X-rays obtained in the office today and independently reviewed by me, Carter Olson PA-C, demonstrate moderate degenerative changes of the 1st CMC joint of the right hand, with mild degenerative changes of the 1st MCP joint of the right hand.. 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 MCP joint arthritis of right thumb Patient is educated about this condition Patient is educated about the typical treatment course At this time, patient was offered a referral to occupational therapy, but declines Patient was all so offered referral to Dr. 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
--- OUTSIDE RECORDS SUMMARY | 2024-09-20 13:19 | XMS_ITS | Encounter Summary ---
Author Organization [facility] Address [address] [place] [address] Phone Care Team Providers Care Orange Picking Supervisor Name Role Phone Smitha Coyne DO Primary Care Provider Unava ilable Encounter Details Date Type Department Care Team ([facility] st Contact Info) Description 10/26/2021 Telephone [facility] [address] [place] [address] Mynor Mcgill MD [address] [facility] [address] [place] [address] Social History Tobacco Use Types [...] she will be going to the ER [facility] due to a kidney stone flare up. If you'd like to speak with her she can be reached at [phone] Thank you documented in this encounter Plan of Treatment Not on file documented as of this encounter Visit Diagnoses Not on filedocumented in this encounter Care Teams Orange Picking Supervisor Relationship Specialty Start Date End Date Smitha Coyne DO PCP - General 06/15/20 12/25/22 documented as of this encounter
--- OUTSIDE RECORDS SUMMARY | 2024-09-20 13:19 | XMS_ITS | Encounter Summary ---
Author Organization [employer] Address [address] [facility] 7[address] [place] [address] Care Team Providers Care Security Orderly Name Role Phone Smitha Coyne DO Primary Care Provider [phone] Harini Marshall PharmD Unavailable [phone] Encounter Details Date Type Department Care Team (Late st Contact Info) Description 08/11/2023 Telephone [facility] MEDICINE [address] [place], [place] [phone] Smitha Coyne DO [address] [place], [place] [phone] Social History Tobacco Use Types Packs/Day Years [...] from pt stated they received a call, show card writer didn't see anything tasked. documented in this encounter Plan of Treatment Upcoming Encounters Date Type Department Care Team (Late st Contact Info) Description 10/11/2024 1:00 PM EDT Office Visit [facility] OPTOMETRY [address] [place] [address] Mauricio, Kayleigh, OD [address] [place] [address] 10/30/2024 2:00 PM EDT Clinical Support [facility] MEDICINE [address] [place] [address] Elza Graham RN 11/01/2024 11:00 AM EDT Office Visit [facility] MED[facility]INE [address] [place] [address] Smitha Coyne DO [address] [place] [address] documented as of this encounter Visit Diagnoses Not on filedocumented in this encounter Care Teams Security Orderly Relationship Specialty Start Date End Date Smitha Coyne DO [address] [place] [address] PCP - General Family Medicine 06/05/18 Harini Marshall PharmD [address] [place] [phone] Pharmacist Internal Medicine 08/22/23 09/21/23 Elza Au Scrip Clerk 07/04/23 10/03/23 documented as of this encounter
--- OUTSIDE RECORDS SUMMARY | 2024-09-20 13:19 | XMS_ITS | Encounter Summary ---
Author Organization [employer] Address [address] [facility] 7t [place] [address] Care Team Providers Care Sand Car Worker Name Role Phone Smitha Coyne DO Primary Care Provider [phone] Harini Marshall PharmD Unavailable [phone] Encounter Details Date Type Department Care Team (Late st Contact Info) Description 04/20/2023 Abstract [facility] MEDICINE [address] [place], [place] [phone] Smitha Coyne DO [address] [place] [address] Social History Tobacco Use Types Packs/Day Years [...] Description 10/11/2024 1:00 PM EDT Office Visit [facility] OPTOMETRY [address] [place] [address] Mauricio, Kayleigh, OD [address] [place] [address] 10/30/2024 2:00 PM EDT Clinical Support [facility] MEDICINE [address] [place] [address] Elza Graham, ROSA 11/01/2024 11:00 AM EDT Office Visit [facility] MEDICINE [address] [place] [phone] Smitha Coyne DO [address] [place] [address] documented as of this encounter Visit Diagnoses Not on filedocumented in this encounter Care Teams Sand Car Worker Relationship Specialty Start Date End Date Smitha Coyne DO [address] [place] [phone] PCP - General Family Medicine 06/05/18 Harini Marshall PharmD [address] [place] [phone] Pharmacist Internal Medicine 08/22/23 09/21/23 Elza Au Magnetic Tester 07/04/23 10/03/23 documented as of this encounter
--- OUTSIDE RECORDS SUMMARY | 2024-09-20 13:19 | XMS_ITS | Encounter Summary ---
Author Organization [employer] Address [address] [facility] 7t [place] [address] Care Team Providers Care Client Administrator Name Role Phone Smitha Coyne DO Primary Care Provider [phone] Harini Marshall PharmD Unavailable [phone] Reason for Visit * Reason Comments Med Refill Encounter Details Date Type Department Care Team ([facility] st Contact Info) Description 04/22/2023 Refill [facility] MEDICINE [address] [place], [place] [phone] Smitha Coyne DO [address] [place] [address] Watery stools Social History Tobacco Use Types [...] Visit [facility] OPTOMETRY [address] [place] [address] MauricioKayleigh aguiar, OD [address] [place] [address] 10/30/2024 2:00 PM EDT Clinical Support [facility] MEDICINE [address] [place] [phone] Elza Graham RN 11/01/2024 11:00 AM EDT Office Visit [facility] MEDICINE [address] [place] [phone] Smitha Coyne DO [address] [place] [phone] documented as of this encounter Visit Diagnoses Diagnosis Watery stools Abnormal feces documented in this encounter Care Teams Client Administrator Relationship Specialty Start Date End Date Smitha Coyne DO [address] [place] [phone] PCP - General Family Medicine 06/05/18 Harini Marshall PharmD [address] [place] [phone] Pharmacist Internal Medicine 08/22/23 09/21/23 Elza Au Breaker Engineer 07/04/23 10/03/23 documented as of this encounter
--- OUTSIDE RECORDS SUMMARY | 2024-09-20 13:19 | XMS_ITS | Clinical Summary ---
Author Organization [facility] [place] [facility] Address [address] [address] Phone Care Team Providers Care Staffing Account Manager Name Role Phone Unavailable Primary Care Provider [...] 09/14/2024 Treatment [facility] [address] [phone] Paramjit Thompson MD End stage renal disease; Dependence on renal dialysis 09/10/2024 Treatment [facility] [address] [phone] Paramjit Thompson MD End stage renal disease; Dependence on renal dialysis 09/03/2024 Treatment [facility] [address] [phone] Paramjit Thompson MD End stage renal disease; Dependence on renal dialysis 08/24/2024 Treatment [facility] [address] [address] Paramjit Thompson MD End stage renal disease; Dependence on renal dialysis 08/20/2024 Treatment [facility] [address] [phone] Paramjit Thompson MD End stage renal disease; Dependence on renal dialysis 08/15/2024 Treatment [facility] [address] [place] [address] Paramjit Thompson MD End stage renal disease; Dependence on renal dialysis 08/10/2024 Treatment [facility] [address] [address] Paramjit Thompson MD End stage renal disease; Dependence on renal dialysis 07/27/2024 Treatment [facility] [address] [address] Paramjit Thompson MD 07/20/2024 Treatment [facility] [address] [address] Paramjit Thompson MD 07/16/2024 Treatment [facility] [address] [address] Mynor Mcgill MD 07/13/2024 Orders Only [facility] [address] [address] Paramjit Thompson MD 07/09/2024 Treatment [facility] [address] [address] Paramjit Thompson MD 06/22/2024 Treatment [facility] [address] [address] Paramjit Thompson MD from Last 3 Months [...] EDT us Paramjit Thompson MD LAB HISTORICA [id number] RESULTS Final Result [facility] [address] [place] [address] * (ABNORMAL) Kt/V Natural Log, URR (09/05/2024 [...] PM EDT Paramjit Thompson MD LAB HISTORICA [id number] RESULTS Final Result Performing Organization Address [facility] de Phone Number [facility] [address] [place] [address] * Calcium Phosphorus Product, Adjusted (09/05/2024 3:00 [...] PM EDT Paramjit Thompson MD LAB HISTORICA [id number] RESULTS Final Result Performing Organization Address [facility] de Phone Number [facility] [address] [place] [address] * Hepatitis B Surface Ag w/Reflex Confirmation (09/05/2024 3:00 AM EDT) Only the most recent of3 resultswithin the time period is included. Hep B Surface Antigen Negative Negative [facility] 09/05/2024 3:00 AM EDT 09/07/2024 2:00 PM EDT Paramjit Thompson MD LAB BLOOD ORDERABLES Final Result Performing Organization Address [facility] Co de Phone Number [facility] [address] [place] [address] * (ABNORMAL) TSAT (09/05/2024 3:00 AM EDT) Only the most recent of3 resultswithin the time period is included. [facility] Iron 40(L) 50 - 170 ug/dL [facility] Transferrin 179(L) 250 - 380 mg/dL [facility] TIBC 251 211 - 406 ug/dL [facility] Iron Saturation (TSat) 16(L) 22 - 52 % [facility] 09/05/2024 3:00 AM EDT 09/07/2024 2:00 PM EDT Paramjit Thompson MD LAB BLOOD ORDERABLES Final Result Performing Organization Address [facility] de Phone Number [facility] [address] [place] [address] * (ABNORMAL) CBC and Differential (09/05/2024 3:00 AM EDT) Only the most recent of3 resultswithin the time period is included. [facility] DIFFERENTIAL MANUAL, 2 Not Indicated [facility] White [...] BLOOD ORDERABLES Final Result Performing Organization Address [facility]/ZIP Co de Phone Number [facility] [address] [place] [address] * ALT (09/05/2024 3:00 AM EDT) Only the most recent of3 resultswithin the time period is included. ALT (SGPT) 10 10 - 49 U/L [facility] 09/05/2024 3:00 AM EDT 09/07/2024 2:00 PM EDT Paramjit Thompson MD LAB BLOOD ORDERABLES Final Result Performing Organization Address [facility] de Phone Number [facility] [address] [place] [address] * AST (09/05/2024 3:00 AM EDT) Only the most recent of3 resultswithin the time period is included. AST (SGOT) 17 <34 U/L [facility] 09/05/2024 3:00 AM EDT 09/07/2024 2:00 PM EDT Paramjit Thompson MD LAB BLOOD ORDERABLES Final Result Performing Organization Address [facility] Co de Phone Number [facility] [address] [place] [address] * Protein, total (09/05/2024 3:00 AM EDT) Only the most recent of3 resultswithin the time period is included. Total Protein 6.8 6.4 - 8.9 g/dL [facility] 09/05/2024 3:00 AM EDT 09/07/2024 2:00 PM EDT Paramjit Thompson MD LAB BLOOD ORDERABLES Final Result Performing Organization Address [facility] Co de Phone Number [facility] [address] [place] [address] * (ABNORMAL) Alkaline phosphatase (09/05/2024 3:00 AM EDT) Only the most recent of3 resultswithin the time period is included. Alkaline Phosphatase 136(H) 46 - 116 U/L [facility] 09/05/2024 3:00 AM EDT 09/07/2024 2:00 PM EDT Paramjit Thompson MD LAB BLOOD ORDERABLES Final Result Performing Organization Address [facility] de Phone Number [facility] [address] [place] [address] * PTH, Intact (09/05/2024 3:00 AM EDT) PTH, Intact 393 160 - 721 pg/mL [facility] Comment: Suggested (KDIGO) ESRD maintenance range is two to nine times the upper normal limit (80.1 pg/mL) for the laboratory. 09/05/2024 3:00 AM EDT 09/07/2024 2:00 PM EDT Paramjit Thompson MD LAB BLOOD ORDERABLES Final Result Performing Organization Address [facility] de Phone Number [facility] [address] [place] [address] * (ABNORMAL) Magnesium (09/05/2024 3:00 AM EDT) Only the most recent of3 resultswithin the time period is included. Magnesium 1.6(L) 1.9 - 2.7 mg/dL [facility] 09/05/2024 3:00 AM EDT 09/07/2024 2:00 PM EDT us Paramjit Thompson MD LAB BLOOD ORDERABLES Final Result Performing Organization Address [facility] de Phone Number [facility] [address] [place] [address] * Lactate dehydrogenase (09/05/2024 3:00 AM EDT) Only the most recent of3 resultswithin the time period is included. LDH 218 120 - 246 U/L [facility] 09/05/2024 3:00 AM EDT 09/07/2024 2:00 PM EDT Paramjit Thompson MD LAB BLOOD ORDERABLES Final Result Performing Organization Address [facility] de Phone Number [facility] [address] [place] [address] * (ABNORMAL) Hemoglobin A1c (09/05/2024 3:00 AM [...] BLOOD ORDERABLES Final Result Performing Organization Address [facility] de Phone Number [facility] [address] [place] [address] * (ABNORMAL) Glucose, random (09/05/2024 3:00 AM EDT) Only the most recent of3 resultswithin the time period is included. Glucose 256(H) 74 - 109 mg/dL [facility] 09/05/2024 3:00 AM EDT 09/07/2024 2:00 PM EDT Paramjit Thompson MD LAB BLOOD ORDERABLES Final Result Performing Organization Address [facility] Co de Phone Number [facility] [address] [place] [address] * (ABNORMAL) Ferritin (09/05/2024 3:00 AM EDT) Only the most recent of3 resultswithin the time period is included. Ferritin 1,754(H) 10 - 291 ng/mL [facility] 09/05/2024 3:00 AM EDT 09/07/2024 2:00 PM EDT Paramjit Thompson MD LAB BLOOD ORDERABLES Final Result Performing Organization Address [facility] de Phone Number [facility] [address] [place] [address] * (ABNORMAL) Creatinine, serum (09/05/2024 3:00 AM EDT) Only the most recent of3 resultswithin the time period is included. Creatinine 7.39(H) 0.55 - 1.02 mg/dL [facility] 09/05/2024 3:00 AM EDT 09/07/2024 2:00 PM EDT Paramjit Thompson MD LAB BLOOD ORDERABLES Final Result Performing Organization Address [facility] Co de Phone Number [facility] [address] [place] [address] * Bilirubin, total (09/05/2024 3:00 AM EDT) Only the most recent of3 resultswithin the time period is included. Total Bilirubin 0.3 0.3 - 1.2 mg/dL [facility] 09/05/2024 3:00 AM EDT 09/07/2024 2:00 PM EDT us Paramjit Thompson MD LAB BLOOD ORDERABLES Final Result [facility] [address] [place] [address] * (ABNORMAL) Lipid panel (09/05/2024 3:00 AM [...] BLOOD ORDERABLES Final Result Performing Organization Address [facility] Co de Phone Number [facility] [address] [place] [address] * (ABNORMAL) Electrolyte panel (09/05/2024 3:00 AM [...] BLOOD ORDERABLES Final Result Performing Organization Address [facility] de Phone Number [facility] [address] [place] [address] * (ABNORMAL) Hemoglobin (08/22/2024 3:00 AM EDT) Only the most recent of5 resultswithin the time period is included. Hgb 10.9(L) 11.2 - 15.7 g/dL [facility] Hemoglobin x 3 32.7(L) 33.6 - 47.1 g/dL [facility] 08/22/2024 3:00 AM EDT 08/23/2024 12:32 PM EDT us Paramjit Thompson MD LAB BLOOD ORDERABLES Final Result Performing Organization Address [facility] Co de Phone Number [facility] [address] [place] [address] * Collection Date (08/10/2024 3:00 AM EST) [...] EST us Paramjit Thompson MD LAB HISTORICA [id number] RESULTS Final Result [facility] [address] [place] [address] from Last 3 Months Insurance Medicare [place]
--- OUTSIDE RECORDS SUMMARY | 2024-09-20 13:19 | XMS_ITS | Encounter Summary ---
Author Organization [employer] Address [address] [facility] 7t [place] [address] Care Team Providers Care Channeler Name Role Phone Smitha Coyne DO Primary Care Provider Harini Marshall PharmD Unavailable Reason for Visit * Reason Onset Date Comments Med Refill 09/23/2022 Encounter Details Date Type Department Care Team (Late st Contact Info) Description 09/23/2022 Telephone [facility] [address] [place], [place] [phone] Smitha Coyne DO [address] [place] [address] Med Refill Social History Tobacco Use Types [...] - 09/23/2022 3:57 PM EDT [facility]c [facility] requesting a PA for medication lansoprazole (Prevacid) [address] capsule documented in this encounter Plan of Treatment Upcoming Encounters Date Type Department Care Team (Late st Contact Info) Description 10/11/2024 1:00 PM EDT Office Visit [facility] [address] [place] [address] Kayleigh Martínez, OD [address] [place] [address] 10/30/2024 2:00 PM EDT Clinical Support [facility] [address] [place] [address] Elza Graham, ROSA 11/01/2024 11:00 AM EDT Office Visit [facility] [address] [place] [address] Smitha Coyne DO [address] [place] [address] documented as of this encounter Visit Diagnoses Not on filedocumented in this encounter Care Teams Channeler Relationship Specialty Start Date End Date Smitha Coyne DO [address] [place] [address] PCP - General Family Medicine 06/05/18 Harini Marshall PharmD [address] [place] [phone] Pharmacist Internal Medicine 08/22/23 09/21/23 Elza Au Miniature Train Driver 07/04/23 10/03/23 documented as of this encounter
--- OUTSIDE RECORDS SUMMARY | 2024-09-20 13:19 | XMS_ITS | Encounter Summary ---
Author Organization [facility] Address [address] [address] Phone Care Team Providers Care Taxi Cab Driver Name Role Phone Unavailable Primary Care Provider Unavailabl e Encounter Details Date Type Department Care Team (Late st Contact Info) Description 09/14/2024 Treatment [facility] [address] [address] Kylah Thompson MD [address] [address] End stage renal disease; Dependence [...] care for end stage renal disease. Attending Electronic Equipment Repairmen: KYLAH THOMPSON MD Dialysis Location: [facility] Schedule: Shift: 2 OVERVIEW Patient is stable. COMMENTS: Note in dialysis environmental programs manager HOME MEDICATIONS Current [facility] [...] (06/13/24) ADDITIONAL COMMENT COMMENTS: Note in dialysis environmental programs manager 03/14/24 same issues 06/18/24 cont f/u urol Dr Guerrero 07/16/24 stable Signed by: KYLAH THOMPSON MD on 09/14/2024 at 01:47:40 PM documented in this encounter Plan of Treatment Not on file documented as of this encounter Visit Diagnoses Diagnosis End stage renal disease Dependence on renal dialysis documented in this encounter
--- OUTSIDE RECORDS SUMMARY | 2024-09-20 13:19 | XMS_ITS | Encounter Summary ---
Author Organization [employer] Address [address] [facility] 7t [place] [address] Care Team Providers Care Stick Welder Name Role Phone Smitha Coyne DO Primary Care Provider Harini Marshall PharmD Unavailable Reason for Visit * Reason Onset Date Comments Med Refill 08/03/2022 Encounter Details Date Type Department Care Team (Late st Contact Info) Description 08/03/2022 Telephone [facility] [address] [place], [place] [phone] Smitha Coyne DO [address] [place] [address] Med Refill Social History Tobacco Use Types [...] Description 10/11/2024 1:00 PM EDT Office Visit [facility] [address] [place] [address] Kayleigh Martínez, OD [address] [place] [address] 10/30/2024 2:00 PM EDT Clinical Support [facility] [address] [place] [address] Elza Graham, ROSA 11/01/2024 11:00 AM EDT Office Visit [facility] [address] [place] [address] Smitha Coyne DO [address] [place] [address] documented as of this encounter Visit Diagnoses Not on filedocumented in this encounter Care Teams Stick Welder Relationship Specialty Start Date End Date Smitha Coyne DO [address] [place] [address] PCP - General Family Medicine 06/05/18 Hraini Marshall PharmD [address] [place] [address] Pharmacist Internal Medicine 08/22/23 09/21/23 Elza Au Columnist/Commentator 07/04/23 10/03/23 documented as of this encounter
--- OUTSIDE RECORDS SUMMARY | 2024-09-20 13:19 | XMS_ITS | Encounter Summary ---
Author Organization [employer] Address [address] [facility] 7t [place] [address] Care Team Providers Care Pre Sales Network Engineer Name Role Phone Smitha Coyne DO Primary Care Provider [phone] Harini Marshall PharmD Unavailable [phone] Reason for Visit * Reason Comments Med Refill Encounter Details Date Type Department Care Team (Late st Contact Info) Description 04/20/2023 Refill [facility] MED[facility] [address] [place], [place] [phone] Smitha Coyne DO [address] [place] [address] Social History Tobacco Use Types Packs/Day Years [...] Description 10/11/2024 1:00 PM EDT Office Visit [facility] OPTOMETRY [address] [place] [address] Mauricio, Kayleigh, OD [address] [place] [address] 10/30/2024 2:00 PM EDT Clinical Support [facility] [address] [place] [address] Elza Graham RN 11/01/2024 11:00 AM EDT Office Visit [facility] [address] [place] [address] Smitha Coyne DO [address] [place] [address] documented as of this encounter Visit Diagnoses Not on filedocumented in this encounter Care Teams Pre Sales Network Engineer Relationship Specialty Start Date End Date Smitha Coyne DO [address] [place] [address] PCP - General Family Medicine 06/05/18 Harini Marshall, Ronaldo [address] [place] [address] Pharmacist Internal Medicine 08/22/23 09/21/23 Elza Au Roll Sheeting Cutter 07/04/23 10/03/23 documented as of this encounter
--- OUTSIDE RECORDS SUMMARY | 2024-09-20 13:19 | XMS_ITS | Encounter Summary ---
Author Organization [employer] Address [address] [facility] 7t [place] [address] Care Team Providers Care Section Leader Name Role Phone StanfordSmitha Primary Care Provider Harini Marshall PharmD Unavailable Encounter Details Date Type Department Care Team ([facility] Contact Info) Description 10/03/2022 Orders Only [facility] MEDICINE [address] [place] [address] Alexa Gramajo FNP [address] [place] [address] Social History Tobacco Use Types Packs/Day Years [...] Upcoming Encounters Date Type Department Care Team ([facility] Contact Info) Description 10/11/2024 1:00 PM EDT Office Visit [facility] OPTOMETRY [address] [place] [address] Kayleigh Martínez, OD [address] [place] [address] 10/30/2024 2:00 PM EDT Clinical Support [address] [phone] Elza Graham, ROSA 11/01/2024 11:00 AM EDT Office Visit [address] [phone] Smitha Coyne DO [address] [place] [address] documented as of this encounter Visit Diagnoses Not on filedocumented in this encounter Care Teams Section Leader Relationship Specialty Start Date End Date Smitha Coyne DO [address] [place] [address] PCP - General Family Medicine 06/05/18 Harini Marshall, Mary BethD [address] [place] [address] Pharmacist Internal Medicine 08/22/23 09/21/23 Elza Au A Auxiliary 07/04/23 10/03/23 documented as of this encounter
--- OUTSIDE RECORDS SUMMARY | 2024-09-20 13:19 | XMS_ITS | Encounter Summary ---
Author Organization [employer] Address [address] [facility] 7t [place] [address] Care Team Providers Care Data Governance Consultant Name Role Phone Smitha Coyne DO Primary Care Provider [phone] Harini Marshall PharmD Unavailable Encounter Details Date Type Department Care Team ([facility] st Contact Info) Description 10/07/[address] [facility] MED[facility]INE [address] [place], [place] [phone] Smitha Coyne DO [address] [place] [address] Social History Tobacco Use Types Packs/Day Years [...] 10/07/2022. Pt states she is currently in [facility]. Please contact pt at [phone] documented in this encounter Plan of Treatment Upcoming Encounters Date Type Department Care Team (Late st Contact Info) Description 10/11/2024 1:00 PM EDT Office Visit [facility] OPTOMETRY [address] [place] [address] Kayleigh Martínez, OD [address] [place] [address] 10/30/2024 2:00 PM EDT Clinical Support [facility] MED[facility]INE [address] [place] [address] Elza Graham, ROSA 11/01/2024 11:00 AM EDT Office Visit [facility] MED[facility] [address] [place] [address] Smitha Coyne DO [address] [place] [address] documented as of this encounter Visit Diagnoses Not on filedocumented in this encounter Care Teams Data Governance Consultant Relationship Specialty Start Date End Date Smitha Coyne DO [address] [place] [address] PCP - General Family Medicine 06/05/18 Harini Marshall PharmD [address] [place] [address] Pharmacist Internal Medicine 08/22/23 09/21/23 Elza Au Knitted Garment Finisher 07/04/23 10/03/23 documented as of this encounter
--- OUTSIDE RECORDS SUMMARY | 2024-09-20 13:19 | XMS_ITS | Referral Summary ---
Author Organization [facility] Address [address] [place] [address] Care Team Providers Care Electric Scoop Operator Name Role Phone Simtha Coyne Kacy Primary Care Provider [phone] Allergies Active Allergy Reactions Criticality Noted Date [...] Other reaction(s): rash Lorazepam Rash Low 10/04/2021 Ajr-Owixd-Gntc-Lidocaine Unknown 05/19/2023 Other reaction(s): Rash, Inflammation Hdewhqfi-Gcgmrzbnqy-Jfdueu mark Dermatitis 11/14/2023 Oxcarbazepine Agitation,Other (see comments),Unknown [...] Take 1 tablet by mouth daily. Active HYDROcodone-sideny taminophen (NORCO) 5-325 mg tablet 4 Active [...] of Treatment Not on file Insurance MEDICARE [facility] Care Teams Electric Scoop Operator Relationship Specialty Start Date End Date Smitha Coyne [address] [place] [address] PCP - General Family Medicine 09/05/23
--- OUTSIDE RECORDS SUMMARY | 2024-09-20 13:19 | XMS_ITS | Encounter Summary ---
Author Organization [employer] Address [address] [facility] 7t [place] [address] Care Team Providers Care Vice President Business Development Name Role Phone Smitha Coyne DO Primary Care Provider [phone] Harini Marshall PharmD Unavailable [phone] Reason for Visit * Reason Onset Date Comments Hospital Follow-up 06/26/2023 Encounter Details Date Type Department Care Team (Late st Contact Info) Description 06/26/2023 Telephone [facility] MED[facility]INE [address] [place], [place] [phone] Smitha Coyne DO [address] [place] [address] Hospital Follow-up Social History Tobacco Use Types [...] from pt requesting a HDF appt. Hospital: [facility] Date of admission: 06/09/23 Discharge date: 06/23/23 Diagnosed: N/A documented in this encounter Plan of Treatment Upcoming Encounters Date Type Department Care Team (Late st Contact Info) Description 10/11/2024 1:00 PM EDT Office Visit [facility] OPT[facility] [address] [place] [address] Mauricio, Kayleigh, OD [address] [place] [address] 10/30/2024 2:00 PM EDT Clinical Support [facility] [address] [place] [address] Elza Graham, ROSA 11/01/2024 11:00 AM EDT Office Visit [facility] [address] [place] [address] Smitha Coyne DO [address] [place] [address] documented as of this encounter Visit Diagnoses Not on filedocumented in this encounter Care Teams Vice President Business Development Relationship Specialty Start Date End Date Smitha Coyne DO [address] [place] [address] PCP - General Family Medicine 06/05/18 Harini Marshall, Ronaldo [address] [place] [address] Pharmacist Internal Medicine 08/22/23 09/21/23 Elza Au Line Producer 07/04/23 10/03/23 documented as of this encounter
--- OUTSIDE RECORDS SUMMARY | 2024-09-20 13:19 | XMS_ITS | Encounter Summary ---
Author Organization [facility] Address [address] [place] [address] Phone Care Team Providers Care Agate Setter Name Role Phone Smitha Coyne DO Primary Care Provider Unava ilable Encounter Details Date Type Department Care Team ([facility] st Contact Info) Description 08/04/2021 Telephone [facility] [address] [place] [address] Mynor Mcgill MD [address] [facility] [address] [place] [address] Social History Tobacco Use Types [...] from 07/19/21. Please call her back at [phone] pt will be unavalible after 4 today documented in this encounter Plan of Treatment Not on file documented as of this encounter Visit Diagnoses Not on filedocumented in this encounter Care Teams Agate Setter Relationship Specialty Start Date End Date Smitha Coyne DO PCP - General 06/15/20 12/25/22 documented as of this encounter
--- OUTSIDE RECORDS SUMMARY | 2024-09-20 13:19 | XMS_ITS | Clinical Summary ---
Author Organization [facility] Address [address] [place] [address] Care Team Providers Care Research Associate Molecular Biology Name Role Phone Smitha Coyne Kacy Primary Care Provider [phone] Allergies Active Allergy Reactions Criticality Noted Date [...] Other reaction(s): rash Lorazepam Rash Low 10/04/2021 Vit-Gzjyf-Zqzl-Lidocaine Unknown 05/19/2023 Other reaction(s): Rash, Inflammation Udycvptl-Gmvtrlttjl-Oevhbj mark Dermatitis 11/14/2023 Oxcarbazepine Agitation,Other (see comments),Unknown [...] 06/26/2006 HIV Screening Completed 01/28/2021 Insurance MEDICARE [facility] Care Teams Research Associate Molecular Biology Relationship Specialty Start Date End Date Smitha Coyne [address] [place] [address] PCP - General Family Medicine 09/05/23
--- OUTSIDE RECORDS SUMMARY | 2024-09-20 13:19 | XMS_ITS | Clinical Summary ---
Author Organization [employer] Address [address] [place] [address] 7t [place] [address] Care Team Providers Care Cheese Cutter Name Role Phone OctaviaSmitha short DO Primary Care Provider [phone] Allergies Active Allergy Reactions Criticality Noted Date [...] Risperidone 01/27/2022 Other reaction(s): increase prolectin level Dvs-Tdxei-Gydy-Lidocaine 05/19/2023 Other reaction(s): Rash, Inflammation Sertraline Rash [...] diabetes mellitus with ESRD (end-stage renal disease) ([facility]) TEST BLOOD SUGAR THREE TIMES A DAY 100 strip 01/24/20 24 Active Alcohol Swabs (Alcohol Prep) 70 % pads APPLY ONE SWAB TOPICALLY TWO TIMES A DAY 100 each 02/08/20 24 Active dulaglutide (Trulicity) 1.5 MG/0.5ML solution pen-injectorInd ications:Type 2 diabetes mellitus with ESRD (end-stage renal disease) ([facility]) Inject 1.5 mg under the skin [...] diabetes mellitus with ESRD (end-stage renal disease) ([facility]) INJECT TWO TIMES A DAY PER SLIDING SCALE- FOR BS BETWEEEN 100-149=28U, 150-199=30U, 200-249=32U, 250-299=34U, 300-349=36U, 350-399=38U, OVER 400=40U 15 mL 09/18/19 25 Active NovoLOG MIX 70/30 FLEXPEN (70-30) 100 UNIT/ML injectionIndica tions:Type 2 diabetes mellitus with ESRD (end-stage renal disease) ([facility]) inject twice daily per sliding scale: BS 100-149: 28 units, BS 150-199: 30 units, BS 200-249: 32 units, BS: 250-299 34 units, BS 300-349: 36 units, BS 359-399: 38 units, BS >400: 40 units 15 mL 5 08/22/19 24 2024 Discontinued HYDROcodone-sidney taminophen ([place]) 5-325 MG tabletIndicatio ns:Pain of right thumb [...] mainly due to MH issues FU with addictions counselor assistant this afternoon Assessment & Plan (10/28/2022 1:41 [...] Type Department Care Team Description 09/16/2024 Refill [facility] [address] [place] [address] Smitha Coyne DO Type 2 diabetes mellitus with ESRD (end-stage renal disease) ([facility]) 09/10/2024 6:40 PM EDT Office Visit [facility] [place] [address] Heraclio Bernabe MD Recurrent UTI 09/10/2024 Travel 09/10/2024 Telephone [facility] [place] [address] Smitha Coyne DO Nurse Triage 08/26/2024 11:30 AM EDT Office Visit [facility] [place] [address] Smitha Coyne DO Complicated UTI (urinary tract infection) (Primary Dx); UTI symptoms; Pain of right thumb 08/12/2024 Travel 08/09/2024 Telephone [facility] [place] [address] Smitha Coyne DO Results; Appointment Request 08/05/[address] [address] Smitha Coyne DO 08/05/[address] [address] Smitha Coyne DO Watery stools 07/24/2024 Telephone [facility] [place] [address] Smitha Coyne DO Recall Letter (Recall Letter sent 07/24/24.); Recall Appt.; Appointment Request 07/01/2024 11:30 AM EST Clinical Support [address] [address] Elza Graham, product safety coordinator bilateral low back pain, unspecified whether sciatica present (Primary Dx) 07/01/2024 Travel 07/01/2024 Telephone [facility] [place] [address] Elza Graham, RN Recommend BRAKE COUPLER DINKEY Tier 3 from Last 3 Months Immunizations [...] 10/11/2024 1:00 PM EDT Office Visit [facility] [address] [place] [address] Kayleigh Martínez, OD [address] [place] [address] 10/30/2024 2:00 PM EDT Clinical Support [facility] [address] [place] [address] Elza Graham, ROSA 11/01/2024 11:00 AM EDT Office Visit [facility] [address] [place] [address] Smitha Coyne DO [address] [place] [address] Health Maintenance Due Date Last Done Comments [...] Media Lot # [id number] Lot# Expiration Date [id number] Urine 09/10/2024 5:31 PM EDT Heraclio Bernabe MD POINT OF CARE TEST ENTER/EDIT OR DERABLES Final Result * Culture, Urine, Routine (09/10/2024 11:56 AM EDT) Only the most recent of2 resultswithin the time period is included. Urine Urine specimen obtained by clean catch procedure / Unknown 09/10/2024 11:56 AM EDT 09/11/2024 11:56 AM EDT Comment:UACC Narrative [facility] - 09/12/2024 10:14 AM EDT Urine Culture No growth. Specimen Source: Urine clean catch Heraclio Bernabe MD LAB MICROBIOLOGY - GENERAL ORDER YASMIN Final Result [facility] [address] [place] [address] [phone] * XR Hand 3+ Views Right (08/26/2024 12:25 PM EDT) Anatomical Region Laterality Modality Upper Extremities, Hand Right Radiogra phic Imaging 08/26/2024 12:2 5 PM EDT Narrative 08/26/2024 12:56 PM EDT ?[facility] ?[address] ?[place] [address] ?XRay Report ? Signed ? Patient: Saurabh,Nyla ?MR#: [id number] ?? 069 ? : 1970 ?Acct:[id number] ? Age/Sex: 54 / F ?ADM Date: 08/26/24 ? Loc: HO.HHCX ? Attending Dr: Smitha Coyne DO ? Ordering Physician: Smitha Coyne DO ?? Date of Service: 08/26/24 ?? Procedure(s): XR hand RT min 3V ?? Accession Number(s): [id number] ? cc: Smitha Coyne DO ? EXAMINATION: [...] DD/ 1225 ? TD/TT: 08/26/24 1249 ? [employer]: ? Procedure Note Flaquita, Image - 08/26/[address] [address] XRay Report Signed Patient: Kelvin Wiley#: [id number] 069 : 1970Acct:[id number] Age/Sex: 54 / FADM Date: 08/26/24 Loc: HO.HHCX Attending Dr: Smitha Coyne DO Ordering Physician: Smitha Coyne DO Date of Service: 08/26/24 Procedure(s): XR hand RT min 3V Accession Number(s): [id number] cc: Smitha Coyne DO EXAMINATION: XR HAND [...] 08/26/24 1253 DD/ 1225 TD/TT: 08/26/24 1249 [employer]: us Smitha Coyne DO IMG XR PROCEDURES Final Resu lt * POCT RAFAEL-14 Urine Drug Screen (07/01/2024 11:30 AM EST) TCA, Urine Positive Urine Urine specimen obtained by clean catch procedure / Unknown 07/01/2024 11:30 AM EST Elza Yao, ROSA - 07/01/2024 11:30 AM EST UTOX cup Lot#[id number] Exp. 02/27/26 Internal Pass Control Smitha Coyne DO POINT OF CARE TEST ENTER/JOSE T ORDERABLES Final Result * BI Mammogram Screening Tomosynthesis Bilateral (06/21/2024 2:20 PM EST) Anatomical Region Laterality Modality Breast Bilateral Mammography 06/21/2024 2:20 PM EST Narrative 06/30/2024 4:20 PM EST ? [facility] [place] ? [address] ?[place] [address] ? Mammography Report ? Signed ? Patient: Saurabh,Nyla ?MR#: [id number] ?? 069 ? : 1970 ?Acct:[id number] ? Age/Sex: 54 / F ?ADM Date: 01/17/25 ? Loc: HO.MAMMO ? Attending Dr: Smitha Coyne DO ? Ordering Physician: Smitha Coyne DO ?Results: 2B ?? enign Findings ? Date of Service: 06/21/24 ?Follow Up: 1 Year From Orig ?? inal Mammogram ? Procedure(s): MM tomosynthesis screening BI ?? Accession Number(s): [id number] ? cc: Smitha Coyne DO ? EXAMINATION: [...] DD/ 1420 ? TD/TT: 06/21/24 1455 ? [employer]: ? Procedure Note Donelfegointerpreter, Image - 06/30/2024 [facility] [address] [place] [address] Mammography Report Signed Patient: Kelvin Wiley#: [id number] 069 : 1970Acct:[id number] Age/Sex: 54 / FADM Date: 06/21/24 Loc: HO.MAMMO Attending Dr: Smitha Coyne DO Ordering Physician: Smitha Coyneults: 2B enign Findings Date of Service: 06/21/24Follow Up: 1 Year From Orig inal Mammogram Procedure(s): MM tomosynthesis screening BI Accession Number(s): [id number] cc: Smitha Coyne DO EXAMINATION: MM SCREENING [...] 06/30/24 1617 DD/ 1420 TD/TT: 06/21/24 1455 [employer]: Smitha Coyne DO IMG BI PROCEDURES Edited [...] 12:20 PM EDT) Triglycerides 211(H) <150 mg/dL [facility] Comment:Desirable Triglyceri de: less than 150 mg/dLBorderline High Triglyceride 150-199 mg/dLHigh Triglyceride: 200-499 mg/dLVery High Triglyceride: greater than or equal to 5OO mg/dL Cholesterol 106 <200 mg/dL [facility] Comment:Desirable Cholestero l: less than 200 mg/dLBorderline High Cholesterol: 200-239 mg/dLHigh Cholesterol: greater than 239 mg/dL LDL Cholesterol Calculated 33 <100 mg/dL [facility] Comment:Desirable LDL: less than 100 mg/dLNear Optimal/Above Optimal LDL: 110- 129 mg/dLBorderline High LDL: 130-159 mg/dLHigh LDL: 160-189 mg/dLVery High LDL: greater than or equal to 190 mg/dL HDL Cholesterol 31(L) >40 mg/dL [facility] Comment:Desirable HDL: great er than 40 mg/dL Note: This HDL assay may give artificially low results in patients with liver disease. Blood Venous blood specimen / Unknown 08/22/2023 12:20 PM EDT 08/22/2023 4:13 PM EDT Smitha Coyne DO LAB BLOOD ORDERABLES Final R esult Performing Organization Address [facility]/ZIP Co de Phone Number [facility] [address] [place] [address] [phone] * HEPATITIS B SURFACE ANTIBODY (11/19/2021 12:50 PM EDT) Hepatitis B Surface Antibody NONREACTIVE Nonreactive [facility] Comment:Nonreactive: < 8.00 mIU/mL Hepatitis [...] detection of this assay. ?? [employer] HIV Ag/Ab Combo assay result and supplemental assay results should be interpreted in conjunction with the patient's clinical presentation, history and other laboratory results. ??If the results are inconsistent with clinical evidence, additional testing is suggested to confirm the result. 11/19/2021 12:5 0 PM EDT Smitha Coyne DO HISTORICAL/NON ORDERABLE LAB S Final Result Performing Organization Address City/[facility]/ZIP Co de Phone Number [facility] [address] * HEPATITIS C ANTIBODY RFLX (11/19/2021 12:50 PM EDT) Hepatitis C Antibody Nonreactive Nonreactive [facility] Comment: Antibodies to HCV not detected; does not exclude early acute HCV infection. 11/19/2021 12:5 0 PM EDT Smitha Coyne DO HISTORICAL/NON ORDERABLE LAB S Final Result Performing Organization Address [facility]/ZIP Co de Phone Number [facility] [address] * HPV E6/E7 RFLX ALEJANDRO 16 18/45 (03/31/2017 11:35 AM EDT) HPV mRNA E6/E7 Not Detected NOT DETECTED [facility] Comment: This test was performed using the APTIMA(R) HPV Assay ([employer] This assay detects E6/E7 viral messenger RNA (mRNA) from 14 high-risk HPV types (16,18,31,33,35,39,45,51, 52,56,58,59,66,68). For additional information please refer to: http://education.VocalIQ/faq/TQV434d5 (This link is being provided for informational/ educational purposes only.) Please note: ??Effective 02/15/2016, HPV testing will be performed using [employer]'s APTIMA test which targets mRNA. Detecting mRNA instead of DNA, as in older methods, offers significant improvements in specificity. HPV 18/45 RNA Test not performed [facility] ADDITIONAL TESTING Not indicated () [facility] Comment: Test Performed by Opal Farrell, [facility] [facility], [address] [place] [address] Misha Lauren M.D., Ph.D., Director of Laboratories , [facility] [id number] HPV 16 RNA Test not performed [facility] 03/31/2017 11:3 5 AM EDT Smitha Coyne DO HISTORICAL/NON ORDERABLE LAB S Final Result Performing Organization Address [facility] Co de Phone Number [facility] [address] from Last 3 Months or Most Recently Relevant to Health Maintenance Insurance [address] [place] [address] MEDICARE [facility] Care Teams Cheese Cutter Relationship Specialty Start Date End Date Smitha Coyne DO [address] [place] [address] PCP - General Family Medicine 06/05/18
--- OUTSIDE RECORDS SUMMARY | 2024-09-20 13:19 | XMS_ITS | Encounter Summary ---
Author Organization [employer] Address [address] [facility] 7t [place] [address] Care Team Providers Care Delivery Sales Worker Name Role Phone Smitha Coyne DO Primary Care Provider Harini Marshall PharmD Unavailable Reason for Visit * Reason Onset Date Comments Appointment Request 11/08/2022 Encounter Details Date Type Department Care Team ([facility] st Contact Info) Description 11/08/2022 Telephone [facility] [address] [place], [place] [phone] Smitha Coyne DO [address] [place], [place] [phone] Appointment Request Social History Tobacco Use Types [...] sooner appt withprovider. Please contact pt at [phone] documented in this encounter Plan of Treatment Upcoming Encounters Date Type Department Care Team (Late st Contact Info) Description 10/11/2024 1:00 PM EDT Office Visit [facility] [address] [place] [address] Kayleigh Martínez, OD [address] [place] [address] 10/30/2024 2:00 PM EDT Clinical Support [facility] [address] [place] [address] Elza Graham, ROSA 11/01/2024 11:00 AM EDT Office Visit [facility] [address] [place] [address] Smitha Coyne DO [address] [place] [address] documented as of this encounter Visit Diagnoses Not on filedocumented in this encounter Care Teams Delivery Sales Worker Relationship Specialty Start Date End Date Smitha Coyne DO [address] [place] [address] PCP - General Family Medicine 06/05/18 Harini Marshall PharmD [address] [place] [address] Pharmacist Internal Medicine 08/22/23 09/21/23 Elza Au General Production Manager 07/04/23 10/03/23 documented as of this encounter
--- OUTSIDE RECORDS SUMMARY | 2024-09-20 13:19 | XMS_ITS | Encounter Summary ---
Author Organization [employer] Address [address] [facility] 7t [place] [address] Care Team Providers Care Sr. Director Name Role Phone Smitha Coyne DO Primary Care Provider + [phone] Reason for Visit * Reason Onset Date Comments Hospital Follow-up 04/22/2024 Encounter Details Date Type Department Care Team ([facility] st Contact Info) Description 04/22/2024 Telephone [facility] [address] [place], [place] [phone] Smitha Coyne DO [address] [place], [place] [phone] Hospital Follow-up Social History Tobacco Use Types [...] from pt requesting a HDF appt. Hospital: [facility] Date of admission: 04/16 Discharge date: 04/21 Diagnosed: Kidney infection *Send message to [place] Clinical Care Coordinators documented in this encounter Plan of Treatment Upcoming Encounters Date Type Department Care Team (Late st Contact Info) Description 10/11/2024 1:00 PM EDT Office Visit [facility] [address] [place] [address] Kayleigh Martínez, OD [address] [place] [address] 10/30/2024 2:00 PM EDT Clinical Support [facility] [address] [place] [address] Elza Graham RN 11/01/2024 11:00 AM EDT Office Visit [facility] [address] [place] [address] Smitha Coyne DO [address] [place] [address] documented as of this encounter Goals Goal [...] documented as of this encounter Care Teams Sr. Director Relationship Specialty Start Date End Date Smitha Coyne DO [address] [place] [address] PCP - General Family Medicine 06/05/18 documented as of this encounter
--- OUTSIDE RECORDS SUMMARY | 2024-09-20 13:19 | XMS_ITS | Encounter Summary ---
Author Organization [employer] Address [address] [facility] 7t [place] [address] Care Team Providers Care Jogger Operator Name Role Phone Smitha Coyne DO Primary Care Provider + [phone] Reason for Visit * Reason Onset Date Comments Med Refill 12/06/2023 Encounter Details Date Type Department Care Team (Late st Contact Info) Description 12/06/2023 Telephone [facility] [address] [place], [place] [phone] Smitha Coyne DO [address] [place], [place] [phone] Med Refill Social History Tobacco Use Types [...] 24 hr tablet To be sent to: [facility] [place] - [address] [facility] documented in this encounter Plan of Treatment Upcoming Encounters Date Type Department Care Team (Late st Contact Info) Description 10/11/2024 1:00 PM EDT Office Visit [facility] [address] [place] [address] Kayleigh Martínez, OD [address] [place] [address] 10/30/2024 2:00 PM EDT Clinical Support [facility] [address] [place] [address] Elza Graham RN 11/01/2024 11:00 AM EDT Office Visit [facility] [address] [place] [address] Smitha Coyne DO [address] [place] [address] documented as of this encounter Goals Goal [...] documented as of this encounter Care Teams Jogger Operator Relationship Specialty Start Date End Date Smitha Coyne DO [address] [place] [address] PCP - General Family Medicine 06/05/18 documented as of this encounter
--- OUTSIDE RECORDS SUMMARY | 2024-09-20 13:19 | XMS_ITS | Encounter Summary ---
Author Organization [employer] Address [address] [facility] 7t [place] [address] Care Team Providers Care Wardrobe Manager Name Role Phone StanfordSmitha Primary Care Provider Harini Marshall PharmD Unavailable Encounter Details Date Type Department Care Team ([facility] Contact Info) Description 08/26/2022 Orders Only [facility] [address] [place] [address] Nery Treadwell MD [address] [place] [address] Chronic pelvic pain in female; Chronic lower [...] 1:00 PM EDT Office Visit [facility] [address] [place] [address] Kayleigh Martínez, OD [address] [place] [address] 10/30/2024 2:00 PM EDT Clinical Support [address] [address] Elza Graham, RN 11/01/2024 11:00 AM EDT Office Visit [address] [address] Smitha Coyne DO [address] [place] [address] documented as of this encounter Visit Diagnoses Diagnosis Chronic pelvic pain in female Unspecified symptom associated with female genital organs Chronic lower urinary tract infection documented in this encounter Care Teams Wardrobe Manager Relationship Specialty Start Date End Date Smitha Coyne DO [address] [place] [address] PCP - General Family Medicine 06/05/18 Harini Marshall PharmD [address] [place] [address] Pharmacist Internal Medicine 08/22/23 09/21/23 Elza Au Art Class Model 07/04/23 10/03/23 documented as of this encounter
--- OUTSIDE RECORDS SUMMARY | 2024-09-20 13:19 | XMS_ITS | Encounter Summary ---
Author Organization [facility] Address [address] [place] [address] Phone Care Team Providers Care Color Printer Operator Name Role Phone Smitha Coyne DO Primary Care Provider Unava ilable Encounter Details Date Type Department Care Team ([facility] st Contact Info) Description 02/24/2022 Telephone [facility] [address] [place] [address] Mynor Mcgill MD [address] [facility] [address] [place] [phone] Social History Tobacco Use Types Packs/Day Years [...] on filedocumented in this encounter Care Teams Color Printer Operator Relationship Specialty Start Date End Date Smitha Coyne DO PCP - General 06/15/20 12/25/22 documented as of this encounter
--- OUTSIDE RECORDS SUMMARY | 2024-09-20 13:20 | XMS_ITS | Encounter Summary ---
Author Organization [employer] Address [address] [facility] 7t [place] [address] Care Team Providers Care Operations Lead Name Role Phone Smitha Coyne DO Primary Care Provider + [phone] Reason for Visit * Reason Comments Med Refill Encounter Details Date Type Department Care Team (Late st Contact Info) Description 09/16/2024 Refill [facility] [address] [place], [place] [phone] Smitha Coyne DO [address] [place], [place] [phone] Type 2 diabetes mellitus with ESRD (end-stage renal disease) ([facility]) Social History Tobacco Use Types Packs/Day Years [...] the past 12 months, has t he [employer], gas, oil or water company threatened to [...] Description 10/11/2024 1:00 PM EDT Office Visit [facility] [address] [place] [address] Kayleigh Martínez, OD [address] [place] [address] 10/30/2024 2:00 PM EDT Clinical Support [facility] [address] [place], [place] [phone] Elza Graham RN 11/01/2024 11:00 AM EDT Office Visit [facility] [address] [place] [address] Smitha Coyne DO [address] [place], [place] [phone] documented as of this encounter Goals Goal Patient Goal Type Associated Problems Recent Progress Patient-Stated? Author Patient will adhere to medication regimen General No Harini Marshall, PharmD Record your blood sugar as directed Result Component No Harini Marshall PharmD Hemoglobin A1c < 7.5 Result Component 8.2(12/04/202 4 2:42 PM EST) No Harini Mrashall, Ronaldo documented as of this encounter Visit Diagnoses Diagnosis Type 2 diabetes mellitus with ESRD (end-stage renal disease) ([facility]) documented in this encounter Additional Health Concerns Assessment Noted Time PHQ-9 Depression Total Score: 0 08/17/19 24 11:11 AM EDT documented as of this encounter Care Teams Operations Lead Relationship Specialty Start Date End Date Smitha Coyne DO [address] [place] [address] PCP - General Family Medicine 06/05/18 documented as of this encounter
== END 2024-09-20 13:44 | disposition home or self-care (01) ==
LOC: HO.HOS 12:45
DX: M19.041 Primary osteoarthritis, right hand (principal); M18.11 Unilateral primary osteoarthritis of first carpometacarpal joint, right hand
CPT/HCPCS: 99203

== ENCOUNTER → 2024-09-20 12:58 | Outpatient (BNV) | payer MEDICARE, MEDICAID, SELFPAY | PROVIDERS: Visit Provider Radiology Diagnostic Radiology | DX: M79.641 Pain in right hand (principal) | CPT/HCPCS: 73130 ==

== ENCOUNTER 2024-10-23 17:27 | Outpatient (REF) | payer MEDICARE, MEDICAID, SELFPAY ==
--- OUTSIDE RECORDS SUMMARY | 2024-10-24 11:53 | XMS_ITS | Clinical Summary ---
Author Organization [facility] Address [address] [address] Phone Care Team Providers Care Senior Architectural Designer Name Role Phone Unavailable Primary Care Provider [...] Encounters Date Type Department Care Team Description 10/15/2024 Treatment [facility] [address] [phone] Paramjit Thompson MD End stage renal disease; Dependence on renal dialysis 10/12/2024 Orders Only [facility] [address] [phone] Paramjit Thompson MD 10/08/2024 Treatment [facility] [address] [phone] Paramjit Thompson MD End stage renal disease; Dependence on renal dialysis 09/21/2024 Treatment [facility] [address] [phone] Paramjit Thompson MD End stage renal disease; Dependence on renal dialysis 09/14/2024 Treatment [facility] [address] [phone] Paramjit Thompson MD End stage renal disease; Dependence on renal dialysis 09/10/2024 Treatment [facility] [address] [address] Paramjit Thompson MD End stage renal disease; Dependence on renal dialysis 09/03/2024 Treatment [facility] [address] [address] Paramjit Thompson MD End stage renal disease; Dependence on renal dialysis 08/24/2024 Treatment [facility] [address] [address] Paramjit Thompson MD End stage renal disease; Dependence on renal dialysis 08/20/2024 Treatment [facility] [address] [address] Paramjit Thompson MD End stage renal disease; Dependence on renal dialysis 08/15/2024 Treatment [facility] [address] [address] Paramjit Thompson MD End stage renal disease; Dependence on renal dialysis 08/10/2024 Treatment [facility] [address] [address] Paramjit Thompson MD End stage renal disease; Dependence on renal dialysis 07/27/2024 Treatment [facility] [address] [address] Paramjit Thompson MD from Last 3 Months [...] Visual Foot Exam 07/06/2020 Diabetes: Hemoglobin A1C 12/05/202409/05/ 025, 06/13/2024, 05/08/2024, Additional history exists Influenza Vaccine (Season Ended) 2025 Procedures Procedure Name Priority Date/Time Associated Diagnosis Comments POTASSIUM Routine 10/17/2024 3:00 AM EDT LIH () Routine 10/17/2024 3:00 AM EDT CALCIUM PHOSPHORUS PRODUCT, ADJUSTED (HC) Routine 10/12/2024 3:00 AM EDT LIH () Routine 10/12/2024 3:00 AM EDT COLLECTION DATE (HC) Routine 10/12/2024 3:00 AM EDT FERRITIN Routine 10/10/2024 3:00 AM EDT HEPATITIS B SURFACE ANTIGEN W/REFL CONFIRM Routine 10/10/2024 3:00 AM EDT TRANSFERRIN SATURATION Routine 3:00 AM EDT LIH (HC) Routine 10/10/2024 3:00 AM EDT PROTEIN, TOTAL, SERUM Routine 10/10/2024 3:00 AM EDT BUN/CREATININE RATIO Routine 10/10/2024 3:00 AM EDT MAGNESIUM Routine 10/10/2024 3:00 AM EDT LACTATE DEHYDROGENASE Routine 10/10/2024 3:00 AM EDT GLUCOSE, RANDOM Routine 10/10/2024 3:00 AM EDT CALCIUM PHOSPHORUS PRODUCT, ADJUSTED (HC) Routine 10/10/2024 3:00 AM EDT AST Routine 10/10/2024 3:00 AM EDT ALT Routine 10/10/2024 3:00 AM EDT ELECTROLYTE PANEL Routine 10/10/2024 3:0 0 AM EDT CREATININE, SERUM Routine 10/10/2024 3:0 0 AM EDT ALKALINE PHOSPHATASE Routine 10/10/2024 3:00 AM EDT BILIRUBIN, TOTAL Routine 10/10/2024 3:00 AM EDT KT/V NATURAL LOG, URR (HC) Routine 10/10/2024 3:00 AM EDT CBC AND DIFFERENTIAL Routine 10/10/2024 3:00 AM EDT HEMOGLOBIN Routine 09/28/2024 3:00 AM EDT COLLECTION DATE (HC) Routine 09/28/2024 3:00 AM EDT HEMOGLOBIN Routine 09/26/2024 3:00 AM EDT HEMOGLOBIN Routine 09/21/2024 3:00 AM EDT COLLECTION DATE (HC) Routine 09/21/2024 3:00 AM EDT FERRITIN Routine 09/05/2024 3:00 AM EDT HEMOGLOBIN [...] HEMOGLOBIN Routine 08/22/2024 3:00 AM EDT LIH (HC) Routine 08/10/2024 3:00 AM EST COLLECTION DATE (HC) Routine 08/10/2024 3:00 AM EST KT/V NATURAL LOG, URR (HC) Routine 08/10/2024 3:00 AM EST FERRITIN Routine 08/08/2024 3:00 AM EST HEPATITIS B SURFACE ANTIGEN W/REFL CONFIRM Routine 08/08/2024 3:00 AM EST TRANSFERRIN SATURATION Routine 3:00 AM EST PROTEIN, TOTAL, SERUM Routine 08/08/2024 3:00 AM EST ELECTROLYTE PANEL Routine 08/08/2024 3:0 0 AM EST MAGNESIUM Routine 08/08/2024 3:00 AM EST LACTATE DEHYDROGENASE Routine 08/08/2024 3:00 AM EST LIH (HC) Routine 08/08/2024 3:00 AM EST GLUCOSE, RANDOM [...] DATE (HC) Routine 07/27/2024 3:00 AM EST from Last 3 Months Results * LI (10/17/2024 3:00 AM EDT) Only the most recent of6 resultswithin the time period is included. Lipemia Normal Normal [facility] Icterus Normal Normal [facility] Hemolysis Normal Normal [facility] 10/17/2024 3:00 AM EDT 10/18/2024 1:21 PM EDT us Paramjit Thompson MD LAB HISTORICA [id number] RESULTS Final Result Performing Organization Address [facility] de Phone Number [facility]PS [facility] [address] [place] [address] * Potassium (10/17/2024 3:00 AM EDT) Potassium 4.2 3.4 - 5.0 mEq/L [facility] 10/17/2024 3:00 AM EDT 10/18/2024 1:21 PM EDT us Paramjit Thompson MD LAB BLOOD ORDERABLES Final Result Performing Organization Address [facility] de Phone Number [facility]PS [facility] [address] [place] [address] * Collection Date (10/12/2024 3:00 AM EDT) Only the most recent of5 resultswithin the time period is included. Collection Date See Comment [facility] Comment: Patient sample received may exceed specimen stability, based on the collection date electronically provided. ??When reviewing patient results, verify collection information and consider specimen stability before acting on any critical or panic results. 10/12/2024 3:00 AM EDT us Paramjit Thompson MD LAB HISTORICA [id number] RESULTS Final Result Performing Organization Address [facility] de Phone Number [facility]PS [facility] [address] [place] [address] * (ABNORMAL) Calcium Phosphorus Product, Adjusted (10/12/2024 3:00 AM EDT) Only the most recent of4 resultswithin the time period is included. Albumin 4.1 3.6 - 5.4 g/dL [facility] Calcium 8.1(L) 8.6 - 10.3 mg/dL [facility] Phosphorus, Serum 5.1(H) 2.5 - 5.0 mg/dL [facility] Ca*PO4 41.3 <55.0 mg2/dL2 [facility] Calcium, Adjusted Total 8.1(L) 8.6 - 10.3 mg/dL [facility] CA*PO4 CORRCTD 41.3 <55.0 mg2/dL2 [facility] 10/12/2024 3:00 AM EDT 10/15/2024 1:07 PM EDT Paramjit Thompson MD LAB HISTORICA [id number] RESULTS Final Result Performing Organization Address [facility] Co de Phone Number [facility]PS [facility] [address] [place] [address] * (ABNORMAL) Kt/V Natural Log, URR (10/10/2024 3:00 AM EDT) Only the most recent of4 resultswithin the time period is included. Treatment Time 243 min [facility] Pre-Weight, lb 144.7 kg [facility] Post-Weight, lb 142.1 kg [facility] BUN 49(H) 7 - 25 mg/dL [facility] Ultrafiltration Rate 5 <=13 mL/kg/hr [facility] Comment: Recommend achieving Ultrafiltration Rate (UFR) <=10 mL/kg/hr References: Sofie SAMANO et al. Kidney Int. 2010; 79(2):250-257 BUN Post Dialysis 14 7 - 25 mg/dL [facility] UREA REDUCTION RATIO (%) 71 >=65 % [facility] Kt/V Natural Log 1.43 >=1.2 [facility] 10/10/2024 3:00 AM EDT 10/11/2024 5:15 PM EDT Paramjit Thompson MD LAB HISTORICA [id number] RESULTS Final Result Performing Organization Address [facility] Co de Phone Number [facility] [address] [place] [address] * Hepatitis B Surface Ag w/Reflex Confirmation (10/10/2024 3:00 AM EDT) Only the most recent of3 resultswithin the time period is included. Hep B Surface Antigen Negative Negative [facility] 10/10/2024 3:00 AM EDT 10/11/2024 5:18 PM EDT us Paramjit Thompson MD LAB BLOOD ORDERABLES Final Result Performing Organization Address [facility] Co de Phone Number [facility] [address] [place] [address] * BUN/CREATININE RATIO (10/10/2024 3:00 AM EDT) BUN/Creatinine Ratio 6.5 <=23.0 [facility] 10/10/2024 3:00 AM EDT 10/11/2024 5:18 PM EDT us Paramjit Thompson MD LAB HISTORICA [id number] RESULTS Final Result Performing Organization Address [facility] de Phone Number [facility] [address] [place] [address] * (ABNORMAL) TSAT (10/10/2024 3:00 AM EDT) Only the most recent of3 resultswithin the time period is included. Iron 33(L) 50 - 170 ug/dL [facility] Transferrin 179(L) 250 - 380 mg/dL [facility] TIBC 251 211 - 406 ug/dL [facility] Iron Saturation (TSat) 13(L) 22 - 52 % [facility] 10/10/2024 3:00 AM EDT 10/11/2024 5:18 PM EDT us Paramjit Thompson MD LAB BLOOD ORDERABLES Final Result Performing Organization Address [facility] de Phone Number [facility] [address] [place] [address] * (ABNORMAL) CBC and Differential (10/10/2024 3:00 AM EDT) Only the most recent of3 resultswithin the time period is included. Pathologist [facility] DIFFERENTIAL MANUAL, 2 Not Indicated [facility] White Blood Cells 9.9 4.0 - 10.0 K/uL [facility] RBC 3.38(L) 3.93 - 5.22 M/uL [facility] Hgb 9.2(L) 11.2 - 15.7 g/dL [facility] Hemoglobin x 3 27.6(L) 33.6 - 47.1 g/dL [facility] Hematocrit 28.3(L) 34.1 - 44.9 % [facility] MCV 83.7 79.4 - 94.8 fL [facility] MCH 27.2 25.6 - 32.2 pg [facility] MCHC 32.5 32.2 - 35.5 g/dL [facility] RDW 17.4(H) 11.7 - 14.4 % [facility] Platelets 230 182 - 369 K/uL [facility] Neutrophils Relative 84.6(H) 34.0 - 71.1 % [facility] Lymphocytes Relative 6.5(L) 19.3 - 51.7 % [facility] Monocytes 4.3(L) 4.7 - 12.5 % [facility] Eosinophils Relative 2.5 0.7 - 5.8 % [facility] Basophils Relative 0.5 0.1 - 1.2 % [facility] Immature Granulocytes 1.6(H) 0.0 - 1.0 % [facility] 10/10/2024 3:00 AM EDT 10/11/2024 5:15 PM EDT Paramjit Thompson MD LAB BLOOD ORDERABLES Final Result [facility] [address] [place] [address] * ALT (10/10/2024 3:00 AM EDT) Only the most recent of3 resultswithin the time period is included. Pathologist [facility] ALT (SGPT) 16 10 - 49 U/L [facility] 10/10/2024 3:00 AM EDT 10/11/2024 5:18 PM EDT us Paramjit Thompson MD LAB BLOOD ORDERABLES Final Result Performing Organization Address [facility] Co de Phone Number [facility] [address] [place] [address] * AST (10/10/2024 3:00 AM EDT) Only the most recent of3 resultswithin the time period is included. AST (SGOT) 18 <34 U/L [facility] 10/10/2024 3:00 AM EDT 10/11/2024 5:18 PM EDT Paramjit Thompson MD LAB BLOOD ORDERABLES Final Result Performing Organization Address [facility] de Phone Number [facility] [address] [place] [address] * Protein, total (10/10/2024 3:00 AM EDT) Only the most recent of3 resultswithin the time period is included. Total Protein 6.7 6.4 - 8.9 g/dL [facility] 10/10/2024 3:00 AM EDT 10/11/2024 5:18 PM EDT Paramjit Thompson MD LAB BLOOD ORDERABLES Final Result Performing Organization Address [facility] de Phone Number [facility] [address] [place] [address] * (ABNORMAL) Alkaline phosphatase (10/10/2024 3:00 AM EDT) Only the most recent of3 resultswithin the time period is included. Alkaline Phosphatase 156(H) 46 - 116 U/L [facility] 10/10/2024 3:00 AM EDT 10/11/2024 5:18 PM EDT us Paramjit Thompson MD LAB BLOOD ORDERABLES Final Result Performing Organization Address [facility] Co de Phone Number [facility] [address] [place] [address] * (ABNORMAL) Magnesium (10/10/2024 3:00 AM EDT) Only the most recent of3 resultswithin the time period is included. Magnesium 1.6(L) 1.9 - 2.7 mg/dL [facility] 10/10/2024 3:00 AM EDT 10/11/2024 5:18 PM EDT Paramjit Thompson MD LAB BLOOD ORDERABLES Final Result Performing Organization Address [facility] de Phone Number [facility] [address] [place] [address] * Lactate dehydrogenase (10/10/2024 3:00 AM EDT) Only the most recent of3 resultswithin the time period is included. LDH 202 120 - 246 U/L [facility] 10/10/2024 3:00 AM EDT 10/11/2024 5:18 PM EDT Paramjit Thompson MD LAB BLOOD ORDERABLES Final Result Performing Organization Address [facility] de Phone Number [facility] [address] [place] [address] * (ABNORMAL) Glucose, random (10/10/2024 3:00 AM EDT) Only the most recent of3 resultswithin the time period is included. Glucose 236(H) 70 - 99 mg/dL [facility] Comment: ADA guidelines outline the following fasting glucose ranges: Normal: ? <100 Prediabetes: 100-125 Diabetes: ? >125 10/10/2024 3:00 AM EDT 10/11/2024 5:18 PM EDT us Paramjit Thompson MD LAB BLOOD ORDERABLES Final Result Performing Organization Address [facility] de Phone Number [facility] [address] [place] [address] * (ABNORMAL) Ferritin (10/10/2024 3:00 AM EDT) Only the most recent of3 resultswithin the time period is included. Ferritin 1,612(H) 10 - 291 ng/mL [facility] 10/10/2024 3:00 AM EDT 10/11/2024 5:18 PM EDT Paramjit Thompson MD LAB BLOOD ORDERABLES Final Result Performing Organization Address [facility] Co de Phone Number [facility] [address] [place] [address] * (ABNORMAL) Creatinine, serum (10/10/2024 3:00 AM EDT) Only the most recent of3 resultswithin the time period is included. Creatinine 7.50(H) 0.55 - 1.02 mg/dL [facility] 10/10/2024 3:00 AM EDT 10/11/2024 5:18 PM EDT Paramjit Thompson MD LAB BLOOD ORDERABLES Final Result Performing Organization Address [facility] de Phone Number [facility] [address] [place] [address] * Bilirubin, total (10/10/2024 3:00 AM EDT) Only the most recent of3 resultswithin the time period is included. Total Bilirubin 0.4 0.3 - 1.2 mg/dL [facility] 10/10/2024 3:00 AM EDT 10/11/2024 5:18 PM EDT Paramjit Thompson MD LAB BLOOD ORDERABLES Final Result Performing Organization Address [facility] Co de Phone Number [facility] [address] [place] [address] * (ABNORMAL) Electrolyte panel (10/10/2024 3:00 AM EDT) Only the most recent of3 resultswithin the time period is included. Sodium 135(L) 136 - 145 mEq/L [facility] Potassium 3.9 3.4 - 5.0 mEq/L [facility] Chloride 98 98 - 107 mEq/L [facility] Bicarbonate (CO2) 22 21 - 31 mEq/L [facility] Anion Gap 15(H) 3 - 14 mEq/L [facility] 10/10/2024 3:00 AM EDT 10/11/2024 5:18 PM EDT Paramjit Thompson MD LAB BLOOD ORDERABLES Final Result Performing Organization Address [facility] Co de Phone Number [facility] [address] [place] [address] * (ABNORMAL) Hemoglobin (09/28/2024 3:00 AM EDT) Only the most recent of6 resultswithin the time period is included. Hgb 9.5(L) 11.2 - 15.7 g/dL [facility] Hemoglobin x 3 28.5(L) 33.6 - 47.1 g/dL [facility] 09/28/2024 3:00 AM EDT 10/01/2024 12:52 PM EDT us Paramjit Thompson MD LAB BLOOD ORDERABLES Final Result Performing Organization Address [facility] de Phone Number [facility]PS [facility] [address] [place] [address] * PTH, Intact (09/05/2024 3:00 AM EDT) PTH, Intact 393 160 - 721 pg/mL [facility] Comment: Suggested (KDIGO) ESRD maintenance range is two to nine times the upper normal limit (80.1 pg/mL) for the laboratory. 09/05/2024 3:00 AM EDT 09/07/2024 2:00 PM EDT us Paramjit Thompson MD LAB BLOOD ORDERABLES Final Result Performing Organization Address City/[facility]/ZIP Co de Phone Number [facility] [address] [place] [address] * (ABNORMAL) Hemoglobin A1c (09/05/2024 3:00 AM EDT) Pathologist [facility] Hemoglobin A1C 8.9(H) <5.7 % [facility] Comment: Methodology: Enzymatic HbA1c (NGSP %) ?Suggested Diagnosis >6.4% ? Diabetic 5.7-6.4% ?Pre-Diabetic <5.7% ? Non-Diabetic Diabetic Glucose Control Evaluation: Therapeutic action suggested at >8.0% ADA recommends a glycemic goal of <7.0% 09/05/2024 3:00 AM EDT 09/07/2024 1:30 PM EDT Paramjit Thompson MD LAB BLOOD ORDERABLES Final Result Performing Organization Address [facility] de Phone Number [facility] [address] [place] [address] * (ABNORMAL) Lipid panel (09/05/2024 3:00 AM EDT) Pathologist [facility] Cholesterol 109 <200 mg/dL [facility] Comment: Optimal: [...] ORDERABLES Final Result [facility] [address] [place] [address] from Last 3 Months Insurance [place]
--- OUTSIDE RECORDS SUMMARY | 2024-10-24 11:53 | XMS_ITS | Encounter Summary ---
Author Organization [employer] Address [address] [place] [address] Care Team Providers Care Industrial Tech Instructor Name Role Phone Smitha Coyne DO Primary Care Provider [phone] Harini Marshall PharmD Unavailable [phone] Reason for Visit * Reason Onset Date Comments Hospital Follow-up 06/26/2023 Encounter Details Date Type Department Care Team ([facility] st Contact Info) Description 06/26/2023 Telephone [facility] [address] [place], [place] [phone] Smitha Coyne DO [address] [place], [place] [phone] Hospital Follow-up Social History Tobacco Use Types [...] from pt requesting a HDF appt. Hospital: [facility] Date of admission: 06/09/23 Discharge date: 06/23/23 Diagnosed: N/A documented in this encounter Plan of Treatment Upcoming Encounters Date Type Department Care Team (Late st Contact Info) Description 10/30/2024 2:00 PM EDT Clinical Support [facility] [address] [place] [address] Elza Graham RN 11/01/2024 11:00 AM EDT Office Visit [facility] [address] [place] [address] Smitha Coyne DO [address] [place] [address] 04/14/2025 1:00 PM EST Office Visit [facility] OPTOMETRY [address] [place] [address] Kayleigh Martínez, SANGEETA [address] [place] [address] documented as of this encounter Visit Diagnoses Not on filedocumented in this encounter Care Teams Industrial Tech Instructor Relationship Specialty Start Date End Date Smitha Coyne DO [address] [place] [address] PCP - General Family Medicine 06/05/18 Harini Marshall, Ronaldo [address] [place] [address] Pharmacist Internal Medicine 08/22/23 09/21/23 Elza Au Research And Evaluation Analyst 07/04/23 10/03/23 documented as of this encounter
--- OUTSIDE RECORDS SUMMARY | 2024-10-24 11:53 | XMS_ITS | Referral Summary ---
Author Organization [facility] Address [address] [place] [address] Care Team Providers Care Java Performance Engineer Name Role Phone Smitha Coyne Kacy Primary Care Provider [phone] Allergies Active Allergy Reactions Criticality Noted Date [...] Other reaction(s): rash Lorazepam Rash Low 10/04/2021 Jhz-Vamsq-Fptl-Lidocaine Unknown 05/19/2023 Other reaction(s): Rash, Inflammation Wjarutlt-Hzuiiguiex-Xxqprg mark Dermatitis 11/14/2023 Oxcarbazepine Agitation,Other (see comments),Unknown [...] of Treatment Not on file Insurance MEDICARE [facility] Care Teams Java Performance Engineer Relationship Specialty Start Date End Date Smitha Coyne [address] [place] [phone] PCP - General Family Medicine 09/05/23
--- OUTSIDE RECORDS SUMMARY | 2024-10-24 11:53 | XMS_ITS | Encounter Summary ---
Author Organization [facility] Address [address] [place] [address] Phone Care Team Providers Care Implementation Analyst Name Role Phone Smitha Coyne DO Primary Care Provider Unava ilable Encounter Details Date Type Department Care Team (Late st Contact Info) Description 02/24/2022 Telephone [facility] [address] [place] [address] Mynor Mcgill MD [address] [facility] [address] [place] [phone] Social History Tobacco Use Types Packs/Day Years [...] on filedocumented in this encounter Care Teams Implementation Analyst Relationship Specialty Start Date End Date Smitha Coyne DO PCP - General 06/15/20 12/25/22 documented as of this encounter
--- OUTSIDE RECORDS SUMMARY | 2024-10-24 11:53 | XMS_ITS | Encounter Summary ---
Author Organization [employer] Address [address] [place] [address] 7[address] [place] [address] Care Team Providers Care Receiving Room Clerk Name Role Phone OctaviaSmitha short Primary Care Provider [phone] Harini Marshall PharmD Unavailable [phone] Encounter Details Date Type Department Care Team (Late Contact Info) Description 08/26/2022 Orders Only [facility] [address] [place] [phone] Nery Treadwell MD [address] [place] [address] Chronic pelvic pain in female; Chronic lower [...] Department Care Team (Late Contact Info) Description 10/30/2024 2:00 PM EDT Clinical Support [facility] [address] [place] [phone] Elza Graham, ROSA 11/01/2024 11:00 AM EDT Office Visit [facility] [address] [place] [address] Smitha Coyne DO [address] [place] [address] 04/14/2025 1:00 PM EST Office Visit [facility] OPTOMETRY [address] [place], [place] [phone] Kayleigh Martínez, OD [address] [place] [address] documented as of this encounter Visit Diagnoses Diagnosis Chronic pelvic pain in female Unspecified symptom associated with female genital organs Chronic lower urinary tract infection documented in this encounter Care Teams Receiving Room Clerk Relationship Specialty Start Date End Date Smitha Coyne DO [address] [place] [phone] PCP - General Family Medicine 06/05/18 Harini Marshall, Mary BethD [address] [place] [phone] Pharmacist Internal Medicine 08/22/23 09/21/23 Elza Au Ostomy Rn 07/04/23 10/03/23 documented as of this encounter
--- OUTSIDE RECORDS SUMMARY | 2024-10-24 11:53 | XMS_ITS | Encounter Summary ---
Author Organization [facility] Address [address] [facility] [address] [place] [address] Phone Care Team Providers Care Custom Ski Maker Name Role Phone Smitha Coyne DO Primary Care Provider Unava ilable Encounter Details Date Type Department Care Team ([facility] st Contact Info) Description 10/26/2021 Telephone [facility] [address] [place] [address] Mynor Mcgill MD [address] [facility] [address] [place] [address] Social History Tobacco Use Types [...] [facility] due to a kidney stone flare up. If you'd like to speak with her she can be reached at [phone] Thank you documented in this encounter Plan of Treatment Not on file documented as of this encounter Visit Diagnoses Not on filedocumented in this encounter Care Teams Custom Ski Maker Relationship Specialty Start Date End Date Smitha Coyne DO PCP - General 06/15/20 12/25/22 documented as of this encounter
--- OUTSIDE RECORDS SUMMARY | 2024-10-24 11:53 | XMS_ITS | Encounter Summary ---
Author Organization [employer] Address [address] [facility] 7t [place] [address] Care Team Providers Care Tank Worker Name Role Phone OctaviaSmitha short Primary Care Provider [phone] Harini Marshall PharmD Unavailable [phone] Encounter Details Date Type Department Care Team ([facility] Contact Info) Description 10/03/2022 Orders Only [facility] MEDICINE [address] [place] [phone] Alexa Gramajo FNP [address] [place] [address] Social History Tobacco Use Types Packs/Day Years [...] Upcoming Encounters Date Type Department Care Team ([facility] Contact Info) Description 10/30/2024 2:00 PM EDT Clinical Support [facility] MEDICINE [address] [place] [phone] Elza Graham RN 11/01/2024 11:00 AM EDT Office Visit [facility] MEDICINE [address] [place] [address] Smitha Coyne DO [address] [place] [address] 04/14/2025 1:00 PM EST Office Visit [facility] OPTOMETRY [address] [place] [address] Kayleigh Martínez, OD [address] [place] [address] documented as of this encounter Visit Diagnoses Not on filedocumented in this encounter Care Teams Tank Worker Relationship Specialty Start Date End Date Smitha Coyne DO [address] [place] [phone] PCP - General Family Medicine 06/05/18 Harini Marshall PharmD [address] [place] [phone] Pharmacist Internal Medicine 08/22/23 09/21/23 Elza Au Electrical Controls Assembler 07/04/23 10/03/23 documented as of this encounter
--- OUTSIDE RECORDS SUMMARY | 2024-10-24 11:53 | XMS_ITS | Encounter Summary ---
Author Organization [facility] Address [address] [place] [address] Phone Care Team Providers Care Home Aid Name Role Phone Smitha Coyne DO Primary Care Provider Unava ilable Encounter Details Date Type Department Care Team ([facility] st Contact Info) Description 08/04/2021 Telephone [facility] [address] [place] [address] Mynor Mcgill MD [phone] [facility] [address] [place] [address] Social History Tobacco Use Types [...] from 07/19/21. Please call her back at [phone] pt will be unavalible after 4 today documented in this encounter Plan of Treatment Not on file documented as of this encounter Visit Diagnoses Not on filedocumented in this encounter Care Teams Home Aid Relationship Specialty Start Date End Date Smitha Coyne DO PCP - General 06/15/20 12/25/22 documented as of this encounter
--- OUTSIDE RECORDS SUMMARY | 2024-10-24 11:53 | XMS_ITS | Encounter Summary ---
Author Organization [email or web address] Address [address] [facility] 7t [place] [address] Care Team Providers Care Felting Machine Operator Helper Name Role Phone Smitha Coyne DO Primary Care Provider [phone] Reason for Visit * Reason Onset Date Comments Hospital Follow-up 04/22/2024 Encounter Details Date Type Department Care Team ([facility] st Contact Info) Description 04/22/2024 Telephone [facility] [address] [place], [place] [phone] Smitha Coyne DO [address] [place], [place] [phone] Hospital Follow-up Social History Tobacco Use Types [...] from pt requesting a HDF appt. Hospital: [facility] Date of admission: 04/16 Discharge date: 04/21 Diagnosed: Kidney infection *Send message to [place] Clinical Care Coordinators documented in this encounter Plan of Treatment Upcoming Encounters Date Type Department Care Team (Late st Contact Info) Description 10/30/2024 2:00 PM EDT Clinical Support [facility] MEDICINE [address] [place] [address] Elza Graham, ROSA 11/01/2024 11:00 AM EDT Office Visit [facility] [address] [place] [address] Smitha Coyne DO [address] [place] [address] 04/14/2025 1:00 PM EST Office Visit [facility] OPTOMETRY [address] [place] [address] Kayleigh Martínez, OD [address] [place] [address] documented as of this encounter Goals Goal Patient Goal Type Associated Problems Recent Progress Patient-Stated? Author Patient will adhere to medication regimen General No Elyse Marshallsa, PharmD Record your blood sugar as directed [...] documented as of this encounter Care Teams Felting Machine Operator Helper Relationship Specialty Start Date End Date Smitha Coyne DO [address] [place] [address] PCP - General Family Medicine 06/05/18 documented as of this encounter
--- OUTSIDE RECORDS SUMMARY | 2024-10-24 11:53 | XMS_ITS | Encounter Summary ---
Author Organization [employer] Address [address] [facility] 7t [place] [address] Care Team Providers Care Change Person Name Role Phone Smitha Coyne DO Primary Care Provider [phone] Harini Marshall PharmD Unavailable [phone] Reason for Visit * Reason Onset Date Comments Med Refill 09/23/2022 Encounter Details Date Type Department Care Team (Late st Contact Info) Description 09/23/2022 Telephone [facility] MEDICINE [address] [place], [place] [phone] Smitha Coyne DO [address] [place], [place] [phone] Med Refill Social History Tobacco Use Types [...] Miscellaneous Notes * Telephone Encounter - Velia Zayas - 09/23/2022 4:58 PM EDT PA submitted through Cover my Meds and approved, pharmacy notified. * Telephone Encounter - Olvin Boggs - 09/23/2022 3:57 PM EDT Tc from [facility] requesting a PA for medication lansoprazole (Prevacid) [address] capsule documented in this encounter Plan of Treatment Upcoming Encounters Date Type Department Care Team (Late st Contact Info) Description 10/30/2024 2:00 PM EDT Clinical Support [facility] MEDICINE [address] [place] [address] Elza Graham, ROSA 11/01/2024 11:00 AM EDT Office Visit [facility] MEDICINE [address] [place] [address] Smitha Coyne DO [address] [place] [address] 04/14/2025 1:00 PM EST Office Visit [facility] OPTOMETRY [address] [place] [address] Mauricio, Kayleigh, OD [address] [place] [address] documented as of this encounter Visit Diagnoses Not on filedocumented in this encounter Care Teams Change Person Relationship Specialty Start Date End Date Smitha Coyne DO [address] [place] [phone] PCP - General Family Medicine 06/05/18 Harini Marshall PharmD [address] [place] [phone] Pharmacist Internal Medicine 08/22/23 09/21/23 Elza Au Market Analysis Director 07/04/23 10/03/23 documented as of this encounter
--- OUTSIDE RECORDS SUMMARY | 2024-10-24 11:53 | XMS_ITS | Clinical Summary ---
Author Organization [facility] Address [address] [place] [address] Care Team Providers Care Veterans Contact Representative Name Role Phone Smitha Coyne Kacy Primary Care Provider [phone] Allergies Active Allergy Reactions Criticality Noted Date [...] Other reaction(s): rash Lorazepam Rash Low 10/04/2021 Wlv-Mazvd-Cxwk-Lidocaine Unknown 05/19/2023 Other reaction(s): Rash, Inflammation Gablpira-Zuaotjsdyc-Rjjiht mark Dermatitis 11/14/2023 Oxcarbazepine Agitation,Other (see comments),Unknown [...] HIV Screening Completed 01/28/[address] [facility] Care Teams Veterans Contact Representative Relationship Specialty Start Date End Date Smitha Coyne [address] [place] [phone] PCP - General Family Medicine 09/05/23
--- OUTSIDE RECORDS SUMMARY | 2024-10-24 11:53 | XMS_ITS | Encounter Summary ---
Author Organization [employer] Address [address] [facility] 7t [place] [address] Care Team Providers Care Radiosonde Specialist Name Role Phone OctaviaSmitha short Primary Care Provider [phone] Reason for Visit * Reason Comments Walk-In uti symptoms; pt sta sai she's been having a burning sensation for about 2 weeks. Encounter Details Date Type Department Care Team (Late st Contact Info) Description 10/23/2024 5:20 PM EDT Office Visit [facility] [address] [place] [address] Manuel Johnson MD [address] [place] [address] UTI symptoms Social History Tobacco Use Types Packs/Day Years Used Date Smoking Tobacco: Former Cigarettes Q uit: 10/23/2000 Passive Smoke Exposure: Past Smokeless Tobacco: Never [...] Sign Reading Time Taken Comments Blood Pressure 144/98 10/23/2024 5:14 PM EDT no chest pain, palpitations, or SOB Pulse 95 10/23/2024 5:14 PM EDT Temperature 36.2 ??C (97.2 ??F) 10/23/2024 5 :14 PM EDT Respiratory Rate 20 10/23/2024 5:14 PM EDT Oxygen Saturation 96% 10/23/2024 5:1 4 PM EDT Inhaled Oxygen Concentration - - Weight 146 kg (321 lb) 10/23/2024 5:14 PM EDT Height 167.6 cm (5' 6 ) 10/23/2024 5:14 PM EDT Body Mass Index 51.81 10/23/2024 5:14 PM EDT documented in this encounter Progress Notes * Saw Sepulveda [place] - 10/23/2024 5:20 PM EDT Urine * Manuel Krishnan MD - 10/23/2024 5:20 PM EDT Subjective Patient ID: Nyla Wiley is a 54 y.o. female who presents for Walk-In (uti symptoms; pt statesshe's been having a burning sensation for about 2 weeks.). UTI This is a recurrent problem. The current episode started in the past 7 days. Associated symptoms include pain. Pertinent negatives include no hematuria. The pain is present in the bladder. Review of Systems Genitourinary: Negative for hematuria. Objective Physical Exam Constitutional: Appearance: Normal appearance. Abdominal: General: Abdomen is flat. There is no distension. Palpations: There is no mass. Tenderness: There is no abdominal tenderness. There is no guarding or rebound. Hernia: No hernia is present. Neurological: General: No focal deficit present. Mental Status: She is alert and oriented to person, place, and time. Psychiatric: Mood and Affect: Mood normal. Behavior: Behavior normal. Assessment/Plan Problem List Items Addressed This Visit None Visit Diagnoses UTI symptoms Positive u/a, will send sample for culture, will start on levaquin 750mg x1 then 500mg q48h, on dialysis days take after dialysis, er precautions reviewed Relevant Orders POCT Urinalysis (Completed) Culture, Urine, Routine documented in this encounter Plan of Treatment Upcoming Encounters Date Type Department Care Team (Late st Contact Info) Description 10/30/2024 2:00 PM EDT Clinical Support [facility] MEDICINE [address] [place] [address] Elza Graham RN 11/01/2024 11:00 AM EDT Office Visit [facility] MEDICINE [address] [place] [address] Smitha Coyne DO [address] [place] [address] 04/14/2025 1:00 PM EST Office Visit [facility] OPTOMETRY [address] [place] [address] Kayleigh Martínez, OD [address] [place] [address] Scheduled Orders Name Type Priority Associated Diagnoses Orde r Schedule Culture, Urine, Routine Microbiology Routine UTI symptoms Ordered: 10/23/2024 documented as of this encounter Goals Goal [...] Associated Diagnosis Comments POCT URINALYSIS DIPSTICK Routine 10/23/2024 5:22 PM EDT UTI symptoms documented in this encounter Results * (ABNORMAL) POCT Urinalysis (10/23/2024 5:22 PM EDT) Color, UA Yellow Clarity, UA Cloudy Glucose, UA Trace Comment:250mg/dL Bilirubin, UA Negative Ketones, UA Negative Spec Grav, UA 1.020 Blood, UA Positive(A) Negative, None Detected Comment:Large pH, UA 8.0 Protein, UA Trace Comment:>=300mg/dL Urobilinogen, UA 0.2 Leukocytes, UA Trace Negative, Rare, Trace Comment:Large Nitrite, UA Negative Negative, None Detected Appearance, UA Cloudy QC Media Lot # [id number] Lot# Expiration Date [id number] Urine 10/23/2024 5:22 PM EDT Manuel Krishnan MD POINT OF CARE TEST ENTER/EDIT ORDERABLES Final Result documented in this encounter Visit Diagnoses Diagnosis UTI symptoms documented in this encounter Additional Health Concerns Assessment Noted Time PHQ-9 Depression Total Score: 0 08/17/19 24 11:11 AM EDT documented as of this encounter Care Teams Radiosonde Specialist Relationship Specialty Start Date End Date Smitha Coyne DO [address] [place] [address] PCP - General Family Medicine 06/05/18 documented as of this encounter
--- OUTSIDE RECORDS SUMMARY | 2024-10-24 11:53 | XMS_ITS | Encounter Summary ---
Author Organization [employer] Address [address] [facility] 7t [place] [address] Care Team Providers Care Clinical Documentation Nurse Name Role Phone Smitha Coyne DO Primary Care Provider [phone] Harini Marshall PharmD Unavailable [phone] Encounter Details Date Type Department Care Team (Late st Contact Info) Description 08/11/2023 Telephone [facility] [address] [place], [place] [phone] Smitha Coyne DO [address] [place], [place] [phone] Social History Tobacco Use Types Packs/Day Years [...] Miscellaneous Notes * Telephone Encounter - Fady Gayatn - 08/11/2023 11:59 AM EST Tc from pt stated they received a call, senior grant writer didn't see anything tasked. documented in this encounter Plan of Treatment Upcoming Encounters Date Type Department Care Team (Late st Contact Info) Description 10/30/2024 2:00 PM EDT Clinical Support [facility] [address] [place] [address] Elza Graham RN 11/01/2024 11:00 AM EDT Office Visit [facility] [address] [place] [address] Smitha Coyne DO [address] [place] [address] 04/14/2025 1:00 PM EST Office Visit [facility] OPTOMETRY [address] [place] [address] Kayleigh Martínez, OD [address] [place] [address] documented as of this encounter Visit Diagnoses Not on filedocumented in this encounter Care Teams Clinical Documentation Nurse Relationship Specialty Start Date End Date Smitha Coyne DO [address] [place] [address] PCP - General Family Medicine 06/05/18 PuiaHarini PharmD [address] [place] [address] Pharmacist Internal Medicine 08/22/23 09/21/23 Elza Au Building Carpenter Helper 07/04/23 10/03/23 documented as of this encounter
--- OUTSIDE RECORDS SUMMARY | 2024-10-24 11:53 | XMS_ITS | Clinical Summary ---
Author Organization [employer] Address [address] [place] [address] 7 [place] [address] Care Team Providers Care Innersole Fitter Name Role Phone OctaviaSmitha short Primary Care Provider [phone]- [phone] Allergies Active Allergy Reactions Criticality Noted Date [...] Risperidone 01/27/2022 Other reaction(s): increase prolectin level Lpi-Iqelo-Yeld-Lidocaine 05/19/2023 Other reaction(s): Rash, Inflammation Sertraline Rash [...] diabetes mellitus with ESRD (end-stage renal disease) ([facility]) TEST BLOOD SUGAR THREE TIMES A DAY 100 strip 01/24/20 24 Active Alcohol Swabs (Alcohol Prep) 70 % pads APPLY ONE SWAB TOPICALLY TWO TIMES A DAY 100 each 02/08/20 24 Active dulaglutide (Trulicity) 1.5 MG/0.5ML solution pen-injectorInd ications:Type 2 diabetes mellitus with ESRD (end-stage renal disease) ([facility]) Inject 1.5 mg under the skin [...] BEDTIME 90 tablet 1 05/14/20 24 Active loperamide (Imodium) 2 MG capsuleIndicati ons:Watery [...] diabetes mellitus with ESRD (end-stage renal disease) ([facility]) INJECT TWO TIMES A DAY PER SLIDING SCALE- FOR BS BETWEEEN 100-149=28U, 150-199=30U, 200-249=32U, 250-299=34U, 300-349=36U, 350-399=38U, OVER 400=40U 15 mL 5 09/18/19 25 Active amitriptyline (Elavil) 50 MG tablet TAKE ONE TABLET BY MOUTH AT BEDTIME 30 tablet 3 10/18/19 25 Active levoFLOXacin (Levaquin) 250 MG tablet Take 3 tablets (750 mg) by mouth Once daily for 1 day, THEN 2 tablets (500 mg) every other day for 4 days. 7 tablet 10/24/19 25 2024 Active amitriptyline (Elavil) 50 MG tablet TAKE ONE TABLET BY MOUTH AT BEDTIME 30 tablet 3 06/17/19 25 2024 Discontinued Active Problems Problem Noted Date Diagnosed Date [...] mainly due to MH issues FU with surface lay out technician this afternoon Assessment & Plan (10/28/2022 [...] Encounters Date Type Department Care Team Description 10/23/2024 5:20 PM EDT Office Visit [facility] [address] [place] [address] Manuel Johnson MD UTI symptoms 10/16/2024 Refill [facility] [address] [place] [address] Smitha Coyne DO 10/11/2024 1:00 PM EDT Office Visit [facility] [address] [place] [address] Mauricio, Kayleigh, OD 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) (Primary Dx); Moderate nonproliferative diabetic retinopathy of left eye without macular edema associated with type 2 diabetes mellitus ([facility]) 10/11/2024 Travel 09/24/2024 Telephone [facility] [address] [place] [address] Smitha Coyne DO Durable Medical Equipment ([employer]fort Medical Form: Ostomy Supplies) 09/16/2024 Refill [facility] [address] [place] [address] Smitha Coyne DO Type 2 diabetes mellitus with ESRD (end-stage renal disease) ([facility]) 09/10/2024 6:40 PM EDT Office Visit [facility] [address] [place] [address] Heraclio Bernabe MD Recurrent UTI 09/10/2024 Travel 09/10/2024 Telephone [facility] [address] [place] [address] Smitha Coyne DO Nurse Triage 08/26/2024 11:30 AM EDT Office Visit [facility] [address] [place] [address] Smitha Coyne DO Complicated UTI (urinary tract infection) (Primary Dx); UTI symptoms; Pain of right thumb 08/12/2024 Travel 08/09/2024 Telephone [facility] [address] [place] [address] Smitha Coyne DO Results; Appointment Request 08/05/2024 Refill [facility] [address] [place] [address] Smitha Coyne DO 08/05/[address] [address] Smitha Coyne DO Watery stools from Last 3 Months Immunizations Immunization Administration Dates Next Due Hep B, adult [...] your housing situation today? I have yair sing 03/20/[address] you li [...] Mass Index 51.81 10/23/2024 5:14 PM EDT Plan of Treatment Upcoming Encounters Date Type Department Care Team (Late st Contact Info) Description 10/30/2024 2:00 PM EDT Clinical Support [facility] [address] [place], [place] [phone] Elza [place], ROSA 11/01/2024 11:00 AM EDT Office Visit [facility] [address] [place] [address] Smitha Coyne DO [address] [place] [address] 04/14/2025 1:00 PM EST Office Visit [facility] [address] [place], [place] [phone] Mauricio, Kayleigh, OD [address] [place] [address] Health Maintenance Due Date Last Done Comments CT Colonography 1969 Colonoscopy 1969 Colorectal Cancer Screening 1969 FIT DNA/Cologuard 1969 FIT 1969 FOBT 1969 Sigmoidoscopy 1969 Disability Screening 1969 Diabetes: Foot Exam 1979 Alcohol/Substance Use Screening 1981 Pneumococcal Vaccine: 50+ Years (1 of 2 - PCV) 01/21/1988 Pap Smear 1990 Zoster Vaccines (1 of 2) 2019 Cervical Cancer Screening 03/31/2022 HPV/Cotest 03/31/2022 03/31/2017 COVID-19 Vaccine (1 - season) 2024 Influenza Vaccine (#1) 2024 Depression Screening 08/16/2024 08/17/2023, 08/17/19 24 SDOH Screening 08/16/2024 08/17/2023 Lipid Panel 08/21/2024 08/22/2023, 01/28/2021 Diabetes: Hemoglobin A1C 12/05/2024 025, 06/13/2024, 05/08/2024, Additional history exists Mammogram 06/21/2025 06/21/2024, 03/06, 03/27/2018 Eye Exam 10/11/2025 10/11/2024, 05/0 02/2025, 10/11/2024, Additional history exists Tobacco Screening 10/23/2025 10/23/2024 DTaP/Tdap/Td Vaccines (4 - Td or Tdap) 09/16/2029 09/17/2019, 06/03/2009, 06/03/2001 RSV Patients and Patients Aged 60 years or older (1 - 1-dose 75+ series) 01/21/2044 HIV Screening Completed 11/19/2021, 01/28/2021 Hepatitis C Screening Completed 11/19/2021, 021 Hepatitis B Vaccines Completed 09/10/2024, 07/13/2024, 12/14/2006, Additional history exists HIB Vaccines Aged Out No longer eligi [...] patient's age to complete this topic Meningococcal B Vaccine Aged Out No l onger eligible based on patient's age to complete [...] blood sugar as directed Result Component No Joanna, Harini, PharmD Hemoglobin A1c < 7.5 Result Component 8.2( 2:42 PM EST) No Fayeia, Harini, PharmD Procedures Procedure Name Priority Date/Time Associated Diagnosis Comments POCT URINALYSIS DIPSTICK Routine 10/23/2024 5:22 PM EDT UTI symptoms OCT, RETINA - OU - BOTH EYES Routine 10/11/2024 2:04 PM EDT 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 with type 2 diabetes mellitus (CMS/HCC) AMB REFERRAL TO ORTHOPAEDIC SURGERY Urgent 09/20/2024 Pain of right thumb POCT URINALYSIS DIPSTICK Routine 09/10/2024 5:31 PM EDT Recurrent UTI CULTURE, URINE, ROUTINE Routine 09/10/2024 11:56 AM EDT Recurrent UTI XR HAND 3+ VIEWS RIGHT STAT 08/26/2024 12:25 PM EDT Pain of right thumb CULTURE, URINE, ROUTINE Routine 08/26/2024 11:32 AM EDT UTI symptoms POCT URINALYSIS DIPSTICK Routine 08/26/2024 11:27 AM EDT UTI symptoms BI MAMMOGRAM SCREENING TOMOSYNTHESIS BILATERAL Routine 06/21/2024 2:20 PM EST Encounter for screening mammogram for malignant neoplasm of breast POCT GLYCATED HEMOGLOBIN, TOTAL Routine 05/08/2024 2:42 PM EST Type 2 diabetes mellitus with ESRD (end-stage renal disease) ([facility]) LIPID PANEL, STANDARD Routine 08/22/2023 12:20 PM [...] Health Maintenance Results * (ABNORMAL) POCT Urinalysis (10/23/2024 5:22 PM EDT) Only the most recent of3 resultswithin the time period is included. Color, UA Yellow Clarity, UA Cloudy Glucose, UA Trace Comment:250mg/dL Bilirubin, UA Negative Ketones, UA Negative Spec Grav, UA 1.020 Blood, UA Positive(A) Negative, None Detected Comment:Large pH, UA 8.0 Protein, UA Trace Comment:>=300mg/dL Urobilinogen, UA 0.2 Leukocytes, UA Trace Negative, Rare, Trace Comment:Large Nitrite, UA Negative Negative, None Detected Appearance, UA Cloudy QC Media Lot # [id number] Lot# Expiration Date [id number] Urine 10/23/2024 5:22 PM EDT us Manuel Krishnan MD POINT OF CARE TEST ENTER/EDIT ORDERABLES Final Result * Referral to Orthopaedic Surgery (09/20/2024) us Smitha Coyne DO OUTPATIENT REFERRAL ORDERABL ES Final Result * Culture, Urine, Routine (09/10/2024 11:56 AM EDT) Only the most recent of2 resultswithin the time period is included. Urine Urine specimen obtained by clean catch procedure / Unknown 09/10/2024 11:56 AM EDT 09/11/2024 11:56 AM EDT Comment:UACC Narrative [facility] - 09/12/2024 10:14 AM EDT Urine Culture No growth. Specimen Source: Urine clean catch us Heraclio Bernabe MD LAB MICROBIOLOGY - GENERAL ORDER YASMIN Final Result [facility] [address] [place] [address] [phone] * XR Hand 3+ Views Right (08/26/2024 12:25 PM EDT) Anatomical Region Laterality Modality Upper Extremities, Hand Right Radiogra phic Imaging 08/26/2024 12:2 5 PM EDT Narrative 08/26/2024 12:56 PM EDT ?[facility] ?[address] ?[place] [address] ?XRay Report ? Signed ? Patient: Saurabh,Nyla ?MR#: [id number] ?? [id number] ? : 1970 ?Acct:[id number] ? Age/Sex: 54 / F ?ADM Date: 03/24/25 ? Loc: HO.HHCX ? Attending Dr: Smitha Coyne DO ? Ordering Physician: Smitha Coyne DO ?? Date of Service: 08/26/24 ?? Procedure(s): XR hand RT min 3V ?? Accession Number(s): [id number] ? cc: Smitha Coyne DO ? EXAMINATION: [...] ??Manuel Gleason MD ??08/26/2024 12:53 PM EDT ? Dictated By: ?Manuel Gleason MD ? Signed By: ?<Electronically signed by Manuel Gleason MD in OV> ?08/26/24 1253 ? DD/ 1225 ? TD/TT: 08/26/24 1249 ? Insole Doubler: ? Procedure Note [facility] - 08/26/2024 [place] [address] XRay Report Signed Patient: Kelvin Wiley#: [id number] 069 : 1970Acct:[id number] Age/Sex: 54 / FADM Date: 08/26/24 Loc: HO.HHCX Attending Dr: Smitha Coyne DO Ordering Physician: Smitha Coyne DO Date of Service: 08/26/24 Procedure(s): XR hand RT min 3V Accession Number(s): [id number] cc: Smitha Coyne DO EXAMINATION: XR HAND [...] 08/26/2024 12:53 PM EDT RP Dictated By: Maunel Gleason MD Signed By: <Electronically signed by Manuel Gleason MD in OV> 08/26/24 1253 DD/ 1225 TD/TT: 08/26/24 1249 Insole Doubler: us Smitha Stanford DO IMG XR PROCEDURES Final Resu lt * BI Mammogram Screening Tomosynthesis Bilateral (06/21/2024 2:20 PM EST) Anatomical Region Laterality Modality Breast Bilateral Mammography 06/21/2024 2:20 PM EST Narrative 06/30/2024 4:20 PM EST ? [facility] [place] ? [address] ?[place] [address] ? Mammography Report ? Signed ? Patient: Saurabh,Nyla ?MR#: [id number] ?? 069 ? : 1970 ?Acct:[id number] ? Age/Sex: 54 / F ?ADM Date: 06/21/25 ? Loc: HO.MAMMO ? Attending Dr: Smitha Coyne DO ? Ordering Physician: Smitha Coyne DO ?Results: 2B ?? enign Findings ? Date of Service: 06/21/25 ?Follow Up: 1 Year From Orig ?? inal Mammogram ? Procedure(s): MM tomosynthesis screening BI ?? Accession Number(s): [id number] ? cc: Smitha Coyne DO ? EXAMINATION: [...] DD/ 1420 ? TD/TT: 06/21/24 1455 ? Insole Doubler: ? Procedure Note Flaquita, Image - 06/30/2024 [facility] [address] [place], [place] [address] Mammography Report Signed Patient: Kelvin Wiley#: [id number] 069 : 1970Acct:[id number] Age/Sex: 54 / FADM Date: 06/21/24 Loc: HO.MAMMO Attending Dr: Smitha Coyne DO Ordering Physician: Smitha Coyneults: 2B enign Findings Date of Service: 06/21/24Follow Up: 1 Year From Orig ina Mammogram Procedure(s): MM tomosynthesis screening BI Accession Number(s): [id number] cc: Smitha Coyne DO EXAMINATION: MM SCREENING [...] 06/30/24 1617 DD/ 1420 TD/TT: 06/21/24 1455 Insole Doubler: Smitha Coyne DO IMG BI PROCEDURES Edited Res ult - Final * (ABNORMAL) POCT HGB A1C (05/08/2024 2:42 PM EST) Hemoglobin A1C 8.2(A) 4.0 - 6.0 % QC Media Lot # [id number] Lot# Expiration Date [id number] Blood 05/08/2024 2:42 PM EST Savannah Frye NP POINT OF CARE TEST ENTER/EDIT OR DERABLES Final Result * (ABNORMAL) Lipid Panel, Standard (08/22/2023 12:20 PM EDT) Triglycerides 211(H) <150 mg/dL [facility] Comment:Desirable Triglyceri de: less than 150 mg/dLBorderline High Triglyceride 150-199 mg/dLHigh Triglyceride: 200-499 mg/dLVery High Triglyceride: greater than or equal to 5OO mg/dL Cholesterol 106 <200 mg/dL [facility] Comment:Desirable Cholestero l: less than 200 mg/dLBorderline High Cholesterol: 200-239 mg/dLHigh Cholesterol: greater than 239 mg/dL LDL Cholesterol Calculated 33 <100 mg/dL [facility] Comment:Desirable LDL: less than 100 mg/dLNear Optimal/Above Optimal LDL: 110- 129 mg/dLBorderline High LDL: 130-159 mg/dLHigh LDL: 160-189 mg/dLVery High LDL: greater than or equal to 190 mg/dL HDL Cholesterol 31(L) >40 mg/dL [facility] Comment:Desirable HDL: great er than 40 mg/dL Note: This HDL assay may give artificially low results in patients with liver disease. Blood Venous blood specimen / Unknown 08/22/2023 12:20 PM EDT 08/22/2023 4:13 PM EDT us Smitha Coyne DO LAB BLOOD ORDERABLES Final R esult [facility] [address] [place] [address] [phone] * HEPATITIS B SURFACE ANTIBODY (11/19/2021 12:50 PM EDT) Hepatitis B Surface Antibody NONREACTIVE Nonreactive [facility] Comment:Nonreactive: < 8.00 mIU/mL Hepatitis B Surface Antigen Negative Negative [facility] HIV AB/AG Nonreactive Nonreactive [facility] Comment: HIV-1 p24 Ag and/or [...] detection of this assay. ?? The [employer] HIV Ag/Ab Combo assay result and supplemental assay results should be interpreted in conjunction with the patient's clinical presentation, history and other laboratory results. ??If the results are inconsistent with clinical evidence, additional testing is suggested to confirm the result. 11/19/2021 12:5 0 PM EDT Smitha Coyne DO HISTORICAL/NON ORDERABLE LAB S Final Result Performing Organization Address [facility] de Phone Number [facility] [address] [place] [address], * HEPATITIS C ANTIBODY RFLX (11/19/2021 12:50 PM EDT) Pathologist [facility] [place] Hepatitis C Antibody Nonreactive Nonreactive [facility] Comment: Antibodies to HCV not detected; does not exclude early acute HCV infection. 11/19/2021 12:5 0 PM EDT Smitha Coyne DO HISTORICAL/NON ORDERABLE LAB S Final Result Performing Organization Address [facility] de Phone Number [facility] [address] [place] [address], * HPV E6/E7 RFLX ALEJANDRO 16 18/45 (03/31/2017 11:35 AM EDT) HPV mRNA E6/E7 Not Detected NOT DETECTED [facility] Comment: This test was performed using the APTIMA(R) HPV Assay ([employer] This assay detects E6/E7 viral messenger RNA (mRNA) from 14 high-risk HPV types (16,18,31,33,35,39,45,51, 52,56,58,59,66,68). For additional information please refer to: http://education.Frontier pte.Scan & Target/faq/PGT523h9 (This link is being provided for informational/ educational purposes only.) Please note: ??Effective 02/15/2016, HPV testing will be performed using [employer]'s APTIMA test which targets mRNA. Detecting mRNA instead of DNA, as in older methods, offers significant improvements in specificity. HPV 18/45 RNA Test not performed [facility] ADDITIONAL TESTING Not indicated () [facility] Comment: Test Performed by [employer] [place], [facility], [address] [place] [phone] Misha Lauren M.D., Ph.D., Director of Laboratories , [facility] [id number] HPV 16 RNA Test not performed [facility] 03/31/2017 11:3 5 AM EDT us Smitha Coyne DO HISTORICAL/NON ORDERABLE LAB S Final Result [facility] [address] from Last 3 Months or Most Recently Relevant to Health Maintenance Insurance [place] [address] [place] [phone] [facility] Care Teams Innersole Fitter Relationship Specialty Start Date End Date Smitha Coyne DO [address] [place] [phone] PCP - General Family Medicine 06/05/18
--- OUTSIDE RECORDS SUMMARY | 2024-10-24 11:53 | XMS_ITS | Encounter Summary ---
Author Organization [employer] Address [address] [facility] 7t [place] [address] Care Team Providers Care Bullet Casting Operator Name Role Phone Smitha Coyne DO Primary Care Provider + [phone] Reason for Visit * Reason Onset Date Comments Med Refill 12/06/2023 Encounter Details Date Type Department Care Team (Late st Contact Info) Description 12/06/2023 Telephone [facility] [address] [place], [place] [phone] Smitha Coyne DO [address] [place], [place] [phone] Med Refill Social History Tobacco Use Types [...] 24 hr tablet To be sent to: [facility] [place] - [address] [place] [address] documented in this encounter Plan of Treatment Upcoming Encounters Date Type Department Care Team (Late st Contact Info) Description 10/30/2024 2:00 PM EDT Clinical Support [facility] [address] [place] [address] Elza [place] RN 11/01/2024 11:00 AM EDT Office Visit [facility] [address] [place] [address] Smitha Coyne DO [address] [place] [address] [place] [address] 04/14/2025 1:00 PM EST Office Visit [facility] [address] [place], [place] [phone] Mauricio Kayleigh, OD [address] [place] [address] documented as of this encounter Goals Goal [...] documented as of this encounter Care Teams Bullet Casting Operator Relationship Specialty Start Date End Date Smitha Coyne DO [address] [place], [place] [phone] PCP - General Family Medicine 06/05/18 documented as of this encounter
--- OUTSIDE RECORDS SUMMARY | 2024-10-24 11:53 | XMS_ITS | Encounter Summary ---
Author Organization [employer] Address [address] [facility] 7t [place] [address] Care Team Providers Care Cutting Department Supervisor Name Role Phone Smitha Coyne DO Primary Care Provider Harini Marshall PharmD Unavailable [phone] Reason for Visit * Reason Onset Date Comments Appointment Request 11/08/2022 Encounter Details Date Type Department Care Team ([facility] st Contact Info) Description 11/08/2022 Telephone [facility] [address] [place], [place] [phone] Smitha Coyne DO [address] [place], [place] [phone] Appointment Request Social History Tobacco Use Types [...] encounter Miscellaneous Notes * Telephone Encounter - Tiffanieamelia Ashrafalva Rock - 11/08/2022 10:13 AM EDT Tc from pt requesting to r/s appt for 11/22/22 Follow up Extended. Pt would like a sooner appt withprovider. Please contact pt at [phone] documented in this encounter Plan of Treatment Upcoming Encounters Date Type Department Care Team (Late st Contact Info) Description 10/30/2024 2:00 PM EDT Clinical Support [facility] [address] [place] [address] Elza [place], ROSA 11/01/2024 11:00 AM EDT Office Visit [facility] [address] [place] [address] Smitha Coyne DO [address] [place] [address] 04/14/2025 1:00 PM EST Office Visit [facility] [address] [place] [address] Kayleigh Martínez, OD [address] [place] [address] documented as of this encounter Visit Diagnoses Not on filedocumented in this encounter Care Teams Cutting Department Supervisor Relationship Specialty Start Date End Date Smitha Coyne DO [address] [place] [address] PCP - General Family Medicine 06/05/18 Harini Marshall PharmD [address] [place] [address] Pharmacist Internal Medicine 08/22/23 09/21/23 Elza Au Mold Shifter 07/04/23 10/03/23 documented as of this encounter
--- OUTSIDE RECORDS SUMMARY | 2024-10-24 11:53 | XMS_ITS | Encounter Summary ---
Author Organization [employer] Address [address] [facility] 7t [place] [address] Care Team Providers Care Electrolytic De Scaler Name Role Phone Smitha Coyne DO Primary Care Provider [phone] Harini Marshall PharmD Unavailable [phone] Reason for Visit * Reason Comments Med Refill Encounter Details Date Type Department Care Team ([facility] st Contact Info) Description 04/22/2023 Refill [facility] [address] [place], [place] [phone] Smitha Coyne DO [address] [place], [place] [phone] Watery stools Social History Tobacco Use Types [...] Description 10/30/2024 2:00 PM EDT Clinical Support [facility] [address] [place] [phone] lEza [place] RN 11/01/2024 11:00 AM EDT Office Visit [facility] [address] [place] [address] Smitha Coyne DO [address] [place] [address] 04/14/2025 1:00 PM EST Office Visit [facility] [address] [place] [address] Mauricio, Kayleigh, OD [address] [place] [address] documented as of this encounter Visit Diagnoses Diagnosis Watery stools Abnormal feces documented in this encounter Care Teams Electrolytic De Scaler Relationship Specialty Start Date End Date Smitha Coyne DO [address] [place] [address] PCP - General Family Medicine 06/05/18 Harini Marshall PharmD [address] [place] [address] Pharmacist Internal Medicine 08/22/23 09/21/23 Elza Au Director Of Group Sales 07/04/23 10/03/23 documented as of this encounter
--- OUTSIDE RECORDS SUMMARY | 2024-10-24 11:53 | XMS_ITS | Encounter Summary ---
Author Organization [employer] Address 75 [facility] 7t [place] [address] Care Team Providers Care Rib Builder Name Role Phone Smitha Coyne DO Primary Care Provider [phone] Harini Marshall PharmD Unavailable [phone] Reason for Visit * Reason Onset Date Comments Med Refill 08/03/2022 Encounter Details Date Type Department Care Team (Late st Contact Info) Description 08/03/2022 Telephone [facility] [address] [place], [place] [phone] Smitha Coyne DO 230 [place], [place] [phone] Med Refill Social History Tobacco Use Types [...] Description 10/30/2024 2:00 PM EDT Clinical Support [facility] [address] [place] [address] Elza [place], RN 11/01/2024 11:00 AM EDT Office Visit [facility] [address] [place] [address] Smitha Coyne DO [address] [place] [address] 04/14/2025 1:00 PM EST Office Visit [facility] [address] [place] [address] Mauricio, Kayleigh, OD [address] [place] [address] documented as of this encounter Visit Diagnoses Not on filedocumented in this encounter Care Teams Rib Builder Relationship Specialty Start Date End Date Smitha Coyne DO [address] [place] [address] PCP - General Family Medicine 06/05/18 Harini Marshall PharmD [address] [place] [address] Pharmacist Internal Medicine 08/22/23 09/21/23 Elza Au Deck Specialist 07/04/23 10/03/23 documented as of this encounter
--- OUTSIDE RECORDS SUMMARY | 2024-10-24 11:53 | XMS_ITS | Encounter Summary ---
Author Organization [employer] Address [address] [facility] 7t [place] [address] Care Team Providers Care Vb Net Programmer Name Role Phone Smitha Coyne DO Primary Care Provider Harini Marshall PharmD Unavailable [phone] Encounter Details Date Type Department Care Team (Late st Contact Info) Description 10/07/2022 Telephone [facility] MEDICINE [address] [place], [place] [phone] Smitha Coyne DO [address] [place] [address] Social History Tobacco Use Types Packs/Day Years [...] 10/07/2022. Pt states she is currently in [facility]. Please contact pt at [phone] documented in this encounter Plan of Treatment Upcoming Encounters Date Type Department Care Team (Late st Contact Info) Description 10/30/2024 2:00 PM EDT Clinical Support [facility] MED[facility]INE [address] [place] [address] Elza Graham, ROSA 11/01/2024 11:00 AM EDT Office Visit [facility] [address] [place] [address] Smitha Coyne DO [address] [place] [address] 04/14/2025 1:00 PM EST Office Visit [facility] OPTOMETRY [address] [place] [address] Kayleigh Martínez, OD 230 [place] [address] documented as of this encounter Visit Diagnoses Not on filedocumented in this encounter Care Teams Vb Net Programmer Relationship Specialty Start Date End Date Smitha Coyne DO [address] [place] [id number] PCP - General Family Medicine 06/05/18 Harini Marshall, Ronaldo [address] [place] [address] Pharmacist Internal Medicine 08/22/23 09/21/23 Elza Au Fire Eater 07/04/23 10/03/23 documented as of this encounter
--- OUTSIDE RECORDS SUMMARY | 2024-10-24 11:54 | XMS_ITS | Encounter Summary ---
Author Organization [employer] Address [address] [facility] 7t [place] [address] Care Team Providers Care Multiple Resaw Operator Name Role Phone Smitha Coyne DO Primary Care Provider [phone] Harini Marshall PharmD Unavailable [phone] Encounter Details Date Type Department Care Team (Late st Contact Info) Description 04/20/2023 Abstract [facility] MEDICINE [address] [place], [place] [phone] Smitha Coyne DO [address] [place], [place] [phone] Social History Tobacco Use Types Packs/Day Years [...] Description 10/30/2024 2:00 PM EDT Clinical Support [facility] MEDICINE [address] [place] [address] Elza Graham RN 11/01/2024 11:00 AM EDT Office Visit [facility] MEDICINE [address] [place] [address] Smitha Coyne DO [address] [place] [address] 04/14/2025 1:00 PM EST Office Visit [facility] OPTOMETRY [address] [place] [address] Mauricio, Kayleigh, OD [address] [place] [address] documented as of this encounter Visit Diagnoses Not on filedocumented in this encounter Care Teams Multiple Resaw Operator Relationship Specialty Start Date End Date Smitha Coyne DO [address] [place] [address] PCP - General Family Medicine 06/05/18 Harini Marshall, Ronaldo [address] [place] [address] Pharmacist Internal Medicine 08/22/23 09/21/23 Elza Au Channel Marketing Manager 07/04/23 10/03/23 documented as of this encounter
--- OUTSIDE RECORDS SUMMARY | 2024-10-24 11:54 | XMS_ITS | Encounter Summary ---
Author Organization [employer] Address [address] [facility] 7t [place] [address] Care Team Providers Care Chair Pad Maker Name Role Phone Smitha Coyne DO Primary Care Provider [phone] Harini Marshall PharmD Unavailable [phone] Reason for Visit * Reason Comments Med Refill Encounter Details Date Type Department Care Team ([facility] st Contact Info) Description 04/20/2023 Refill [facility] MEDICINE [address] [place], [place] [phone] Smitha Coyne DO [address] [place], [place] [phone] Social History Tobacco Use Types Packs/Day Years [...] Description 10/30/2024 2:00 PM EDT Clinical Support [facility] MEDICINE [address] [place] [phone] Elza Graham RN 11/01/2024 11:00 AM EDT Office Visit [facility] MEDICINE [address] [place] [address] Smitha Coyne DO [address] [place] [address] 04/14/2025 1:00 PM EST Office Visit [facility] OPTOMETRY [address] [place] [address] Mauricio, Kayleigh, OD [address] [place] [address] documented as of this encounter Visit Diagnoses Not on filedocumented in this encounter Care Teams Chair Pad Maker Relationship Specialty Start Date End Date Smitha Coyne DO [address] [place] [address] PCP - General Family Medicine 06/05/18 Harini Marshall, Mary BethD [address] [place] [address] Pharmacist Internal Medicine 08/22/23 09/21/23 Elza Au Rum Processing Operator 07/04/23 10/03/23 documented as of this encounter
== END 2024-10-23 17:28 | disposition home or self-care (01) ==
LOC: HO.HHCLNP 17:27
PROVIDERS: Visit Provider Internal Medicine
DX: R39.9 Unspecified symptoms and signs involving the genitourinary system (principal)
CPT/HCPCS: 87086

== ENCOUNTER 2024-11-01 17:20 | Outpatient (REF) | payer MEDICARE, MEDICAID, SELFPAY ==
--- OUTSIDE RECORDS SUMMARY | 2024-11-01 17:23 | XMS_ITS | Clinical Summary ---
Author Organization [facility] Address [address] [place] [address] Care Team Providers Care Finance Lead Name Role Phone Smitha Coyne Kacy Primary Care Provider [phone] Allergies Active Allergy Reactions Criticality Noted Date [...] Other reaction(s): rash Lorazepam Rash Low 10/04/2021 Bnj-Ppduy-Akbl-Lidocaine Unknown 05/19/2023 Other reaction(s): Rash, Inflammation Spyfikkb-Adqezjmlao-Mdount mark Dermatitis 11/14/2023 Oxcarbazepine Agitation,Other (see comments),Unknown [...] 06/26/2006 HIV Screening Completed 01/28/2021 Insurance MEDICARE [facility] Care Teams Finance Lead Relationship Specialty Start Date End Date Smitha Coyne [address] [place] [address] PCP - General Family Medicine 09/05/23
== END 2024-11-01 17:21 | disposition home or self-care (01) ==
LOC: HO.HHCLNP 17:20
PROVIDERS: Visit Provider Family Medicine
DX: Z00.00 Encounter for general adult medical examination without abnormal findings (principal); E11.22 Type 2 diabetes mellitus with diabetic chronic kidney disease; N18.6 End stage renal disease; I10 Essential (primary) hypertension; E78.5 Hyperlipidemia, unspecified; F31.4 Bipolar disorder, current episode depressed, severe, without psychotic features; N30.10 Interstitial cystitis (chronic) without hematuria; R30.0 Dysuria; J45.30 Mild persistent asthma, uncomplicated; G89.29 Other chronic pain; M54.41 Lumbago with sciatica, right side; M54.42 Lumbago with sciatica, left side; M54.2 Cervicalgia; M25.511 Pain in right shoulder; M25.512 Pain in left shoulder; G56.03 Carpal tunnel syndrome, bilateral upper limbs; R56.9 Unspecified convulsions; K22.70 Barrett's esophagus without dysplasia; Z99.2 Dependence on renal dialysis
CPT/HCPCS: 87086

== ENCOUNTER 2025-03-29 16:45 | Inpatient (IN) | payer MEDICARE, MEDICAID, SELFPAY ==
--- OUTSIDE RECORDS SUMMARY | 2025-03-24 15:45 | XMS_ITS | Encounter Summary ---
Author Organization [employer] Address [address] [facility] 7t [place] [address] Care Team Providers Care Social Secretary Name Role Phone Smitha Coyne Primary Care Provider + [phone] Reason for Visit * Reason Comments sick Encounter Details Date Type Department Care Team ([facility] st Contact Info) Description 03/24/2025 3:45 PM EDT Office Visit [facility] MEDICINE [address] [place], [place] [phone] Janie Lynch MD [address] [place], [place] [phone] Vertigo (Primary Dx) Social History Tobacco Use Types Packs/Day Years [...] Patient Health Questionnaire-2 Score 0 08/17/2023 Comments No Sex and Gender Information Value Date Recorded Sex Assigned at Female 04/04/2022 10:16 AM EDT Legal Sex Female 10:16 AM EDT Gender Identity Female 04/04/2022 10:16 AM EDT Sexual Orientation Choose not to disclose 2021 10:16 AM EDT documented as of this encounter Last Filed Vital Signs Vital Sign Reading Time Taken Comments Blood Pressure 160/60 03/24/2025 4:00 PM EDT Pulse 98 03/24/2025 4:00 PM EDT Temperature 36.9 C (98.4 F) 03/24/2025 4:00 PM EDT Respiratory Rate 16 03/24/2025 4:00 PM EDT Oxygen Saturation 99% 03/24/2025 4:00 PM EDT Inhaled Oxygen Concentration - - Weight 140 kg (309 lb 6.4 oz) 03/24/2025 4:00 PM EDT Height 167.6 cm (5' 6 ) 03/24/2025 4:00 PM EDT Body Mass Index 49.94 03/24/2025 4:00 PM EDT documented in this encounter Progress Notes * Janie Lynch MD - 03/24/2025 3:45 PM EDT SUBJECTIVE: Nyla Wiley is a 55 y.o. year old female who presents for sick visit/dizziness. Denies recentillness, injury, or hospitalization. Acute Concerns: Co episodes of dizziness x 3 days, especially when changing position, when getting up in the morning. He has mild headache, no fever, no URI symptoms. Last time she had URI or UTI was more than 1 month ago. She does not have recurrent episodes, had 1 approximately 3 years ago. She has occasional and temporary dizziness after hemodialysis but usually resolve within few hours. Social History Social History Narrative Not on file Problem List[1] Family History[2] Review of Systems Constitutional: Negative for chills, fatigue and fever. HENT: Negative for congestion, ear pain, nosebleeds, rhinorrhea, sinus pressure, sore throat and trouble swallowing. Eyes: Negative for pain and discharge. Respiratory: Negative for cough, chest tightness and shortness of breath. Cardiovascular: Negative for chest pain, palpitations and leg swelling. Gastrointestinal: Negative for abdominal pain, blood in stool, constipation, diarrhea and nausea. Endocrine: Negative for polydipsia and polyuria. Genitourinary: Negative for dysuria, frequency, genital sores, pelvic pain and vaginal discharge. Musculoskeletal: Negative for back pain and neck pain. Skin: Negative for rash. Allergic/Immunologic: Negative for environmental allergies. Neurological: Positive for dizziness and light-headedness. Negative for seizures, weakness and headaches. Hematological: Negative for adenopathy. Psychiatric/Behavioral: Negative for agitation, behavioral problems, self-injury and suicidal ideas. OBJECTIVE: Vitals: 03/24/25 1600 BP: (!) 160/60 Pulse: 98 Resp: 16 Temp: 98.4 ??F (36.9 ??C) SpO2: 99% Physical Exam HENT: Right Ear: Tympanic membrane and ear canal normal. Left Ear: Tympanic membrane and ear canal normal. Mouth/Throat: Mouth: Mucous membranes are moist. Pharynx: No oropharyngeal exudate or posterior oropharyngeal erythema. Eyes: Pupils: Pupils are equal, round, and reactive to light. Cardiovascular: Rate and Rhythm: Regular rhythm. Pulses: Normal pulses. Heart sounds: Normal heart sounds. No murmur heard. Pulmonary: Breath sounds: Normal breath sounds. Abdominal: General: Bowel sounds are normal. Palpations: Abdomen is soft. Tenderness: There is no abdominal tenderness. Musculoskeletal: General: Normal range of motion. Cervical back: Neck supple. Skin: General: Skin is warm. Neurological: General: No focal deficit present. Mental Status: She is alert and oriented to person, place, and time. Cranial Nerves: Cranial nerves 2-12 are intact. Comments: Horizontal nystagmus present Psychiatric: Mood and Affect: Mood normal. Behavior: Behavior normal. Problem List Items Addressed This Visit Vertigo - Primary Most likely postviral, reassurance. Start meclizine as needed if, if symptoms do not resolve within1 to 2 weeks, should reconsult as needed. Reminded to keep blood sugar under control and follow-up closely with PCP Caution with rectal bleeding or diarrhea, follow-up with PCP Relevant Medications meclizine (Antivert) 25 MG tablet Other Relevant Orders Basic Metabolic Panel Follow Up: Medications Ordered Prior to Encounter[3] [1] Patient Active Problem List Diagnosis Anemia Bipolar disorder (HCC) Chronic low back pain Essential hypertension Chronic gastroesophageal reflux disease Hyperlipidemia Mild intermittent asthma BMI 50.0-59.9, adult ([facility]) ([facility]) Obstructive sleep apnea Chronic pain of both knees Type 2 diabetes mellitus ([facility]) Ulcerative colitis ([facility]) Ileostomy present ([facility]) ([facility]) Acquired complex renal cyst Lung nodule History of COVID-19 End stage renal disease on dialysis ([facility]) Osteoarthritis Chronic right shoulder pain Arteriovenous fistula ([facility]) Chronic interstitial cystitis Depression Lichen simplex chronicus Recurrent nephrolithiasis Le's esophagus Long-term current use of opiate analgesic Vertigo [2] Family History Problem Relation Name Age of Onset Diabetes type II Father Hypertension Father Colon cancer Father [3] Current Outpatient Medications on File Prior to Visit Medication Sig Dispense Refill Alcohol Swabs (Alcohol Prep) 70 % pads APPLY ONE SWAB TOPICALLY TWO TIMES A DAY 100 each 11 amitriptyline (Elavil) 50 MG tablet TAKE ONE TABLET BY MOUTH AT BEDTIME 30 tablet 3 atorvastatin (Lipitor) 20 MG tablet TAKE ONE TABLET BY MOUTH AT BEDTIME 90 tablet 0 baclofen (Lioresal) 10 MG tablet Take 0.5 tablets (5 mg) by mouth if needed in the morning and at bedtime for muscle spasms. 30 tablet 3 BD Pen Needle Archana Ultrafine 32G X 4 MM misc USE WITH LANTUS AND NOVOLOG INSULIN DIRECTED 150 each 11 budesonide (Pulmicort Flexhaler) 90 MCG/ACT inhaler Inhale 1 puff in the morning and at bedtime. Rinse mouth with water after use to reduce aftertaste and incidence of candidiasis. Do not swallow. 1 each 11 calcium acetate (Phoslo) 667 MG tablet Take 1 tablet by mouth 3 times daily. cholecalciferol (Vitamin D-3) 25 MCG (1000 UT) capsule Take 1 capsule by mouth 1 (one) time each day. clotrimazole-betamethasone (Lotrisone) cream Apply 1 Application. topically in the morning. As needed Diclofenac Sodium 1 % gel Apply 2 g topically if needed in the morning, at noon, in the evening, and at bedtime (pain). 150 g 3 estradiol (Estrace) 0.1 MG/GM vaginal cream Insert 1 gram vaginally at bedtime twice weekly ferrous sulfate 325 (65 Fe) MG EC tablet Take 1 tablet by mouth 1 (one) time each day. glucose blood (FREESTYLE LITE) test strip TEST BLOOD SUGAR THREE TIMES A DAY 100 strip 11 Lancets 33G misc Test blood sugar 3 times daily lansoprazole (Prevacid) [address] capsule TAKE ONE CAPSULE BY MOUTH TWICE A DAY BEFORE MEALS 180 capsule 1 loperamide (Imodium) 2 MG capsule TAKE 1 TO 2 CAPSULES IN MORNING, NOON AND EVENING, AND AT BEDTIMEAS NEEDED DIARRHEA 60 capsule 1 loratadine (Allergy Relief) 10 MG tablet TAKE ONE TABLET BY MOUTH EVERY DAY NEEDED ALLERGIES 90 tablet 1 magnesium oxide (Mag-Ox) 400 mg tablet Take 1 tablet by mouth in the morning. OTC metoprolol succinate XL (Toprol-XL) 100 MG 24 hr tablet TAKE ONE TABLET BY MOUTH EVERY MORNING. DO NOT CRUSH OR CHEW 90 tablet 3 midodrine (Proamatine) 5 MG tablet Take 1 tablet by mouth three times daily Only uses on dialysis days when BP gets low. Multiple Vitamin (multivitamin) tablet Take 1 tablet by mouth in the morning. OTC NovoLOG MIX 70/30 FLEXPEN (70-30) 100 UNIT/ML injection INJECT TWO TIMES A DAY PER SLIDING SCALE- FOR BS BETWEEEN 100-149=28U, 150-199=30U, 200-249=32U, 250- 299=34U, 300-349=36U, 350-399=38U, OVER 400=40U 15 mL 5 QUEtiapine (SEROquel) 25 MG tablet QUEtiapine (SEROquel) 50 MG tablet Tresiba FlexTouch 100 UNIT/ML injection Trulicity 3 MG/0.5ML solution auto-injector No current facility-administered medications on file prior to visit. documented in this encounter Miscellaneous Notes * Assessment & Plan Note - Janie Lynch MD - 03/26/2025 3:52 PM EDT Associated Problem(s): Vertigo Most likely postviral, reassurance. Start meclizine as needed if, if symptoms do not resolve within1 to 2 weeks, should reconsult as needed. Reminded to keep blood sugar under control and follow-up closely with PCP Caution with rectal bleeding or diarrhea, follow-up with PCP documented in this encounter Plan of Treatment Upcoming Encounters Date Type Department Care Team (Late st Contact Info) Description 04/07/2025 1:00 PM EST Clinical Support [facility] MEDICINE [address] [place] [address] Elza Graham RN 04/14/2025 1:00 PM EST Office Visit [facility] OPTOMETRY [address] [place] [address] MauricioKayleigh aguiar, OD [address] [place] [address] Scheduled Orders Name Type Priority Associated Diagnoses Orde r Schedule Basic Metabolic Panel Lab Routine Vertigo Expected: 03/24/2025 (Approximate), Expires: 03/24/2026 documented as of this encounter Goals Goal Patient Goal Type Associated Problems Recent Progress Patient-Stated? Author Patient will adhere to medication regimen General No Puia, Harini, PharmD Record your blood sugar as directed Result Component No Puia, Harini, PharmD Hemoglobin A1c < 7.5 Result Component 9.4( 5 11:05 AM EDT) No Puia, Harini, PharmD documented as of this encounter Visit Diagnoses Diagnosis Vertigo- Primary Dizziness and giddiness documented in this encounter Additional Health Concerns Assessment Noted Time PHQ-9 Depression Total Score: 0 08/17/19 24 11:11 AM EDT documented as of this encounter Care Teams Social Secretary Relationship Specialty Start Date End Date Smitha Coyne DO [address] [place] [address] PCP - General Family Medicine 06/05/18 documented as of this encounter
--- NOTE | ~2025-03-29 | XR_ITS ---
CLINICAL HISTORY: pain 2 view left knee Comparison: None provided Findings: Bones intact. No dislocations. Tricompartmental osteoarthritis. Extensive subchondral cyst formation of the lateral femoral condyle and the trochlea. Marginal osteophytes at the patellofemoral joint compartment. No joint effusion. No joint effusion. No radiopaque foreign body. IMPRESSION: 1. No acute findings. 2. Medial and patellofemoral osteoarthritis. This document has been electronically signed by: Rachid Cooney MD on 03/30/2025 01:40:29
--- NOTE | ~2025-03-29 | IR_ITS ---
CLINICAL HISTORY: End-stage renal disease. The patient presents to interventional radiology for placement of a tunneled central venous catheter for hemodialysis. PROCEDURES: 1. Real-time ultrasound-guided access into the right internal jugular vein after documentation of selected vessel patency, and permanent imaging storing in the patient record. 2. Placement of a 14.5 fr 23 cm tunneled, dual-lumen hemodialysis catheter. Clinician: Wale Pagan NP MEDICATIONS: -Fentanyl 25 mcg, Lidocaine 1% 10 mL SQ. -Antibiotics: Ancef -For additional details, please see nursing flowsheet. COMPLICATIONS: None. ESTIMATED BLOOD LOSS: <5 ml SPECIMENS: None FLUOROSCOPY TIME: 0.5 min MODERATE SEDATION TIME: And/ PROCEDURE NOTE: The procedure, risks, benefits, and alternatives were carefully explained to patient, and written informed consent was obtained. The patient was placed supine on the fluoroscopy table. A timeout was performed. The right neck and chest was prepped and draped in usual sterile fashion. Local anesthesia was administered to the access site with lidocaine. Under ultrasound guidance, the right internal jugular vein was accessed with a 5 Fr micropuncture set. A 0.035 in wire was advanced to the IVC to maintain access during the tunneling process. Next, subcutaneous lidocaine was administered to the chest. Using blunt dissection, a subcutaneous tunnel was created that connects from the upper chest to the venotomy site. The dialysis catheter was pulled through the tunnel. The tract in the vein was dilated and a peel-away sheath was advanced over the wire. The catheter was advanced through the sheath, which was subsequently peeled away. The catheter was tested, flushed, and sutured to the skin with its tip in the high right atrium. A permanent fluoroscopic image of the chest was saved to PACS. The catheter ports were packed with heparin per routine protocol. The patient was stable after the procedure and was transferred to the post anesthesia care unit. This procedure was performed under moderate sedation with a dedicated nurse and continuous monitoring of vital signs. FINDINGS: 1. Patent right internal jugular vein. 2. Placement of a tunneled, dual-lumen hemodialysis catheter as above. 3. Catheter flushes and aspirates very well with a 10 mL syringe. No pneumothorax. IR/IR cvc insert central tunnel IMPRESSION: Placement of a tunneled hemodialysis catheter in the right internal jugular vein. PLAN: -The catheter may be used immediately. This procedure was performed by Wale Pagan NP, and directly supervised by Ravinder Benson M.D.. Electronically signed by: Jorge Go MD 04/03/2025 12:57 PM EDT Workstation: [id number]
--- NOTE | ~2025-03-29 | XR_ITS ---
CLINICAL HISTORY: left shoulder pain 3 view left shoulder Comparison: CR/SR - XR SHOULDER 2 OR MORE VIEWS LEFT - 04/07/22 13:29 EDT Findings: Transversely oriented impacted fracture of the humeral neck with anteromedial angulation of the distal bone relative to the proximal bone. Moderate osteoarthritis of the AC joint and glenohumeral joint. EAC and glenohumeral joints are anatomic. No erosions. No radiopaque foreign body. Lateral soft tissue swelling. IMPRESSION: Humeral neck fracture. This document has been electronically signed by: Rick Cazares MD on 03/29/2025 18:41:11
--- NOTE | ~2025-03-29 | XR_ITS ---
CLINICAL HISTORY: hypoxia 1 view chest x-ray Comparison: None provided Findings: The lungs are clear. Eventration of the left hemidiaphragm and left basilar atelectatic changes. Normal size heart. No acute fracture. IMPRESSION: 1. No acute findings. 2. Eventration of the left hemidiaphragm and left basilar atelectatic changes. This document has been electronically signed by: Gina Huynh MD on 03/31/2025 19:42:06
[2025-03-29 17:02] VITALS: BP 102/66; BP 112/57; PULSE 80; PULSE 85; RESP 14; TEMP 36.9; O2SAT 98; BMI 54.6
[2025-03-29 17:08] VITALS: BP 102/66; PULSE 85; RESP 14; TEMP 36.9; O2SAT 98
--- NOTE | 2025-03-29 17:14 | PC.NURSE ---
Patient presents to ED after a fall Patient tripped on a shopping cart at home, landing on her left side Patient unsure if she hit her head, Denies LOC, N/V, Dizziness, lightheadedness, vision changes Patient c/o left and and left knee pain Patient able move left knee but struggles to move left arm d/t pain +CMs in both extremeties Patient is dialysis patient Tues -Thur - Sat, fistula in left arm + bruit/thrill VSS and up to date Provider in to see patient Plan of care on going
--- OUTSIDE RECORDS SUMMARY | 2025-03-29 17:19 | XMS_ITS | Clinical Summary ---
Author Organization [facility] Address [address] [place] [phone] Phone Care Team Providers Care Crop Grain Or Livestock Farm Manager Name Role Phone OctaviaSmitha short Primary Care Provider Allergies Active Allergy Reactions Criticality Noted Date Comments Aripiprazole 10/01/2020 Other reaction(s): Other (see comments) Sulfate Ion 10/06/2020 Medications aspirin 81 MG EC tablet Take 1 tablet by mouth. Active atorvastatin (LIPITOR) 20 MG tablet 01/30/2021 Active cholecalciferol (VITAMIN D3) 2,000 unit capsule Take 1 capsule by mouth. Active cyanocobalamin, vitamin B-12, 50 mcg tablet Take 50 mcg by mouth. Active enalapril (VASOTEC) 20 MG tablet 01/30/2021 Active famotidine (PEPCID) 40 MG tablet 01/30/2021 Active ferrous sulfate 325 mg (65 mg hughes iron) EC tablet Take 1 tablet by mouth 2 (two) times a day. Active furosemide (LASIX) 20 MG tablet 12/30/2020 Active insulin aspart protamine-insul in aspart (NOVOLOG MIX 70/30) 100 unit/mL (70-30) injection pen as directed. Act samy NOVOLOG MIX 70/30 100 unit/mL (70-30) injection pen 02/22/2021 Activ e TRESIBA FLEXTOUCH U-200 200 unit/mL (3 mL) InPn injection pen 01/25/2021 Activ e lansoprazole (PREVACID) 30 MG capsule 02/03/2021 Active metoprolol succinate (TOPROL-XL) 200 MG 24 hr tablet 01/30/2021 Act samy BD ULTRA-FINE TEMO PEN NEEDLE 32 gauge x 5/32 Ndle 01/30/2021 Active sucralfate (CARAFATE) 1 gram tablet 02/03/2021 Active omeprazole (PRILOSEC) 40 MG capsule Take 40 mg by mouth. Active loratadine (CLARITIN) 10 mg tablet Take 1 tablet by mouth. Active Social History Tobacco Use Types Packs/Day Years Used Date Smoking Tobacco: Never Assessed Education Answer Date Recorded Are you interested in more education? Not on yuridia e 10/01/2022 Are you concerned about learning? Not on file 10/01/2022 No 10/01/2022 No 10/01/2022 Digital Access Answer Date Recorded No 11/01/2022 No 11/01/2022 Reliable internet access at home? Not on file 11/01/2022 Device with a working camera? Not on file Comments Unknown Sex and Gender Information Value Date Recorded Sex Assigned at Not on file Legal Sex Female 11:30 AM EDT Gender Identity Not on file Sexual Orientation Not on file Last Filed Vital Signs Vital Sign Reading Time Taken Comments Blood Pressure - - Pulse - - Temperature - - Respiratory Rate - - Oxygen Saturation - - Inhaled Oxygen Concentration - - Weight 161 kg (355 lb) 03/01/2021 2:02 PM EDT Height 167.6 cm (5' 6 ) 03/01/2021 2:02 PM EDT Body Mass Index 57.3 03/01/2021 2:02 PM EDT Plan of Treatment Health Maintenance Due Date Last Done Comments CREATININE LEVEL 1969 LIPID PANEL 1969 POTASSIUM LEVEL 1969 DEPRESSION SCREENING 1981 SMOKING Hx and SMOKELESS TOBACCO SCREENING 1982 HEPATITIS C SCREENING 1987 HIV ONE-TIME SCREENING (18-6 5 YEARS) 1987 PAP SMEAR 1990 MAMMOGRAM 2009 COLOGUARD 2014 COLONOSCOPY 2014 COLORECTAL CANCER SCREENING 2014 FIT TEST 2014 FOBT 2014 SIGMOIDOSCOPY 2014 VIRTUAL COLONOSCOPY 2014 PNEUMOCOCCAL VACCINES (50+ years) (1 of 1 - PCV) 2019 ZOSTER VACCINES (1 of 2) 2019 Adult Td,Tdap Booster 06/03/2019 06/03/2009 , 06/03/2001 INFLUENZA VACCINE (#1) 2025 COVID-19 VACCINE ( - 2024-2 6 season) 2025 RSV VACCINE (1 - 1-dose 75+ series) 01/21/2044 HEPATITIS A VACCINES Aged Out No long er eligible based on patient's age to complete this topic HIB VACCINES Aged Out No longer eligi ble based on patient's age to complete this topic MENINGOCOCCAL VACCINES (ACWY) Aged Out No longer eligible based on patient's age to complete this topic MENINGOCOCCAL VACCINES (B) Aged Out N o longer eligible based on patient's age to complete this topic Medical Devices Not on file Insurance [address] [place] [id number] MEDICARE PART A & B [facility] MEDICARE PART A & B [place] & [place] & [place] PART A & B [address] [place] [id number] MEDICARE PART A & [place] Care Teams Crop Grain Or Livestock Farm Manager Relationship Specialty Start Date End Date Stanford Smitha [address] [place] [address] PCP - General Family Medicine 01/15/21 Additional Source Comments The information contained in this document represents components of the legal health record. It is not the complete legal health record.[facility]
--- OUTSIDE RECORDS SUMMARY | 2025-03-29 17:19 | XMS_ITS | Encounter Summary ---
Author Organization [employer] Address [address] [facility] 7t [place] [address] Care Team Providers Care Daycare Provider Name Role Phone Smitha Coyne Primary Care Provider + [phone] Reason for Visit * Reason Comments Med Refill Encounter Details Date Type Department Care Team ([facility] st Contact Info) Description 01/10/2025 Refill [facility] MEDICINE [address] [place], [place] [phone] Alyssa Ca MD [address] [place], [place] [phone] Social History Tobacco Use Types Packs/Day Years [...] Description 04/07/2025 1:00 PM EST Clinical Support [facility] MEDICINE [address] [place] [address] Elza Graham RN 04/14/2025 1:00 PM EST Office Visit [facility] OPTOMETRY [address] [place] [address] Mauricio, Kayleigh, OD [address] [place] [address] documented as of this encounter Goals Goal Patient Goal Type Associated Problems Recent Progress Patient-Stated? Author Patient will adhere to medication regimen General No Puia, Harini, PharmD Record your blood sugar as directed Result Component No Puia, Harini, PharmD Hemoglobin A1c < 7.5 Result Component 9.4( 11:05 AM EDT) No Puia, Harini, PharmD documented as of this encounter Visit Diagnoses Not on filedocumented in this encounter Additional Health Concerns Assessment Noted Time PHQ-9 Depression Total Score: 0 08/17/19 24 11:11 AM EDT documented as of this encounter Care Teams Daycare Provider Relationship Specialty Start Date End Date Smitha Coyne DO [address] [place] [address] PCP - General Family Medicine 06/05/18 documented as of this encounter
--- OUTSIDE RECORDS SUMMARY | 2025-03-29 17:19 | XMS_ITS | Encounter Summary ---
Author Organization [employer] Address [address] [facility] 7t [place] [address] Care Team Providers Care Music Video Director Name Role Phone Smitha Coyne DO Primary Care Provider [phone] Harini Marshall PharmD Unavailable [phone] Encounter Details Date Type Department Care Team (Late st Contact Info) Description 04/20/2023 Abstract [facility] [address] [place], [place] [phone] Smitha Coyne DO [address] [place], [place] [phone] Social History Tobacco Use Types Packs/Day Years [...] Description 04/07/2025 1:00 PM EST Clinical Support [facility] [address] [place] [address] Elza Graham, ROSA 04/14/2025 1:00 PM EST Office Visit [facility] OPTOM[facility] [address] [place] [address] Mauricio, Kayleigh, OD [address] [place] [address] documented as of this encounter Visit Diagnoses Not on filedocumented in this encounter Care Teams Music Video Director Relationship Specialty Start Date End Date Smitha Coyne DO [address] [place] [phone] PCP - General Family Medicine 06/05/18 Harini Marshall PharmD [address] [place] [address] Pharmacist Internal Medicine 08/22/23 09/21/23 Elza Au Home Connect Lpn 07/04/23 10/03/23 documented as of this encounter
--- OUTSIDE RECORDS SUMMARY | 2025-03-29 17:19 | XMS_ITS | Encounter Summary ---
Author Organization [employer] Address [address] [place] [address] 7t [place] [address] Care Team Providers Care Educational Assistant Teacher Name Role Phone MirlandeSmitha grande Primary Care Provider [phone] Harini Marshall PharmD Unavailable [phone] Encounter Details Date Type Department Care Team ([facility] Contact Info) Description 10/03/[address] [facility] [address] [place] [address] [phone] Alexa Gramajo FNP [address] [place] [address] Social History Tobacco Use Types Packs/Day Years [...] Upcoming Encounters Date Type Department Care Team ([facility] Contact Info) Description 04/07/2025 1:00 PM EST Clinical [address] [facility] [address] [place] [phone] Elza Graham RN 04/14/2025 1:00 PM EST Office Visit [facility] OPTOMETRY [address] [place] [address] Kayleigh Martínez, OD [address] [place] [address] documented as of this encounter Visit Diagnoses Not on filedocumented in this encounter Care Teams Educational Assistant Teacher Relationship Specialty Start Date End Date Smitha Coyne DO [address] [place] [address] PCP - General Family Medicine 06/05/18 Harini Marshall PharmD [address] [place], [place] [phone] Pharmacist Internal Medicine 08/22/23 09/21/23 Elza Au Business Controller 07/04/23 10/03/23 documented as of this encounter
--- OUTSIDE RECORDS SUMMARY | 2025-03-29 17:19 | XMS_ITS | Encounter Summary ---
Author Organization [employer] Address [address] [facility] 7t [place] [address] Care Team Providers Care Take Away Worker Name Role Phone Smitha Coyne DO Primary Care Provider [phone] Harini Marshall PharmD Unavailable [phone] Reason for Visit * Reason Comments Med Refill Encounter Details Date Type Department Care Team ([facility] st Contact Info) Description 04/20/2023 Refill [facility] [address] [place], [place] [phone] Smitha Coyne DO [address] [place], [place] [phone] Social History Tobacco Use Types Packs/Day Years [...] Description 04/07/2025 1:00 PM EST Clinical Support [facility] [address] [place] [address] Elza Graham, ROSA 04/14/2025 1:00 PM EST Office Visit [facility] OPTOMETRY [address] [place], [place] [phone] Mauricio, Kayleigh, OD [address] [place] [address] documented as of this encounter Visit Diagnoses Not on filedocumented in this encounter Care Teams Take Away Worker Relationship Specialty Start Date End Date Smitha Coyne DO [address] [place] [phone] PCP - General Family Medicine 06/05/18 Harini Marshall PharmD [address] [place] [address] Pharmacist Internal Medicine 08/22/23 09/21/23 Elza Au Dietitian Consultant 07/04/23 10/03/23 documented as of this encounter
--- OUTSIDE RECORDS SUMMARY | 2025-03-29 17:19 | XMS_ITS | Encounter Summary ---
Author Organization [facility] Address [address] [place] [address] Phone Care Team Providers Care Housing And Residence Life Director Name Role Phone Smitha Coyne DO Primary Care Provider Unava ilable Encounter Details Date Type Department Care Team ([facility] st Contact Info) Description 10/26/2021 Telephone [facility] [address] [place] [address] Mynor Mcgill MD [address] [facility] [address] [place] [address] Social History Tobacco Use Types [...] she will be going to the ER [facility] due to a kidney stone flare up. If you'd like to speak with her she can be reached at [phone] Thank you documented in this encounter Plan of Treatment Not on file documented as of this encounter Visit Diagnoses Not on filedocumented in this encounter Care Teams Housing And Residence Life Director Relationship Specialty Start Date End Date Smitha Coyne DO PCP - General 06/15/20 12/25/22 documented as of this encounter
--- OUTSIDE RECORDS SUMMARY | 2025-03-29 17:19 | XMS_ITS | Encounter Summary ---
Author Organization [employer] Address [address] [facility] 7t [place] [address] Care Team Providers Care College Archivist Name Role Phone Smitha Coyne DO Primary Care Provider Harini Marshall PharmD Unavailable [phone] Reason for Visit * Reason Onset Date Comments Med Refill 09/23/2022 Encounter Details Date Type Department Care Team (Late st Contact Info) Description 09/23/2022 Telephone [facility] MEDICINE [address] [place], [place] [phone] Smitha Coyne DO [address] [place], [place] [phone] Med Refill Social History Tobacco Use Types [...] - 09/23/2022 3:57 PM EDT Tc from [facility] requesting a PA for medication lansoprazole (Prevacid) [address] capsule documented in this encounter Plan of Treatment Upcoming Encounters Date Type Department Care Team (Late st Contact Info) Description 04/07/2025 1:00 PM EST Clinical Support [facility] MEDICINE [address] [place] [address] Elza Graham, ROSA 04/14/2025 1:00 PM EST Office Visit [facility] OPTOMETRY [address] [place] [address] Mauricio, Kayleigh, OD [address] [place] [address] documented as of this encounter Visit Diagnoses Not on filedocumented in this encounter Care Teams College Archivist Relationship Specialty Start Date End Date Smitha Coyne DO [address] [place] [address] PCP - General Family Medicine 06/05/18 Harini Marshall, Ronaldo [address] [place] [address] Pharmacist Internal Medicine 08/22/23 09/21/23 Elza Au Boatswain Mate 07/04/23 10/03/23 documented as of this encounter
--- OUTSIDE RECORDS SUMMARY | 2025-03-29 17:19 | XMS_ITS | Clinical Summary ---
Author Organization [employer] Address [address] [place] [address] 7 [place] [address] Care Team Providers Care Senior Front End Developer Name Role Phone OctaviaSmitha short Primary Care Provider [phone] Allergies Active Allergy Reactions Criticality Noted Date [...] Risperidone 01/27/2022 Other reaction(s): increase prolectin level Mgj-Twjuu-Awxt-Lidocaine 05/19/2023 Other reaction(s): Rash, Inflammation Sertraline Rash Low 11/21/2005 Other reaction(s): rash Sulfa Antibiotics Low 11/21/2005 Other reaction(s): Jaundice Jaundicehas previously tolerated tamsulosin Other reaction(s): Jaundice Jaundicehas previously tolerated tamsulosin Sumatriptan Rash Low 06/30/2022 Tolmetin Rash Low 01/27/2022 Valproic Acid 05/03/2012 Other reaction(s): unknown Medications calcium acetate (Phoslo) 667 MG tablet Take 1 tablet by mouth 3 times daily. 2 Active cholecalciferol (Vitamin D-3) 25 MCG (1000 UT) capsule Take 1 capsule by mouth 1 (one) time each day. Active estradiol (Estrace) 0.1 MG/GM vaginal cream Insert 1 gram vaginally at bedtime twice weekly 2 Active ferrous sulfate 325 (65 Fe) MG EC tablet Take 1 tablet by mouth 1 (one) time each day. Active Lancets 33G misc Test blood sugar 3 times daily Active midodrine (Proamatine) 5 MG tablet Take 1 tablet by mouth three times daily Only uses on dialysis days when BP gets low. 3 Active magnesium oxide (Mag-Ox) 400 mg tablet [...] of candidiasis. Do not swallow. 1 each 4 Active glucose blood (FREESTYLE LITE) test stripIndications :Type 2 diabetes mellitus with ESRD (end-stage renal disease) ([facility]) TEST BLOOD SUGAR THREE TIMES A DAY 100 strip 11 4 Active Alcohol Swabs (Alcohol Prep) 70 % pads APPLY ONE SWAB TOPICALLY TWO TIMES A DAY 100 each 11 4 Active baclofen (Lioresal) 10 MG tabletIndication s:Chronic bilateral low back pain, unspecified whether sciatica present Take 0.5 tablets (5 mg) by mouth if needed in the morning and at bedtime for muscle spasms. 30 tablet 3 4 04/05/20 25 Active Diclofenac Sodium 1 % gel Apply 2 g topically if needed in the morning, at noon, in the evening, and at bedtime (pain). 150 g 3 4 Active Tresiba FlexTouch 100 UNIT/ML injection 4 Active QUEtiapine (SEROquel) 25 MG tablet 4 Active NovoLOG MIX 70/30 FLEXPEN (70-30) 100 UNIT/ML injectionIndicat ions:Type 2 diabetes mellitus with ESRD (end-stage renal disease) ([facility]) INJECT TWO TIMES A DAY PER SLIDING SCALE- FOR BS BETWEEEN 100-149=28U, 150-199=30U, 200-249=32U, 250-299=34U, 300-349=36U, 350-399=38U, OVER 400=40U 15 mL 5 5 Active Trulicity 3 MG/0.5ML solution auto-injector 5 Active QUEtiapine (SEROquel) 50 MG tablet 5 Active lansoprazole (Prevacid) [address] capsule TAKE ONE CAPSULE BY MOUTH TWICE A DAY BEFORE MEALS 180 capsule 1 5 Active metoprolol succinate XL (Toprol-XL) 100 MG 24 hr tabletIndication s:Essential hypertension TAKE ONE TABLET BY MOUTH EVERY MORNING. DO NOT CRUSH OR CHEW 90 tablet 3 5 Active atorvastatin (Lipitor) 20 MG tablet TAKE ONE TABLET BY MOUTH AT BEDTIME 90 tablet 5 Active BD Pen Needle Archana Ultrafine 32G X 4 MM misc USE WITH LANTUS AND NOVOLOG INSULIN DIRECTED 150 each 11 5 Active loperamide (Imodium) 2 MG capsuleIndicatio ns:Watery stools TAKE 1 TO 2 CAPSULES IN MORNING, NOON AND EVENING, AND AT BEDTIME NEEDED DIARRHEA 60 capsule 1 5 Active loratadine (Allergy Relief) 10 MG tablet TAKE ONE TABLET BY MOUTH EVERY DAY NEEDED ALLERGIES 90 tablet 1 5 Active amitriptyline (Elavil) 50 MG tablet TAKE ONE TABLET BY MOUTH AT BEDTIME 30 tablet 3 5 Active meclizine (Antivert) 25 MG tablet Take 1 tablet (25 mg) by mouth if needed in the morning, at noon, and at bedtime for dizziness for up to 10 days. 30 tablet 5 04/03/20 25 Active HYDROcodone-acet aminophen (Newton) 5-325 MG tabletIndication s:Chronic bilateral low back pain with sciatica, sciatica laterality unspecified Take 2 tablets by mouth every 6 (six) hours if needed for severe pain for up to 5 days. 40 tablet 5 03/08/20 25 Active Problems Problem Noted Date Diagnosed Date Vertigo 03/24/2025 Assessment & Plan (03/26/2025 3:52 PM EDT): Most likely postviral, reassurance. Start meclizine as needed if, if symptoms do not resolve within 1 to 2 weeks, should reconsult as needed. Reminded to keep blood sugar under control and follow-up closely with PCP Caution with rectal bleeding or diarrhea, follow-up with PCP Long-term current use of opiate analgesic 2024 Le's esophagus 08/26/2024 Recurrent nephrolithiasis 11/14/2023 Lichen [...] FU renal, fistula in place Ileostomy present ([facility]) 08/18/2022 Chronic pain of both knees 06/09/2022 History of COVID-19 03/30/2022 Overview (11/22/2022): Problem added by Discern Expert Type 2 diabetes mellitus 09/23/2021 Assessment & Plan (01/04/2023 2:37 PM EDT): F/u with PCP Assessment & Plan (12/13/2022 11:51 AM EDT): pt noncompliant with diet mainly due to MH issues FU with web analytics specialist this afternoon Assessment & Plan (10/28/2022 1:41 [...] Mild intermittent asthma 04/20/2015 BMI 50.0-59.9, adult ([facility]) 04/20/2015 Obstructive sleep apnea 04/20/2015 Ulcerative colitis [...] Panniculitis 05/19/2023 05/19/2023 06/01/2023 First time seizure (CMS/HCC) 01/04/2023 02/23/2023 Assessment & Plan (01/04/2023 2:36 [...] kidney disease) stage 4, GFR 15-29 ml/min ([facility]) 01/27/2022 02/23/2023 Encounters Date Type Department Care Team Description 03/24/2025 3:45 PM EDT Office Visit [facility] [address] [place] [address] Janie Lynch MD Vertigo (Primary Dx) 03/24/2025 Travel 03/24/2025 Telephone [facility] [address] [place] [address] Smitha Coyne DO Nurse Triage 02/28/2025 Refill [facility] [address] [place] [address] Smitha Coyne DO Chronic bilateral low back pain with sciatica, sciatica laterality unspecified (Primary Dx) 02/17/2025 Refill [facility] [address] [place] [address] Smitha Coyne DO 01/10/2025 Refill [facility] [address] [place] [address] Alyssa Ca MD 01/07/2025 Refill [facility] [address] [place] [address] Smitha Coyne DO Watery stools 12/27/2024 Refill [facility] [address] [place] [address] Smitha Coyne DO from Last 3 Months Immunizations Immunization Administration [...] Mass Index 49.94 03/24/2025 4:00 PM EDT Plan of Treatment Upcoming Encounters Date Type Department Care Team (Late st Contact Info) Description 04/07/2025 1:00 PM EST Clinical Support [facility] [address] [place] [address] Elza Graham RN 04/14/2025 1:00 PM EST Office Visit [facility] OPTOMETRY [address] [place] [address] Kayleigh Martínez, OD [address] [place] [address] Health Maintenance Due Date Last Done Comments CT Colonography 1969 Colonoscopy 1969 Colorectal Cancer Screening 1969 FIT DNA/Cologuard 1969 FIT 1969 FOBT 1969 Sigmoidoscopy 1969 Disability Screening 1969 Diabetes: Foot Exam 1979 Alcohol/Substance Use Screening 1981 Pneumococcal Vaccine: 50+ Years (1 of 2 - PCV) 01/21/1988 Pap Smear 1990 Zoster Vaccines (1 of 2) 2019 Cervical Cancer Screening 03/31/2022 HPV/Cotest 03/31/2022 03/31/2017 Depression Screening 08/16/2024 08/17/2023, 08/17/19 24 SDOH Screening 08/16/2024 08/17/2023 Lipid Panel 08/21/2024 08/22/2023, 01/28/2021 Diabetes: Hemoglobin A1C 02/01/202511/01/ 025, 05/08/2024, 02/12/2024, Additional history exists COVID-19 Vaccine ( season) 2025 Influenza Vaccine (#1) 2025 Mammogram 06/21/2025 06/21/2024, 1011/2022, 03/27/2018 Eye Exam 10/11/2025 10/11/2024, 0502/2025, 10/11/2024, Additional history exists Tobacco Screening 11/18/2025 11/18/2024 DTaP/Tdap/Td Vaccines (4 - Td or Tdap) 09/16/2029 09/17/2019, 06/03/2009, 06/03/2001 RSV Patients and Patients Aged 60 years or older (1 - 1-dose 75+ series) 01/21/2044 HIV Screening Completed 11/19/2021, 01/28/2021 Hepatitis C Screening Completed 11/19/2021, 021 Hepatitis B Vaccines Completed 10/17/2024, 09/10/2024, 07/13/2024, Additional history exists HIB Vaccines Aged Out [...] Result Component 9.4( 11:05 AM EDT) No Harini Marshall PharmD Procedures Procedure Name Priority Date/Time Associated Diagnosis Comments POCT GLYCATED HEMOGLOBIN, TOTAL Routine 11/01/2024 11:05 AM EDT Type 2 diabetes mellitus with ESRD (end-stage renal disease) (CMS/HCC) BI MAMMOGRAM SCREENING TOMOSYNTHESIS BILATERAL Routine 06/21/2024 2:20 PM EST Encounter for screening mammogram for malignant neoplasm of breast LIPID PANEL, STANDARD Routine 08/22/2023 12:20 PM EDT Type 2 diabetes mellitus with ESRD (end-stage renal disease) (CMS/HCC) ZZZ HISTORICAL HEPATITIS C ANTIBODY RFLX Routine 11/19/2021 12:50 PM EDT [facility] HISTORICAL HEPATITIS B SURFACE ANTIBODY Routine 11/19/2021 12:50 PM EDT Z HISTORICAL HPV E6/E7 RFLX ALEJANDRO 16 18/45 Routine 03/31/2017 11:35 AM EDT from Last 3 Months or Most Recently Relevant to Health Maintenance Results * (ABNORMAL) POCT HGB A1C (11/01/2024 11:05 AM EDT) Hemoglobin A1C 9.4(A) 4.0 - 6.0 % QC Media Lot # [id number] Lot# Expiration Date Blood 11/01/2024 11:0 5 AM EDT Smitha Coyne DO POINT OF CARE TEST ENTER/JOSE T ORDERABLES Final Result * BI Mammogram Screening Tomosynthesis Bilateral (06/21/2024 2:20 PM EST) Anatomical Region Laterality Modality Breast Bilateral Mammography 06/21/2024 2:20 PM EST Narrative 06/30/2024 4:20 PM EST [facility] [address] [place], [place] [address] Mammography Report Signed Patient: Nyla Wiley MR#: [id number] : 1970 Acct:[id number] Age/Sex: 54 / F ADM Date: 06/21/24 Loc: MAMMO Attending Dr: Smitha Coyne DO Ordering Physician: Smitha Coyne DO Results: 2B enign Findings Date of Service: 06/21/24 Follow Up: 1 Year From Orig ina Mammogram Procedure(s): MM tomosynthesis screening BI Accession Number(s): [id number] cc: Smitha Coyne DO EXAMINATION: MM SCREENING [...] by: Lexus Norton DO 06/30/2024 04:17 PM [facility] Dictated By: Lexus Norton DO Signed By: <Electronically signed by Lexus Norton DO in OV> 06/30/24 1617 DD/ 1420 TD/TT: 06/21/24 1455 Pulley Mortiser Operator: Procedure Note Donotuseinterpreter, Image - 06/30/2024 [facility] [address] [place] [address] Mammography Report Signed Patient: Kelvin Wiley#: [id number] : 1970Acct:[id number] Age/Sex: 54 / FADM Date: 06/21/24 Loc: MAMMO Attending Dr: Smitha Coyne DO Ordering Physician: Smitha Coyneults: 2B enign Findings Date of Service: 06/21/24Follow Up: 1 Year From Orig ina Mammogram Procedure(s): MM tomosynthesis screening BI Accession Number(s): [id number] cc: Smitha Coyne DO EXAMINATION: MM SCREENING [...] Norton DO Signed By: <Electronically signed by eLxus Norton DO in OV> 06/30/24 1617 DD/ 1420 TD/TT: 06/21/24 1455 Pulley Mortiser Operator: Smitha Coyne DO [facility] BI PROCEDURES Edited Res ult - Final * (ABNORMAL) Lipid Panel, Standard (08/22/2023 12:20 PM EDT) Triglycerides 211(H) <150 mg/dL [facility] Comment:Desirable Triglyceri de: less than 150 mg/dLBorderline High Triglyceride 150-199 mg/dLHigh Triglyceride: 200-499 mg/dLVery High Triglyceride: greater than or equal to 5OO mg/dL Cholesterol 106 <200 mg/dL [facility] Comment:Desirable Cholestero l: less than 200 mg/dLBorderline High Cholesterol: 200-239 mg/dLHigh Cholesterol: greater than 239 mg/dL LDL Cholesterol Calculated 33 <100 mg/dL [facility] Comment:Desirable LDL: less than 100 mg/dLNear Optimal/Above Optimal LDL: 110- 129 mg/dLBorderline High LDL: 130-159 mg/dLHigh LDL: 160-189 mg/dLVery High LDL: greater than or equal to 190 mg/dL HDL Cholesterol 31(L) >40 mg/dL [facility] Comment:Desirable HDL: great er than 40 mg/dL Note: This HDL assay may give artificially low results in patients with liver disease. Blood Venous blood specimen / Unknown 08/22/2023 12:20 PM EDT 08/22/2023 4:13 PM EDT Smitha Coyne DO LAB BLOOD ORDERABLES Final R esult [facility] [address] [place] [phone] * HEPATITIS B SURFACE ANTIBODY (11/19/2021 12:50 PM EDT) Pathologist [facility] Hepatitis B Surface Antibody NONREACTIVE Nonreactive [facility] Comment:Nonreactive: < 8.00 mIU/mL Hepatitis B Surface Antigen Negative Negative [facility] HIV AB/AG Nonreactive Nonreactive [facility] Comment: HIV-1 p24 Ag and/or HIV-1/HIV-2 Ab not detected. A test result that is nonreactive does not exclude the possibility of exposure to or infection with HIV-1 and/or HIV-2. Nonreactive results in this assay for individuals with prior exposure to HIV-1 and/or HIV-2 may be due to antigen and antibody levels that are below the limit of detection of this assay. The [employer] HIV Ag/Ab Combo assay result and supplemental assay results should be interpreted in conjunction with the patient's clinical presentation, history and other laboratory results. If the results are inconsistent with clinical evidence, additional testing is suggested to confirm the result. 11/19/2021 12:5 0 PM EDT us Smitha Coyne DO HISTORICAL/NON ORDERABLE LAB S Final Result Performing Organization Address [facility]/ZIP Co de Phone Number [facility] [address] [place] [address], * HEPATITIS C ANTIBODY RFLX (11/19/2021 12:50 PM EDT) Hepatitis C Antibody Nonreactive Nonreactive [facility] Comment: Antibodies to HCV not detected; does not exclude early acute HCV infection. 11/19/2021 12:5 0 PM EDT Smitha Coyen DO HISTORICAL/NON ORDERABLE LAB S Final Result Performing Organization Address [facility] de Phone Number [facility] [address] [place] [address], * HPV E6/E7 RFLX ALEJANDRO 16 18/45 (03/31/2017 11:35 AM EDT) HPV mRNA E6/E7 Not Detected NOT DETECTED [facility] Comment: This test was performed using the APTIMA(R) HPV Assay ([employer] This assay detects E6/E7 viral messenger RNA (mRNA) from 14 high-risk HPV types (16,18,31,33,35,39,45,51, 52,56,58,59,66,68). For additional information please refer to: http://education.[employer]/faq/DPI254h9 (This link is being provided for informational/ educational purposes only.) Please note: Effective 02/15/2016, HPV testing will be performed using [employer]'s APTIMA test which targets mRNA. Detecting mRNA instead of DNA, as in older methods, offers significant improvements in specificity. HPV 18/45 RNA Test not performed [facility] ADDITIONAL TESTING Not indicated () [facility] Comment: Test Performed by Opal Farrell, [employer] Hari [facility], [address] [place] [address] Misha Lauren M.D., Ph.D., Director of Laboratories , [facility] [id number] HPV 16 RNA Test not performed [facility] 03/31/2017 11:3 5 AM EDT Smitha Coyne DO HISTORICAL/NON ORDERABLE LAB S Final Result [facility] [address] [place] [address], from Last 3 Months or Most Recently Relevant to Health Maintenance Insurance MEDICARE Member Subscriber Plan / Payer (Ef fective 1990-Present) Name:Nyla Wiley Member ID:[id number] Relation to Subscriber:Self Name:Nyla Wiley Subscriber ID:[id number] Payer ID:STATE Group ID:Not on file Type:Medicare Address: [facility] [address] [address] [facility] Care Teams Senior Front End Developer Relationship Specialty Start Date End Date Smitha Coyne DO [address] [place] [address] PCP - General Family Medicine 06/05/18
--- OUTSIDE RECORDS SUMMARY | 2025-03-29 17:19 | XMS_ITS | Encounter Summary ---
Author Organization [employer] Address [address] [facility] 7t [place] [address] Care Team Providers Care Optometrist Assistant Name Role Phone Smitha Coyne DO Primary Care Provider Harini Marshall PharmD Unavailable [phone] Reason for Visit * Reason Onset Date Comments Appointment Request 11/08/2022 Encounter Details Date Type Department Care Team ([facility] st Contact Info) Description 11/08/2022 Telephone [facility] MEDICINE [address] [place], [place] [phone] Smitha Coyne DO [address] [place], [place] [phone] Appointment Request Social History Tobacco Use Types [...] sooner appt withprovider. Please contact pt at [phone] documented in this encounter Plan of Treatment Upcoming Encounters Date Type Department Care Team (Late st Contact Info) Description 04/07/2025 1:00 PM EST Clinical Support [facility] MEDICINE [address] [place] [address] Elza Graham, ROSA 04/14/2025 1:00 PM EST Office Visit [facility] OPTOMETRY [address] [place], [place] [phone] Kayleigh Martínez, SANGEETA [address] [place] [address] documented as of this encounter Visit Diagnoses Not on filedocumented in this encounter Care Teams Optometrist Assistant Relationship Specialty Start Date End Date Smitha Coyne DO [address] [place] [address] PCP - General Family Medicine 06/05/18 Harini Marshall PharmD [address] [place] [address] Pharmacist Internal Medicine 08/22/23 09/21/23 Elza Au Income Tax Return Preparer 07/04/23 10/03/23 documented as of this encounter
--- OUTSIDE RECORDS SUMMARY | 2025-03-29 17:19 | XMS_ITS | Encounter Summary ---
Author Organization [employer] Address [address] [facility] 7t [place] [address] Care Team Providers Care Track Repair Laborer Name Role Phone Smitha Coyne DO Primary Care Provider [phone] Harini Marshall PharmD Unavailable [phone] Encounter Details Date Type Department Care Team (Late st Contact Info) Description 08/11/2023 Telephone [facility] MEDICINE 230 [place], [place] [phone] Smitha Coyne DO [address] [place], [place] [phone] Social History Tobacco Use Types Packs/Day Years [...] from pt stated they received a call, commercial insurance underwriter didn't see anything tasked. documented in this encounter Plan of Treatment Upcoming Encounters Date Type Department Care Team (Late st Contact Info) Description 04/07/2025 1:00 PM EST Clinical Support [facility] MEDICINE [address] [place] [address] Elza Graham RN 04/14/2025 1:00 PM EST Office Visit [facility] OPTOMETRY [address] [place] [address] Kayleigh Martínez, OD [address] [place] [address] documented as of this encounter Visit Diagnoses Not on filedocumented in this encounter Care Teams Track Repair Laborer Relationship Specialty Start Date End Date Smitha Coyne DO [address] [place] [address] PCP - General Family Medicine 06/05/18 Harini Marshall PharmD [address] [place] [address] Pharmacist Internal Medicine 08/22/23 09/21/23 lEza Au Sales Agent 07/04/23 10/03/23 documented as of this encounter
--- OUTSIDE RECORDS SUMMARY | 2025-03-29 17:19 | XMS_ITS | Clinical Summary ---
Author Organization [facility] Address [address] [place] [address] Care Team Providers Care Application Chemist Name Role Phone Smitha Coyne Kacy Primary Care Provider [phone]- [phone] Allergies Active Allergy Reactions Criticality Noted Date [...] Other reaction(s): rash Lorazepam Rash Low 10/04/2021 Coi-Hniix-Pygc-Lidocaine Unknown 05/19/2023 Other reaction(s): Rash, Inflammation Fktclsvq-Mnggixvvdu-Ignkyv mark Dermatitis 11/14/2023 Oxcarbazepine Agitation,Other (see comments),Unknown [...] (1 of 2) 2019 Sigmoidoscopy 04/20/2020 04/20/2015 Hemoglobin A1C 02/17/2024 08/17/2023 Alcohol/Substance Use Screening 06/05/2024 Depression Screening and Follow-Up 06/05/2024 Social Drivers of Health Randee ual Screening 06/05/2024 Basic Metabolic Panel 08/21/2024 08/22/2023 Colon Cancer Screening 08/21/2024 FOBT / Fit Test 08/21/2024 08/22/2023, 04/20/2015 COVID-19 Vaccine (1 - 2024- season) 2025 Influenza Vaccine (#1) 2025 Mammogram 03/30/2025 03/30/2023, 03/06, 03/27/2018 DTaP,Tdap,and Td Vaccines (4 - Td or Tdap) 09/16/2029 09/17/2019, 06/03/2009, 06/03/2001 RSV Vaccine (60+ years old a nd patients) (1 - 1-dose 75+ series) 01/21/2044 Hepatitis B Vaccines Completed 12/14/2006, 07/27/2006, 06/26/2006 HIV Screening Completed 01/28/2021 Insurance MEDICARE [facility] Care Teams Application Chemist Relationship Specialty Start Date End Date Smitha Coyne [address] [place] [address] PCP - General Family Medicine 09/05/23
--- OUTSIDE RECORDS SUMMARY | 2025-03-29 17:19 | XMS_ITS | Encounter Summary ---
Author Organization [employer] Address [address] [place] [address] 7t [place] [address] Care Team Providers Care Devops Consultant Name Role Phone MirlandeSmitha grande Primary Care Provider [phone] Harini Marshall PharmD Unavailable [phone] Encounter Details Date Type Department Care Team (Late Contact Info) Description 08/26/2022 Orders Only [facility] MEDICINE [address] [place] [id number] Nery Treadwell MD [address] [place], [place] [phone] Chronic pelvic pain in female; Chronic lower [...] Department Care Team (Late Contact Info) Description 04/07/2025 1:00 PM EST Clinical Support [facility] MEDICINE [address] [place] [address] Elza Graham, RN 04/14/2025 1:00 PM EST Office Visit [facility] OPTOMETRY [address] [place], [place] [phone] Kayleigh Martínez, OD 230 [place] [address] documented as of this encounter Visit Diagnoses Diagnosis Chronic pelvic pain in female Unspecified symptom associated with female genital organs Chronic lower urinary tract infection documented in this encounter Care Teams Devops Consultant Relationship Specialty Start Date End Date Smitha Coyne DO [address] [place] [address] PCP - General Family Medicine 06/05/18 Harini Marshall PharmD [address] [place] [address] Pharmacist Internal Medicine 08/22/23 09/21/23 Elza Au Mineral Industry Teacher 07/04/23 10/03/23 documented as of this encounter
--- OUTSIDE RECORDS SUMMARY | 2025-03-29 17:19 | XMS_ITS | Patient Health Record ---
Author Organization [facility] Address [address] [place] [phone] Care Team Providers Care Voip Engineer Name Role Phone Manuel Crawford Unavailable [phone] Reason For Referral No Information Plan Of Treatment No Information
--- OUTSIDE RECORDS SUMMARY | 2025-03-29 17:19 | XMS_ITS | Encounter Summary ---
Author Organization [employer] Address [address] [facility] 7t [place] [address] Care Team Providers Care Records Coordinator Name Role Phone Smitha Coyne Primary Care Provider + [phone] Encounter Details Date Type Department Care Team (Latest Contact Info) Description 03/24/2025 Travel Social History Tobacco Use Types Packs/Day [...] Description 04/07/2025 1:00 PM EST Clinical Support [facility] MEDICINE [address] [place] [address] Elza Graham RN 04/14/2025 1:00 PM EST Office Visit [facility] OPTOMETRY [address] [place] [address] Kayleigh Martínez, OD [address] [place] [address] documented as of this encounter Goals Goal [...] documented as of this encounter Care Teams Records Coordinator Relationship Specialty Start Date End Date Smitha Coyne DO [address] [place] [address] PCP - General Family Medicine 06/05/18 documented as of this encounter
--- OUTSIDE RECORDS SUMMARY | 2025-03-29 17:19 | XMS_ITS | Encounter Summary ---
Author Organization [facility] Address [address] [place] [address] Phone Care Team Providers Care Electrical Laboratory Technician Name Role Phone Unavailable Primary Care Provider Unavailabl e Reason for Visit * Reason Onset Date Comments Med Refill 03/29/2025 Encounter Details Date Type Department Care Team (Late st Contact Info) Description 03/29/2025 Refill [facility] [address] [place] [address] Amarilis De León, RN [address] [place] [address] Social History Tobacco Use Types Packs/Day Years [...] on file documented as of this encounter Plan of Treatment Not on file documented as of this encounter Visit Diagnoses Not on filedocumented in this encounter
--- OUTSIDE RECORDS SUMMARY | 2025-03-29 17:19 | XMS_ITS | Encounter Summary ---
Author Organization [facility] Address [address] [place] [address] Phone Care Team Providers Care Client Resolution Specialist Name Role Phone Smitha Coyne DO Primary Care Provider Unava ilable Encounter Details Date Type Department Care Team ([facility] st Contact Info) Description 08/04/2021 Telephone [facility] [address] [place] [address] Mynor Mcgill MD [address] [facility] [address] [place] [address] Social History Tobacco Use Types [...] from 07/19/21. Please call her back at [phone] pt will be unavalible after 4 today documented in this encounter Plan of Treatment Not on file documented as of this encounter Visit Diagnoses Not on filedocumented in this encounter Care Teams Client Resolution Specialist Relationship Specialty Start Date End Date Smitha Coyne DO PCP - General 06/15/20 12/25/22 documented as of this encounter
--- OUTSIDE RECORDS SUMMARY | 2025-03-29 17:19 | XMS_ITS | Encounter Summary ---
Author Organization [employer] Address [address] [facility] 7t [place] [address] Care Team Providers Care Remotely Piloted Vehicle Controller Name Role Phone Smitha Coyne DO Primary Care Provider [phone] Harini Marshall PharmD Unavailable [phone] Reason for Visit * Reason Comments Med Refill Encounter Details Date Type Department Care Team ([facility] st Contact Info) Description 04/22/2023 Refill [facility] MEDICINE [address] [place], [place] [phone] Smitha Coyne DO [address] [place], [place] [phone] Watery stools Social History Tobacco Use Types [...] Description 04/07/2025 1:00 PM EST Clinical Support [facility] MEDICINE [address] [place] [address] Elza Graham, RN 04/14/2025 1:00 PM EST Office Visit [facility] OPTOMETRY [address] [place] [address] Mauricio, Kayleigh, OD [address] [place] [address] documented as of this encounter Visit Diagnoses Diagnosis Watery stools Abnormal feces documented in this encounter Care Teams Remotely Piloted Vehicle Controller Relationship Specialty Start Date End Date Smitha Coyne DO [address] [place] [address] PCP - General Family Medicine 06/05/18 Harini Marshall PharmD [address] [place] [address] Pharmacist Internal Medicine 08/22/23 09/21/23 Elza Au Technical Fellow 07/04/23 10/03/23 documented as of this encounter
--- OUTSIDE RECORDS SUMMARY | 2025-03-29 17:19 | XMS_ITS | Encounter Summary ---
Author Organization [employer] Address [address] [facility] 7t [place] [address] Care Team Providers Care Ob Gyn Name Role Phone Smitha Coyne DO Primary Care Provider + [phone] Reason for Visit * Reason Onset Date Comments Med Refill 12/06/2023 Encounter Details Date Type Department Care Team (Late st Contact Info) Description 12/06/2023 Telephone [facility] MEDICINE [address] [place], [place] [phone] Smitha Coyne DO [address] [place], [place] [phone] Med Refill Social History Tobacco Use Types [...] 24 hr tablet To be sent to: [facility] [place] - [address] [place] [address] documented in this encounter Plan of Treatment Upcoming Encounters Date Type Department Care Team (Late st Contact Info) Description 04/07/2025 1:00 PM EST Clinical Support [facility] MEDICINE [address] [place] [address] Elza Graham, RN 04/14/2025 1:00 PM EST Office Visit [facility] OPTOMETRY [address] [place] [address] Kayleigh Martínez, SANGEETA [address] [place] [address] documented as of this encounter Goals Goal Patient Goal Type Associated Problems Recent Progress Patient-Stated? Author Patient will adhere to medication regimen General No Harini Marshall, PharmD Record your blood sugar as directed Result Component No Harini Marshall, PharmD Hemoglobin A1c < 7.5 Result Component 9.4( 5 11:05 AM EDT) No Harini Marshall PharmD documented as of this encounter Visit Diagnoses Not on filedocumented in this encounter Additional Health Concerns Assessment Noted Time PHQ-9 Depression Total Score: 0 08/17/19 24 11:11 AM EDT documented as of this encounter Care Teams Ob Gyn Relationship Specialty Start Date End Date Smitha Coyne DO [address] [place] [address] PCP - General Family Medicine 06/05/18 documented as of this encounter
--- OUTSIDE RECORDS SUMMARY | 2025-03-29 17:19 | XMS_ITS | Clinical Summary ---
Author Organization [facility] Address [address] [address] Phone Care Team Providers Care Nutritional Assistant Name Role Phone Unavailable Primary Care Provider [...] Encounters Date Type Department Care Team Description 03/29/2025 Refill [facility] [address] [facility] [address] [place] [address] Amarilis De León RN 03/25/2025 Treatment [facility] [address] [phone] Paramjit Thompson MD End stage renal disease; Dependence on renal dialysis 03/22/2025 Treatment [facility] [address] [phone] Paramjit Thompson MD End stage renal disease; Dependence on renal dialysis 03/13/2025 Treatment [facility] [address] [phone] Paramjit Thompson MD End stage renal disease; Dependence on renal dialysis 03/08/2025 Treatment [facility] [address] [phone] Paramjit Thompson MD End stage renal disease; Dependence on renal dialysis 03/01/2025 Treatment [facility] [address] [phone] Paramjit Thompson MD End stage renal disease; Dependence on renal dialysis 02/22/2025 Treatment [facility] [address] [address] Paramjit Thompson MD End stage renal disease; Dependence on renal dialysis 02/15/2025 Treatment [facility] [address] [address] Paramjit Thompson MD End stage renal disease; Dependence on renal dialysis 02/08/2025 Treatment [facility] [address] [address] Paramjit Thompson MD End stage renal disease; Dependence on renal dialysis 02/01/2025 Treatment [facility] [address] [address] Paramjit Thompson MD End stage renal disease; Dependence on renal dialysis 01/28/2025 Treatment [facility] [address] [address] Paramjit Thompson MD End stage renal disease; Dependence on renal dialysis 01/23/2025 Orders Only [facility] [address] [phone] Paramjit Thompson MD 01/21/2025 Treatment [facility] [address] [address] Paramjit Thompson MD End stage renal disease; Dependence on renal dialysis 01/16/2025 Treatment [facility] [address] [address] Paramjit Thompson MD End stage renal disease; Dependence on renal dialysis 12/28/2024 Treatment [facility] [address] [address] Paramjit Thompson MD End stage renal disease; Dependence on renal dialysis from Last 3 Months Immunizations Immunization Administration [...] 2018 Colorectal Cancer Screening: Sigmoidoscopy 2018 Diabetes: Pedal Pulse Checked 07/06/2020 Diabetes: Sensory Foot Exam 07/06/2020 Diabetes: Visual Foot Exam 07/06/2020 Influenza Vaccine (#1) 2025 Diabetes: Hemoglobin A1C 06/06/2025 025, 12/03/2024, 11/01/2024, Additional history exists Diabetes: Ophthalmology Exam 10/11/2025 10/11/2024 Procedures Procedure Name Priority Date/Time Associated Diagnosis Comments LIH (HC) Routine 03/27/2025 3:00 AM EDT POTASSIUM Routine 03/27/2025 3:00 AM EDT HEMOGLOBIN Routine 03/22/2025 3:00 AM EDT COLLECTION DATE (HC) Routine 03/22/2025 3:00 AM EDT HEMOGLOBIN Routine 03/20/2025 3:00 AM EDT LIH (HC) Routine 03/20/2025 3:00 AM EDT POTASSIUM Routine 03/20/2025 3:00 AM EDT LIH (HC) Routine 03/13/2025 3:00 AM EDT POTASSIUM Routine 03/13/2025 3:00 AM EDT FERRITIN Routine 03/06/2025 3:00 AM EDT HEMOGLOBIN A1C Routine 03/06/2025 3:00 AM EDT HEPATITIS B SURFACE ANTIGEN W/REFL CONFIRM Routine 03/06/2025 3:00 AM EDT TRANSFERRIN SATURATION Routine 3:00 AM EDT PROTEIN, TOTAL, SERUM Routine 03/06/2025 3:00 AM EDT LIPID PANEL Routine 03/06/2025 3:00 AM EDT MAGNESIUM Routine 03/06/2025 3:00 AM EDT ELECTROLYTE PANEL Routine 03/06/2025 3:0 0 AM EDT LACTATE DEHYDROGENASE Routine 03/06/2025 3:00 AM EDT LIH (HC) Routine 03/06/2025 3:00 AM EDT GLUCOSE, RANDOM Routine 03/06/2025 3:00 AM EDT BUN/CREATININE RATIO Routine 03/06/2025 3:00 AM EDT CREATININE, SERUM Routine 03/06/2025 3:0 0 AM EDT AST Routine 03/06/2025 3:00 AM EDT ALT Routine 03/06/2025 3:00 AM EDT BILIRUBIN, TOTAL Routine 03/06/2025 3:00 AM EDT ALKALINE PHOSPHATASE Routine 03/06/2025 3:00 AM EDT CALCIUM PHOSPHORUS PRODUCT, ADJUSTED (HC) Routine 03/06/2025 3:00 AM EDT PTH, INTACT Routine 03/06/2025 3:00 AM EDT KT/V NATURAL LOG, URR (HC) Routine 03/06/2025 3:00 AM EDT CBC AND DIFFERENTIAL Routine 03/06/2025 3:00 AM EDT POTASSIUM Routine 02/27/2025 3:00 AM EDT LIH (HC) Routine 02/27/2025 3:00 AM EDT HEMOGLOBIN Routine 02/22/2025 3:00 AM EDT COLLECTION DATE (HC) Routine 02/22/2025 3:00 AM EDT HEMOGLOBIN Routine 02/20/2025 3:00 AM EDT LIH (HC) Routine 02/20/2025 3:00 AM EDT POTASSIUM Routine 02/20/2025 3:00 AM EDT LIH (HC) Routine 02/13/2025 3:00 AM EDT POTASSIUM Routine 02/13/2025 3:00 AM EDT HEPATITIS B SURFACE ANTIGEN W/REFL CONFIRM Routine 02/06/2025 3:00 AM EDT PROTEIN, TOTAL, SERUM Routine 02/06/2025 3:00 AM EDT TRANSFERRIN SATURATION Routine 3:00 AM EDT MAGNESIUM Routine 02/06/2025 3:00 AM EDT ELECTROLYTE PANEL Routine 02/06/2025 3:0 0 AM EDT LIH (HC) Routine 02/06/2025 3:00 AM EDT GLUCOSE, RANDOM Routine 02/06/2025 3:00 AM EDT LACTATE DEHYDROGENASE Routine 02/06/2025 3:00 AM EDT CREATININE, SERUM Routine 02/06/2025 3:0 0 AM EDT BUN/CREATININE RATIO Routine 02/06/2025 3:00 AM EDT BILIRUBIN, TOTAL Routine 02/06/2025 3:00 AM EDT AST Routine 02/06/2025 3:00 AM EDT ALKALINE PHOSPHATASE Routine 02/06/2025 3:00 AM EDT ALT Routine 02/06/2025 3:00 AM EDT CALCIUM PHOSPHORUS PRODUCT, ADJUSTED (HC) Routine 02/06/2025 3:00 AM EDT FERRITIN Routine 02/06/2025 3:00 AM EDT CBC AND DIFFERENTIAL Routine 02/06/2025 3:00 AM EDT KT/V NATURAL LOG, URR (HC) Routine 02/06/2025 3:00 AM EDT HEMOGLOBIN Routine 01/30/2025 3:00 AM EDT HEMOGLOBIN Routine 01/23/2025 3:00 AM EDT HEPATITIS B SURFACE ANTIGEN W/REFL CONFIRM Routine 01/09/2025 3:00 AM EDT TRANSFERRIN SATURATION Routine 3:00 AM EDT MAGNESIUM Routine 01/09/2025 3:00 AM EDT PROTEIN, TOTAL, SERUM Routine 01/09/2025 3:00 AM EDT ELECTROLYTE PANEL Routine 01/09/2025 3:0 0 AM EDT LIH (HC) Routine 01/09/2025 3:00 AM EDT LACTATE DEHYDROGENASE Routine 01/09/2025 3:00 AM EDT GLUCOSE, RANDOM Routine 01/09/2025 3:00 AM EDT CREATININE, SERUM Routine 01/09/2025 3:0 0 AM EDT BUN/CREATININE RATIO Routine 01/09/2025 3:00 AM EDT AST Routine 01/09/2025 3:00 AM EDT CALCIUM PHOSPHORUS PRODUCT, ADJUSTED (HC) Routine 01/09/2025 3:00 AM EDT ALT Routine 01/09/2025 3:00 AM EDT BILIRUBIN, TOTAL Routine 01/09/2025 3:00 AM EDT ALKALINE PHOSPHATASE Routine 01/09/2025 3:00 AM EDT FERRITIN Routine 01/09/2025 3:00 AM EDT KT/V NATURAL LOG, URR (HC) Routine 01/09/2025 3:00 AM EDT CBC AND DIFFERENTIAL Routine 01/09/2025 3:00 AM EDT from Last 3 Months Results * LIH (03/27/2025 3:00 AM EDT) Only the most recent of9 resultswithin the time period is included. Lipemia Normal Normal [facility] Icterus Normal Normal [facility] Hemolysis Normal Normal [facility] 03/27/2025 3:00 AM EDT 03/28/2025 12:34 PM EDT us Paramjit Thompson MD LAB HISTORICA [id number] RESULTS Final Result [facility] [address] [place] [address] * Potassium (03/27/2025 3:00 AM EDT) Only the most recent of6 resultswithin the time period is included. Potassium 3.7 3.4 - 5.0 mEq/L [facility] 03/27/2025 3:00 AM EDT 03/28/2025 12:34 PM EDT us Paramjit Thompson MD LAB BLOOD ORDERABLES Final Result Performing Organization Address [facility] de Phone Number [facility]PS [facility] [address] [place] [address] * Collection Date (03/22/2025 3:00 AM EDT) Only the most recent of2 resultswithin the time period is included. Pathologist [facility] Collection Date See Comment [facility] Comment: Patient sample received may exceed specimen stability, based on the collection date electronically provided. When reviewing patient results, verify collection information and consider specimen stability before acting on any critical or panic results. 03/22/2025 3:00 AM EDT us Paramjit Thompson MD LAB HISTORICA [id number] RESULTS Final Result Performing Organization Address [facility] de Phone Number [facility] [address] [place] [address] * (ABNORMAL) Hemoglobin (03/22/2025 3:00 AM EDT) Only the most recent of6 resultswithin the time period is included. [facility] Hgb 8.1(L) 11.2 - 15.7 g/dL [facility] Hemoglobin x 3 24.3(L) 33.6 - 47.1 g/dL [facility] 03/22/2025 3:00 AM EDT 03/25/2025 2:55 PM EDT us Paramjit Thompson MD LAB BLOOD ORDERABLES Final Result Performing Organization Address [facility] de Phone Number [facility]PS [facility] [address] [place] [address] * (ABNORMAL) Kt/V Natural Log, URR (03/06/2025 3:00 AM EDT) Only the most recent of3 resultswithin the time period is included. [facility] Treatment Time 242 min [facility] Pre-Weight, lb 137.1 kg [facility] Post-Weight, lb 136.0 kg [facility] Ultrafiltration Rate 2 <=13 mL/kg/hr [facility] Comment: Recommend achieving Ultrafiltration Rate (UFR) <=10 mL/kg/hr References: Sofie SAMANO et al. Kidney Int. 2010; 79(2):250-257 BUN 27(H) 7 - 25 mg/dL [facility] BUN Post Dialysis 8 7 - 25 mg/dL [facility] UREA REDUCTION RATIO (%) 70 >=65 % [facility] Kt/V Natural Log 1.36 >=1.2 [facility] 03/06/2025 3:00 AM EDT 03/07/2025 12:20 PM EDT us Paramjit Thompson MD LAB HISTORICA [id number] RESULTS Final Result Performing Organization Address [facility] de Phone Number [facility] [address] [place] [address] * Calcium Phosphorus Product, Adjusted (03/06/2025 3:00 AM EDT) Only the most recent of3 resultswithin the time period is included. Albumin 4.4 3.6 - 5.4 g/dL [facility] Calcium 8.7 8.6 - 10.3 mg/dL [facility] Phosphorus, Serum 4.1 2.5 - 5.0 mg/dL [facility] Ca*PO4 35.7 <55.0 mg2/dL2 [facility] Calcium, Adjusted Total 8.7 8.6 - 10.3 mg/dL [facility] CA*PO4 CORRCTD 35.7 <55.0 mg2/dL2 [facility] 03/06/2025 3:00 AM EDT 03/07/2025 12:20 PM EDT us Paramjit Thompson MD LAB HISTORICA [id number] RESULTS Final Result Performing Organization Address [facility] Co de Phone Number [facility] [address] [place] [address] * Hepatitis B Surface Ag w/Reflex Confirmation (03/06/2025 3:00 AM EDT) Only the most recent of3 resultswithin the time period is included. Hep B Surface Antigen Negative Negative [facility] 03/06/2025 3:00 AM EDT 03/07/2025 12:20 PM EDT us Paramjit Thompson MD LAB BLOOD ORDERABLES Final Result Performing Organization Address [facility] Co de Phone Number [facility] [address] [place] [address] * BUN/CREATININE RATIO (03/06/2025 3:00 AM EDT) Only the most recent of3 resultswithin the time period is included. BUN/Creatinine Ratio 3.7 <=23.0 [facility] 03/06/2025 3:00 AM EDT 03/07/2025 12:20 PM EDT us Paramjit Thompson MD LAB HISTORICA [id number] RESULTS Final Result Performing Organization Address [facility] de Phone Number [facility] [address] [place] [address] * (ABNORMAL) TSAT (03/06/2025 3:00 AM EDT) Only the most recent of3 resultswithin the time period is included. Iron 55 50 - 170 ug/dL [facility] Transferrin 202(L) 250 - 380 mg/dL [facility] TIBC 283 211 - 406 ug/dL [facility] Iron Saturation (TSat) 19(L) 22 - 52 % [facility] 03/06/2025 3:00 AM EDT 03/07/2025 12:20 PM EDT us Paramjit Thompson MD LAB BLOOD ORDERABLES Final Result Performing Organization Address [facility] Co de Phone Number [facility] [address] [place] [address] * (ABNORMAL) CBC and Differential (03/06/2025 3:00 AM EDT) Only the most recent of3 resultswithin the time period is included. Pathologist [facility] DIFFERENTIAL MANUAL, 2 Not Indicated [facility] White Blood Cells 7.0 4.0 - 10.0 K/uL [facility] RBC 3.61(L) 3.93 - 5.22 M/uL [facility] Hgb 9.0(L) 11.2 - 15.7 g/dL [facility] Hemoglobin x 3 27.0(L) 33.6 - 47.1 g/dL [facility] Hematocrit 29.0(L) 34.1 - 44.9 % [facility] MCV 80.3 79.4 - 94.8 fL [facility] MCH 24.9(L) 25.6 - 32.2 pg [facility] MCHC 31.0(L) 32.2 - 35.5 g/dL [facility] RDW 18.6(H) 11.7 - 14.4 % [facility] Platelets 226 182 - 369 K/uL [facility] MPV 9.5 9.2 - 12.8 fL [facility] Neutrophils Relative 77.8(H) 34.0 - 71.1 % [facility] Lymphocytes Relative 12.3(L) 19.3 - 51.7 % [facility] Monocytes 5.4 4.7 - 12.5 % [facility] Eosinophils Relative 2.7 0.7 - 5.8 % [facility] Basophils Relative 0.9 0.1 - 1.2 % [facility] Immature Granulocytes 0.9 0.0 - 1.0 % [facility] 03/06/2025 3:00 AM EDT 03/07/2025 12:18 PM EDT us Paramjit Thompson MD LAB BLOOD ORDERABLES Final Result [facility] [address] [place] [address] * ALT (03/06/2025 3:00 AM EDT) Only the most recent of3 resultswithin the time period is included. Pathologist [facility] ALT (SGPT) 14 10 - 49 U/L [facility] 03/06/2025 3:00 AM EDT 03/07/2025 12:20 PM EDT us Paramjit Thompson MD LAB BLOOD ORDERABLES Final Result Performing Organization Address [facility] Co de Phone Number [facility] [address] [place] [address] * AST (03/06/2025 3:00 AM EDT) Only the most recent of3 resultswithin the time period is included. AST (SGOT) 16 <34 U/L [facility] 03/06/2025 3:00 AM EDT 03/07/2025 12:20 PM EDT us Paramjit Thompson MD LAB BLOOD ORDERABLES Final Result Performing Organization Address [facility] de Phone Number [facility] [address] [place] [address] * Protein, total (03/06/2025 3:00 AM EDT) Only the most recent of3 resultswithin the time period is included. Total Protein 6.9 6.4 - 8.9 g/dL [facility] 03/06/2025 3:00 AM EDT 03/07/2025 12:20 PM EDT us Paramjit Thompson MD LAB BLOOD ORDERABLES Final Result Performing Organization Address [facility] de Phone Number [facility] [address] [place] [address] * (ABNORMAL) Alkaline phosphatase (03/06/2025 3:00 AM EDT) Only the most recent of3 resultswithin the time period is included. Alkaline Phosphatase 149(H) 46 - 116 U/L [facility] 03/06/2025 3:00 AM EDT 03/07/2025 12:20 PM EDT us Paramjit Thompson MD LAB BLOOD ORDERABLES Final Result Performing Organization Address [facility] de Phone Number [facility] [address] [place] [address] * PTH, Intact (03/06/2025 3:00 AM EDT) PTH, Intact 418 160 - 721 pg/mL [facility] Comment: Suggested (KDIGO) ESRD maintenance range is two to nine times the upper normal limit (80.1 pg/mL) for the laboratory. 03/06/2025 3:00 AM EDT 03/07/2025 12:20 PM EDT us Paramjit Thompson MD LAB BLOOD ORDERABLES Final Result Performing Organization Address [facility] de Phone Number [facility] [address] [place] [address] * (ABNORMAL) Magnesium (03/06/2025 3:00 AM EDT) Only the most recent of3 resultswithin the time period is included. Magnesium 1.5(L) 1.9 - 2.7 mg/dL [facility] 03/06/2025 3:00 AM EDT 03/07/2025 12:20 PM EDT us Paramjit Thompson MD LAB BLOOD ORDERABLES Final Result Performing Organization Address [facility] de Phone Number [facility] [address] [place] [address] * Lactate dehydrogenase (03/06/2025 3:00 AM EDT) Only the most recent of3 resultswithin the time period is included. LDH 194 120 - 246 U/L [facility] 03/06/2025 3:00 AM EDT 03/07/2025 12:20 PM EDT us Paramjit Thompson MD LAB BLOOD ORDERABLES Final Result Performing Organization Address [facility] de Phone Number [facility] [address] [place] [address] * (ABNORMAL) Hemoglobin A1c (03/06/2025 3:00 AM EDT) Hemoglobin A1C 8.1(H) <5.7 % [facility] Comment: Methodology: Enzymatic Normal: <5.7% Prediabetes: 5.7-6.4% Diabetes: >6.4% Diabetic Glucose Control Evaluation: Therapeutic action suggested at >8.0% ADA recommends a glycemic goal of <7.0% 03/06/2025 3:00 AM EDT 03/07/2025 12:18 PM EDT us Paramjit Thompson MD LAB BLOOD ORDERABLES Final Result Performing Organization Address [facility] Co de Phone Number [facility] [address] [place] [address] * (ABNORMAL) Glucose, random (03/06/2025 3:00 AM EDT) Only the most recent of3 resultswithin the time period is included. Glucose 160(H) 70 - 99 mg/dL [facility] Comment: ADA guidelines outline the following fasting glucose ranges: Normal: <100 Prediabetes: 100-125 Diabetes: >125 03/06/2025 3:00 AM EDT 03/07/2025 12:20 PM EDT us Paramjit Thompson MD LAB BLOOD ORDERABLES Final Result Performing Organization Address [facility] Co de Phone Number [facility] [address] [place] [address] * (ABNORMAL) Ferritin (03/06/2025 3:00 AM EDT) Only the most recent of3 resultswithin the time period is included. Ferritin 1,562(H) 10 - 291 ng/mL [facility] 03/06/2025 3:00 AM EDT 03/07/2025 12:20 PM EDT us Paramjit Thompson MD LAB BLOOD ORDERABLES Final Result Performing Organization Address [facility] Co de Phone Number [facility] [address] [place] [address] * (ABNORMAL) Creatinine, serum (03/06/2025 3:00 AM EDT) Only the most recent of3 resultswithin the time period is included. Creatinine 7.23(H) 0.55 - 1.02 mg/dL [facility] 03/06/2025 3:00 AM EDT 03/07/2025 12:20 PM EDT Paramjit Thompson MD LAB BLOOD ORDERABLES Final Result Performing Organization Address [facility] de Phone Number [facility] [address] [place] [address] * Bilirubin, total (03/06/2025 3:00 AM EDT) Only the most recent of3 resultswithin the time period is included. Total Bilirubin 0.3 0.3 - 1.2 mg/dL [facility] 03/06/2025 3:00 AM EDT 03/07/2025 12:20 PM EDT Paramjit Thompson MD LAB BLOOD ORDERABLES Final Result Performing Organization Address [facility] de Phone Number [facility] [address] [place] [address] * (ABNORMAL) Lipid panel (03/06/2025 3:00 AM EDT) Cholesterol 102 mg/dL [facility] Comment: Optimal: <200 Borderline: 200-239 High Risk: >239 Triglycerides 190(H) mg/dL [facility] Comment: Optimal: <150 Borderline: 150-200 High Risk: >200 HDL 32(L) mg/dL [facility] Comment: Optimal: >59 Borderline: 40-59 High Risk: <40 LDL-Calc 32 mg/dL [facility] Comment: Optimal: <100 Borderline: 100-159 High Risk: >159 VLDL Cholesterol [place] 38(H) mg/dL [facility] Comment: Optimal: <30 Borderline: 30-40 High Risk: >40 Chol/HDL Ratio 3.2 [facility] Comment: Optimal: <3.3 High Risk: >6.2 03/06/2025 3:00 AM EDT 03/07/2025 12:20 PM EDT Paramjit Thompson MD LAB BLOOD ORDERABLES Final Result Performing Organization Address [facility] de Phone Number [facility] [address] [place] [address] * Electrolyte panel (03/06/2025 3:00 AM EDT) Only the most recent of3 resultswithin the time period is included. Sodium 138 136 - 145 mEq/L [facility] Potassium 4.0 3.4 - 5.0 mEq/L [facility] Chloride 100 98 - 107 mEq/L [facility] Bicarbonate (CO2) 26 21 - 31 mEq/L [facility] Anion Gap 12 3 - 14 mEq/L [facility] 03/06/2025 3:00 AM EDT 03/07/2025 12:20 PM EDT Paramjit Thompson MD LAB BLOOD ORDERABLES Final Result Performing Organization Address [facility] de Phone Number [facility] [address] [place] [address] from Last 3 Months Insurance , [address] [address] Medicare Medicaid [place] Medicare Medicaid [place]
--- OUTSIDE RECORDS SUMMARY | 2025-03-29 17:19 | XMS_ITS | Encounter Summary ---
Author Organization [employer] Address [address] [facility] [address] [place] [address] Care Team Providers Care Agile Tester Name Role Phone Smitha Coyne DO Primary Care Provider [phone] Harini Marshall PharmD Unavailable [phone] Reason for Visit * Reason Onset Date Comments Med Refill 08/03/2022 Encounter Details Date Type Department Care Team (Late st Contact Info) Description 08/03/2022 Telephone [facility] MEDICINE [address] [place], [place] [phone] Smitha Coyne DO [address] [place], [place] [phone] Med Refill Social History Tobacco Use Types [...] 1:00 PM EST Clinical Support [facility] MEDICINE [address] [place], [place] [phone] Elza Graham, RN 04/14/2025 1:00 PM EST Office Visit [facility] OPTOMETRY [address] [place], [place] [phone] Kayleigh Martínez, OD [address] [place] [address] documented as of this encounter Visit Diagnoses Not on filedocumented in this encounter Care Teams Agile Tester Relationship Specialty Start Date End Date Smitha Coyne DO [address] [place], [place] [phone] PCP - General Family Medicine 06/05/18 Harini Marshall, Ronaldo [address] [place], [place] [phone] Pharmacist Internal Medicine 08/22/23 09/21/23 Elza Au Business Development Coordinator 07/04/23 10/03/23 documented as of this encounter
--- OUTSIDE RECORDS SUMMARY | 2025-03-29 17:19 | XMS_ITS | Encounter Summary ---
Author Organization [facility] Address [address] [place] [address] Phone Care Team Providers Care Allocation Analyst Name Role Phone Smitha Coyne DO Primary Care Provider Unava ilable Encounter Details Date Type Department Care Team (Late st Contact Info) Description 02/24/2022 Telephone [facility] [address] [place] [address] Mynor Mcgill MD [address] [facility] [address] [place] [phone] Social History Tobacco Use Types Packs/Day Years [...] on filedocumented in this encounter Care Teams Allocation Analyst Relationship Specialty Start Date End Date Smitha Coyne DO PCP - General 06/15/20 12/25/22 documented as of this encounter
--- OUTSIDE RECORDS SUMMARY | 2025-03-29 17:19 | XMS_ITS | Encounter Summary ---
Author Organization [facility] Address [address] [address] Phone Care Team Providers Care Blend Technician Name Role Phone Unavailable Primary Care Provider Unavailabl e Encounter Details Date Type Department Care Team (Late st Contact Info) Description 03/25/2025 Treatment [facility]. [address] [address] Kylah Thompson MD [facility] [address] End stage renal disease; Dependence [...] Dialysis Note - Kylah Thompson MD - 03/25/2025 12:00 AM EDT BASIC NOTE Patient: Nyla Wiley : 1970 Note Author: KYLAH THOMPSON MD Service Date: 03/25/2025 This patient was personally seen [id number] for a basic visit as part of routine monthly dialysis care for end stage renal disease. Attending Class B Driver: KYLAH THOMPSON MD Dialysis Location: [facility] Schedule: Shift: 2 OVERVIEW Patient is stable. HOME MEDICATIONS Current [facility] Outpatient Medications [...] VALPROIC ACID ADEQUACY ASSESSMENT Kt/V, Natural Log 1.36 (03/06/25) 1.34 (02/06/25) 1.36 (01/09/25) UREA REDUCTION RATIO (%) 70 (03/06/25) 70 (02/06/25) 69 (01/09/25) BUN 27 (03/06/25) 30 (02/06/25) 26 (01/09/25) BUN Post Dialysis 8 (03/06/25) 9 (02/06/25) 8 (01/09/25) Creatinine 7.23 (03/06/25) 6.54 (02/06/25) 7.08 (01/09/25) Bicarbonate (CO2) 26 (03/06/25) 26 (02/06/25) 26 (01/09/25) Sodium 138 (03/06/25) 134 (02/06/25) 132 (01/09/25) ANEMIA ASSESSMENT Hgb 8.7 (03/20/25) 9.0 (03/06/25) 9.0 (02/22/25) Iron Saturation (TSat) 19 (03/06/25) 12 (02/06/25) 10 (01/09/25) Ferritin 1,562 (03/06/25) 1,564 (02/06/25) 1,478 (01/09/25) Iron 55 (03/06/25) 32 (02/06/25) 26 (01/09/25) TIBC 283 (03/06/25) 260 (02/06/25) 253 (01/09/25) MCV 80.3 (03/06/25) 82.4 (02/06/25) 83.8 (01/09/25) Platelets 226 (03/06/25) 264 (02/06/25) 231 (01/09/25) BMM ASSESSMENT Calcium, Adjusted Total 8.7 03/06/25 8.4 02/06/25 8.7 01/09/25 Calcium 8.7 03/06/25 8.4 02/06/25 8.6 01/09/25 Phosphorus, Serum 4.1 03/06/25 3.8 02/06/25 3.5 01/09/25 Ca*PO4 35.7 03/06/25 31.9 02/06/25 30.1 01/09/25 PTH, Intact 418 03/06/25 305 12/03/24 393 09/05/24 Magnesium 1.5 03/06/25 1.4 02/06/25 1.6 01/09/25 Alkaline Phosphatase 149 03/06/25 125 02/06/25 142 01/09/25 Aluminum 6 06/13/24 2 05/21/24 NUTRITION ASSESSMENT Albumin 4.4 03/06/25 4.2 02/06/25 3.9 01/09/25 Potassium 4.1 03/20/25 4.3 03/13/25 4.0 03/06/25 Hemoglobin A1C 8.1 03/06/25 9.6 12/03/24 8.9 09/05/24 ADDITIONAL LABS White Blood Cells 7.0 (03/06/25) 9.4 (02/06/25) 7.7 (01/09/25) Cholesterol 102 (03/06/25) 110 (12/03/24) 109 (09/05/24) HDL 32 (03/06/25) 34 (12/03/24) 29 (09/05/24) LDL-Calc 32 (03/06/25) 36 (12/03/24) 25 (09/05/24) Triglycerides 190 (03/06/25) 201 (12/03/24) 274 (09/05/24) Hep B Surface Antibody ?4 (06/13/24) Uric Acid 6.6 (06/13/24) ALT (SGPT) 14 (03/06/25) 18 (02/06/25) 10 (01/09/25) AST (SGOT) 16 (03/06/25) 21 (02/06/25) 15 (01/09/25) ADDITIONAL COMMENT COMMENTS: Note in dialysis manager telemetry 03/14/24 same issues 06/18/24 cont f/u urol Dr Guerrero 07/16/24 stable Signed by: KYLAH THOMPSON MD on 03/25/2025 at 01:16:12 PM Transcribed by: KYLAH THOMPSON MD on 03/25/2025 at 01:16:12 PM documented in this encounter Plan of Treatment Not on file documented as of this encounter Visit Diagnoses Diagnosis End stage renal disease Dependence on renal dialysis documented in this encounter
--- OUTSIDE RECORDS SUMMARY | 2025-03-29 17:19 | XMS_ITS | Encounter Summary ---
Author Organization [employer] Address [address] [facility] 7t [place] [address] Care Team Providers Care Collision Mechanic Name Role Phone Smitha Coyne DO Primary Care Provider [phone] Harini Marshall PharmD Unavailable [phone] Reason for Visit * Reason Onset Date Comments Hospital Follow-up 06/26/2023 Encounter Details Date Type Department Care Team ([facility] st Contact Info) Description 06/26/2023 Telephone [facility] [address] [place], [place] [phone] Smitha Coyne DO [address] [place], [place] [phone] Hospital Follow-up Social History Tobacco Use Types [...] from pt requesting a HDF appt. Hospital: [facility] Date of admission: 06/09/23 Discharge date: 06/23/23 Diagnosed: N/A documented in this encounter Plan of Treatment Upcoming Encounters Date Type Department Care Team (Late st Contact Info) Description 04/07/2025 1:00 PM EST Clinical Support [facility] [address] [place] [address] Elza Graham RN 04/14/2025 1:00 PM EST Office Visit [facility] [address] [place] [address] Mauricio, Kayleigh, OD [address] [place] [address] documented as of this encounter Visit Diagnoses Not on filedocumented in this encounter Care Teams Collision Mechanic Relationship Specialty Start Date End Date Smitha Coyne DO [address] [place] [address] PCP - General Family Medicine 06/05/18 Harini Marshall PharmD [address] [place] [address] Pharmacist Internal Medicine 08/22/23 09/21/23 Elza Au Dewatering Filtering Supervisor 07/04/23 10/03/23 documented as of this encounter
--- OUTSIDE RECORDS SUMMARY | 2025-03-29 17:19 | XMS_ITS | Encounter Summary ---
Author Organization [employer] Address [address] [facility] 7t [place] [address] Care Team Providers Care Bilingual Customer Service Name Role Phone Smitha Coyne DO Primary Care Provider [phone] Reason for Visit * Reason Onset Date Comments Nurse Triage 03/24/2025 Encounter Details Date Type Department Care Team ([facility] st Contact Info) Description 03/24/2025 Telephone [facility] MED[facility] [address] [place], [place] [phone] Smitha Coyne DO [address] [place], [place] [phone] Nurse Triage Social History Tobacco Use Types [...] encounter Miscellaneous Notes * Telephone Encounter - Sabi Gloria RN - 03/24/2025 2:39 PM EDT TC placed to pt for triage. Pt reports they have been experienced 3 episodes in the last 6 weeks ofdizziness and confusion that lasts a few days before resolving. Pt does endorse nausea with these episodes. Pt reports currently experiencing dizziness x 3 days. Pt reports they were prescribed meclazine in the past which they have been taking. Pt reports the meclazine does help with symptoms, but takes 3 days to work. Pt reports they have been taking the meclazine 3 times daily for 3 days. Pt denies chest pain, SOB, headache, blurred vision fainting, difficulty speaking, vomiting, facial drooping. Pt reports 2 years ago they were seen by neuro and neuro told them in the past they had a minorstroke. Pt unsure if the symptoms experiencing now are a result of that. Pt reports they stay well hydrated. Pt booked for provider visit at 3:[address] Lynch. Pt reports they will contact their casey saw operator and son to see if they will be able to bring her to appointment. Advised pt if they are experiencing dizziness they should not drive themself to appointment. Pt reports they do not drive when they feel this way and will contact individuals to see if they are able to bring pt to appointment. Advised pt to call office if unable to obtain transportation for 3:45 appointment. Advised pt of [facility] hours of operation. Pt verbalized understanding and denies questions at this time. * Telephone Encounter - Ericka Fry - 03/24/2025 2:31 PM EDT Tc from pt reports feeling dizzy for the last 6 weeks. No other symptoms reported Please contact pt at [phone] documented in this encounter Plan of Treatment Upcoming Encounters Date Type Department Care Team (Late st Contact Info) Description 04/07/2025 1:00 PM EST Clinical Support [facility] [address] [place] [address] Elza Graham RN 04/14/2025 1:00 PM EST Office Visit [facility] [address] [place] [address] Kayleigh Martínez OD [address] [place] [address] documented as of this encounter Goals Goal [...] documented as of this encounter Care Teams Bilingual Customer Service Relationship Specialty Start Date End Date Smitha Coyne DO [address] [place] [address] PCP - General Family Medicine 06/05/18 documented as of this encounter
--- OUTSIDE RECORDS SUMMARY | 2025-03-29 17:19 | XMS_ITS | Encounter Summary ---
Author Organization [employer] Address [address] [facility] 7[address] [place] [address] Care Team Providers Care Reinsurance Analyst Name Role Phone Smitha Coyne DO Primary Care Provider Harini Marshall PharmD Unavailable [phone] Encounter Details Date Type Department Care Team (Late st Contact Info) Description 10/07/2022 Telephone [facility] MEDICINE [address] [place], [place] [phone] Smitha Coyne DO [address] [place] [address] Social History Tobacco Use Types Packs/Day Years [...] 10/07/2022. Pt states she is currently in [facility]. Please contact pt at [phone] documented in this encounter Plan of Treatment Upcoming Encounters Date Type Department Care Team (Late st Contact Info) Description 04/07/2025 1:00 PM EST Clinical Support [facility] [address] [place] [address] Elza Graham, ROSA 04/14/2025 1:00 PM EST Office Visit [facility]RY [address] [place] [address] Kayleigh Martínez, OD [address] [place] [address] documented as of this encounter Visit Diagnoses Not on filedocumented in this encounter Care Teams Reinsurance Analyst Relationship Specialty Start Date End Date Smitha Coyne DO [address] [place] [address] PCP - General Family Medicine 06/05/18 Hariin Marshall, Mary BethD [address] [place] [address] Pharmacist Internal Medicine 08/22/23 09/21/23 Elza Au Crew Truck Driver 07/04/23 10/03/23 documented as of this encounter
--- NOTE | 2025-03-29 17:38 | ED.EXTPRO ---
HPI - Extremity Problem General Chief complaint: Extremity Injury, Upper Stated complaint: Fall Broken Shoulder? and injured knee. Time Seen by Provider: 03/29/25 16:49 History of Present Illness HPI Narrative: 55 years old history of end-stage renal disease. Patient not on blood thinners. Status post accidental fall. Hit the left shoulder area. Patient has a fistula on that side. No fever. No headache no loss of consciousness no systemic complaints. Pain localized to the left shoulder area Related Data Home Medications ?Medication ?Instructions ?Recorded ?Confirmed atorvastatin 20 mg tablet 1 tab PO BEDTIME 07/08/20 05/13/24 cholecalciferol (vitamin D3) 50 50 mcg PO BEDTIME 07/08/20 05/13/24 mcg (2,000 unit) capsule (Vitamin D3) ferrous sulfate 325 mg (65 mg 325 mg PO BEDTIME 07/08/20 05/13/24 iron) tablet (Iron (ferrous sulfate)) insulin aspar prot-insulin aspart See Protocol subcut BIDAC 07/08/20 05/13/24 100 unit/mL (70-30) subcutaneous pen (Novolog Mix 70-30FlexPen U-100) insulin degludec 200 unit/mL (3 66 unit subcut BEDTIME 07/08/20 05/13/24 mL) subcutaneous pen (Tresiba FlexTouch U-200 insulin) lansoprazole 30 mg capsule,delayed 1 cap PO BEDTIME 09/11/21 05/13/24 release calcium acetate 667 mg tablet 667 mg PO TID 12/29/21 05/13/24 amlodipine 2.5 mg tablet 2.5 mg PO DAILY 05/05/22 05/13/24 amitriptyline 50 mg tablet 50 mg PO BEDTIME 05/13/24 05/13/24 hydrocodone 5 mg-acetaminophen 325 tab PO 05/13/24 05/13/24 mg tablet loperamide 2 mg capsule mg PO 05/13/24 05/13/24 midodrine 5 mg tablet 5 mg PO TID 05/13/24 05/13/24 quetiapine 25 mg tablet 25 mg PO BEDTIME 05/13/24 05/13/24 quetiapine 50 mg tablet 50 mg PO BEDTIME 05/13/24 05/13/24 baclofen 10 mg tablet 10 mg PO DAILY 09/20/24 dulaglutide 1.5 mg/0.5 mL mg subcut 09/20/24 subcutaneous pen injector ([facility]) metoprolol succinate 200 mg 100 mg PO BEDTIME 09/20/24 tablet,extended release 24 hr Allergies Allergy/AdvReac Type Severity Reaction Status Date / Time adhesive tape Allergy Intermediate Hives Verified 03/29/25 17:05 oxcarbazepine (From Allergy Intermediate AGITATION Verified 03/29/25 17:05 TRILEPTAL) topiramate (From TOPAMAX) Allergy Intermediate KIDNEY Verified 03/29/25 17:05 STONES aripiprazole (From ABILIFY) Allergy Mild HIVES Verified 03/29/25 17:05 insulin lispro (From Humalog Allergy Mild rash Verified 03/29/25 17:05 U-100 Insulin) acetaminophen (Percocet) Allergy Unknown Unknown Verified 03/29/25 17:05 carbamazepine (From Tegretol) Allergy Unknown AGITATION, Verified 03/29/25 17:05 SUICIDAL clonazepam (From Klonopin) Allergy Unknown RASH Verified 03/29/25 17:05 codeine (Codeine) Allergy Unknown VOMIT Verified 03/29/25 17:05 cylert Allergy Unknown Unknown Verified 03/29/25 17:05 haloperidol (From HALDOL) Allergy Unknown RASH Verified 03/29/25 17:05 lorazepam (From ATIVAN) Allergy Unknown RASH Verified 03/29/25 17:05 oxycodone (Percocet) Allergy Unknown Unknown Verified 03/29/25 17:05 pemoline (From Cylert) Allergy Unknown RASH Verified 03/29/25 17:05 risperidone (From Risperdal) Allergy Unknown INCREASE Verified 03/29/25 17:05 PROLECTIN LEVEL Sulfa (Sulfonamide Allergy Unknown JAUNDICE Verified 03/29/25 17:05 Antibiotics) doxycycline AdvReac Severe Chest Pain Verified 03/29/25 17:05 abilify Allergy Unknown Unknown Uncoded 03/29/25 17:05 ativan Allergy Unknown Unknown Uncoded 03/29/25 17:05 buspar Allergy Unknown Unknown Uncoded 03/29/25 17:05 celexa Allergy Unknown rash Uncoded 03/29/25 17:05 codeine Allergy Unknown Unknown Uncoded 03/29/25 17:05 depakote Allergy Unknown Unknown Uncoded 03/29/25 17:05 From BuSpar Allergy Unknown RASH Uncoded 03/29/25 17:05 From Celexa Allergy Unknown RASH Uncoded 03/29/25 17:05 From Tolectin Allergy Unknown RASH Uncoded 03/29/25 17:05 From Zoloft Allergy Unknown RASH,KIDNEY Uncoded 03/29/25 17:05 PAIN haldol Allergy Unknown Unknown Uncoded 03/29/25 17:05 hydrodiuril Allergy Unknown Unknown Uncoded 03/29/25 17:05 klonopin Allergy Unknown Unknown Uncoded 03/29/25 17:05 percocet Allergy Unknown Unknown Uncoded 03/29/25 17:05 risperdal Allergy Unknown Unknown Uncoded 03/29/25 17:05 tegretol Allergy Unknown Unknown Uncoded 03/29/25 17:05 tolectin DS Allergy Unknown Unknown Uncoded 03/29/25 17:05 Topamax Allergy Unknown kidney Uncoded 03/29/25 17:05 stones zesteril Allergy Unknown Unknown Uncoded 03/29/25 17:05 zoloft Allergy Unknown rash Uncoded 03/29/25 17:05 From Percocet AdvReac Unknown VOMIT Uncoded 03/29/25 17:05 Review of Systems Review of Systems: Positive pain to the shoulder Yes all other systems are reviewed and are negative PMFSH Past Medical History Attestation statement: The following information was validated with the patient. Medical History ESRD (end stage renal disease) Cerebellar ataxia Seizure disorder Epidermal cyst Anemia Hypogammaglobulinemia Chronic knee pain TYLOR (obstructive sleep apnea) Chronic kidney disease, stage 3 GERD (gastroesophageal reflux disease) Hyperlipidemia Bipolar disorder Anemia Ulcerative colitis Depression HTN (hypertension) Diabetes Morbid obesity Surgical History Hx of resection of large bowel Family History Family History Mother Coronary artery disease Father High cholesterol HTN (hypertension) Social History Social History Household Members: None Housing: Apartment Do you presently have visiting nurse or other home services: No Alcohol intake: never Patient Tobacco Use Status: Never used Tobacco Cigarette Packs Per Day: 1 Smoked in Last 30 Days: No Use of substances other than those prescribed or required for medical reasons: No Advance Directives: No Advance Directives Information Provided: No Do you have a plan to hurt others: No Plan Patient : No service: No Current occupational status: disabled Physical Exam Exam: Exam: Appearance: Alert. Oriented X3. No acute distress. Eyes: Pupils equal, round and reactive to light. ENT: Pharynx normal. Neck: Normal inspection. Neck supple. No lymph nodes noted. No crepitus CVS: Normal heart rate and rhythm. Pulses normal. Normal S1 and S2 Respiratory: No respiratory distress. Breath sounds normal. No Wheezing. No rales Abdomen: Soft and nontender. No rigidity. No distention. good BS x4 Skin: Skin warm and dry. Normal skin color. Normal skin turgor. Extremities: Positive pain on movement of the left shoulder. There is no gross deformities noted. Sensation over the axillary median ulnar, radial nerve intact. Skin intact. Distal pulses intact Neuro: Oriented X 3. No motor deficit. No sensory deficit. Moving all extermities. No slurred speech Vital Signs: Vital Signs: Last Vital Signs Temp 98.2 F 03/29/25 22:20 Pulse 80 03/29/25 22:20 Resp 13 03/29/25 22:40 BP 111/68 03/29/25 22:20 Pulse Ox 96 03/29/25 22:20 O2 Del Method Room Air 03/29/25 22:20 BMI result Body Mass Index 54.6 Medications Administered Discontinued Medications Generic Name Dose Route Start Last Admin Trade Name Freq PRN Reason Stop Dose Admin Hydromorphone HCl 0.5 mg 03/29/25 18:33 03/29/25 18:47 Hydromorphone Hcl 0.5 Mg/0.5 Ml Syringe IVPUSH 03/29/25 18:34 0.5 mg ONCE ONE Administration Protocol Hydromorphone HCl 0.5 mg 03/29/25 22:24 03/29/25 22:40 Hydromorphone Hcl 0.5 Mg/0.5 Ml Syringe IVPUSH 03/29/25 22:25 0.5 mg ONCE ONE Administration Protocol Ondansetron HCl 4 mg 03/29/25 17:40 03/29/25 18:46 Ondansetron Odt 4 Mg Tab.Rapdis TRANSLINGU 03/29/25 17:41 4 mg ONCE ONE Administration Medical Decision Making Medical Decision Making MDM Narrative: Patient normally gets dialysis on Monday. Received dialysis earlier today. Then accidentally tripped and fell. Hitting her left shoulder. My interpretation patient's x-ray showed a significant surgical neck fracture of the left humerus. Distal pulses intact unfortunately this is also the arm where patient has her fistula. She gets dialyzed on Saturdays. She also has an ostomy due to a history of ulcerative colitis. Patient has no abdominal pain no nausea no vomiting she is diabetic. She notes normally needs to get herself insulin. She lives at home with the neighbors help. With the fracture patient unable to give own insulin. Unable to take care of her own ostomy. Unable to balance the walk. Patient is larger in size with a BMI of 54.6. Will need additional help. Physical therapy ordered. Case management ordered for a.m.. Currently in stable condition. Her labs showed a normal potassium. Creatinine is 3.7 consistent with end-stage renal disease. Differential Diagnosis Differential Diagnoses: The differential diagnosis associated with the presentation includes Humeral fracture Admission/Observation Consideration of admission/observation: Escalation of care including admission/observation considered Consult Healthcare Provider Management of the patient was discussed with: Special Education Teaching Assistant (I consulted Orthopedics. The thought was to place patient in a sling and follow-up on an outpatient basis) Lab Data [facility] Lab Attestation statement: I reviewed the patient's lab results. 03/29/25 18:19 03/29/25 18:19 Labs: Lab Results 03/29/25 Range/Units 18:19 WBC 8.3 (4.8-10.8) X10*3/uL RBC 3.47 L (4.20-5.50) X10*6/uL Hgb 8.9 L (12.0-16.0) g/dl Hct 28.1 L (37.0-47.0) % MCV 81.0 (80.0-98.0) fL MCH 25.6 L (27.0-33.0) pg MCHC 31.7 (31.0-35.0) g/dl RDW 21.6 H (11.0-16.0) % Plt Count 176 (160-400) X10*3/uL MPV 9.0 L (9.4-12.3) fL Immature Gran % (Auto) 0.8 H (0.0-0.4) % Neut % (Auto) 83.5 H (45-73) % Lymph % (Auto) 8.1 L (20-40) % [place] % (Auto) 4.9 (2-11) % Eos % (Auto) 2.2 (0-4) % Baso % (Auto) 0.5 (0-2) % Lymph # (Auto) 0.7 L (1.2-4.9) X10*3/uL [place] # (Auto) 0.4 (0.1-1.2) X10*3/uL Eos # (Auto) 0.2 (0.0-0.4) X10*3/uL Baso # (Auto) 0.0 (0.0-0.2) X10*3/uL Abs Immat Gran (auto) 0.07 H (0.00-0.03) X10*3/uL Absolute Neuts (auto) 7.0 (2.0-8.3) x10*3/uL Absolute Nucleated RBC 0.000 (0.0-0.012) X10*3/uL Nucleated RBC % (auto) 0.0 (0.0-0.2) /100WBC Sodium 137 (135-145) mmol/L Potassium 3.8 D (3.3-5.1) mmol/L Chloride 97 (96-108) mmol/L Carbon Dioxide 27 (22-29) mmol/L Anion Gap 17 (12-20) BUN 8 L (9-16) mg/dL Creatinine 3.76 H (0.5-1.4) mg/dL Estim Creat Clear Calc 23.0 Estimated GFR 12 Random Glucose 188 H (60-115) mg/dL Calcium 8.7 D (8.4-10.2) mg/dL Independent Interpretation I performed an independent interpretation of an: Plain X-Ray (I reviewed patient's shoulder x-ray showed a surgical neck fracture) Radiology Impression Discussion of test interpretation with radiology: I have reviewed the radiologist's reading. External Record Review External record reviewed: Inpatient record Chronic Conditions Patient?s care impacted by: Diabetes and Hypertension End-stage renal disease Social Determinants Patient?s care significantly limited by Social Determinants of Health including: Problems related to primary support group Discharge Plan Discharge Clinical Impression: Fracture of humerus, Diabetes, End stage chronic kidney disease Patient Disposition: Still a Patient Prescriptions: No Action atorvastatin 20 mg tablet 1 tab PO BEDTIME insulin asp prt-insulin aspart [Novolog Mix 70-30FlexPen U-100] 100 unit/mL (70-30) insulin pen See Protocol subcut BIDAC Protocol: Insulin Correction Scale Less than or equal to 110 ---- Give (units): 0 111 to 150 Give (units): 0 151 to 200 Give (units): 2 201 to 250 Give (units): 4 251 to 300 Give (units): 6 301 to 350 Give (units): 8 Greater than 350 Give (units): 10 Call MD if Blood Glucose > : 350 Tresiba FlexTouch U-200 200 unit/mL (3 mL) insulin pen 66 unit subcut BEDTIME ferrous sulfate [Iron (ferrous sulfate)] 325 mg (65 mg iron) Tablet 325 mg PO BEDTIME cholecalciferol (vitamin D3) [Vitamin D3] 50 mcg (2,000 unit) Capsule 50 mcg PO BEDTIME metoprolol succinate 200 mg tablet extended release 24 hr 100 mg PO BEDTIME lansoprazole 30 mg capsule,delayed release(DR/EC) 1 cap PO BEDTIME calcium acetate 667 mg tablet 667 mg PO TID amlodipine 2.5 mg tablet 2.5 mg PO DAILY amitriptyline 50 mg tablet 50 mg PO BEDTIME midodrine 5 mg tablet 5 mg PO TID loperamide 2 mg capsule PO quetiapine 50 mg tablet 50 mg PO BEDTIME quetiapine 25 mg tablet 25 mg PO BEDTIME hydrocodone-acetaminophen 5-325 mg tablet PO Trulicity 1.5 mg/0.5 mL pen injector subcut baclofen 10 mg tablet 10 mg PO DAILY Print Language: Par[place]ayan
[2025-03-29 18:26] LABS: Hematocrit 28.1 % (37.0-47.0); Hemoglobin 8.9 g/dl (12.0-16.0); Imm Gran Abs Auto 0.07 X10*3/uL (0.00-0.03); Imm Gran Pct Auto 0.8 % (0.0-0.4); Lymphocytes Absolute Auto 0.7 X10*3/uL (1.2-4.9); MANUAL DIFF FLAG NO; Mean Corpuscular HGB Conc 31.7 g/dl (31.0-35.0); Mean Corpuscular Hemoglobin 25.6 pg (27.0-33.0); Mean Corpuscular Volume 81.0 fL (80.0-98.0); NRBC Abs Auto 0.000 X10*3/uL (0.0-0.012); NRBC Pct Auto 0.0 /100WBC (0.0-0.2); Platelet Count 176 X10*3/uL (160-400); Red Blood Count 3.47 X10*6/uL (4.20-5.50); White Blood Count 8.3 X10*3/uL (4.8-10.8)
[2025-03-29 18:42] LABS: Anion Gap 17 (12-20); Blood Urea Nitrogen 8 mg/dL (9-16); Calcium 8.7 mg/dL (8.4-10.2); Carbon Dioxide 27 mmol/L (22-29); Chloride 97 mmol/L (96-108); Creatinine Clr Calc Pharmacy 23.0; Estimated Glomerular Filt Rate 12; Potassium 3.8 mmol/L (3.3-5.1); Sodium 137 mmol/L (135-145)
[2025-03-29 18:47] VITALS: RESP 12
[2025-03-29 19:25] VITALS: BP 120/72; PULSE 81; RESP 16; TEMP 36.8; O2SAT 93
[2025-03-29 22:20] VITALS: BP 111/68; PULSE 80; RESP 18; TEMP 36.8; O2SAT 96
[2025-03-29 22:40] VITALS: RESP 13
[2025-03-30 00:50] LABS: Magnesium 1.5 mg/dL (1.6-2.6)
--- NOTE | 2025-03-30 01:14 | PC.NURSE ---
med rec completed w/ pt, pt was able to verbalize home medications
[2025-03-30 01:53] VITALS: BP 104/66; PULSE 80
[2025-03-30] MEDS: Metoprolol Succinate ER 100 MG TAB.ER.24H PO ×2 (01:53→21:11)
[2025-03-30 04:44] VITALS: RESP 16
[2025-03-30 08:29] VITALS: BP 92/58; PULSE 83; RESP 16; TEMP 36.6; O2SAT 95
--- NOTE | 2025-03-30 08:43 | PC.NURSE ---
patient requesting IV pain medications, educated on the purpose of switching from IV pain meds to oral d/t discharge planning for pt/cm needs. patient continues to request IV Dilaudid d/t pain. encouraged to attempt the oral pain prns instead. patient otherwise appears comfortable, resting in recliner w/ sling in place. order placed for breakfast tray. patient in no signs/symptoms of distress, call pinto within reach.
[2025-03-30] MEDS: Morphine Sulfate Immed Release 15 MG TABLET PO ×3 (09:07→23:10)
--- NOTE | 2025-03-30 09:51 | PC.NURSE ---
Patient agreeable to take PO pain medication. Patient sleeping at this time with even and unlabored respirations. Pending PT/CM.
--- NOTE | 2025-03-30 11:22 | MHC.CM.PN ---
THIS CM RECEIVED ED CM CONSULT. CM MET WITH PT AT BEDSIDE IN ED. PT LIVES ALONE WITH HER CAT AND IS FUNCTIONALLY INDEPENDENT AT BASELINE. PT ATTENDS HD AT [facility] AND TRANSPORTS VIA [facility] TRANSPORT. NO CURRENT SERVICES AT HOME. + HCP PCP [facility] PROVIDER DP: P.T./O.T. WILL NEED TO EVAL IN AM FOR DISPOSITION. MAY NEED AR REFERRAL LEFT ARM INJURY AND WILL NOT BE ABLE TO MANAGE HER ILEOSTOMY/INSULIN ADMIN. CM WILL CONTINUE TO FOLLOW FOR DC PLANNING/NEEDS.
--- NOTE | 2025-03-30 11:37 | PC.NURSE ---
patient continues to request IV pain medications, provider to speak with patient regarding this issue. able to stand w/out assistance. ostomy bag emptied. patient continues to rest quietly. CM met with patient in regards to staying overnight tonight as well d/t no PT in house. patient agreeable to plan.
[2025-03-30 21:11] VITALS: BP 112/73; PULSE 103
--- NOTE | 2025-03-30 23:11 | PC.NURSE ---
pt medicated per AUG, iliostomy on L emptied. pt tolertaed well.
[2025-03-31] VITALS (7 sets, daily range): BP systolic 93–121; BP diastolic 55–73; PULSE 99–103; RESP 16–18; TEMP 36.4–36.9; O2SAT 88–95; BMI 54.6
[2025-03-31] MEDS: Morphine Sulfate Immed Release 15 MG TABLET PO ×3 (06:21→21:58)
--- NOTE | 2025-03-31 06:35 | PC.NURSE ---
pt reports pain 10/10, medicated per MAR with PRN, PO morphine.
--- NOTE | 2025-03-31 08:53 | PC.NURSE ---
Physical Therapist at bedside evaluating the patient at this time. Received RN to RN report from Rafat Rothman. Care ongoing/assumed by this life insurance underwriter.
[2025-03-31 08:58] LABS: COVID-19 Test Negative (Negative); IDNOW Serial# 55D5AD1C
--- NOTE | 2025-03-31 08:59 | PC.NURSE ---
Per PT, recommending short term rehab. Patient is right handed, but has left shoulder fracture, and left knee pain s/p fall. Barely able to ambulate, per PT evaluation. Has ostomy in place, needs assistance with changing ostomy maintenance due to injury. Patient agreeable to STR search/placement. Per report, receives Dialysis on Tuesdays, , and Saturdays. Care ongoing by this RN.
--- NOTE | 2025-03-31 12:44 | PC.NURSE ---
100mL liquid stool, with gas, drained from ileostomy bag. Depends/pull-up also changed, patient states baseline intermittent urinary incontinence. Sitting upright in recliner chair at this time. Shoes & black sweatpants removed and placed with the rest of the patient's belongings ([employer] reusable bag) per request. Care ongoing by this RN.
--- NOTE | 2025-03-31 13:32 | MHC.CM.ED ---
Received case management consult overnight. Patient came to the ER due to a fall. Found to have a humerus fracture. Physical therapy eval completed. Short term rehab is recommended. Patient has an ostomy and is on insulin. Also receives HD at [facility] on , and Monday. [facility]erral made to [facility]. [facility] not have a bed. Referral made to [facility]. [facility] not sure if they have a HD slot available. But can offer a bed and arrange transport but would not be able to arrange transportation for Monday. Met with patient in regards to discharge planning. Patient already notified [facility] that she would not be at her Monday appointment. Her next scheduled HD is . Waiting to hear from [facility] if they can arrange transport for . Pateint agreeable to STR at [facility] if transport can be arranged. Continue to monitor for d/c needs.
--- NOTE | 2025-03-31 15:23 | PHA.MEDREC ---
Addendum entered by Nancy Abbott RPh 03/31/25 15:41: MED REC REVIEWED BY [facility] Original Note: Pharmacy Consult ? Medication Reconciliation Pharmacy reviewed med rec partially completed by nursing. Spoke with patient and she confirmed the med rec done by nursing was correct. Pt confirmed she takes Novolog insulin only once daily now before she goes to bed, instead of TIDAC and injects per a sliding scale, she takes Midrodine 5mg tabs TuThSa and confirmed she took one last 03/29, she injects 60 units at bedtime of Tresiba, she takes Meclizine 25mg 1 TID PRN dizziness, Ozempic 4mg/3mL once a week on Mondays and is due for it today, she takes an [place] 3 fish oil capsule once daily and Magnesium Oxide 400mg tab once daily and she is no longer taking Trazodone due to it interacting with Amitryptline; I updated the med rec according to what the pt had confirmed with me.
[2025-03-31 17:02] LABS: Hematocrit 31.8 % (37.0-47.0); NRBC Abs Auto 0.000 X10*3/uL (0.0-0.012); NRBC Pct Auto 0.0 /100WBC (0.0-0.2); PLT CLUMP 1; SCAN SMEAR FLAG 1
[2025-03-31 17:04] LABS: Hemoglobin 9.8 g/dl (12.0-16.0); Imm Gran Abs Auto 0.06 X10*3/uL (0.00-0.03); Imm Gran Pct Auto 0.5 % (0.0-0.4); Lymphocytes Absolute Auto 0.8 X10*3/uL (1.2-4.9); MANUAL DIFF FLAG SCAN; Mean Corpuscular HGB Conc 30.8 g/dl (31.0-35.0); Mean Corpuscular Hemoglobin 25.5 pg (27.0-33.0); Mean Corpuscular Volume 82.8 fL (80.0-98.0); Red Blood Count 3.84 X10*6/uL (4.20-5.50)
[2025-03-31 17:09] LABS: Alanine Aminotransferase 12 U/L (0-31); Albumin Level 4.5 g/dL (3.5-5.0); Alkaline Phosphatase 132 U/L (39-117); Anion Gap 18 (12-20); Aspartate Amino Transferase 20 U/L (5-31); Blood Urea Nitrogen 33 mg/dL (9-16); Calcium 8.8 mg/dL (8.4-10.2); Carbon Dioxide 31 mmol/L (22-29); Chloride 92 mmol/L (96-108); Creatinine Clr Calc Pharmacy 10.5; Estimated Glomerular Filt Rate 5; Magnesium 1.7 mg/dL (1.6-2.6); Potassium 5.9 mmol/L (3.3-5.1); Sodium 135 mmol/L (135-145); Total Protein 7.9 g/dL (6.5-8.0)
--- NOTE | 2025-03-31 17:40 | PM.IMHP ---
History of Present Illness Date of Service: 03/31/25 Chief Complaint: fall 55F PMH end-stage renal disease on hemodialysis with renal transplant of [place], morbid, mood disorder, diabetes presented on 03/29/2025 with mechanical fall complicated by left humeral neck fracture. Patient denies loss of consciousness, chest pain, shortness breath, fever, chills. Plan was for placement, however patient's potassium has increased to 5.9 and will need dialysis. Review of Systems Review of Systems: Yes all other systems are reviewed and are negative [facility] Medical History ESRD (end stage renal disease) Cerebellar ataxia Seizure disorder Epidermal cyst Anemia Hypogammaglobulinemia Chronic knee pain TYLOR (obstructive sleep apnea) Chronic kidney disease, stage 3 GERD (gastroesophageal reflux disease) Hyperlipidemia Bipolar disorder Anemia Ulcerative colitis Depression HTN (hypertension) Diabetes Morbid obesity Family History Mother Coronary artery disease Father High cholesterol HTN (hypertension) Surgical History Hx of resection of large bowel Social History Household Members: None Housing: Apartment Do you presently have visiting nurse or other home services: No Alcohol intake: never Patient Tobacco Use Status: Never used Tobacco Cigarette Packs Per Day: 1 Smoked in Last 30 Days: No Use of substances other than those prescribed or required for medical reasons: No Advance Directives: No Advance Directives Information Provided: No Do you have a plan to hurt others: No Plan Patient : No service: No Current occupational status: disabled Meds Allergies Allergy/AdvReac Type Severity Reaction Status Date / Time adhesive tape Allergy Intermediate Hives Verified 03/29/25 17:05 oxcarbazepine (From Allergy Intermediate AGITATION Verified 03/29/25 17:05 TRILEPTAL) topiramate (From TOPAMAX) Allergy Intermediate KIDNEY Verified 03/29/25 17:05 STONES aripiprazole (From ABILIFY) Allergy Mild HIVES Verified 03/29/25 17:05 insulin lispro (From Humalog Allergy Mild rash Verified 03/29/25 17:05 U-100 Insulin) acetaminophen (Percocet) Allergy Unknown Unknown Verified 03/29/25 17:05 carbamazepine (From Tegretol) Allergy Unknown AGITATION, Verified 03/29/25 17:05 SUICIDAL clonazepam (From Klonopin) Allergy Unknown RASH Verified 03/29/25 17:05 codeine (Codeine) Allergy Unknown VOMIT Verified 03/29/25 17:05 cylert Allergy Unknown Unknown Verified 03/29/25 17:05 haloperidol (From HALDOL) Allergy Unknown RASH Verified 03/29/25 17:05 lorazepam (From ATIVAN) Allergy Unknown RASH Verified 03/29/25 17:05 oxycodone (Percocet) Allergy Unknown Unknown Verified 03/29/25 17:05 pemoline (From Cylert) Allergy Unknown RASH Verified 03/29/25 17:05 risperidone (From Risperdal) Allergy Unknown INCREASE Verified 03/29/25 17:05 PROLECTIN LEVEL Sulfa (Sulfonamide Allergy Unknown JAUNDICE Verified 03/29/25 17:05 Antibiotics) doxycycline AdvReac Severe Chest Pain Verified 03/29/25 17:05 abilify Allergy Unknown Unknown Uncoded 03/29/25 17:05 ativan Allergy Unknown Unknown Uncoded 03/29/25 17:05 buspar Allergy Unknown Unknown Uncoded 03/29/25 17:05 celexa Allergy Unknown rash Uncoded 03/29/25 17:05 codeine Allergy Unknown Unknown Uncoded 03/29/25 17:05 depakote Allergy Unknown Unknown Uncoded 03/29/25 17:05 From BuSpar Allergy Unknown RASH Uncoded 03/29/25 17:05 From Celexa Allergy Unknown RASH Uncoded 03/29/25 17:05 From Tolectin Allergy Unknown RASH Uncoded 03/29/25 17:05 From Zoloft Allergy Unknown RASH,KIDNEY Uncoded 03/29/25 17:05 PAIN haldol Allergy Unknown Unknown Uncoded 03/29/25 17:05 hydrodiuril Allergy Unknown Unknown Uncoded 03/29/25 17:05 klonopin Allergy Unknown Unknown Uncoded 03/29/25 17:05 percocet Allergy Unknown Unknown Uncoded 03/29/25 17:05 risperdal Allergy Unknown Unknown Uncoded 03/29/25 17:05 tegretol Allergy Unknown Unknown Uncoded 03/29/25 17:05 tolectin DS Allergy Unknown Unknown Uncoded 03/29/25 17:05 Topamax Allergy Unknown kidney Uncoded 03/29/25 17:05 stones zesteril Allergy Unknown Unknown Uncoded 03/29/25 17:05 zoloft Allergy Unknown rash Uncoded 03/29/25 17:05 From Percocet AdvReac Unknown VOMIT Uncoded 03/29/25 17:05 Active Medications: Current Medications Acetaminophen (Acetaminophen 325 Mg Tablet) 650 mg PO Q6H PRN PRN Reason: Pain, Mild (Pain Scale 1-3) Acetaminophen (Acetaminophen 325 Mg Tablet) 650 mg PO Q6H PRN PRN Reason: Pain, Mild 1-3,fever,headache Hydrocodone Bitart/Acetaminophen (Hydrocodone Bit/Acetam 5/325 Tablet) 1 tab PO TID PRN PRN Reason: Pain (Scale Score 7-10) Amitriptyline HCl (Amitriptyline Hcl 50 Mg Tablet) 50 mg PO BEDTIME KITTY Last Admin: 03/30/25 21:12 Dose: 50 mg Atorvastatin Calcium (Atorvastatin Calcium 20 Mg Tablet) 20 mg PO BEDTIME KITTY Last Admin: 03/30/25 21:13 Dose: 20 mg Baclofen (Baclofen 10 Mg Tablet) 10 mg PO TID PRN PRN Reason: BACK SPASMS Last Admin: 03/31/25 13:07 Dose: 10 mg Calcium Acetate (Calcium Acetate 667 Mg Capsule) 667 mg PO BEDTIME KITTY Last Admin: 03/30/25 21:12 Dose: 667 mg Calcium Carbonate (Calcium Carbonate 750 Mg Tab.Chew) 750 mg PO Q4H PRN PRN Reason: Heartburn Dextrose (Dextrose 50 % 25 Gm/50 Ml Syringe) 25 gm IVPUSH Q15M PRN; Protocol PRN Reason: per Hypoglycemia Standing Ord. Ferrous Sulfate (Ferrous Sulfate 324 Mg Tablet.Dr) 324 mg PO BEDTIME KITTY Glucose (Glucose Gel 15 Gm Gel..Gram.) 15 gm PO Q15M PRN; Protocol PRN Reason: per Hypoglycemia Standing Ord. Heparin Sodium (Porcine) (Heparin Sodium,Porcine 5,000 Unit/Ml Vial) 5,000 unit SUBCUT Q8H KITTY Insulin Glargine (Insulin Glargine,Hum.Rec.Anlog 100 Unit/Ml 10 Ml Vial) 42 unit SUBCUT BEDTIME KITTY Loperamide HCl (Loperamide Hcl 2 Mg Capsule) 2 mg PO DAILY PRN PRN Reason: Loose Stool Magnesium Hydroxide (Milk Of Magnesia 30 Ml Oral.Susp) 30 ml PO DAILY PRN PRN Reason: Constipation Magnesium Oxide (Magnesium Oxide 400 Mg Tablet) 400 mg PO Q48H KITTY Meclizine HCl (Meclizine Hcl 25 Mg Tablet) 25 mg PO TID PRN PRN Reason: Dizziness Melatonin (Melatonin 3 Mg Tablet) 6 mg PO BEDTIME PRN PRN Reason: Insomnia Metoprolol Succinate (Metoprolol Succinate Er 100 Mg Tab.Er.24h) 100 mg PO BEDTIME KITTY; Protocol Last Admin: 03/30/25 21:11 Dose: 100 mg Midodrine (Midodrine Hcl 10 Mg Tablet) 10 mg PO TuThSa KITTY Morphine Sulfate (Morphine Sulfate Immed Release 15 Mg Tablet) 15 mg PO Q6H PRN PRN Reason: Pain, Severe (Pain Scale 7-10) Last Admin: 03/31/25 13:07 Dose: 15 mg Omeprazole (Omeprazole 20 Mg Capsule.Dr) 20 mg PO BEDTIME KITTY Last Admin: 03/30/25 21:13 Dose: 20 mg Quetiapine Fumarate (Quetiapine Fumarate 25 Mg Tablet) 25 mg PO BEDTIME COUNT INCLUDES THE [facility] Last Admin: 03/30/25 21:10 Dose: 25 mg Sodium Chloride (0.9 % Sodium Chloride Flush 3 Ml Syringe) 3 ml IVFLUSH [facility] Vitamin D (Cholecalciferol (Vitamin D3) 25 Mcg Tablet) 50 mcg PO BEDTIME COUNT INCLUDES THE [facility] Last Admin: 03/30/25 21:12 Dose: 50 mcg Home Medications ?Medication ?Instructions ?Recorded ?Confirmed ?Last Taken ?Type atorvastatin 20 mg tablet 20 mg PO BEDTIME 07/08/20 03/31/25 03/28/25 History cholecalciferol (vitamin D3) 50 50 mcg PO BEDTIME 07/08/20 03/31/25 03/28/25 History mcg (2,000 unit) capsule (Vitamin D3) ferrous sulfate 325 mg (65 mg 325 mg PO BEDTIME 07/08/20 03/31/25 03/28/25 History iron) tablet (Iron (ferrous sulfate)) insulin aspar prot-insulin aspart See Protocol subcut BEDTIME 07/08/20 03/31/25 03/28/25 History 100 unit/mL (70-30) subcutaneous pen (Novolog Mix 70-30FlexPen U-100) insulin degludec 200 unit/mL (3 60 unit subcut BEDTIME 07/08/20 03/31/25 03/28/25 History mL) subcutaneous pen (Tresiba FlexTouch U-200 insulin) lansoprazole 30 mg capsule,delayed 30 mg PO BEDTIME 09/11/21 03/31/25 03/28/25 History release calcium acetate 667 mg tablet 667 mg PO BEDTIME 12/29/21 03/31/25 03/28/25 History amitriptyline 50 mg tablet 50 mg PO BEDTIME 05/13/24 03/31/25 03/28/25 History hydrocodone 5 mg-acetaminophen 325 1 tab PO TID PRN Pain (Scale Score 05/13/24 03/31/25 Unknown History mg tablet 7-10) loperamide 2 mg capsule 2 mg PO DAILY PRN Loose Stool 05/13/24 03/31/25 Unknown History midodrine 5 mg tablet 10 mg PO TUTHSA before Dialysis 05/13/24 03/31/25 03/29/25 History quetiapine 25 mg tablet 25 mg PO BEDTIME 05/13/24 03/31/25 03/28/25 History baclofen 10 mg tablet 10 mg PO NEEDED PRN BACK SPASMS 09/20/24 03/31/25 Unknown History magnesium oxide 400 mg PO Q48H 03/31/25 03/31/25 03/28/25 History meclizine 25 mg tablet 25 mg PO TID PRN Dizziness 03/31/25 03/31/25 Unknown History metoprolol succinate 100 mg 100 mg PO BEDTIME 03/31/25 03/31/25 03/28/25 History tablet,extended release 24 hr omega 3-dde-fvg-fish oil 1,000 mg 1 cap PO Q48H 03/31/25 03/31/25 03/28/25 History (120 mg-180 mg) capsule (Fish Oil) semaglutide 1 mg/dose (4 mg/3 mL) 1 mg subcut MO 03/31/25 03/31/25 03/24/25 History subcutaneous pen injector (Ozempic) Physical Exam Vital Signs and Narrative: Vital Signs: Last Vital Signs Temp 98.3 F 03/31/25 06:22 Pulse 99 03/31/25 06:22 Resp 18 03/31/25 06:22 BP 93/55 L 03/31/25 06:22 Pulse Ox 91 L 03/31/25 06:22 O2 Del Method Room Air 03/31/25 06:22 BMI result Body Mass Index 54.6 General: AO X 3, no acute distress Resp: CTA bilateral, no accessory muscles used CVS: S1,S2,RRR GI: soft, non tender, non distended Neuro: motor grossly intact, alert Psych: appropriate affect, appropriate insight Left arm in sling Results Labs 03/31/25 16:38 03/31/25 16:38 Labs: Laboratory Results - last 24 hr 03/31/25 03/31/25 08:38 16:38 MCV 82.8 MCH 25.5 L MCHC 30.8 L RDW 21.5 H Immature Gran % (Auto) 0.5 H Neut % (Auto) 85.8 H Lymph % (Auto) 6.9 L [place] % (Auto) 4.5 Eos % (Auto) 1.8 Baso % (Auto) 0.5 Lymph # (Auto) 0.8 L [place] # (Auto) 0.5 Eos # (Auto) 0.2 Baso # (Auto) 0.1 Abs Immat Gran (auto) 0.06 H Absolute Neuts (auto) 9.4 H Absolute Nucleated RBC 0.000 Nucleated RBC % (auto) 0.0 Anion Gap 18 Estim Creat Clear Calc 10.5 Estimated GFR 5 Random Glucose 178 H Calcium 8.8 Magnesium 1.7 Total Bilirubin 0.6 AST 20 ALT 12 Alkaline Phosphatase 132 H Total Protein 7.9 Albumin 4.5 COVID-19 (GARY) Negative COVID-19 Clin Com See Note Assessment and Plan (1) Diabetes: Status: Acute Plan 55F PMH end-stage renal disease on hemodialysis with renal transplant of [place], morbid, mood disorder, diabetes presented on 03/29/2025 with mechanical fall complicated by left humeral neck fracture Mechanical fall complicated by left humeral neck fracture nwb lue ortho eval pain control ESRD on HD complicated by hyperkalemia lokelma, follow up bmp patient has left AVF - will not be able to tolerate use for HD, plan for permacath mood disorder seroquel elavil dm insulin morbid obesity weight loss dvt prophylaxis - hep sq full code patient requiring hd due to esrd and hyperkalemia and will need alternative access, therefore expected to require atleast 2 midnights inpatient Quality Stroke Does the patient have a stroke diagnosis?: No VTE Prior VTE?: No VTE Risk Level:: Medical - moderate - high VTE Device Contraindication: Treatment Not Indicated VTE Drug Contraindication: N/A - Med Ordered
[2025-03-31 18:11] LABS: Platelet Count 209 X10*3/uL (160-400); White Blood Count 10.9 X10*3/uL (4.8-10.8)
--- NOTE | 2025-03-31 18:23 | PM.EVENT ---
Event Note Date of Service: 03/31/25 Event Note: Constipation for relative hypotension and hypoxia Noted to be mid 80s on room air with good pleth sbp 80s-90s patient asymptomatic check cxr, ekg o2 supplement for goal 91-94% Time Spent With Patient Time: Total time managing care of this patient today ____ minutes.
--- NOTE | 2025-03-31 18:25 | PC.NURSE ---
Upon repeating vital signs, noted to be hypoxic on room air, and hypotensive. Dr. Rocha called to bedside for evaluation. Plan to admit the patient to Med/Tele instead of Med/Surg now. Placed on 1LPM oxygen via nasal cannula. Patient is alert/oriented. Plan for EKG & chest xray. Patient denies shortness of breath, denies chest pain, or other complaints. Pt states sometimes my oxygen goes down during dialysis. I have sleep apnea. I've needed to use oxygen in the past.
--- NOTE | 2025-03-31 18:53 | MHC.EDTECH ---
Unable to do EKG due to patient unable to move left arm
--- NOTE | 2025-03-31 19:04 | MHC.CM.ED ---
[facility]
[2025-03-31 20:50] LABS: Glucose, Whole Blood 195 mg/dL (60-115)
[2025-03-31] MEDS: Ferrous Sulfate 324 MG TABLET.DR PO (21:34)
[2025-03-31] MEDS: Metoprolol Succinate ER 100 MG TAB.ER.24H PO (21:34)
[2025-03-31] MEDS: 0.9 % Sodium Chloride Flush 3 ML SYRINGE IVFLUSH (21:38)
--- NOTE | 2025-03-31 22:05 | PC.NURSE ---
Patient declined assistance into bed; reported to program writer that she sleeps in the recliner. Patient resistive to skin care assessment including buttocks. Stated I wear a brief, and my skin is fine . Skin on buttocks that was visible with limited assessment this pt would allow appeared blanchable red. Waffle cushion educated on and placed in chair. Shortly after placed patient reported she did not like the cushion and requested it be taken out. Pt also refused pink foam for protection. senior security analyst also made aware and in to assist with education for skin integrity. Chair alarm in place due to patient reporting hx of falls at home, consistent with admitting reason.
[2025-04-01] VITALS (11 sets, daily range): BP systolic 99–122; BP diastolic 55–72; PULSE 86–111; RESP 15–22; TEMP 36.4–36.9; O2SAT 91–100
[2025-04-01 06:29] LABS: Anion Gap 23 (12-20); Blood Urea Nitrogen 43 mg/dL (9-16); Calcium 8.6 mg/dL (8.4-10.2); Carbon Dioxide 27 mmol/L (22-29); Chloride 92 mmol/L (96-108); Creatinine Clr Calc Pharmacy 9.3; Estimated Glomerular Filt Rate 4; Hematocrit 31.6 % (37.0-47.0); Hemoglobin 9.8 g/dl (12.0-16.0); Mean Corpuscular HGB Conc 31.0 g/dl (31.0-35.0); Mean Corpuscular Hemoglobin 25.3 pg (27.0-33.0); Mean Corpuscular Volume 81.7 fL (80.0-98.0); NRBC Abs Auto 0.000 X10*3/uL (0.0-0.012); NRBC Pct Auto 0.0 /100WBC (0.0-0.2); Platelet Count 225 X10*3/uL (160-400); Potassium 5.8 mmol/L (3.3-5.1); Red Blood Count 3.87 X10*6/uL (4.20-5.50); Sodium 136 mmol/L (135-145); White Blood Count 13.4 X10*3/uL (4.8-10.8)
[2025-04-01 07:01] LABS: Glucose, Whole Blood 211 mg/dL (60-115)
[2025-04-01] MEDS: 0.9 % Sodium Chloride Flush 3 ML SYRINGE IVFLUSH ×3 (08:11→21:15)
[2025-04-01] MEDS: Morphine Sulfate Immed Release 15 MG TABLET PO ×2 (08:20→19:38)
--- NOTE | 2025-04-01 08:22 | PM.CNOR ---
History of Present Illness HPI Consult date: 04/01/25 Chief complaint: hyeprk, humerus fracture Narrative: 55 yo female admitted to the medical service with significant comorbidities for end-stage renal disease on hemodialysis with renal transplant of [place], morbid, mood disorder, diabetes after sustaining a fall and injuring the left shoulder. While in the ED, xrays of the left shoulder demonstrated a left proximal humerus fracture. Patient was placed in a sling and orthopedics was consulted for recommendations. Patient states when she was 11yo she fractured her proximal humerus which healed without complications. Review of Systems Review of Systems: Yes all other systems are reviewed and are negative [facility] Past Medical History Medical History ESRD (end stage renal disease) Cerebellar ataxia Seizure disorder Epidermal cyst Anemia Hypogammaglobulinemia Chronic knee pain TYLOR (obstructive sleep apnea) Chronic kidney disease, stage 3 GERD (gastroesophageal reflux disease) Hyperlipidemia Bipolar disorder Anemia Ulcerative colitis Depression HTN (hypertension) Diabetes Morbid obesity Family History Family History Mother Coronary artery disease Father High cholesterol HTN (hypertension) Surgical History Surgical History Hx of resection of large bowel Social History Social History Household Members: None Housing: Apartment Do you presently have visiting nurse or other home services: No Alcohol intake: never Comment: pt reports she sleep in the recliner, does not sleep in bed Patient Tobacco Use Status: Never used Tobacco Cigarette Packs Per Day: 1 service: No Current occupational status: disabled Meds Allergies Allergy/AdvReac Type Severity Reaction Status Date / Time adhesive tape Allergy Intermediate Hives Verified 03/29/25 17:05 oxcarbazepine (From Allergy Intermediate AGITATION Verified 03/29/25 17:05 TRILEPTAL) topiramate (From TOPAMAX) Allergy Intermediate KIDNEY Verified 03/29/25 17:05 STONES aripiprazole (From ABILIFY) Allergy Mild HIVES Verified 03/29/25 17:05 insulin lispro (From Humalog Allergy Mild rash Verified 03/29/25 17:05 U-100 Insulin) acetaminophen (Percocet) Allergy Unknown Unknown Verified 03/29/25 17:05 carbamazepine (From Tegretol) Allergy Unknown AGITATION, Verified 03/29/25 17:05 SUICIDAL clonazepam (From Klonopin) Allergy Unknown RASH Verified 03/29/25 17:05 codeine (Codeine) Allergy Unknown VOMIT Verified 03/29/25 17:05 cylert Allergy Unknown Unknown Verified 03/29/25 17:05 haloperidol (From HALDOL) Allergy Unknown RASH Verified 03/29/25 17:05 lorazepam (From ATIVAN) Allergy Unknown RASH Verified 03/29/25 17:05 oxycodone (Percocet) Allergy Unknown Unknown Verified 03/29/25 17:05 pemoline (From Cylert) Allergy Unknown RASH Verified 03/29/25 17:05 risperidone (From Risperdal) Allergy Unknown INCREASE Verified 03/29/25 17:05 PROLECTIN LEVEL Sulfa (Sulfonamide Allergy Unknown JAUNDICE Verified 03/29/25 17:05 Antibiotics) doxycycline AdvReac Severe Chest Pain Verified 03/29/25 17:05 abilify Allergy Unknown Unknown Uncoded 03/29/25 17:05 ativan Allergy Unknown Unknown Uncoded 03/29/25 17:05 buspar Allergy Unknown Unknown Uncoded 03/29/25 17:05 celexa Allergy Unknown rash Uncoded 03/29/25 17:05 codeine Allergy Unknown Unknown Uncoded 03/29/25 17:05 depakote Allergy Unknown Unknown Uncoded 03/29/25 17:05 From BuSpar Allergy Unknown RASH Uncoded 03/29/25 17:05 From Celexa Allergy Unknown RASH Uncoded 03/29/25 17:05 From Tolectin Allergy Unknown RASH Uncoded 03/29/25 17:05 From Zoloft Allergy Unknown RASH,KIDNEY Uncoded 03/29/25 17:05 PAIN haldol Allergy Unknown Unknown Uncoded 03/29/25 17:05 hydrodiuril Allergy Unknown Unknown Uncoded 03/29/25 17:05 klonopin Allergy Unknown Unknown Uncoded 03/29/25 17:05 percocet Allergy Unknown Unknown Uncoded 03/29/25 17:05 risperdal Allergy Unknown Unknown Uncoded 03/29/25 17:05 tegretol Allergy Unknown Unknown Uncoded 03/29/25 17:05 tolectin DS Allergy Unknown Unknown Uncoded 03/29/25 17:05 Topamax Allergy Unknown kidney Uncoded 03/29/25 17:05 stones zesteril Allergy Unknown Unknown Uncoded 03/29/25 17:05 zoloft Allergy Unknown rash Uncoded 03/29/25 17:05 From Percocet AdvReac Unknown VOMIT Uncoded 03/29/25 17:05 Active Medications: Current Medications Acetaminophen (Acetaminophen 325 Mg Tablet) 650 mg PO Q6H PRN PRN Reason: Pain, Mild (Pain Scale 1-3) Acetaminophen (Acetaminophen 325 Mg Tablet) 650 mg PO Q6H PRN PRN Reason: Pain, Mild 1-3,fever,headache Hydrocodone Bitart/Acetaminophen (Hydrocodone Bit/Acetam 5/325 Tablet) 1 tab PO TID PRN PRN Reason: Pain (Scale Score 7-10) Amitriptyline HCl (Amitriptyline Hcl 50 Mg Tablet) 50 mg PO BEDTIME [facility] Last Admin: 03/31/25 21:34 Dose: 50 mg Atorvastatin Calcium (Atorvastatin Calcium 20 Mg Tablet) 20 mg PO BEDTIME [facility] Last Admin: 03/31/25 21:34 Dose: 20 mg Baclofen (Baclofen 10 Mg Tablet) 10 mg PO TID PRN PRN Reason: BACK SPASMS Last Admin: 03/31/25 13:07 Dose: 10 mg Calcium Acetate (Calcium Acetate 667 Mg Capsule) 667 mg PO BEDTIME [facility] Last Admin: 03/31/25 21:34 Dose: 667 mg Calcium Carbonate (Calcium Carbonate 750 Mg Tab.Chew) 750 mg PO Q4H PRN PRN Reason: Heartburn Dextrose (Dextrose 50 % 25 Gm/50 Ml Syringe) 25 gm IVPUSH Q15M PRN; Protocol PRN Reason: per Hypoglycemia Standing Ord. Ferrous Sulfate (Ferrous Sulfate 324 Mg Tablet.Dr) 324 mg PO BEDTIME [facility] Last Admin: 03/31/25 21:34 Dose: 324 mg Glucose (Glucose Gel 15 Gm Gel..Gram.) 15 gm PO Q15M PRN; Protocol PRN Reason: per Hypoglycemia Standing Ord. Heparin Sodium (Porcine) (Heparin Sodium,Porcine 5,000 Unit/Ml Vial) 5,000 unit SUBCUT Q8H [facility] Insulin Glargine (Insulin Glargine,Hum.Rec.Anlog 100 Unit/Ml 10 Ml Vial) 42 unit SUBCUT BEDTIME [facility] Last Admin: 03/31/25 21:41 Dose: Not Given Loperamide HCl (Loperamide Hcl 2 Mg Capsule) 2 mg PO DAILY PRN PRN Reason: Loose Stool Magnesium Hydroxide (Milk Of Magnesia 30 Ml Oral.Susp) 30 ml PO DAILY PRN PRN Reason: Constipation Magnesium Oxide (Magnesium Oxide 400 Mg Tablet) 400 mg PO Q48H [facility] Last Admin: 03/31/25 18:36 Dose: 400 mg Meclizine HCl (Meclizine Hcl 25 Mg Tablet) 25 mg PO TID PRN PRN Reason: Dizziness Melatonin (Melatonin 3 Mg Tablet) 6 mg PO BEDTIME PRN PRN Reason: Insomnia Metoprolol Succinate (Metoprolol Succinate Er 100 Mg Tab.Er.24h) 100 mg PO BEDTIME [facility]; Protocol Last Admin: 03/31/25 21:34 Dose: 100 mg Midodrine (Midodrine Hcl 10 Mg Tablet) 10 mg PO TuThSa [facility] Last Admin: 04/01/25 08:11 Dose: 10 mg Morphine Sulfate (Morphine Sulfate Immed Release 15 Mg Tablet) 15 mg PO Q6H PRN PRN Reason: Pain, Severe (Pain Scale 7-10) Last Admin: 03/31/25 21:58 Dose: 15 mg Omeprazole (Omeprazole 20 Mg Capsule.Dr) 20 mg PO BEDTIME [facility] Last Admin: 03/31/25 21:34 Dose: 20 mg Quetiapine Fumarate (Quetiapine Fumarate 25 Mg Tablet) 25 mg PO BEDTIME [facility] Last Admin: 03/31/25 21:34 Dose: 25 mg Sodium Chloride (0.9 % Sodium Chloride Flush 3 Ml Syringe) [facility] Last Admin: 04/01/25 08:11 Dose: 3 ml Vitamin D (Cholecalciferol (Vitamin D3) 25 Mcg Tablet) 50 mcg PO BEDTIME [facility] Last Admin: 03/31/25 21:34 Dose: 50 mcg Home Medications ?Medication ?Instructions ?Recorded ?Confirmed ?Last Taken ?Type atorvastatin 20 mg tablet 20 mg PO BEDTIME 07/08/20 03/31/25 03/28/25 History cholecalciferol (vitamin D3) 50 50 mcg PO BEDTIME 07/08/20 03/31/25 03/28/25 History mcg (2,000 unit) capsule (Vitamin D3) ferrous sulfate 325 mg (65 mg 325 mg PO BEDTIME 07/08/20 03/31/25 03/28/25 History iron) tablet (Iron (ferrous sulfate)) insulin aspar prot-insulin aspart See Protocol subcut BEDTIME 07/08/20 03/31/25 03/28/25 History 100 unit/mL (70-30) subcutaneous pen (Novolog Mix 70-30FlexPen U-100) insulin degludec 200 unit/mL (3 60 unit subcut BEDTIME 07/08/20 03/31/25 03/28/25 History mL) subcutaneous pen (Tresiba FlexTouch U-200 insulin) lansoprazole 30 mg capsule,delayed 30 mg PO BEDTIME 09/11/21 03/31/25 03/28/25 History release calcium acetate 667 mg tablet 667 mg PO BEDTIME 12/29/21 03/31/25 03/28/25 History amitriptyline 50 mg tablet 50 mg PO BEDTIME 05/13/24 03/31/25 03/28/25 History hydrocodone 5 mg-acetaminophen 325 1 tab PO TID PRN Pain (Scale Score 05/13/24 03/31/25 Unknown History mg tablet 7-10) loperamide 2 mg capsule 2 mg PO DAILY PRN Loose Stool 05/13/24 03/31/25 Unknown History midodrine 5 mg tablet 10 mg PO TUTHSA before Dialysis 05/13/24 03/31/25 03/29/25 History quetiapine 25 mg tablet 25 mg PO BEDTIME 05/13/24 03/31/25 03/28/25 History baclofen 10 mg tablet 10 mg PO NEEDED PRN BACK SPASMS 09/20/24 03/31/25 Unknown History magnesium oxide 400 mg PO Q48H 03/31/25 03/31/25 03/28/25 History meclizine 25 mg tablet 25 mg PO TID PRN Dizziness 03/31/25 03/31/25 Unknown History metoprolol succinate 100 mg 100 mg PO BEDTIME 03/31/25 03/31/25 03/28/25 History tablet,extended release 24 hr omega [id number] oil 1,000 mg 1 cap PO Q48H 03/31/25 03/31/25 03/28/25 History (120 mg-180 mg) capsule (Fish Oil) semaglutide 1 mg/dose (4 mg/3 mL) 1 mg subcut MO 03/31/25 03/31/25 03/24/25 History subcutaneous pen injector (Ozempic) Physical Exam Vital Signs: Vital Signs: Last Vital Signs Temp 97.5 F 04/01/25 07:01 Pulse 111 H 04/01/25 07:01 Resp 20 04/01/25 07:01 BP 110/60 04/01/25 08:11 Pulse Ox 92 04/01/25 07:01 O2 Del Method Nasal Cannula 04/01/25 07:01 O2 Flow Rate 2 04/01/25 07:01 BMI result Body Mass Index 54.6 Const: General: cooperative, healthy appearing, comfortable and no acute distress Extrem: Other: Left shoulder skin intact, tenderness over the proximal humerus. She is able to perform wrist flexion and extension. NVI. Results Labs 04/01/25 05:34 04/01/25 05:34 Labs: Abnormal lab results 03/31/25 03/31/25 04/01/25 Range/Units 16:38 20:44 05:34 WBC 10.9 H 13.4 H (4.8-10.8) X10*3/uL RBC 3.84 L 3.87 L (4.20-5.50) X10*6/uL Hgb 9.8 L 9.8 L (12.0-16.0) g/dl Hct 31.8 L 31.6 L (37.0-47.0) % MCH 25.5 L 25.3 L (27.0-33.0) pg MCHC 30.8 L (31.0-35.0) g/dl RDW 21.5 H 21.6 H (11.0-16.0) % MPV 9.2 L 9.2 L (9.4-12.3) fL Immature Gran % (Auto) 0.5 H (0.0-0.4) % Neut % (Auto) 85.8 H (45-73) % Lymph % (Auto) 6.9 L (20-40) % Lymph # (Auto) 0.8 L (1.2-4.9) X10*3/uL Abs Immat Gran (auto) 0.06 H (0.00-0.03) X10*3/uL Absolute Neuts (auto) 9.4 H (2.0-8.3) x10*3/uL Potassium 5.9 H D 5.8 H (3.3-5.1) mmol/L Chloride 92 L 92 L (96-108) mmol/L Carbon Dioxide 31 H (22-29) mmol/L Anion Gap 23 H (12-20) BUN 33 H 43 H (9-16) mg/dL Creatinine 8.18 H* 9.27 H* (0.5-1.4) mg/dL POC Glucose 195 H (60-115) mg/dL Random Glucose 178 H 227 H (60-115) mg/dL Alkaline Phosphatase 132 H (39-117) U/L 04/01/25 Range/Units 06:51 WBC (4.8-10.8) X10*3/uL RBC (4.20-5.50) X10*6/uL Hgb (12.0-16.0) g/dl Hct (37.0-47.0) % MCH (27.0-33.0) pg MCHC (31.0-35.0) g/dl RDW (11.0-16.0) % MPV (9.4-12.3) fL Immature Gran % (Auto) (0.0-0.4) % Neut % (Auto) (45-73) % Lymph % (Auto) (20-40) % Lymph # (Auto) (1.2-4.9) X10*3/uL Abs Immat Gran (auto) (0.00-0.03) X10*3/uL Absolute Neuts (auto) (2.0-8.3) x10*3/uL Potassium (3.3-5.1) mmol/L Chloride (96-108) mmol/L Carbon Dioxide (22-29) mmol/L Anion Gap (12-20) BUN (9-16) mg/dL Creatinine (0.5-1.4) mg/dL POC Glucose 211 H (60-115) mg/dL Random Glucose (60-115) mg/dL Alkaline Phosphatase (39-117) U/L H & H 03/29/25 03/31/25 04/01/25 Range/Units 18:19 16:38 05:34 Hgb 8.9 L 9.8 L 9.8 L (12.0-16.0) g/dl Hct 28.1 L 31.8 L 31.6 L (37.0-47.0) % All other labs normal. Assessment and Plan (1) Fracture of humerus, proximal, left, closed: Status: Acute Plan xrays of the left shoulder obtained on 03/29: left proximal humerus fracture with evidence of hold healed fracture along prox 1/3 of the humeral shaft No surgical intervention warranted-the patient was educated on non op treatment with sling for comfort, elbow rom, periscap stab, no reaching or wb with left arm Follow up with ortho in 4 weeks for xrays Procedures Date of Service Date of Service: 04/01/25
--- NOTE | 2025-04-01 09:44 | MHC.CM.PN ---
Addendum entered by Radha Robb 04/01/25 14:55: PATIENT WITH MEDICARE AND MEDICAID, WILL NOT NEED INSURANCE AUTH FOR STR. Original Note: IMM GIVEN 04/01. THIS CM MET WITH PATIENT, SHE STATES SHE LIVES ALONE AT HOME, GOES TO [facility] FOR HD ON /MON. HCP ON FILE AND VERIFIED. DP[facility] PENDING INSURANCE AUTH. PCP: BINTA SCHMITT
[2025-04-01 09:45] LABS: INTERNATIONAL NORM RATIO 1.2 (0.9-1.1); Prothrombin Time 13.7 SEC (10.9-12.4)
[2025-04-01 09:48] LABS: Partial Thromboplastin Time 28.1 SEC (26.7-34.1)
--- NOTE | 2025-04-01 09:55 | HO.PM.IMPN ---
Subjective Subjective Date of Service: 04/01/25 Interval History: left shoulder pain Physical Exam Exam: Exam: General: AO X 3, no acute distress Resp: diminshed bilateral, no accessory muscles used CVS: S1,S2,RRR GI: soft, non tender, non distended Neuro: motor grossly intact, alert Psych: appropriate affect, appropriate insight Vital Signs: Vital Signs: Last Vital Signs Temp 97.5 F 04/01/25 07:01 Pulse 111 H 04/01/25 07:01 Resp 20 04/01/25 07:01 BP 110/60 04/01/25 08:11 Pulse Ox 92 04/01/25 07:01 O2 Del Method Nasal Cannula 04/01/25 07:01 O2 Flow Rate 2 04/01/25 07:01 BMI result Body Mass Index 54.6 Objective Data Active Medications Acetaminophen (Acetaminophen 325 Mg Tablet) 650 mg PO Q6H PRN PRN Reason: Pain, Mild (Pain Scale 1-3) Acetaminophen (Acetaminophen 325 Mg Tablet) 650 mg PO Q6H PRN PRN Reason: Pain, Mild 1-3,fever,headache Hydrocodone Bitart/Acetaminophen (Hydrocodone Bit/Acetam 5/325 Tablet) 1 tab PO TID PRN PRN Reason: Pain (Scale Score 7-10) Amitriptyline HCl (Amitriptyline Hcl 50 Mg Tablet) 50 mg PO BEDTIME [facility] Last Admin: 03/31/25 21:34 Dose: 50 mg Documented By: RONALD Atorvastatin Calcium (Atorvastatin Calcium 20 Mg Tablet) 20 mg PO BEDTIME [facility] Last Admin: 03/31/25 21:34 Dose: 20 mg Documented By: RONALD Baclofen (Baclofen 10 Mg Tablet) 10 mg PO TID PRN PRN Reason: BACK SPASMS Last Admin: 03/31/25 13:07 Dose: 10 mg Documented By: DERICK Calcium Acetate (Calcium Acetate 667 Mg Capsule) 667 mg PO BEDTIME [facility] Last Admin: 03/31/25 21:34 Dose: 667 mg Documented By: RONALD Calcium Carbonate (Calcium Carbonate 750 Mg Tab.Chew) 750 mg PO Q4H PRN PRN Reason: Heartburn Dextrose (Dextrose 50 % 25 Gm/50 Ml Syringe) 25 gm IVPUSH Q15M PRN; Protocol PRN Reason: per Hypoglycemia Standing Ord. Ferrous Sulfate (Ferrous Sulfate 324 Mg Tablet.) 324 mg PO BEDTIME [facility] Last Admin: 03/31/25 21:34 Dose: 324 mg Documented By: RONALD Glucose (Glucose Gel 15 Gm Gel..Gram.) 15 gm PO Q15M PRN; Protocol PRN Reason: per Hypoglycemia Standing Ord. Heparin Sodium (Porcine) (Heparin Sodium,Porcine 5,000 Unit/Ml Vial) 5,000 unit SUBCUT Q8H [facility] Insulin Glargine (Insulin Glargine,Hum.Rec.Anlog 100 Unit/Ml 10 Ml Vial) 42 unit SUBCUT BEDTIME [facility] Last Admin: 03/31/25 21:41 Dose: Not Given Documented By: RONALD Non-Admin Reason: Physician Held Med Comments: Held per Dr. Jaret Krishnan written order; pt NPO at midnight with reduced kidney function Loperamide HCl (Loperamide Hcl 2 Mg Capsule) 2 mg PO DAILY PRN PRN Reason: Loose Stool Magnesium Hydroxide (Milk Of Magnesia 30 Ml Oral.Susp) 30 ml PO DAILY PRN PRN Reason: Constipation Magnesium Oxide (Magnesium Oxide 400 Mg Tablet) 400 mg PO Q48H [facility] Last Admin: 03/31/25 18:36 Dose: 400 mg Documented By: DERICK Meclizine HCl (Meclizine Hcl 25 Mg Tablet) 25 mg PO TID PRN PRN Reason: Dizziness Melatonin (Melatonin 3 Mg Tablet) 6 mg PO BEDTIME PRN PRN Reason: Insomnia Metoprolol Succinate (Metoprolol Succinate Er 100 Mg Tab.Er.24h) 100 mg PO BEDTIME [facility]; Protocol Last Admin: 03/31/25 21:34 Dose: 100 mg Documented By: RONALD Midodrine (Midodrine Hcl 10 Mg Tablet) 10 mg PO TuThSa [facility] Last Admin: 04/01/25 08:11 Dose: 10 mg Documented By: MIKEL Morphine Sulfate (Morphine Sulfate Immed Release 15 Mg Tablet) 15 mg PO Q6H PRN PRN Reason: Pain, Severe (Pain Scale 7-10) Last Admin: 03/31/25 21:58 Dose: 15 mg Documented By: RONALD Omeprazole (Omeprazole 20 Mg Capsule.) 20 mg PO BEDTIME [facility] Last Admin: 03/31/25 21:34 Dose: 20 mg Documented By: RONALD Quetiapine Fumarate (Quetiapine Fumarate 25 Mg Tablet) 25 mg PO BEDTIME [facility] Last Admin: 03/31/25 21:34 Dose: 25 mg Documented By: RONALD Sodium Chloride (0.9 % Sodium Chloride Flush 3 Ml Syringe) 3 ml IVFLUSH QSHIFT [facility] Last Admin: 04/01/25 08:11 Dose: 3 ml Documented By: MIKEL Vitamin D (Cholecalciferol (Vitamin D3) 25 Mcg Tablet) 50 mcg PO BEDTIME [facility] Last Admin: 03/31/25 21:34 Dose: 50 mcg Documented By: RONALD Labs 04/01/25 05:34 04/01/25 05:34 Labs: Laboratory Results - last 24 hr 03/31/25 03/31/25 04/01/25 16:38 20:44 05:34 MCV 82.8 81.7 MCH 25.5 L 25.3 L MCHC 30.8 L 31.0 RDW 21.5 H 21.6 H Plt Count 209 225 MPV 9.2 L 9.2 L Immature Gran % (Auto) 0.5 H Neut % (Auto) 85.8 H Lymph % (Auto) 6.9 L [place] % (Auto) 4.5 Eos % (Auto) 1.8 Baso % (Auto) 0.5 Lymph # (Auto) 0.8 L [place] # (Auto) 0.5 Eos # (Auto) 0.2 Baso # (Auto) 0.1 Abs Immat Gran (auto) 0.06 H Absolute Neuts (auto) 9.4 H Absolute Nucleated RBC 0.000 0.000 Nucleated RBC % (auto) 0.0 0.0 Smear Tech's Comments VERIFIED PT INR APTT Anion Gap 18 23 H Estim Creat Clear Calc 10.5 9.3 Estimated GFR 5 4 POC Glucose 195 H Random Glucose 178 H 227 H Calcium 8.8 8.6 Magnesium 1.7 Total Bilirubin 0.6 AST 20 ALT 12 Alkaline Phosphatase 132 H Total Protein 7.9 Albumin 4.5 04/01/25 04/01/25 06:51 08:59 MCV MCH MCHC RDW Plt Count MPV Immature Gran % (Auto) Neut % (Auto) Lymph % (Auto) [place] % (Auto) Eos % (Auto) Baso % (Auto) Lymph # (Auto) [place] # (Auto) Eos # (Auto) Baso # (Auto) Abs Immat Gran (auto) Absolute Neuts (auto) Absolute Nucleated RBC Nucleated RBC % (auto) Smear Tech's Comments PT 13.7 H INR 1.2 H APTT 28.1 Anion Gap Estim Creat Clear Calc Estimated GFR POC Glucose 211 H Random Glucose Calcium Magnesium Total Bilirubin AST ALT Alkaline Phosphatase Total Protein Albumin Assessment and Plan (1) Diabetes: Status: Acute Plan 55F PMH end-stage renal disease on hemodialysis with renal transplant of [place], morbid, mood disorder, diabetes presented on 03/29/2025 with mechanical fall complicated by left humeral neck fracture Mechanical fall complicated by left humeral neck fracture ortho appreciated - sling, nwb lue, repeat xrays 4 weeks pain control ESRD on HD complicated by hyperkalemia lokelma, follow up bmp patient has left AVF - unable to tolerate use for HD, plan for permacath acute hypoxic respiratory failure due to atelectasis incentive spirometry, wean o2 (was mid 80s on room air) mood disorder seroquel elavil dm insulin morbid obesity weight loss dvt prophylaxis - hep sq full code reason for continued hospitalization:setting up hd access, hyperk Quality Stroke Does the patient have a stroke diagnosis?: No VTE Prior VTE?: No VTE Risk Level:: Medical - moderate - high VTE Device Contraindication: Treatment Not Indicated VTE Drug Contraindication: N/A - Med Ordered
[2025-04-01 10:59] LABS: Glucose, Whole Blood 190 mg/dL (60-115)
[2025-04-01] MEDS: HYDROcodone Bit/Acetam 5/325 TABLET 1 TAB PO (12:08)
--- NOTE | 2025-04-01 15:40 | PM.CNNEP ---
History of Present Illness Reason for Consult Consult date: 04/01/25 Reason for consult: ESRD and HD management Chief Complaint Chief complaint: hyeprk, humerus fracture History of Present Illness Narrative: RTANE consulted for ESRD and HD management after pressenting to ER after a fall and [place] Fx in hemoacess arm In summary 55F end-stage renal disease on hemodialysis [facility] TTS morbid, mood disorder, diabetes presented on 03/29/2025 with mechanical fall complicated by left humeral neck fracture Last HD was Monday Initially ER was trying to transfer PT to SNF ( [facility]) but she needs a Permcath as she will NOT tolerate HD via AVF in the Hueral neck Fx arm where her access is Review of Systems Review of Systems Positive pain to the shoulder Yes all other systems are reviewed and are negative PMFSH Past Medical History Medical History ESRD (end stage renal disease) Cerebellar ataxia Seizure disorder Epidermal cyst Anemia Hypogammaglobulinemia Chronic knee pain TYLOR (obstructive sleep apnea) Chronic kidney disease, stage 3 GERD (gastroesophageal reflux disease) Hyperlipidemia Bipolar disorder Anemia Ulcerative colitis Depression HTN (hypertension) Diabetes Morbid obesity Family History Family History Mother Coronary artery disease Father High cholesterol HTN (hypertension) Surgical History Surgical History Hx of resection of large bowel Social History Social History Household Members: None Housing: Apartment Do you presently have visiting nurse or other home services: No Alcohol intake: never Comment: pt reports she sleep in the recliner, does not sleep in bed Patient Tobacco Use Status: Never used Tobacco Cigarette Packs Per Day: 1 service: No Current occupational status: disabled Meds Allergies Allergy/AdvReac Type Severity Reaction Status Date / Time adhesive tape Allergy Intermediate Hives Verified 03/29/25 17:05 topiramate (From TOPAMAX) Allergy Intermediate KIDNEY Verified 03/29/25 17:05 STONES aripiprazole (From ABILIFY) Allergy Mild HIVES Verified 03/29/25 17:05 insulin lispro (From Humalog Allergy Mild rash Verified 03/29/25 17:05 U-100 Insulin) Sulfa (Sulfonamide Allergy Unknown JAUNDICE Verified 03/29/25 17:05 Antibiotics) Active Medications: Current Medications Acetaminophen (Acetaminophen 325 Mg Tablet) 650 mg PO Q6H PRN PRN Reason: Pain, Mild (Pain Scale 1-3) Acetaminophen (Acetaminophen 325 Mg Tablet) 650 mg PO Q6H PRN PRN Reason: Pain, Mild 1-3,fever,headache Hydrocodone Bitart/Acetaminophen (Hydrocodone Bit/Acetam 5/325 Tablet) 1 tab PO TID PRN PRN Reason: Pain (Scale Score 7-10) Last Admin: 04/01/25 12:08 Dose: 1 tab Amitriptyline HCl (Amitriptyline Hcl 50 Mg Tablet) 50 mg PO BEDTIME KIT[facility] Last Admin: 03/31/25 21:34 Dose: 50 mg Atorvastatin Calcium (Atorvastatin Calcium 20 Mg Tablet) 20 mg PO BEDTIME KITTY Last Admin: 03/31/25 21:34 Dose: 20 mg Baclofen (Baclofen 10 Mg Tablet) 10 mg PO TID PRN PRN Reason: BACK SPASMS Last Admin: 03/31/25 13:07 Dose: 10 mg Calcium Acetate (Calcium Acetate 667 Mg Capsule) 667 mg PO BEDTIME KITTY Last Admin: 03/31/25 21:34 Dose: 667 mg Calcium Carbonate (Calcium Carbonate 750 Mg Tab.Chew) 750 mg PO Q4H PRN PRN Reason: Heartburn Dextrose (Dextrose 50 % 25 Gm/50 Ml Syringe) 25 gm IVPUSH Q15M PRN; Protocol PRN Reason: per Hypoglycemia Standing Ord. Ferrous Sulfate (Ferrous Sulfate 324 Mg Tablet.Dr) 324 mg PO BEDTIME KITTY Last Admin: 03/31/25 21:34 Dose: 324 mg Glucose (Glucose Gel 15 Gm Gel..Gram.) 15 gm PO Q15M PRN; Protocol PRN Reason: per Hypoglycemia Standing Ord. Heparin Sodium (Porcine) (Heparin Sodium,Porcine 5,000 Unit/Ml Vial) 5,000 unit SUBCUT Q8H [facility] Insulin Glargine (Insulin Glargine,Hum.Rec.Anlog 100 Unit/Ml 10 Ml Vial) 42 unit SUBCUT BEDTIME KITTY Last Admin: 03/31/25 21:41 Dose: Not Given Loperamide HCl (Loperamide Hcl 2 Mg Capsule) 2 mg PO DAILY PRN PRN Reason: Loose Stool Magnesium Hydroxide (Milk Of Magnesia 30 Ml Oral.Susp) 30 ml PO DAILY PRN PRN Reason: Constipation Magnesium Oxide (Magnesium Oxide 400 Mg Tablet) 400 mg PO Q48H [facility] Last Admin: 03/31/25 18:36 Dose: 400 mg Meclizine HCl (Meclizine Hcl 25 Mg Tablet) 25 mg PO TID PRN PRN Reason: Dizziness Melatonin (Melatonin 3 Mg Tablet) 6 mg PO BEDTIME PRN PRN Reason: Insomnia Metoprolol Succinate (Metoprolol Succinate Er 100 Mg Tab.Er.24h) 100 mg PO BEDTIME [facility]; Protocol Last Admin: 03/31/25 21:34 Dose: 100 mg Midodrine (Midodrine Hcl 10 Mg Tablet) 10 mg PO TuThSa [facility] Last Admin: 04/01/25 08:11 Dose: 10 mg Morphine Sulfate (Morphine Sulfate Immed Release 15 Mg Tablet) 15 mg PO Q6H PRN PRN Reason: Pain, Severe (Pain Scale 7-10) Last Admin: 03/31/25 21:58 Dose: 15 mg Omeprazole (Omeprazole 20 Mg Capsule.Dr) 20 mg PO BEDTIME [facility] Last Admin: 03/31/25 21:34 Dose: 20 mg Quetiapine Fumarate (Quetiapine Fumarate 25 Mg Tablet) 25 mg PO BEDTIME [facility] Last Admin: 03/31/25 21:34 Dose: 25 mg Sodium Chloride (0.9 % Sodium Chloride Flush 3 Ml Syringe) [facility] Last Admin: 04/01/25 08:11 Dose: 3 ml Vitamin D (Cholecalciferol (Vitamin D3) 25 Mcg Tablet) 50 mcg PO BEDTIME [facility] Last Admin: 03/31/25 21:34 Dose: 50 mcg Home Medications ?Medication ?Instructions ?Recorded ?Confirmed ?Last Taken ?Type atorvastatin 20 mg tablet 20 mg PO BEDTIME 07/08/20 03/31/25 03/28/25 History cholecalciferol (vitamin D3) 50 50 mcg PO BEDTIME 07/08/20 03/31/25 03/28/25 History mcg (2,000 unit) capsule (Vitamin D3) ferrous sulfate 325 mg (65 mg 325 mg PO BEDTIME 07/08/20 03/31/25 03/28/25 History iron) tablet (Iron (ferrous sulfate)) insulin aspar prot-insulin aspart See Protocol subcut BEDTIME 07/08/20 03/31/25 03/28/25 History 100 unit/mL (70-30) subcutaneous pen (Novolog Mix 70-30FlexPen U-100) insulin degludec 200 unit/mL (3 60 unit subcut BEDTIME 07/08/20 03/31/25 03/28/25 History mL) subcutaneous pen (Tresiba FlexTouch U-200 insulin) lansoprazole 30 mg capsule,delayed 30 mg PO BEDTIME 09/11/21 03/31/25 03/28/25 History release calcium acetate 667 mg tablet 667 mg PO BEDTIME 12/29/21 03/31/25 03/28/25 History amitriptyline 50 mg tablet 50 mg PO BEDTIME 05/13/24 03/31/25 03/28/25 History hydrocodone 5 mg-acetaminophen 325 1 tab PO TID PRN Pain (Scale Score 05/13/24 03/31/25 Unknown History mg tablet 7-10) loperamide 2 mg capsule 2 mg PO DAILY PRN Loose Stool 05/13/24 03/31/25 Unknown History midodrine 5 mg tablet 10 mg PO TUTHSA before Dialysis 05/13/24 03/31/25 03/29/25 History quetiapine 25 mg tablet 25 mg PO BEDTIME 05/13/24 03/31/25 03/28/25 History baclofen 10 mg tablet 10 mg PO NEEDED PRN BACK SPASMS 09/20/24 03/31/25 Unknown History magnesium oxide 400 mg PO Q48H 03/31/25 03/31/25 03/28/25 History meclizine 25 mg tablet 25 mg PO TID PRN Dizziness 03/31/25 03/31/25 Unknown History metoprolol succinate 100 mg 100 mg PO BEDTIME 03/31/25 03/31/25 03/28/25 History tablet,extended release 24 hr omega [id number]-[id number]-[id number]-fish oil 1,000 mg 1 cap PO Q48H 03/31/25 03/31/25 03/28/25 History (120 mg-180 mg) capsule (Fish Oil) semaglutide 1 mg/dose (4 mg/3 mL) 1 mg subcut MO 03/31/25 03/31/25 03/24/25 History subcutaneous pen injector (Ozempic) Physical Exam Vital Signs: Last Vital Signs Temp 97.8 F 04/01/25 15:35 Pulse 100 04/01/25 15:35 Resp 15 04/01/25 15:35 BP 121/71 04/01/25 15:35 Pulse Ox 93 04/01/25 15:35 O2 Del Method Nasal Cannula 04/01/25 15:35 O2 Flow Rate 2 04/01/25 15:35 BMI result Body Mass Index 54.6 Const General: cooperative, healthy appearing, comfortable and no acute distress Extrem Other: Left shoulder skin intact, tenderness over the proximal humerus. She is able to perform wrist flexion and extension. NVI. Results Lab Results 04/01/25 05:34 04/01/25 05:34 Lab results: Chemistry 03/29/25 03/31/25 04/01/25 18:19 16:38 05:34 Sodium 137 135 136 Potassium 3.8 D 5.9 H D 5.8 H Carbon Dioxide 27 31 H 27 BUN 8 L 33 H 43 H Creatinine 3.76 H 8.18 H* 9.27 H* Calcium 8.7 D 8.8 8.6 Phosphorus 1.9 L Hematology 03/29/25 03/31/25 04/01/25 18:19 16:38 05:34 WBC 8.3 10.9 H 13.4 H Hgb 8.9 L 9.8 L 9.8 L Plt Count 176 209 225 Assessment and Plan (1) Diabetes: Status: Acute Plan ESRD: usu TTS; last HD Sat HyperK: needs med Tx and HD tomorrow 04/01 Nephrogenic Anemia MBD of ESRD Hemeral neck Fx: orhto re: Tx options REC: adm to hosp, Pcath in am and HD to follow; Tx hyeprK with Lokema and low K diet and track Procedures Date of Service Date of Service: 04/01/25
[2025-04-01 15:46] LABS: Glucose, Whole Blood 188 mg/dL (60-115)
--- NOTE | 2025-04-01 16:47 | HO.WOUND ---
Wound Consult: Initial 55yr old?female admitted to [facility] on 03/31/25 17:24- See progress notes and H&P for detailed history.? Wound consult placed for Right Lower Leg wound.? Topical recommendations made after discussion with direct care team and photo review. Right Lower Leg Etiology: ??unclear etiology - suspect venous component patient reports chronic and picks at scabs as they form Present on Admission Wound Bed: partial thickness tissue loss Drainage / Odor: scant drainage Edges: ? irregular Renee wound: hyperpigmentation and hemosiderin staining, observable swelling noted Goals of Treatment: ? moist wound healing with xeroform Recommendations: 1. Turn and Reposition every 2 hours and as needed for patient comfort.? Use pillows or wedges to support off loading positions. 2. Off Load all bony prominences with use of pillows and heel boots if needed.? Apply Preventative foams where needed. ? 3. Monitor for incontinence and moisture control, use barrier creams when needed for prevention and treatment. 4. Provide adequate and supplemental nutrition.? 5. Order low air loss mattress. 6. When applicable maintain blood glucose levels per Providers order. Right Lower Leg - Cleanse with NS moist gauze, pat dry. Apply skin prep to periwound, cover with xeroform and ABD pad and wrap. Change daily. Re-consult wound care Nurse for wound deterioration or wound changes.
--- NOTE | 2025-04-01 20:16 | P.PNNP_ITS ---
Subjective Subjective Date of Service: 04/01/25 Interval history: Seen and examined, events noted Physical Exam 2 Vital Signs: Vital Signs: Last Vital Signs Temp 97.8 F 04/01/25 15:35 Pulse 100 04/01/25 15:35 Resp 15 04/01/25 15:35 BP 121/71 04/01/25 15:35 Pulse Ox 93 04/01/25 15:35 O2 Del Method Nasal Cannula 04/01/25 15:35 O2 Flow Rate 2 04/01/25 15:35 BMI result Body Mass Index 54.6 Const: General: cooperative, healthy appearing, comfortable and no acute distress Extrem: Other: Left shoulder skin intact, tenderness over the proximal humerus. She is able to perform wrist flexion and extension. NVI. Objective Data Labs 04/01/25 05:34 04/01/25 05:34 Labs: Laboratory Results - last 24 hr 03/31/25 04/01/25 04/01/25 20:44 05:34 06:51 WBC 13.4 H RBC 3.87 L Hgb 9.8 L Hct 31.6 L MCV 81.7 MCH 25.3 L MCHC 31.0 RDW 21.6 H Plt Count 225 MPV 9.2 L Absolute Nucleated RBC 0.000 Nucleated RBC % (auto) 0.0 PT INR APTT Sodium 136 Potassium 5.8 H Chloride 92 L Carbon Dioxide 27 Anion Gap 23 H BUN 43 H Creatinine 9.27 H* Estim Creat Clear Calc 9.3 Estimated GFR 4 POC Glucose 195 H 211 H Random Glucose 227 H Calcium 8.6 04/01/25 04/01/25 04/01/25 08:59 10:49 15:38 WBC RBC Hgb Hct MCV MCH MCHC RDW Plt Count MPV Absolute Nucleated RBC Nucleated RBC % (auto) PT 13.7 H INR 1.2 H APTT 28.1 Sodium Potassium Chloride Carbon Dioxide Anion Gap BUN Creatinine Estim Creat Clear Calc Estimated GFR POC Glucose 190 H 188 H Random Glucose Calcium Procedures Date of Service Date of Service: 04/01/25 Assessment & Plan Assessment and plan (1) Diabetes: Status: Acute Plan ESRD: usu TTS; last HD Sat HyperK: getting HD 2 k bath Nephrogenic Anemia MBD of ESRD Hemeral neck Fx: orhto re: Tx options REC: Pcath placed and now on HD; d/c planning Time Spent With Patient Time: Total time managing care of this patient today ____ minutes. Progress Note: Quality Stroke Does the patient have a stroke diagnosis?: No
[2025-04-01] MEDS: Ferrous Sulfate 324 MG TABLET.DR PO (21:13)
[2025-04-01] MEDS: Metoprolol Succinate ER 100 MG TAB.ER.24H PO (21:14)
[2025-04-01 21:20] LABS: Glucose, Whole Blood 132 mg/dL (60-115)
[2025-04-02] MEDS: Morphine Sulfate Immed Release 15 MG TABLET PO ×2 (02:30→15:28)
[2025-04-02 03:22] VITALS: BP 99/57; PULSE 111; RESP 18; TEMP 37.1; O2SAT 97
[2025-04-02 07:06] LABS: Glucose, Whole Blood 184 mg/dL (60-115)
[2025-04-02 07:29] LABS: Hematocrit 30.5 % (37.0-47.0); Hemoglobin 9.3 g/dl (12.0-16.0); Mean Corpuscular HGB Conc 30.5 g/dl (31.0-35.0); Mean Corpuscular Hemoglobin 25.3 pg (27.0-33.0); Mean Corpuscular Volume 82.9 fL (80.0-98.0); NRBC Abs Auto 0.000 X10*3/uL (0.0-0.012); NRBC Pct Auto 0.0 /100WBC (0.0-0.2); Platelet Count 204 X10*3/uL (160-400); Red Blood Count 3.68 X10*6/uL (4.20-5.50); White Blood Count 14.3 X10*3/uL (4.8-10.8)
[2025-04-02 07:53] LABS: Anion Gap 20 (12-20); Blood Urea Nitrogen 30 mg/dL (9-16); Calcium 9.1 mg/dL (8.4-10.2); Carbon Dioxide 25 mmol/L (22-29); Chloride 98 mmol/L (96-108); Creatinine Clr Calc Pharmacy 13.5; Estimated Glomerular Filt Rate 7; Potassium 4.4 mmol/L (3.3-5.1); Sodium 139 mmol/L (135-145)
[2025-04-02 07:54] LABS: Magnesium 1.9 mg/dL (1.6-2.6)
--- NOTE | 2025-04-02 08:46 | P.PNIM_ITS ---
Subjective Subjective Date of Service: 04/02/25 Interval History: hypotension post hd. Review of Systems left shoulder pain similar ,improving Review of Systems: Yes all other systems are reviewed and are negative Physical Exam 2 Exam: Exam: General: AO X 3, no acute distress Resp: diminshed bilateral, no accessory muscles used CVS: S1,S2,RRR GI: soft, non tender, non distended Neuro: motor grossly intact, alert Psych: appropriate affect, appropriate insight Vital Signs: Vital Signs: Last Vital Signs Temp 98.8 F 04/02/25 03:22 Pulse 111 H 04/02/25 03:22 Resp 18 04/02/25 03:22 BP 99/57 L 04/02/25 03:22 Pulse Ox 97 04/02/25 03:22 O2 Del Method Nasal Cannula 04/02/25 03:22 O2 Flow Rate 2 04/02/25 03:22 BMI result Body Mass Index 54.6 Objective Data Active Medications Acetaminophen (Acetaminophen 325 Mg Tablet) 650 mg PO Q6H PRN PRN Reason: Pain, Mild (Pain Scale 1-3) Acetaminophen (Acetaminophen 325 Mg Tablet) 650 mg PO Q6H PRN PRN Reason: Pain, Mild 1-3,fever,headache Hydrocodone Bitart/Acetaminophen (Hydrocodone Bit/Acetam 5/325 Tablet) 1 tab PO TID PRN PRN Reason: Pain (Scale Score 7-10) Last Admin: 04/01/25 12:08 Dose: 1 tab Documented By: MIKEL Amitriptyline HCl (Amitriptyline Hcl 50 Mg Tablet) 50 mg PO BEDTIME [facility] Last Admin: 04/01/25 21:14 Dose: 50 mg Documented By: CLAYTON Atorvastatin Calcium (Atorvastatin Calcium 20 Mg Tablet) 20 mg PO BEDTIME [facility] Last Admin: 04/01/25 21:14 Dose: 20 mg Documented By: CLAYTON Baclofen (Baclofen 10 Mg Tablet) 10 mg PO TID PRN PRN Reason: BACK SPASMS Last Admin: 03/31/25 13:07 Dose: 10 mg Documented By: DERICK Calcium Acetate (Calcium Acetate 667 Mg Capsule) 667 mg PO BEDTIME [facility] Last Admin: 04/01/25 21:13 Dose: 667 mg Documented By: CLAYTON Calcium Carbonate (Calcium Carbonate 750 Mg Tab.Chew) 750 mg PO Q4H PRN PRN Reason: Heartburn Dextrose (Dextrose 50 % 25 Gm/50 Ml Syringe) 25 gm IVPUSH Q15M PRN; Protocol PRN Reason: per Hypoglycemia Standing Ord. Ferrous Sulfate (Ferrous Sulfate 324 Mg Tablet.) 324 mg PO BEDTIME [facility] Last Admin: 04/01/25 21:13 Dose: 324 mg Documented By: CLAYTON Glucose (Glucose Gel 15 Gm Gel..Gram.) 15 gm PO Q15M PRN; Protocol PRN Reason: per Hypoglycemia Standing Ord. Heparin Sodium (Porcine) (Heparin Sodium,Porcine 5,000 Unit/Ml Vial) 5,000 unit SUBCUT Q8H [facility] Last Admin: 04/02/25 02:26 Dose: Not Given Documented By: CLAYTON Non-Admin Reason: pt declined medication Insulin Glargine (Insulin Glargine,Hum.Rec.Anlog 100 Unit/Ml 10 Ml Vial) 15 unit SUBCUT BEDTIME KITTY Loperamide HCl (Loperamide Hcl 2 Mg Capsule) 2 mg PO DAILY PRN PRN Reason: Loose Stool Magnesium Hydroxide (Milk Of Magnesia 30 Ml Oral.Susp) 30 ml PO DAILY PRN PRN Reason: Constipation Magnesium Oxide (Magnesium Oxide 400 Mg Tablet) 400 mg PO Q48H [facility] Last Admin: 03/31/25 18:36 Dose: 400 mg Documented By: DERICK Meclizine HCl (Meclizine Hcl 25 Mg Tablet) 25 mg PO TID PRN PRN Reason: Dizziness Melatonin (Melatonin 3 Mg Tablet) 6 mg PO BEDTIME PRN PRN Reason: Insomnia Metoprolol Succinate (Metoprolol Succinate Er 100 Mg Tab.Er.24h) 100 mg PO BEDTIME [facility]; Protocol Last Admin: 04/01/25 21:14 Dose: 100 mg Documented By: CLAYTON Midodrine (Midodrine Hcl 10 Mg Tablet) 10 mg PO TuTa [facility] Last Admin: 04/01/25 08:11 Dose: 10 mg Documented By: MIKEL Morphine Sulfate (Morphine Sulfate Immed Release 15 Mg Tablet) 15 mg PO Q6H PRN PRN Reason: Pain, Severe (Pain Scale 7-10) Last Admin: 04/02/25 02:30 Dose: 15 mg Documented By: CLAYTON Omeprazole (Omeprazole 20 Mg Capsule.) 20 mg PO BEDTIME [facility] Last Admin: 04/01/25 21:14 Dose: 20 mg Documented By: CLAYTON Quetiapine Fumarate (Quetiapine Fumarate 25 Mg Tablet) 25 mg PO BEDTIME [facility] Last Admin: 04/01/25 21:14 Dose: 25 mg Documented By: CLAYTON Sodium Chloride (0.9 % Sodium Chloride Flush 3 Ml Syringe) 3 ml IVFLUSH QSHIFT [facility] Last Admin: 04/02/25 07:17 Dose: Not Given Documented By: MIKEL Non-Admin Reason: patient in dialysis Vitamin D (Cholecalciferol (Vitamin D3) 25 Mcg Tablet) 50 mcg PO BEDTIME [facility] Last Admin: 04/01/25 21:14 Dose: 50 mcg Documented By: CLAYTON Labs 04/02/25 07:05 04/02/25 07:05 Labs: Laboratory Results - last 24 hr 04/01/25 04/01/25 04/01/25 08:59 10:49 15:38 MCV MCH MCHC RDW Plt Count MPV Absolute Nucleated RBC Nucleated RBC % (auto) PT 13.7 H INR 1.2 H APTT 28.1 Anion Gap Estim Creat Clear Calc Estimated GFR POC Glucose 190 H 188 H Random Glucose Calcium Magnesium 04/01/25 04/02/25 04/02/25 21:12 07:01 07:05 MCV 82.9 MCH 25.3 L MCHC 30.5 L RDW 21.0 H Plt Count 204 MPV 9.0 L Absolute Nucleated RBC 0.000 Nucleated RBC % (auto) 0.0 PT INR APTT Anion Gap 20 Estim Creat Clear Calc 13.5 Estimated GFR 7 POC Glucose 132 H 184 H Random Glucose 176 H Calcium 9.1 Magnesium 1.9 Assessment and Plan (1) Diabetes: Status: Acute Plan 55F PMH end-stage renal disease on hemodialysis with renal transplant of [place], morbid, mood disorder, diabetes presented on 03/29/2025 with mechanical fall complicated by left humeral neck fracture Hypotensive episode: post dialysis Denies any symptoms except somewhat weak Added 250 mL normal saline bolus, albumin, midodrine Continue home midodrine Mechanical fall complicated by left humeral neck fracture ortho appreciated - sling, nwb lue, repeat xrays 4 weeks pain control ESRD on HD complicated by hyperkalemia improved with lokelma. patient has left AVF - unable to tolerate use for HD, plan for permacath acute hypoxic respiratory failure due to atelectasis incentive spirometry, wean o2 (was mid 80s on room air) mood disorder seroquel elavil dm insulin morbid obesity weight loss dvt prophylaxis - hep sq full code reason for continued hospitalization:setting up hd access,hypotensive episode - needed ivf /midodrine . Quality Stroke Does the patient have a stroke diagnosis?: No VTE Prior VTE?: No VTE Risk Level:: Medical - moderate - high VTE Device Contraindication: Treatment Not Indicated VTE Drug Contraindication: N/A - Med Ordered
[2025-04-02 10:15] VITALS: BP 90/61; PULSE 102; RESP 20; TEMP 36.1; O2SAT 93
[2025-04-02 10:42] LABS: Glucose, Whole Blood 201 mg/dL (60-115)
--- NOTE | 2025-04-02 11:58 | HO.WOUND ---
Wound Consult: Initial 55yr old?female admitted to [facility] [place] on 03/31/25 17:24- See progress notes and H&P for detailed history.? Wound consult placed for abdominal wound and Right Lower Leg wound.? Arrival to bedside patient was diaphoretic and sleepy at times. She was agreeable to my assessment and all recommendations. We discussed her refusals yesterday she reports not recalling this - she appears to not recall yesterdays events. Provider and direct care team aware of patient change. Blood sugar and VSS. Buttock assessed - for redness and maceration - barrier cream applied no injury noted at this time tissue remains intact and blanchable. Deep folds noted with maceration at base. Left Heel - intact blanchable tissue no PI noted - off loaded with pillows. Right Heel - intact and blanchable no PI noted - off loaded with pillows. Midline Abdomen - unclear etiology patient is not able to provide meaningful history. She is agreeable to assessment and topical intervention. The site is dried and scabbed with red and yellow base. scar tissue noted. Medihoney applied for autolytic debridement and moist wound healing. Of note stoma is red moist and slightly prolapsed - appears deep with in crease belt and convex pouch in use. No leaking noted - not changed at this time. Right posterior leg with small scattered open tissue dried and not draining at this time. Right Lower Leg - dried stable scabs Etiology: ??unclear etiology - suspect venous component patient reports chronic and picks at scabs Present on Admission Wound Bed: partal thickness tissue loss posterior leg Drainage / Odor: none noted Edges: ? irregular Renee wound: hyperpigmentation and hemosiderin staining, scar tissue noted Goals of Treatment: ? moist wound healing with xeroform Recommendations: 1. Turn and Reposition every 2 hours and as needed for patient comfort.? Use pillows or wedges to support off loading positions. 2. Off Load all bony prominences with use of pillows and heel boots if needed.? Apply Preventative foams where needed. ? 3. Monitor for incontinence and moisture control, use barrier creams when needed for prevention and treatment. 4. Provide adequate and supplemental nutrition.? 5. Order low air loss mattress. 6. When applicable maintain blood glucose levels per Providers order. Right Lower Leg - Cleanse with NS moist gauze, pat dry. Apply skin prep to periwound, cover with xeroform and ABD pad and wrap. Change daily. Bilateral Heels - Elevate heels off of bed surface with pillows.? Float heels off of pillows.? Apply skin prep allow to dry.? Apply heel foam dressings, peel back and assess Q shift and change every 5-7 days and PRN. Buttock - Off Load Pressure with Q2 hr turns and use of pillows - Cleanse with PH balance spray or wipes, pat dry. ?Apply thin layer of barrier cream to affected area.? Apply twice daily and Reapply thin layer PRN after each episode of incontinence. Midline / Abdomen - Cleanse with saline moist gauze, Pat dry.? Apply barrier cream or skin prep to periwound.? Cover wound bed with Medihoney dry gauze and dry dressing, Change daily while inpt. Re-consult wound care Nurse for wound deterioration or wound changes.
[2025-04-02 14:04] VITALS: BP 78/40
[2025-04-02] MEDS: Albumin Human 25 % 100 ML IV ×2 (14:14→19:26)
--- NOTE | 2025-04-02 14:58 | MHC.CM.PN ---
[facility] go to [facility] DC to [facility] 04/03/25 after she goes to HD here.
[2025-04-02] MEDS: 0.9 % Sodium Chloride Flush 3 ML SYRINGE IVFLUSH ×2 (15:28→21:22)
[2025-04-02 15:32] LABS: Glucose, Whole Blood 226 mg/dL (60-115)
[2025-04-02 17:06] VITALS: BP 127/63
--- NOTE | 2025-04-02 18:12 | P.PNNP_ITS ---
Subjective Subjective Date of Service: 04/02/25 Interval history: Seen and examined,e vents noted Physical Exam 2 Vital Signs: Vital Signs: Last Vital Signs Temp 97.0 F 04/02/25 10:15 Pulse 102 H 04/02/25 10:15 Resp 20 04/02/25 10:15 BP 127/63 04/02/25 17:06 Pulse Ox 93 04/02/25 10:15 O2 Del Method Nasal Cannula 04/02/25 10:15 O2 Flow Rate 2 04/02/25 10:15 BMI result Body Mass Index 54.6 Const: General: cooperative, healthy appearing, comfortable and no acute distress Extrem: Other: Left shoulder skin intact, tenderness over the proximal humerus. She is able to perform wrist flexion and extension. NVI. Objective Data Labs 04/02/25 07:05 04/02/25 07:05 Labs: Laboratory Results - last 24 hr 04/01/25 04/02/25 04/02/25 21:12 07:01 07:05 WBC 14.3 H RBC 3.68 L Hgb 9.3 L Hct 30.5 L MCV 82.9 MCH 25.3 L MCHC 30.5 L RDW 21.0 H Plt Count 204 MPV 9.0 L Absolute Nucleated RBC 0.000 Nucleated RBC % (auto) 0.0 Sodium 139 Potassium 4.4 D Chloride 98 Carbon Dioxide 25 Anion Gap 20 BUN 30 H Creatinine 6.39 H* Estim Creat Clear Calc 13.5 Estimated GFR 7 POC Glucose 132 H 184 H Random Glucose 176 H Calcium 9.1 Magnesium 1.9 04/02/25 04/02/25 10:38 15:23 WBC RBC Hgb Hct MCV MCH MCHC RDW Plt Count MPV Absolute Nucleated RBC Nucleated RBC % (auto) Sodium Potassium Chloride Carbon Dioxide Anion Gap BUN Creatinine Estim Creat Clear Calc Estimated GFR POC Glucose 201 H 226 H Random Glucose Calcium Magnesium Procedures Date of Service Date of Service: 04/02/25 Assessment & Plan Assessment and plan (1) Diabetes: Status: Acute Plan ESRD: Hd today, usu TTS HyperK: controlled Nephrogenic Anemia MBD of ESRD Humeral neck Fx: orhto re: Tx options REC: Pcath placed and now on HD; d/c planning Will follow w team Time Spent With Patient Time: Total time managing care of this patient today ____ minutes. Progress Note: Quality Stroke Does the patient have a stroke diagnosis?: No
[2025-04-02] MEDS: HYDROcodone Bit/Acetam 5/325 TABLET 1 TAB PO (19:25)
[2025-04-02 19:51] VITALS: BP 93/54; PULSE 106; RESP 18; TEMP 36.2; O2SAT 94
[2025-04-02 20:53] LABS: Glucose, Whole Blood 167 mg/dL (60-115)
[2025-04-02 21:20] VITALS: BP 111/63; PULSE 103
[2025-04-02] MEDS: Metoprolol Succinate ER 100 MG TAB.ER.24H PO (21:20)
[2025-04-02] MEDS: Ferrous Sulfate 324 MG TABLET.DR PO (21:20)
[2025-04-02] MEDS: Insulin Glargine,Hum.rec.anlog 100 UNIT/ML 10 ML VIAL 15 UNIT SUBCUT (21:23)
[2025-04-03] MEDS: Morphine Sulfate Immed Release 15 MG TABLET PO ×2 (01:28→09:10)
[2025-04-03 04:43] VITALS: BP 129/59; PULSE 109; RESP 18; TEMP 36.2; O2SAT 91
[2025-04-03 07:08] LABS: Glucose, Whole Blood 218 mg/dL (60-115)
[2025-04-03] MEDS: 0.9 % Sodium Chloride Flush 3 ML SYRINGE IVFLUSH (07:56)
[2025-04-03 11:10] LABS: Glucose, Whole Blood 137 mg/dL (60-115)
--- NOTE | 2025-04-03 11:10 | MHC.CM.PN ---
IMM 04/03/25 DELIVERED TO PT WHILE DIALYSIS, PT AGREE[facility] PENDING PERMACATH REPORT, IR NOTIFIED BY DIRECTOR, URI FOR BLS TRANSPORT. PT REPORTS SHE WILL ASK FAMILY TO BRING TRULICITY TO SNF THEY ARE UNABLE TO ORDER IT.
[2025-04-03 11:16] VITALS: BP 120/68; PULSE 114; RESP 18; TEMP 36.6; O2SAT 97
--- NOTE | 2025-04-03 12:06 | PM.DS ---
DS: Providers Provider Date of Service: 04/03/25 Date of admission: 03/31/25 17:24 Date of discharge: 04/03/25 Primary care physician: Smitha Coyne DO Consults: 03/31/25 17:22 Consult to Nephrology Routine Consulting Provider: [facility] Reason for consultation: esrd 03/31/25 17:27 Consult to Orthopedics Routine Consulting Provider: [facility] Orthopedic Surgeons Reason for consultation: huymerus fracture 04/01/25 16:45 Consult to Wound Care Routine Consulting Provider: [facility] Wound Care Management Reason for consultation: Right Lower Leg 04/02/25 08:00 Consult to Wound Care Routine Consulting Provider: [facility] Wound Care Management Reason for consultation: Areas of discoloration to stoma & open areas medial abdomen Attending physician on discharge: Dorene Dobbins Discharging clinician: Dorene Dobbins DS: Diagnosis Discharge Diagnosis (1) Diabetes: Status: Acute DS: Summary Hospital Course Hospital Course: hpi:51 years old lady with PMH of type 2 diabetes, bipolar, depression, HTN, CKD stage 4 among others who presents to the hospital with a complaint of right foot wound that was started 2 weeks ago as the blisters any fold over the last few weeks until popped 2 days ago and started to be painful with no reported discharge. She reported taking antibiotic of Keflex for the last 10 days with no improvement and associated fever of 99-100 Along with increased weakness and decreased oral intake. She reported decreased sensation in her feet secondary to diabetes this. Denies any chest pain, palpitation, shortness of breath, change in bowel habits or urinary symptoms. In the emergency blood work was consistent with acute on chronic kidney injury. Admitted for further evaluation and treatment. Hospital course: Mechanical fall complicated by left humeral neck fracture:ortho appreciated - sling, nwb lue, repeat xrays 4 weeks esrd with the hypokalemia: Improved with Lokelma, patient has left AVF-unable to tolerate use for dialysis, status post PermCath on 05/01/25. Hyperkalemia resolved. Hypotensive episode post dialysis yesterday-responded well to midodrine/normal saline 250 ml-she had dialysis today, tolerated well. acute hypoxic respiratory failure due to atelectasis: Improving with incentive spirometry, chest physiotherapy, wean o2-wean oxygen slowly. Also consider outpatient sleep study. Currently patient is saying that she uses home oxygen please clarify that before planning discharge from rehab, otherwise taper oxygen. Diabetes: Continue insulin. mlild leucocytosis -denies any symptoms-urinary complaints or abdominal pain or fever or new respiratory complaints, urine culture negative. Possibly reactive to fracture above Monitor CBC outpatient. In addition patient need lot of encouragement for p.o. intake and hydration. plan: moniter cbc and bmp pain control-tylenol/hydrocodone tabs limited supply given-hold for sedation/constipation. Also added Colace p.r.n.. continue home midodrine. Need lot of encouragement for p.o. intake and hydration. as per patient she want to keep her home insulin regimen (not allergic to that), lantus adjusted to 15 units due to low po intake. Follow up with orthopedics outpatient as above. Assessment and plan coordination time spent 50 minute. Patient management discussed with the patient and her brother in detail length they both understand and in agreement with the above plan. Time Attestation Total time managing care of this patient today: 45 mintues. Discharge Coordination Time (in mins): 45 min Quality: Safe Use of Opioids Does Pt have an Active Cancer Diagnosis on the Problem List?: No Quality: Stroke Does the patient have a stroke diagnosis?: No Physical Exam Exam: Exam: General: AO X 3, no acute distress Resp: diminshed bilateral, no accessory muscles used CVS: S1,S2,RRR GI: soft, non tender, non distended Neuro: motor grossly intact, alert Psych: appropriate affect, appropriate insight Vital Signs: Vital Signs: Last Vital Signs Temp 97.9 F 04/03/25 11:16 Pulse 114 H 04/03/25 11:16 Resp 18 04/03/25 11:16 BP 120/68 04/03/25 11:16 Pulse Ox 97 04/03/25 11:16 O2 Del Method Nasal Cannula 04/03/25 11:16 O2 Flow Rate 2 04/03/25 11:16 BMI result Body Mass Index 54.6 DS: Data Data Completed and Pending Labs on day of discharge: Laboratory Results - last 24 hr 04/02/25 04/02/25 04/03/25 15:23 20:47 06:59 POC Glucose 226 H 167 H 218 H 04/03/25 11:06 POC Glucose 137 H Imaging Chest x-ray: My impression: cxr: 1. No acute findings. 2. Eventration of the left hemidiaphragm and left basilar atelectatic changes. Tunnel catheter placement 03/31/25: Placement of a tunneled hemodialysis catheter in the right internal jugular vein. Discharge Plan Discharge Anticipated Discharge Date/Time: 04/03/25 11:47 Patient Disposition: Xfer SNF Discharge Diagnosis: fracture of humerus , esrd on hd Referrals: [facility] [Other] - 1 Day Referral Note: SHORT TERM REHAB Smitha Coyne DO [Primary Care Provider, Internal Medicine] - 1 Week Marcel Mark PA-C [[employer], Orthopedics] - 05/14/25 11:00 am Referral Note: 05/14/25 11:00 [facility] Orthopedic Surgeons Marcel Mark PA-C Discharge Medications: New docusate sodium [Colace] 100 mg capsule 100 mg PO DAILY PRN (Reason: constipation) Qty: 20 0RF Continued atorvastatin 20 mg tablet 20 mg PO BEDTIME insulin asp prt-insulin aspart [Novolog Mix 70-30FlexPen U-100] 100 unit/mL (70-30) insulin pen See Protocol subcut BEDTIME Protocol: Insulin Correction Scale Less than or equal to 110 ---- Give (units): 0 111 to 150 Give (units): 0 151 to 200 Give (units): 2 201 to 250 Give (units): 4 251 to 300 Give (units): 6 301 to 350 Give (units): 8 Greater than 350 Give (units): 10 Call MD if Blood Glucose > : 350 ferrous sulfate [Iron (ferrous sulfate)] 325 mg (65 mg iron) Tablet 325 mg PO BEDTIME cholecalciferol (vitamin D3) [Vitamin D3] 50 mcg (2,000 unit) Capsule 50 mcg PO BEDTIME lansoprazole 30 mg capsule,delayed release(DR/EC) 30 mg PO BEDTIME metoprolol succinate 100 mg tablet extended release 24 hr 100 mg PO BEDTIME Ozempic 1 mg/dose (4 mg/3 mL) pen injector 1 mg SUBCUT MO meclizine 25 mg tablet 25 mg PO TID PRN (Reason: Dizziness) omega 6-iyf-ais-fish oil [Fish Oil] 1,000 (120-180) mg Capsule 1 cap PO Q48H magnesium oxide 400 mg magnesium Tablet 400 mg PO Q48H hydrocodone-acetaminophen 5-325 mg tablet 1 tab PO TID PRN (Reason: Pain (Scale Score 7-10)) Qty: 10 0RF calcium acetate 667 mg tablet 667 mg PO BEDTIME amitriptyline 50 mg tablet 50 mg PO BEDTIME midodrine 5 mg tablet 10 mg PO TUTHSA loperamide 2 mg capsule 2 mg PO DAILY PRN (Reason: Loose Stool) quetiapine 25 mg tablet 25 mg PO BEDTIME baclofen 10 mg tablet 10 mg PO NEEDED PRN (Reason: BACK SPASMS) Changed insulin degludec [Tresiba FlexTouch U-200] 200 unit/mL (3 mL) insulin pen 15 unit subcut BEDTIME Qty: 1 0RF Discharge Orders: Discharge Order (Routine); Ordered 04/03/25 Ordered By: Dorene Dobbins Diet: Advance to usual diet Activity on Discharge: As tolerated Stand Alone Forms: Patient Portal Discharge page Print Language: [place] Activity Restrictions/Additional Instructions: per ortho:non op treatment with sling for comfort, elbow rom, periscap stab, no reaching or wb with left arm Follow up with ortho in 4 weeks for xrays Care Plan Goals: as below. Health Concerns: moniter cbc and bmp pain control-tylenol/hydrocodone tabs. continue home midodrine. Need lot of encouragement for p.o. intake and hydration Plan of Treatment: as above. Assessment: as above.
--- NOTE | 2025-04-03 13:21 | PM.PNNEP ---
Subjective Subjective Date of Service: 04/03/25 Interval history: Seen and examined,e vents noted Physical Exam Vital Signs: Vital Signs: Last Vital Signs Temp 97.9 F 04/03/25 11:16 Pulse 114 H 04/03/25 11:16 Resp 18 04/03/25 11:16 BP 120/68 04/03/25 11:16 Pulse Ox 97 04/03/25 11:16 O2 Del Method Nasal Cannula 04/03/25 11:16 O2 Flow Rate 2 04/03/25 11:16 BMI result Body Mass Index 54.6 Const: General: cooperative, healthy appearing, comfortable and no acute distress Extrem: Other: Left shoulder skin intact, tenderness over the proximal humerus. She is able to perform wrist flexion and extension. NVI. Objective Data Labs 04/02/25 07:05 04/02/25 07:05 Labs: Laboratory Results - last 24 hr 04/02/25 04/02/25 04/03/25 15:23 20:47 06:59 POC Glucose 226 H 167 H 218 H 04/03/25 11:06 POC Glucose 137 H Procedures Date of Service Date of Service: 04/03/25 Assessment & Plan Assessment and plan (1) Diabetes: Status: Acute Plan ESRD: Hd today, usu TTS HyperK: controlled Nephrogenic Anemia MBD of ESRD Humeral neck Fx: orhto re: Tx options REC: cont HD TTS; d/c planning Looks like she has a SNF spot at [facility]w she will need to be [facility]ported [facility] where she has a spot---much better for PT and SNF if CM gets her a spot at [facility] ( [phone]) Will follow w team Time Spent With Patient Time: Total time managing care of this patient today ____ minutes. Progress Note: Quality Stroke Does the patient have a stroke diagnosis?: No
[2025-04-03 14:00] VITALS: BP 145/56; PULSE 118; RESP 20; TEMP 36.3; O2SAT 93
== END 2025-04-03 15:45 | disposition skilled nursing facility (03) | DRG 562 ==
LOC: HO.ED 03-31 14:36 → HO.EDOVER 03-31 17:33 → HO.S3 03-31 18:09 → HO.EDOVER 03-31 18:26 → HO.IMC 03-31 19:02
PROVIDERS: Admitting Provider Internal Medicine; Emergency Provider Emergency Medicine Emergency Medical Services; PCP Family Medicine; Visit Provider Internal Medicine
DX: S42.212A Unspecified displaced fracture of surgical neck of left humerus, initial encounter for closed fracture (principal); J96.01 Acute respiratory failure with hypoxia; N18.6 End stage renal disease; I12.0 Hypertensive chronic kidney disease with stage 5 chronic kidney disease or end stage renal disease; Z68.43 Body mass index [BMI] 50.0-59.9, adult; J98.11 Atelectasis; Z99.2 Dependence on renal dialysis; E11.22 Type 2 diabetes mellitus with diabetic chronic kidney disease; E87.5 Hyperkalemia; W19.XXXA Unspecified fall, initial encounter; E66.01 Morbid (severe) obesity due to excess calories; Z71.3 Dietary counseling and surveillance; D63.1 Anemia in chronic kidney disease; N25.0 Renal osteodystrophy; Z20.822 Contact with and (suspected) exposure to COVID-19; Z79.4 Long term (current) use of insulin; Z79.899 Other long term (current) drug therapy
CPT/HCPCS: 36415; 36558; 71045; 73030; 73560; 76937; 80048; 80053; 82947; 83735; 84100; 85025; 85027; 85610; 85730; 87635; 90999; 97162; 99285; C1750; C1769; J0690; J1171; J1644; J2003; J3010; P9047

== ENCOUNTER → 2025-03-29 17:39 | Outpatient (BNV) | payer MEDICARE, MEDICAID, SELFPAY | PROVIDERS: Emergency Provider Emergency Medicine Emergency Medical Services; Visit Provider Radiology Diagnostic Radiology | DX: S42.212A Unspecified displaced fracture of surgical neck of left humerus, initial encounter for closed fracture (principal) | CPT/HCPCS: 73030 ==

== ENCOUNTER → 2025-03-30 00:38 | Outpatient (BNV) | payer MEDICARE, MEDICAID, SELFPAY | PROVIDERS: Emergency Provider Emergency Medicine Emergency Medical Services; Visit Provider Radiology Diagnostic Radiology | DX: M17.12 Unilateral primary osteoarthritis, left knee (principal) | CPT/HCPCS: 73560 ==

== ENCOUNTER 2025-03-31 17:24 | Outpatient (BNV) | payer MEDICARE, MEDICAID, SELFPAY | END 2025-03-31 18:26 | PROVIDERS: Admitting Provider Internal Medicine; Emergency Provider Emergency Medicine Emergency Medical Services; PCP Family Medicine; Visit Provider Student in an Organized Health Care Education/Training Program | DX: N18.6 End stage renal disease (principal) | CPT/HCPCS: 71045; 76937 ==

== ENCOUNTER 2025-03-31 17:24 | Outpatient (BNV) | payer MEDICARE, MEDICAID, SELFPAY | END 2025-04-01 12:45 | PROVIDERS: Admitting Provider Internal Medicine; Emergency Provider Emergency Medicine Emergency Medical Services; PCP Family Medicine | DX: N18.6 End stage renal disease (principal); Z45.2 Encounter for adjustment and management of vascular access device | CPT/HCPCS: 76937 ==

== ENCOUNTER → 2025-03-31 17:24 | Outpatient (BNV) | payer MEDICARE, MEDICAID, SELFPAY | PROVIDERS: Admitting Provider Internal Medicine; Emergency Provider Emergency Medicine Emergency Medical Services; PCP Family Medicine; Visit Provider Physician Assistant | DX: S42.202A Unspecified fracture of upper end of left humerus, initial encounter for closed fracture (principal) | CPT/HCPCS: 99221 ==

== ENCOUNTER → 2025-03-31 17:24 | Outpatient (BNV) | payer MEDICARE, MEDICAID, SELFPAY | PROVIDERS: Admitting Provider Internal Medicine; Emergency Provider Emergency Medicine Emergency Medical Services; PCP Family Medicine; Visit Provider Internal Medicine | DX: E11.9 Type 2 diabetes mellitus without complications (principal) | CPT/HCPCS: 99231 ==

== ENCOUNTER 2025-05-14 10:55 | Outpatient (AMB) | payer MEDICARE, MEDICAID, SELFPAY ==
--- NOTE | 2025-05-14 10:59 | A.OFFVIS_ITS ---
Intake Visit Reasons: OV - Left Proximal Humerus fx - 03/29/25 Intake Note: Nyla is a 55 year old right hand dominant female who presents today in a wheel chair for a follow up visit of a left humeral neck fracture s/p fall on 03/29/25. After the fall she was seen at [facility] ER where she was later admitted due to Hypoxia and worsening Kidney Function. She was seen in the hospital by Marcel who placed her in a sling and instructed her to remain non weight bearing on the left upper extremity. Today patient reports that she continues to have pain in her arm however it has improved since her injury. States numbness and tingling however she has history of carpal tunnel syndrome. Currently resides at [facility]. Allergies adhesive tape Allergy (Intermediate, Verified 05/14/25 11:12) Hives topiramate (From TOPAMAX) Allergy (Intermediate, Verified 05/14/25 11:12) KIDNEY STONES aripiprazole (From ABILIFY) Allergy (Mild, Verified 05/14/25 11:12) HIVES insulin lispro (From Humalog U-100 Insulin) Allergy (Mild, Verified 05/14/25 11:12) rash Sulfa (Sulfonamide Antibiotics) Allergy (Unknown, Verified 05/14/25 11:12) JAUNDICE Medication List - Last Reviewed 05/14/25 by ANNEMARIE Ibarra amitriptyline 50 mg PO BEDTIME atorvastatin 20 mg PO BEDTIME baclofen 10 mg PO NEEDED PRN calcium acetate 667 mg PO BEDTIME cholecalciferol (vitamin D3) (Vitamin D3) 50 mcg PO BEDTIME docusate sodium (Colace) 100 mg PO DAILY PRN ferrous sulfate (Iron (ferrous sulfate)) 325 mg PO BEDTIME hydrocodone-acetaminophen 5-325 mg 1 tab PO TID PRN insulin degludec (Tresiba FlexTouch U-200 insulin) 15 units (0.075 mL) subcut BEDTIME lansoprazole 30 mg PO BEDTIME loperamide 2 mg PO DAILY PRN magnesium oxide 400 mg PO Q48H meclizine 25 mg PO TID PRN metoprolol succinate ER 100 mg PO BEDTIME midodrine 10 mg PO TUTHSA omega 6-ana-jdg-fish oil 1,000 (120-180) mg (Fish Oil) 1 cap PO Q48H quetiapine 25 mg PO BEDTIME semaglutide (Ozempic) 1 mg subcut MO HPI HPI OV - Left Proximal Humerus fx - 03/29/25: Details: The patient is a 55 year old female presenting for follow-up of a left proximal humerus fracture. She is currently at a rehabilitation facility because she is unable to dress herself due to her left arm injury and also has an ostomy. The patient has a history of a prior fracture in the same arm when she was 11 years old, although it was along the humeral shaft. She also reports having a lot of arthritis pain in the left shoulder area prior to the current injury. Regarding her mobility, the patient typically walks normally but has been using a garret walker since the injury. COUNTS INCLUDE 234 BEDS AT THE [facility] Medical History ESRD (end stage renal disease) Cerebellar ataxia Seizure disorder Epidermal cyst Anemia Hypogammaglobulinemia Chronic knee pain TYLOR (obstructive sleep apnea) Chronic kidney disease, stage 3 GERD (gastroesophageal reflux disease) Hyperlipidemia Bipolar disorder Anemia Ulcerative colitis Depression HTN (hypertension) Diabetes Morbid obesity Surgical History Hx of resection of large bowel Family History Mother Coronary artery disease Father High cholesterol HTN (hypertension) Social History Household Members: None Housing: Apartment Do you presently have visiting nurse or other home services: No Alcohol intake: never Comment: pt reports she sleep in the recliner, does not sleep in bed Patient Tobacco Use Status: Never used Tobacco Cigarette Packs Per Day: 1 service: No Current occupational status: disabled Review of Systems Const All systems reviewed & are unremarkable except as noted in HPI and below Physical Exam Extrem Other: - Musculoskeletal (Left Upper Extremity): Sling was removed. - Active range of motion of the shoulder is limited; patient is unable to bring her arm to the top of her head. - She can passively assist with the right arm to a certain point. - Full active range of motion of the wrist and fingers is noted. Results Reviewed Results Reviewed: - - X-ray of the left proximal humerus obtained today and reviewed by me shows the fracture is stable and appears to be healing. Assessment & Plan Assessment & Plan (1) Fracture of humerus, proximal, left, closed: Code(s): S42.202A - Unspecified fracture of upper end of left humerus, initial encounter for closed fracture Category: Medical Qualifiers: Encounter type: subsequent encounter Fracture morphology: other fracture Fracture alignment: displaced Fracture healing: with routine healing Qualified Code(s): S42.292D - Other displaced fracture of upper end of left humerus, subsequent encounter for fracture with routine healing Plan: The patient's left proximal humerus fracture is stable and showing signs of healing on today's x-ray. The plan is to discontinue the sling and begin phys ical therapy. Therapy goals will include achieving range of motion to bring her arm to the top and back of her head to allow for activities of daily living such as feeding herself and brushing her teeth. The patient is advised to start using her left arm for light activities like eating and holding a cup. It has been explained that the anatomy of her shoulder is altered, and full range of motion may not be restored, with expectations for motion possibly not exceeding shoulder height. Follow-up is scheduled in 6-8 weeks to assess progress with xrays. Orders: Orders XR shoulder LT min 2V Today M25.512 - Pain in left shoulder Coding Level of Care Code Global (00000) Diagnoses Other closed displaced fracture of proximal end of left humerus with routine healing, subsequent encounter S42.292D Encounter type: subsequent encounter Fracture morphology: other fracture Fracture alignment: displaced Fracture healing: with routine healing
== END 2025-05-14 12:24 | disposition home or self-care (01) ==
LOC: HO.HOS 10:56
PROVIDERS: PCP Family Medicine; Visit Provider Physician Assistant
DX: S42.292D Other displaced fracture of upper end of left humerus, subsequent encounter for fracture with routine healing (principal)
CPT/HCPCS: 99213

== ENCOUNTER → 2025-05-14 10:58 | Outpatient (BNV) | payer MEDICARE, MEDICAID, SELFPAY | PROVIDERS: Visit Provider Radiology Diagnostic Radiology | DX: M85.812 Other specified disorders of bone density and structure, left shoulder (principal); M21.822 Other specified acquired deformities of left upper arm | CPT/HCPCS: 73030 ==

== ENCOUNTER 2025-05-14 15:02 | Outpatient (REF) | payer MEDICARE, MEDICAID, SELFPAY ==
--- NOTE | ~2025-05-14 | XR_ITS ---
EXAMINATION: XR SHOULDER 2 OR MORE VIEWS LEFT HISTORY: M25.512 - Pain in left shoulder COMPARISON: Comparison is made with the prior examination dated 03/29/2025. FINDINGS: Two views of the left shoulder are submitted. The bones are osteopenic. Again seen is a fracture deformity of the surgical neck of the humerus. No new fracture is seen. The joint spaces are preserved. The soft tissues are unremarkable. XR/XR shoulder LT min 2V IMPRESSION: Osteopenia. Fracture deformity of the surgical neck of the humerus. Electronically signed by: Manuel Gleason MD 05/14/2025 11:16 AM JAMIE
--- OUTSIDE RECORDS SUMMARY | 2025-05-15 22:34 | XMS_ITS | Encounter Summary ---
Author Organization [employer] Address [address] [place] [address] Care Team Providers Care Spray Maker Name Role Phone Smitha Coyne DO Primary Care Provider + [phone] Reason for Visit * Reason Onset Date Comments fyi 04/09/2025 Encounter Details Date Type Department Care Team ([facility] st Contact Info) Description 04/09/2025 Telephone [facility] MEDICINE [address] [place], [place] [phone] Smitha Coyne DO [address] [place], [place] [phone] fyi Social History Tobacco Use Types Packs/Day Years [...] encounter Miscellaneous Notes * Telephone Encounter - Radha Greene - 04/09/2025 10:53 AM EST Tc from pt wanting to let pcp know she is in a rehab due to breaking her arm 2 weeks ago. Contact pt at [phone] documented in this encounter Plan of Treatment Upcoming Encounters Date Type Department Care Team (Late st Contact Info) Description 08/20/2025 2:30 PM EDT Office Visit [facility] OPTOMETRY [address] [place] [address] MauricioKayleigh aguiar, OD [address] [place] [address] documented as of this encounter Goals Goal [...] documented as of this encounter Care Teams Spray Maker Relationship Specialty Start Date End Date Smitha Coyne DO [address] [place] [address] PCP - General Family Medicine 06/05/18 documented as of this encounter
--- OUTSIDE RECORDS SUMMARY | 2025-05-15 22:34 | XMS_ITS | Encounter Summary ---
Author Organization [employer] Address [address] [place] [address] Care Team Providers Care Glassware Engraver Name Role Phone Smitha Coyne DO Primary Care Provider [phone] Harini Marshall PharmD Unavailable [phone] Encounter Details Date Type Department Care Team (Late st Contact Info) Description 08/11/2023 Telephone [facility] MEDICINE [address] [place], [place] [phone] Smitha Coyne DO [address] [place], [place] [phone] Social History Tobacco Use Types Packs/Day Years [...] Miscellaneous Notes * Telephone Encounter - Fady Lukas - 08/11/2023 11:59 AM EST Tc from pt stated they received a call, data analyst report writer didn't see anything tasked. documented in this encounter Plan of Treatment Upcoming Encounters Date Type Department Care Team (Late st Contact Info) Description 08/20/2025 2:30 PM EDT Office Visit [facility] OPTOMETRY [address] [place] [address] Mauricio, Kayleigh, OD [address] [place] [address] documented as of this encounter Visit Diagnoses Not on filedocumented in this encounter Care Teams Glassware Engraver Relationship Specialty Start Date End Date Smitha Coyne DO [address] [place] [address] PCP - General Family Medicine 06/05/18 Harini Marshall PharmD [address] [place] [address] Pharmacist Internal Medicine 08/22/23 09/21/23 Elza Au Guest Services Officer 07/04/23 10/03/23 documented as of this encounter
--- OUTSIDE RECORDS SUMMARY | 2025-05-15 22:34 | XMS_ITS | Clinical Summary ---
Author Organization [employer] Address [address] [place] [address] 7 [place] [address] Care Team Providers Care Bedspread Inspector Name Role Phone OctaviaSmitha short Primary Care Provider [phone] Allergies Active Allergy Reactions Criticality Noted Date [...] Risperidone 01/27/2022 Other reaction(s): increase prolectin level Pxu-Pvyrl-Yljh-Lidocaine 05/19/2023 Other reaction(s): Rash, Inflammation Sertraline Rash [...] by mouth in the morning. OTC Active clotrimazole-beta methasone (Lotrisone) cream Apply 1 Application. topically in the morning. As needed Active budesonide (Pulmicort Flexhaler) 90 MCG/ACT inhaler Inhale 1 puff in the morning and at bedtime. Rinse mouth with water after use to reduce aftertaste and incidence of candidiasis. Do not swallow. 1 each 4 Active glucose blood (FREESTYLE LITE) test stripIndications: Type 2 diabetes mellitus with ESRD (end-stage renal disease) ([facility]) TEST BLOOD SUGAR THREE TIMES A DAY 100 strip 11 4 Active Alcohol Swabs (Alcohol Prep) 70 % pads APPLY ONE SWAB TOPICALLY TWO TIMES A DAY 100 each 11 4 Active baclofen (Lioresal) 10 MG tabletIndications :Chronic bilateral low back pain, unspecified whether sciatica present Take 0.5 tablets (5 mg) by mouth if needed in the morning and at bedtime for muscle spasms. 30 tablet 3 4 Active Diclofenac Sodium 1 % gel Apply 2 g topically if needed in the morning, at noon, in the evening, and at bedtime (pain). 150 g 3 4 Active Tresiba FlexTouch 100 UNIT/ML injection 4 Active QUEtiapine (SEROquel) 25 MG tablet 4 Active NovoLOG MIX 70/30 FLEXPEN (70-30) 100 UNIT/ML injectionIndicati ons:Type 2 diabetes mellitus with ESRD (end-stage renal disease) ([facility]) INJECT TWO TIMES A DAY PER [...] succinate XL (Toprol-XL) 100 MG 24 hr tabletIndications :Essential hypertension TAKE ONE TABLET BY MOUTH EVERY MORNING. DO NOT CRUSH OR CHEW 90 tablet 3 5 Active atorvastatin (Lipitor) 20 MG tablet TAKE ONE TABLET BY MOUTH AT BEDTIME 90 tablet 5 Active BD Pen Needle Archana Ultrafine 32G X 4 MM misc USE WITH LANTUS AND NOVOLOG INSULIN DIRECTED 150 each 11 5 Active loperamide (Imodium) 2 MG capsuleIndication s:Watery stools TAKE 1 TO 2 CAPSULES IN MORNING, NOON AND EVENING, AND AT BEDTIME NEEDED DIARRHEA 60 capsule 1 5 Active loratadine (Allergy Relief) 10 MG tablet TAKE ONE TABLET BY MOUTH EVERY DAY NEEDED ALLERGIES 90 tablet 1 5 Active amitriptyline (Elavil) 50 MG tablet TAKE ONE TABLET BY MOUTH AT BEDTIME 30 tablet 3 5 Active Active Problems Problem Noted Date Diagnosed [...] FU renal, fistula in place Ileostomy present ([facility]) 08/18/2022 Chronic pain of both knees 06/09/2022 History of COVID-19 03/30/2022 Overview (11/22/2022): Problem added by Discern Expert Type 2 diabetes mellitus 09/23/2021 Assessment & Plan (01/04/2023 2:37 PM EDT): F/u with PCP Assessment & Plan (12/13/2022 11:51 AM EDT): pt noncompliant with diet mainly due to MH issues FU with ditto machine operator this afternoon Assessment & Plan (10/28/2022 1:41 [...] Mild intermittent asthma 04/20/2015 BMI 50.0-59.9, adult ([facility]) 04/20/2015 Obstructive sleep apnea 04/20/2015 Ulcerative [...] Panniculitis 05/19/2023 05/19/2023 06/01/2023 First time seizure ([facility]) 01/04/2023 02/23/2023 Assessment & Plan (01/04/2023 2:36 [...] renal dialysis 10/06/2022 08/26/2024 Sensitivity to sunlight 09/29/2022 04/12/2022 Iron deficiency anemia 06/30/202211/22 Recurrent urinary tract infection 06/09/2022 08/17/2023 Assessment & Plan (12/13/2022 11:51 AM EDT): most likely related to urinary incontinence/cystocele no evidence of UTI today, FU urine culture and treat accordingly FU with Urology hopefully for surgical correction of cystocele use desitin daily on perineal area CKD (chronic kidney disease) stage 4, GFR 15-29 ml/min ([facility]) 01/27/2022 02/23/2023 Encounters Date Type Department Care Team Description 04/28/2025 Telephone [facility] [address] [place] [phone] Smitha Coyne DO [place] recall 04/23/2025 Travel 04/09/2025 Telephone [facility] [address] [place] [address] Smitha Coyne DO fyi 04/09/[address] [address] Smitha Coyne DO Appointment Request 04/07/[address] [address] Elza Graham RN [facility] [facility]ATHER Renewal appt today 04/04/2025 Patient Outreach [facility] [address] [place] [address] Smitha Coyne DO Pre-visit Planning (HDF unscheduled. ) 03/31/2025 Orders Only [facility] External Provider, [facility] 03/24/2025 3:45 PM EDT Office Visit [facility] [address] [place] [phone] Janie Lynch MD Vertigo (Primary Dx) 03/24/2025 Travel 03/24/[address] [address] Smitha Coyne DO Nurse Triage 02/28/2025 Refill [facility] [address] [place] [phone] Smitha Coyne DO Chronic bilateral low back pain with sciatica, sciatica laterality unspecified (Primary Dx) 02/17/2025 Refill [facility] [address] [place] [phone] Smitha Coyne DO from Last 3 Months [...] Description 08/20/2025 2:30 PM EDT Office Visit [facility] [address] [place], [place] [phone] Mauricio, Kayleigh, OD [address] [place] [address] Health Maintenance Due Date Last Done Comments CT Colonography 1969 Colonoscopy 1969 Colorectal Cancer Screening 1969 FIT DNA/Cologuard 1969 FIT 1969 FOBT 1969 Sigmoidoscopy 1969 Disability Screening 1969 Diabetes: Foot Exam 1979 Alcohol/Substance Use Screening 1981 Pneumococcal Vaccine: 50+ Years (1 of 2 - PCV) 01/21/1988 Pap Smear 1990 RSV Patients and Patients Aged 60 years or older (1 - Risk 50-74 years 1-dose series) 2019 Zoster Vaccines (1 of 2) 2019 Cervical Cancer Screening 03/31/2022 HPV/Cotest 03/31/2022 03/31/2017 Depression Screening 08/16/2024 08/17/2023, 08/17/19 24 SDOH Screening 08/16/2024 08/17/2023 Lipid Panel 08/21/2024 08/22/2023, 01/28/2021 Diabetes: Hemoglobin A1C 02/01/2025 025, 05/08/2024, 02/12/2024, Additional history exists COVID-19 Vaccine (1 - season) 2025 Influenza Vaccine (#1) 2025 Mammogram 06/21/2025 06/21/2024, 03/06, 03/27/2018 Eye Exam 10/11/2025 10/11/2024, 0502/2025, 10/11/2024, Additional history exists Tobacco Screening 11/18/2025 11/18/2024 DTaP/Tdap/Td Vaccines (4 - Td or Tdap) 09/16/2029 09/17/2019, 06/03/2009, 06/03/2001 HIV Screening Completed 11/19/2021, 01/28/2021 Hepatitis C [...] to medication regimen General No Harini Marshall, [facility]Ridge Record your blood sugar as directed Result Component No Harini Marshall, [facility]idge Hemoglobin A1c < 7.5 Result Component 9.4( 11:05 AM EDT) No Harini Marshall PharmD Help patients manage their type 2 diabetes Care Plan Help patients manage their type 2 diabetes [place]ats [place] Weekly blood pressure task Care Plan Weekly blood pressure task [place] Help patients manage their type 2 diabetes Care Plan Help patients manage their type 2 diabetes [place] Patient has chronic kidney disease Care Plan Patient has chronic kidney disease No Saw [place]veda [place] Weekly blood pressure task Care Plan Weekly blood pressure task No Saw Sepulveda [place] Patient has chronic kidney disease Care Plan Patient has chronic kidney disease No Saw Sepulveda [place] Procedures Procedure Name Priority Date/Time Associated Diagnosis Comments IR US GUIDE VENOUS ACCESS Routine 04/01/2025 12:45 PM EDT XR CHEST 1 VIEW Routine 03/31/2025 7:42 PM EDT MAGNESIUM Routine 03/31/2025 4:38 PM EDT Suprapubic abscess COMPREHENSIVE METABOLIC PANEL Routine 03/31/2025 4:38 PM EDT Suprapubic abscess CBC WITH AUTO DIFFERENTIAL Routine 03/31/2025 4:38 PM EDT Suprapubic abscess IR CVC INSERT CENTRAL TUNNEL Routine 03/31/2025 12:45 PM EDT POCT GLYCATED HEMOGLOBIN, TOTAL Routine 11/01/2024 11:05 [...] Recently Relevant to Health Maintenance Results * IR US Guide - Venous Access (04/01/2025 12:45 PM EDT) Anatomical Region Laterality Modality X-Ray Angiograph y 04/01/2025 12:4 5 PM EDT Narrative 04/07/2025 10:[address] [address] Interventional Radiology Rpt Signed Patient: Nyla Wiley MR#: [id number] [id number] : 1970 Acct:[id number] Age/Sex: 55 / F ADM Date: 03/31/25 Loc: [facility] [address]: Dorene Dobbins MD Ordering Physician: Alonso Rocha MD Date of Service: 04/01/25 Procedure(s): IR us guide venous access Accession Number(s): [id number] cc: Alonso Rocha MD; Smitha Coyne DO Reason for Exam: FOR PERMACATH ACCESS CLINICAL HISTORY: End-stage renal disease. The patient presents to interventional radiology for placement of a tunneled central venous catheter for hemodialysis. PROCEDURES: 1. Real-time ultrasound-guided access into the right internal jugular vein after documentation of selected vessel patency, and permanent imaging storing in the patient record. 2. Placement of a 14.5 fr 23 cm tunneled, dual-lumen hemodialysis catheter. Clinician: Wale Pagan NP MEDICATIONS: -Fentanyl 25 mcg, Lidocaine 1% 10 mL SQ. -Antibiotics: Ancef -For additional details, please see nursing flowsheet. COMPLICATIONS: None. ESTIMATED BLOOD LOSS: <5 ml SPECIMENS: None FLUOROSCOPY TIME: 0.5 min MODERATE SEDATION TIME: And/ PROCEDURE NOTE: The procedure, risks, benefits, and alternatives were carefully explained to patient, and written informed consent was obtained. The patient was placed supine on the fluoroscopy table. A timeout was performed. The right neck and chest was prepped and draped in usual sterile fashion. Local anesthesia was administered to the access site with lidocaine. Under ultrasound guidance, the right internal jugular vein was accessed with a 5 Fr micropuncture set. A 0.035 in wire was advanced to the IVC to maintain access during the tunneling process. Next, subcutaneous lidocaine was administered to the chest. Using blunt dissection, a subcutaneous tunnel was created that connects from the upper chest to the venotomy site. The dialysis catheter was pulled through the tunnel. The tract in the vein was dilated and a peel-away sheath was advanced over the wire. The catheter was advanced through the sheath, which was subsequently peeled away. The catheter was tested, flushed, and sutured to the skin with its tip in the high right atrium. A permanent fluoroscopic image of the chest was saved to PACS. The catheter ports were packed with heparin per routine protocol. The patient was stable after the procedure and was transferred to the post anesthesia care unit. This procedure was performed under moderate sedation with a dedicated nurse and continuous monitoring of vital signs. FINDINGS: 1. Patent right internal jugular vein. 2. Placement of a tunneled, dual-lumen hemodialysis catheter as above. 3. Catheter flushes and aspirates very well with a 10 mL syringe. No pneumothorax. IR/IR us guide venous access IMPRESSION: Placement of a tunneled hemodialysis catheter in the right internal jugular vein. PLAN: -The catheter may be used immediately. This procedure was performed by Wale Pagan NP, and directly supervised by Ravinder Benson M.D.. Electronically signed by: Jorge Go MD 04/03/2025 12:57 PM EDT RP Workstation: [id number] Dictated By: Wale Pagan NP Signed By: <Electronically signed by Wale Pagan in OV> 04/07/25 1053 <Electronically signed by Jorge Go MD in OV> 04/07/25 1055 DD/ 1245 TD/TT: 04/01/25 1546 Secretarial Teacher: Procedure Note Donotuseinterpreter, Image - 04/07/[address] [address] Interventional Radiology Rpt Signed Patient: Kelvin Wiley#: [id number] 069 : 1970Acct:[id number] Age/Sex: 55 / FADM Date: 03/31/25 Loc: [facility] 473-[address]: Dorene Dobbins MD Ordering Physician: Alonso Rocha MD Date of Service: 04/01/25 Procedure(s): IR us guide venous access Accession Number(s): [id number] cc: Alonso Rocha MD; Smitha Coyne DO Reason for Exam: FOR PERMACATH ACCESS CLINICAL HISTORY: End-stage renal disease. The patient presents to interventional radiology for placement of a tunneled central venous catheter for hemodialysis. PROCEDURES: 1. Real-time ultrasound-guided access into the right internal jugular vein after documentation of selected vessel patency, and permanent imaging storing in the patient record. 2. Placement of a 14.5 fr 23 cm tunneled, dual-lumen hemodialysis catheter. Clinician: Wale Pagan NP MEDICATIONS: -Fentanyl 25 mcg, Lidocaine 1% 10 mL SQ. -Antibiotics: Ancef -For additional details, please see nursing flowsheet. COMPLICATIONS: None. ESTIMATED BLOOD LOSS: <5 ml SPECIMENS: None FLUOROSCOPY TIME: 0.5 min MODERATE SEDATION TIME: And/ PROCEDURE NOTE: The procedure, risks, benefits, and alternatives were carefully explained to patient, and written informed consent was obtained. The patient was placed supine on the fluoroscopy table. A timeout was performed. The right neck and chest was prepped and draped in usual sterile fashion. Local anesthesia was administered to the access site with lidocaine. Under ultrasound guidance, the right internal jugular vein was accessed with a 5 Fr micropuncture set. A 0.035 in wire was advanced to the IVC to maintain access during the tunneling process. Next, subcutaneous lidocaine was administered to the chest. Using blunt dissection, a subcutaneous tunnel was created that connects from the upper chest to the venotomy site. The dialysis catheter was pulled through the tunnel. The tract in the vein was dilated and a peel-away sheath was advanced over the wire. The catheter was advanced through the sheath, which was subsequently peeled away. The catheter was tested, flushed, and sutured to the skin with its tip in the high right atrium. A permanent fluoroscopic image of the chest was saved to PACS. The catheter ports were packed with heparin per routine protocol. The patient was stable after the procedure and was transferred to the post anesthesia care unit. This procedure was performed under moderate sedation with a dedicated nurse and continuous monitoring of vital signs. FINDINGS: 1. Patent right internal jugular vein. 2. Placement of a tunneled, dual-lumen hemodialysis catheter as above. 3. Catheter flushes and aspirates very well with a 10 mL syringe. No pneumothorax. IR/IR us guide venous access IMPRESSION: Placement of a tunneled hemodialysis catheter in the right internal jugular vein. PLAN: -The catheter may be used immediately. This procedure was performed by Wale Pagan NP, and directly supervised by Ravinder Benson M.D.. Electronically signed by: Jorge Go MD 04/03/2025 12:57 PM EDT RP Workstation: [id number] Dictated By: Wale Pagan NP Signed By: <Electronically signed by Wale Pagan in OV> 04/07/25 1053 <Electronically signed by Jorge Go MD in OV> 04/07/25 1055 DD/ 1245 TD/TT: 04/01/25 1546 Secretarial Teacher: [facility] External Provider IMG IR PROCEDURES Edited Result - Final * XR Chest 1 View (03/31/2025 7:42 PM EDT) Anatomical Region Laterality Modality Chest Radiographic Leanne ging 03/31/2025 7:42 PM EDT Narrative 03/31/2025 7:43 PM EDT [place] [address] XRay Report Signed Patient: Nyla Wiley MR#: [id number] 069 : 1970 Acct:[id number] Age/Sex: 55 / F ADM Date: 03/31/25 Loc: [facility] 473-[address]: Alonso Rocha MD Ordering Physician: Alonso Rocha MD Date of Service: 03/31/25 Procedure(s): XR chest 1V Accession Number(s): [id number] cc: Alonso Rocha MD; Smitha Coyne DO Reason for Exam: hypoxia CLINICAL HISTORY: hypoxia 1 view chest x-ray Comparison: None provided Findings: The lungs are clear. Eventration of the left hemidiaphragm and left basilar atelectatic changes. Normal size heart. No acute fracture. IMPRESSION: 1. No acute findings. 2. Eventration of the left hemidiaphragm and left basilar atelectatic changes. This document has been electronically signed by: Gina Huynh MD on 03/31/2025 19:42:06 Dictated By: Gina Huynh MD Signed By: <Electronically signed by Gina Huynh MD in OV> 03/31/251942 DD/ 41 TD/TT: 03/31/251941 Secretarial Teacher: Procedure Note Donotuseinterpreter, Image - 03/31/[address] [address] XRay Report Signed Patient: Kelvin Wiley#: [id number] 069 : 1970Acct:[id number] Age/Sex: 55 / FADM Date: 03/31/25 Loc: [facility] 473-[address]: Alonso Rocha MD Ordering Physician: Alonso Rocha MD Date of Service: 03/31/25 Procedure(s): XR chest 1V Accession Number(s): [id number] cc: Alonso Rocha MD; Smitha Coyne DO Reason for Exam: hypoxia CLINICAL HISTORY: hypoxia 1 view chest x-ray Comparison: None provided Findings: The lungs are clear. Eventration of the left hemidiaphragm and left basilar atelectatic changes. Normal size heart. No acute fracture. IMPRESSION: 1. No acute findings. 2. Eventration of the left hemidiaphragm and left basilar atelectatic changes. This document has been electronically signed by: Gina Huynh MD on 03/31/2025 19:42:06 Dictated By: Gina Huynh MD Signed By: <Electronically signed by Gina Huynh MD in OV> 03/31/251942 DD/ 41 TD/TT: 03/31/251941 Secretarial Teacher: [facility] External Provider IMG XR PROCEDURES Final Result * Magnesium (03/31/2025 4:38 PM EDT) Magnesium 1.7 1.6 - 2.6 mg/dL [facility] 03/31/2025 4:38 PM EDT 03/31/2025 4:45 PM EDT us Generic External Data Provider LAB BLOOD ORDERAB LES Final Result [facility] [address] [place] [phone] * (ABNORMAL) Comprehensive Metabolic Panel (03/31/2025 4:38 PM EDT) Sodium 135 135 - 145 mmol/L [facility] Potassium 5.9(H) 3.3 - 5.1 mmol/L [facility] Chloride 92(L) 96 - 108 mmol/L [facility] Carbon Dioxide 31(H) 22 - 29 mmol/L [facility] Anion Gap 18 12 - 20 [facility] Urea Nitrogen (BUN) 33(H) 9 - 16 mg/dL [facility] Creatinine, Serum 8.18(HH) 0.5 - 1.4 mg/dL [facility] Comment:Critical value for t est(s): CREA2 Results called to issac back by: ROE Person calling:ALKASAB Date:03/31/25Time:17:04 Creatinine Clr Calc Pharmacy 10.5 [facility] Comment:eGFR (calculated fro m the MDRD study equation) and eCrCl(calculated from the Cockcroft-Gault equation) are based ondifferent parameters and may not yield comparable results.If eCrCl result is absurd, please check patient'sheight/weight. Estimated Glomerular Filt Rate 5 [facility] Comment:Chronic Kidney Disea se: Estimated GFR < 60 mL/min/[id number] Kidney Disease: Estimated GFR < 15 mL/min/1.73m2 Glucose 178(H) 60 - 115 mg/dL [facility] Calcium 8.8 8.4 - 10.2 mg/dL [facility] Bilirubin, Total 0.6 0.0 - 1.0 mg/dL [facility] Aspartate Amino Transferase 20 5 - 31 U/L [facility] Alanine Aminotransferase 12 0 - 31 U/L [facility] Total Protein 7.9 6.5 - 8.0 g/dL [facility] Albumin Level 4.5 3.5 - 5.0 g/dL [facility] Alkaline Phosphatase 132(H) 39 - 117 U/L [facility] 03/31/2025 4:38 PM EDT 03/31/2025 4:45 PM EDT us Generic External Data Provider LAB BLOOD ORDERAB LES Final Result [facility] [address] [place] [phone] * IR CVC Insert Central Tunnel (03/31/2025 12:45 PM EDT) Anatomical Region Laterality Modality Body X-Ray Angiograph y 03/31/2025 12:4 5 PM EDT Narrative 04/03/2025 12:59 PM EDT [address] [address] Interventional Radiology Rpt Signed Patient: Nyla Wiley MR#: [id number] 069 : 1970 Acct:[id number] Age/Sex: 55 / F ADM Date: 03/31/25 Loc: [facility] 473-[address]: Dorene Dobbins MD Ordering Physician: Alonso Rocha MD Date of Service: 03/31/25 Procedure(s): IR cvc insert central tunnel Accession Number(s): [id number] cc: Alonso Rocha MD; Smitha Coyne DO Reason for Exam: hd permacath, unable to access avf due to fracture CLINICAL HISTORY: End-stage renal disease. The patient presents to interventional radiology for placement of a tunneled central venous catheter for hemodialysis. PROCEDURES: 1. Real-time ultrasound-guided access into the right internal jugular vein after documentation of selected vessel patency, and permanent imaging storing in the patient record. 2. Placement of a 14.5 fr 23 cm tunneled, dual-lumen hemodialysis catheter. Clinician: Wale Pagan NP MEDICATIONS: -Fentanyl 25 mcg, Lidocaine 1% 10 mL SQ. -Antibiotics: Ancef -For additional details, please see nursing flowsheet. COMPLICATIONS: None. ESTIMATED BLOOD LOSS: <5 ml SPECIMENS: None FLUOROSCOPY TIME: 0.5 min MODERATE SEDATION TIME: And/ PROCEDURE NOTE: The procedure, risks, benefits, and alternatives were carefully explained to patient, and written informed consent was obtained. The patient was placed supine on the fluoroscopy table. A timeout was performed. The right neck and chest was prepped and draped in usual sterile fashion. Local anesthesia was administered to the access site with lidocaine. Under ultrasound guidance, the right internal jugular vein was accessed with a 5 Fr micropuncture set. A 0.035 in wire was advanced to the IVC to maintain access during the tunneling process. Next, subcutaneous lidocaine was administered to the chest. Using blunt dissection, a subcutaneous tunnel was created that connects from the upper chest to the venotomy site. The dialysis catheter was pulled through the tunnel. The tract in the vein was dilated and a peel-away sheath was advanced over the wire. The catheter was advanced through the sheath, which was subsequently peeled away. The catheter was tested, flushed, and sutured to the skin with its tip in the high right atrium. A permanent fluoroscopic image of the chest was saved to PACS. The catheter ports were packed with heparin per routine protocol. The patient was stable after the procedure and was transferred to the post anesthesia care unit. This procedure was performed under moderate sedation with a dedicated nurse and continuous monitoring of vital signs. FINDINGS: 1. Patent right internal jugular vein. 2. Placement of a tunneled, dual-lumen hemodialysis catheter as above. 3. Catheter flushes and aspirates very well with a 10 mL syringe. No pneumothorax. IR/IR cvc insert central tunnel IMPRESSION: Placement of a tunneled hemodialysis catheter in the right internal jugular vein. PLAN: -The catheter may be used immediately. This procedure was performed by Wale Pagan NP, and directly supervised by Ravinder Benson M.D.. Electronically signed by: Jorge Go MD 04/03/2025 12:57 PM EDT RP Workstation: [id number] Dictated By: Wale Pagan NP Signed By: <Electronically signed by Wale Pagan in OV> 04/07/25 1053 <Electronically signed by Jorge Go MD in OV> 04/03/25 1259 DD/ 1245 TD/TT: 04/01/25 1544 Secretarial Teacher: Procedure Note Flaquita, Go - 04/07/2025 [place] [address] Interventional Radiology Rpt Signed Patient: Kelvin Wiley#: [id number] 069 : 1970Acct:[id number] Age/Sex: 55 / FADM Date: 03/31/25 Loc: [facility] 473-[address]: Dorene Dobbins MD Ordering Physician: Alonso Rocha MD Date of Service: 03/31/25 Procedure(s): IR cvc insert central tunnel Accession Number(s): [id number] cc: Alonso Rocha MD; Smitha Coyne DO Reason for Exam: hd permacath, unable to access avf due to fracture CLINICAL HISTORY: End-stage renal disease. The patient presents to interventional radiology for placement of a tunneled central venous catheter for hemodialysis. PROCEDURES: 1. Real-time ultrasound-guided access into the right internal jugular vein after documentation of selected vessel patency, and permanent imaging storing in the patient record. 2. Placement of a 14.5 fr 23 cm tunneled, dual-lumen hemodialysis catheter. Clinician: Wale Pagan NP MEDICATIONS: -Fentanyl 25 mcg, Lidocaine 1% 10 mL SQ. -Antibiotics: Ancef -For additional details, please see nursing flowsheet. COMPLICATIONS: None. ESTIMATED BLOOD LOSS: <5 ml SPECIMENS: None FLUOROSCOPY TIME: 0.5 min MODERATE SEDATION TIME: And/ PROCEDURE NOTE: The procedure, risks, benefits, and alternatives were carefully explained to patient, and written informed consent was obtained. The patient was placed supine on the fluoroscopy table. A timeout was performed. The right neck and chest was prepped and draped in usual sterile fashion. Local anesthesia was administered to the access site with lidocaine. Under ultrasound guidance, the right internal jugular vein was accessed with a 5 Fr micropuncture set. A 0.035 in wire was advanced to the IVC to maintain access during the tunneling process. Next, subcutaneous lidocaine was administered to the chest. Using blunt dissection, a subcutaneous tunnel was created that connects from the upper chest to the venotomy site. The dialysis catheter was pulled through the tunnel. The tract in the vein was dilated and a peel-away sheath was advanced over the wire. The catheter was advanced through the sheath, which was subsequently peeled away. The catheter was tested, flushed, and sutured to the skin with its tip in the high right atrium. A permanent fluoroscopic image of the chest was saved to PACS. The catheter ports were packed with heparin per routine protocol. The patient was stable after the procedure and was transferred to the post anesthesia care unit. This procedure was performed under moderate sedation with a dedicated nurse and continuous monitoring of vital signs. FINDINGS: 1. Patent right internal jugular vein. 2. Placement of a tunneled, dual-lumen hemodialysis catheter as above. 3. Catheter flushes and aspirates very well with a 10 mL syringe. No pneumothorax. IR/IR cvc insert central tunnel IMPRESSION: Placement of a tunneled hemodialysis catheter in the right internal jugular vein. PLAN: -The catheter may be used immediately. This procedure was performed by Wale Pagan NP, and directly supervised by Ravinder Benson M.D.. Electronically signed by: Jorge Go MD 04/03/2025 12:57 PM EDT RP Workstation: [id number] Dictated By: Wale Pagan NP Signed By: <Electronically signed by Wale Pagan in OV> 04/07/25 1053 <Electronically signed by Jorge Go MD in OV> 04/03/25 1259 DD/ 1245 TD/TT: 04/01/25 1544 Secretarial Teacher: [facility] External Provider IMG IR PROCEDURES Edited Result - Final * (ABNORMAL) POCT HGB A1C (11/01/2024 11:05 [...] PM EST Narrative 06/30/2024 4:20 PM EST [facility] [place] [address] Mammography Report Signed Patient: Nyla Wiley MR#: [id number] : 1970 Acct:[id number] Age/Sex: 54 / F ADM Date: 06/21/24 Loc: HO.MAMMO Attending Dr: Smitha Coyne DO Ordering Physician: Smitha Coyne DO Results: 2B enign Findings Date of Service: 06/21/24 Follow Up: 1 Year From [facility] ina Mammogram Procedure(s): MM tomosynthesis screening BI Accession Number(s): [id number] cc: Smitha Coyne DO EXAMINATION: MM SCREENING [...] Norton DO in OV> 06/30/24 1617 DD/ 19 TD/TT: 06/21/241454 Secretarial Teacher: Procedure Note Donotuseinterpreter, Image - 06/30/2024 [facility] [address] [place] [address] Mammography Report Signed Patient: Kelvin Wiley#: [id number] : 1970Acct:[id number] Age/Sex: 54 / FADM Date: 06/21/24 Loc: HO.MAMMO Attending Dr: Smitha Coyne DO Ordering Physician: Smitha Coyneults: 2B enign Findings Date of Service: 06/21/24Follow Up: 1 Year From Orig inal Mammogram Procedure(s): MM tomosynthesis screening BI Accession Number(s): [id number] cc: Smitha Coyne DO EXAMINATION: MM SCREENING [...] by: Lexus Norton DO 06/30/2024 04:17 PM [facility] Dictated By: Lexus Norton DO Signed By: <Electronically signed by Lexus Norton DO in OV> 06/30/241616 DD/ 19 TD/TT: 06/21/241454 Secretarial Teacher: Smitha Coyne DO IMG BI PROCEDURES Edited Res ult - Final * (ABNORMAL) Lipid Panel, Standard (08/22/2023 12:20 PM EDT) Triglycerides 211(H) <150 mg/dL [facility] Comment:Desirable Triglyceri de: less than 150 mg/dLBorderline High Triglyceride 150-199 mg/dLHigh Triglyceride: 200-499 mg/dLVery High Triglyceride: greater than or equal to 5OO mg/dL Cholesterol 106 <200 mg/dL [facility] Comment:Desirable Cholestero l: less than 200 mg/dLBorderline High Cholesterol: 200-239 mg/dLHigh Cholesterol: greater than 239 mg/dL LDL Cholesterol Calculated 33 <100 mg/dL [facility] Comment:Desirable LDL: less than 100 mg/dLNear Optimal/Above Optimal LDL: 110- 129 mg/dLBorderline High LDL: 130-159 mg/dLHigh LDL: 160-189 mg/dLVery High LDL: greater than or equal to 190 mg/dL HDL Cholesterol 31(L) >40 mg/dL [facility] Comment:Desirable HDL: great er than 40 mg/dL Note: This HDL assay may give artificially low results in patients with liver disease. Blood Venous blood specimen / Unknown 08/22/2023 12:20 PM EDT 08/22/2023 4:13 PM EDT us Smitha Coyne DO LAB BLOOD ORDERABLES Final R esult [facility] [address] [place] [phone] * HEPATITIS B SURFACE ANTIBODY (11/19/2021 [...] of detection of this assay. The Lynn Check Out Clerk HIV Ag/Ab Combo assay result and supplemental assay results should be interpreted in conjunction with the patient's clinical presentation, history and other laboratory results. If the results are inconsistent with clinical evidence, additional testing is suggested to confirm the result. 11/19/2021 12:5 0 PM EDT Smitha Stanford DO HISTORICAL/NON ORDERABLE LAB S Final Result Performing Organization Address [facility] Co de Phone Number [facility] [address] * HEPATITIS C ANTIBODY RFLX (11/19/2021 12:50 PM EDT) Pathologist [facility] Hepatitis C Antibody Nonreactive Nonreactive [facility] Comment: Antibodies to HCV not detected; does not exclude early acute HCV infection. 11/19/2021 12:5 0 PM EDT Smitha Coyne DO HISTORICAL/NON ORDERABLE LAB S Final Result Performing Organization Address [facility] Phone Number [facility] [place] [address], * HPV E6/E7 RFLX ALEJANDRO 16 18/45 (03/31/2017 11:35 AM EDT) HPV mRNA E6/E7 Not Detected NOT DETECTED [facility] Comment: This test was performed using the APTIMA(R) HPV Assay ([employer] This assay detects E6/E7 viral messenger RNA (mRNA) from 14 high-risk HPV types (16,18,31,33,35,39,45,51, 52,56,58,59,66,68). For additional information please refer to: http://education.Syntasia.[employer]/faq/KRO892f3 (This link is being provided for informational/ educational purposes only.) Please note: Effective 02/15/2016, HPV testing will be performed using [employer]'s APTIMA test which targets mRNA. Detecting mRNA instead of DNA, as in older methods, offers significant improvements in specificity. HPV 18/45 RNA Test not performed [facility] ADDITIONAL TESTING Not indicated () [facility] Comment: Test Performed by [employer], [employer] [facility], [address] [place] [address] Misha Lauren M.D., Ph.D., Director of Laboratories , [facility] [id number] HPV 16 RNA Test not performed [facility] 03/31/2017 11:3 5 AM EDT us Smitha Coyne DO HISTORICAL/NON ORDERABLE LAB S Final Result [facility] [address] [place] [address], from Last 3 Months or Most Recently Relevant to Health Maintenance Additional Health Concerns Active Problems Noted Date Diagnosed Date Help patients manage their type 2 diabetes 04/28 Weekly blood pressure task 04/28/2025 Help patients manage their type 2 diabetes 04/28 Patient has chronic kidney disease 04/28/2025 Weekly blood pressure task 04/28/2025 Patient has chronic kidney disease 04/28/2025 Insurance MEDICARE Member Subscriber Plan / Payer (Ef fective 1990-Present) Name:Nyla Wiley Member ID:[id number] Relation to Subscriber:Self Name:Nyla Wiley Subscriber ID:[id number] Payer ID:STATE Group ID:Not on file Type:Medicare Address: [facility] [address] [place] [address] [facility] Care Teams Bedspread Inspector Relationship Specialty Start Date End Date Smitha Coyne DO [address] [place] [address] PCP - General Family Medicine 06/05/18
--- OUTSIDE RECORDS SUMMARY | 2025-05-15 22:34 | XMS_ITS | Encounter Summary ---
Author Organization [employer] Address [address] [facility] 7t [place] [address] Care Team Providers Care Resource Teacher Name Role Phone Smitha Coyne DO Primary Care Provider [phone] Harini Marshall PharmD Unavailable [phone] Reason for Visit * Reason Onset Date Comments Med Refill 08/03/2022 Encounter Details Date Type Department Care Team (Late st Contact Info) Description 08/03/2022 Telephone [facility] MEDICINE [address] [place], [place] [phone] Smitha Coyne DO [address] [place], [place] [phone] Med Refill Social History Tobacco Use Types [...] Description 08/20/2025 2:30 PM EDT Office Visit [facility] OPTOMETRY [address] [place], [place] [phone] Kayleigh Martínez, OD [address] [place] [address] documented as of this encounter Visit Diagnoses Not on filedocumented in this encounter Care Teams Resource Teacher Relationship Specialty Start Date End Date Smitha Coyne DO [address] [place], [place] [phone] PCP - General Family Medicine 06/05/18 Harini Marshall, Ronaldo [address] [place], [place] [phone] Pharmacist Internal Medicine 08/22/23 09/21/23 Elza Au Design Engineer Products 07/04/23 10/03/23 documented as of this encounter
--- OUTSIDE RECORDS SUMMARY | 2025-05-15 22:34 | XMS_ITS | Encounter Summary ---
Author Organization [employer] Address [address] [facility] 7t [place] [address] Care Team Providers Care Android Platform Developer Name Role Phone Smitha Coyne DO Primary Care Provider [phone] Harini Marshall PharmD Unavailable [phone] Reason for Visit * Reason Comments Med Refill Encounter Details Date Type Department Care Team ([facility] st Contact Info) Description 04/22/2023 Refill [facility] MEDICINE 230 [place], [place] [phone] Smitha Coyne DO [address] [place], [place] [phone] Watery stools Social History Tobacco Use Types [...] Description 08/20/2025 2:30 PM EDT Office Visit [facility] OPTOMETRY [address] [place] [address] Mauricio, Kayleigh, OD [address] [place] [address] documented as of this encounter Visit Diagnoses Diagnosis Watery stools Abnormal feces documented in this encounter Care Teams Android Platform Developer Relationship Specialty Start Date End Date Smitha Coyne DO [address] [place] [address] PCP - General Family Medicine 06/05/18 Harini Marshall PharmD [address] [place] [address] Pharmacist Internal Medicine 08/22/23 09/21/23 Elza Au Manager Of International 07/04/23 10/03/23 documented as of this encounter
--- OUTSIDE RECORDS SUMMARY | 2025-05-15 22:34 | XMS_ITS | Clinical Summary ---
Author Organization [facility] Address [address] [place] [address] Care Team Providers Care Epitaxial Reactor Technician Name Role Phone Smitha Coyne Kacy Primary Care Provider [phone]- [phone] Allergies Active Allergy Reactions Criticality Noted Date [...] Other reaction(s): rash Lorazepam Rash Low 10/04/2021 Ixm-Tgqpc-Qklm-Lidocaine Unknown 05/19/2023 Other reaction(s): Rash, Inflammation Gkjriwje-Lhnalxvwdm-Votubn mark Dermatitis 11/14/2023 Oxcarbazepine Agitation,Other (see comments),Unknown [...] Fit Test 08/21/2024 08/22/2023, 04/20/2015 Influenza Vaccine (#1) 2025 COVID-19 Vaccine (1 - season) 2025 Mammogram 03/30/2025 03/30/2023, 03/06, 03/27/2018 DTaP,Tdap,and Td Vaccines (4 - Td or Tdap) 09/16/2029 09/17/2019, 06/03/2009, 06/03/2001 Hepatitis B Vaccines Completed 12/14/2006, 07/27/2006, 06/26/2006 HIV Screening Completed 01/28/2021 Insurance MEDICARE [facility] Care Teams Epitaxial Reactor Technician Relationship Specialty Start Date End Date Smitha Coyne [address] [place] [address] PCP - General Family Medicine 09/05/23
--- OUTSIDE RECORDS SUMMARY | 2025-05-15 22:34 | XMS_ITS | Encounter Summary ---
Author Organization [employer] Address [address] [facility] 7t [place] [address] Care Team Providers Care Auto Appraiser Name Role Phone Smitha Coyne DO Primary Care Provider + [phone] Reason for Visit * Reason Onset Date Comments Med Refill 12/06/2023 Encounter Details Date Type Department Care Team (Late st Contact Info) Description 12/06/2023 Telephone [facility] MEDICINE [address] [place], [place] [phone] Smitha Coyne DO [address] [place], [place] [phone] Med Refill Social History Tobacco Use Types [...] 24 hr tablet To be sent to: [facility] [phone] documented in this encounter Plan of Treatment Upcoming Encounters Date Type Department Care Team (Late st Contact Info) Description 08/20/2025 2:30 PM EDT Office Visit [facility] OPTOMETRY [address] [place], [place] [phone] Kayleigh Martínez, OD [address] [place] [address] documented as of this encounter Goals Goal [...] documented as of this encounter Care Teams Auto Appraiser Relationship Specialty Start Date End Date Smitha Coyne DO [address] [place] [address] PCP - General Family Medicine 06/05/18 documented as of this encounter
--- OUTSIDE RECORDS SUMMARY | 2025-05-15 22:34 | XMS_ITS | Encounter Summary ---
Author Organization [employer] Address [address] [facility] 7t [place] [address] Care Team Providers Care Clamp Operator Name Role Phone MirlandeSmitha grande Primary Care Provider Harini Marshall PharmD Unavailable [phone] Encounter Details Date Type Department Care Team (Late Contact Info) Description 08/26/2022 Orders Only [facility] MEDICINE [address] [place], [place] [phone] Nery Treadwell MD [address] [place] [address] Chronic pelvic pain in female; Chronic lower [...] Department Care Team (Late Contact Info) Description 08/20/2025 2:30 PM EDT Office Visit [facility] OPTOMETRY [address] [place] [address] Kayleigh Martínez, OD [address] [place] [address] documented as of this encounter Visit Diagnoses Diagnosis Chronic pelvic pain in female Unspecified symptom associated with female genital organs Chronic lower urinary tract infection documented in this encounter Care Teams Clamp Operator Relationship Specialty Start Date End Date Smitha Coyne DO [address] [place] [address] PCP - General Family Medicine 06/05/18 Harini Marshall PharmD [address] [place] [address] Pharmacist Internal Medicine 08/22/23 09/21/23 Elza Au Grain Elevator Operator 07/04/23 10/03/23 documented as of this encounter
--- OUTSIDE RECORDS SUMMARY | 2025-05-15 22:34 | XMS_ITS | Encounter Summary ---
Author Organization [facility] Address [address] [place] [address] Phone Care Team Providers Care Timing Adjuster Name Role Phone Smitha Coyne DO Primary Care Provider Unava ilable Encounter Details Date Type Department Care Team (Late st Contact Info) Description 02/24/2022 Telephone [facility] [address] [place] [address] Mynor Mcgill MD [address] [facility] [address] [place] [phone] Social History Tobacco Use Types Packs/Day Years [...] on filedocumented in this encounter Care Teams Timing Adjuster Relationship Specialty Start Date End Date Smitha Coyne DO PCP - General 06/15/20 12/25/22 documented as of this encounter
--- OUTSIDE RECORDS SUMMARY | 2025-05-15 22:34 | XMS_ITS | Encounter Summary ---
Author Organization [employer] Address [address] [facility] 7t [place] [address] Care Team Providers Care Cellophane Casting Machine Repairer Name Role Phone Smitha Coyne DO Primary Care Provider [phone] Harini Marshall PharmD Unavailable [phone] Reason for Visit * Reason Onset Date Comments Hospital Follow-up 06/26/2023 Encounter Details Date Type Department Care Team ([facility] st Contact Info) Description 06/26/2023 Telephone [facility] MEDICINE 230 [place], [place] [phone] Smitha Coyne DO 230 [place], [place] [phone] Hospital Follow-up Social History Tobacco Use Types [...] from pt requesting a HDF appt. Hospital: [facility] Date of admission: 06/09/23 Discharge date: 06/23/23 Diagnosed: N/A documented in this encounter Plan of Treatment Upcoming Encounters Date Type Department Care Team (Late st Contact Info) Description 08/20/2025 2:30 PM EDT Office Visit [facility] OPTOMETRY [address] [place], [place] [phone] Kayleigh Martínez, OD 230 [place] [address] documented as of this encounter Visit Diagnoses Not on filedocumented in this encounter Care Teams Cellophane Casting Machine Repairer Relationship Specialty Start Date End Date Smitha Coyne DO [address] [place] [address] PCP - General Family Medicine 06/05/18 Harini Marshall PharmD [address] [place] [address] Pharmacist Internal Medicine 08/22/23 09/21/23 Elza Au Glass Block Bender 07/04/23 10/03/23 documented as of this encounter
--- OUTSIDE RECORDS SUMMARY | 2025-05-15 22:34 | XMS_ITS | Encounter Summary ---
Author Organization [employer] Address [address] [facility] 7t [place] [address] Care Team Providers Care Chief Lifestyle Officer Name Role Phone Smitha Coyne Primary Care Provider + [phone] Reason for Visit * Reason Comments Med Refill Encounter Details Date Type Department Care Team ([facility] st Contact Info) Description 01/10/2025 Refill [facility] MEDICINE 230 [place], [place] [phone] Alyssa Ca MD [address] [place], [place] [phone] Social History Tobacco Use Types Packs/Day Years [...] Description 08/20/2025 2:30 PM EDT Office Visit [facility] OPTOMETRY [address] [place], [place] [phone] Mauricio, Kayleigh, OD [address] [place], [place] [phone] documented as of this encounter Goals Goal [...] documented as of this encounter Care Teams Chief Lifestyle Officer Relationship Specialty Start Date End Date Smitha Coyne DO [address] [place], [place] [phone] PCP - General Family Medicine 1/1/19 documented as of this encounter
--- OUTSIDE RECORDS SUMMARY | 2025-05-15 22:35 | XMS_ITS | Encounter Summary ---
Author Organization [employer] Address [address] [facility] 7t [place] [address] Care Team Providers Care Operator Cavity Pump Name Role Phone Smitha Coyne DO Primary Care Provider [phone] Harini Marshall PharmD Unavailable [phone] Reason for Visit * Reason Comments Med Refill Encounter Details Date Type Department Care Team ([facility] st Contact Info) Description 04/20/2023 Refill [facility] MEDICINE [address] [place], [place] [phone] Smitha Coyne DO [address] [place], [place] [phone] Social History Tobacco Use Types Packs/Day Years [...] 2:30 PM EDT Office Visit [facility] OPTOMETRY [address] [place] [address] Mauricio, Kayleigh, OD 230 [place] [address] documented as of this encounter Visit Diagnoses Not on filedocumented in this encounter Care Teams Operator Cavity Pump Relationship Specialty Start Date End Date Smitha Coyne DO [address] [place] [address] PCP - General Family Medicine 06/05/18 Harini Marshall PharmD [address] [place] [address] Pharmacist Internal Medicine 08/22/23 09/21/23 Elza Au Haul Driver 07/04/23 10/03/23 documented as of this encounter
--- OUTSIDE RECORDS SUMMARY | 2025-05-15 22:35 | XMS_ITS | Encounter Summary ---
Author Organization [employer] Address [address] [facility] 7t [place] [address] Care Team Providers Care Life Coach Name Role Phone Smitha Coyne DO Primary Care Provider Harini Marshall PharmD Unavailable [phone] Encounter Details Date Type Department Care Team (Late st Contact Info) Description 10/07/2022 Telephone [facility] MEDICINE 230 [place], [place] [phone] Smitha Coyne DO [address] [place] [address] Social History Tobacco Use Types Packs/Day Years [...] 10/07/2022. Pt states she is currently in [facility]. Please contact pt at [phone] documented in this encounter Plan of Treatment Upcoming Encounters Date Type Department Care Team (Late st Contact Info) Description 08/20/2025 2:30 PM EDT Office Visit [facility] OPTOMETRY [address] [place], [place] [phone] Kayleigh Martínez, OD 230 [place] [address] documented as of this encounter Visit Diagnoses Not on filedocumented in this encounter Care Teams Life Coach Relationship Specialty Start Date End Date Smitha Coyne DO 230 [place] [address] PCP - General Family Medicine 06/05/18 Harini Marshall, Ronaldo [address] [place], [place] [phone] Pharmacist Internal Medicine 08/22/23 09/21/23 Elza Au Die Stamping Press Operator 07/04/23 10/03/23 documented as of this encounter
--- OUTSIDE RECORDS SUMMARY | 2025-05-15 22:35 | XMS_ITS | Encounter Summary ---
Author Organization [employer] Address [address] [facility] 7t [place] [address] Care Team Providers Care Admissions Rn Name Role Phone Smitha Coyne DO Primary Care Provider Harini Marshall PharmD Unavailable [phone] Reason for Visit * Reason Onset Date Comments Appointment Request 11/08/2022 Encounter Details Date Type Department Care Team ([facility] st Contact Info) Description 11/08/2022 Telephone [facility] MEDICINE [address] [place], [place] [phone] Smitha Coyne DO [address] [place], [place] [phone] Appointment Request Social History Tobacco Use Types [...] sooner appt withprovider. Please contact pt at [phone] documented in this encounter Plan of Treatment Upcoming Encounters Date Type Department Care Team (Late st Contact Info) Description 08/20/2025 2:30 PM EDT Office Visit [facility] OPTOMETRY [address] [place], [place] [phone] Kayleigh Martínez, OD [address] [place] [address] documented as of this encounter Visit Diagnoses Not on filedocumented in this encounter Care Teams Admissions Rn Relationship Specialty Start Date End Date Smitha Coyne DO [address] [place] [address] PCP - General Family Medicine 06/05/18 Harini Marshall PharmD [address] [place], [place] [phone] Pharmacist Internal Medicine 08/22/23 09/21/23 Elza Au Panel Raiser Operator 07/04/23 10/03/23 documented as of this encounter
--- OUTSIDE RECORDS SUMMARY | 2025-05-15 22:35 | XMS_ITS | Patient Health Record ---
Author Organization [facility] Address [address] [place] [address] Care Team Providers Care Validation Analyst Name Role Phone Manuel Crawford Unavailable [phone] Reason For Referral No Information Plan Of Treatment No Information
--- OUTSIDE RECORDS SUMMARY | 2025-05-15 22:35 | XMS_ITS | Encounter Summary ---
Author Organization [employer] Address [address] [facility] 7t [place] [address] Care Team Providers Care Claim Processor Name Role Phone Smitha Coyne DO Primary Care Provider [phone] Harini Marshall PharmD Unavailable [phone] Encounter Details Date Type Department Care Team (Late st Contact Info) Description 04/20/2023 Abstract [facility] MEDICINE [address] [place], [place] [phone] Smitha Coyne DO [address] [place], [place] [phone] Social History Tobacco Use Types Packs/Day Years [...] Description 08/20/2025 2:30 PM EDT Office Visit [facility] OPTOMETRY [address] [place] [address] MauricioKayleigh aguiar, OD [address] [place] [address] documented as of this encounter Visit Diagnoses Not on filedocumented in this encounter Care Teams Claim Processor Relationship Specialty Start Date End Date Smitha Coyne DO [address] [place] [address] PCP - General Family Medicine 06/05/18 Harini Marshall PharmD [address] [place], [place] [phone] Pharmacist Internal Medicine 08/22/23 09/21/23 Elza Au Fur Vault Attendant 07/04/23 10/03/23 documented as of this encounter
--- OUTSIDE RECORDS SUMMARY | 2025-05-15 22:35 | XMS_ITS | Clinical Summary ---
Author Organization [facility] Address [address] [place] [address] Phone Care Team Providers Care Crystal Grower Name Role Phone OctaviaSmitha short Primary Care Provider [phone] Allergies Active Allergy Reactions Criticality Noted Date [...] Active ferrous sulfate 325 mg (65 mg shoshone-bannock iron) EC tablet Take 1 tablet by [...] Medical Devices Not on file Insurance [address] [place] [phone] MEDICARE PART A & B [facility] MEDICARE PART A & B [place] & [place] & [place] & [place] & [place] PART A & B [address] [place] [id number] MEDICARE PART A & B [place] Care Teams Crystal Grower Relationship Specialty Start Date End Date Stanford Smitha [address] [place] [address] PCP - General Family Medicine 01/15/21 Additional Source Comments The information contained in this document represents components of the legal health record. It is not the complete legal health record.[facility]
--- OUTSIDE RECORDS SUMMARY | 2025-05-15 22:35 | XMS_ITS | Encounter Summary ---
Author Organization [facility] Address [address] [facility] [address] [place] [address] Phone Care Team Providers Care Hostage Negotiator Name Role Phone Smitha Coyne DO Primary Care Provider Unava ilable Encounter Details Date Type Department Care Team ([facility] st Contact Info) Description 10/26/2021 Telephone [facility] [address] [place] [address] Mynor Mcgill MD [address] [facility] [address] [place] [address] Social History Tobacco Use Types [...] she will be going to the ER [facility] due to a kidney stone flare up. If you'd like to speak with her she can be reached at [phone] Thank you documented in this encounter Plan of Treatment Not on file documented as of this encounter Visit Diagnoses Not on filedocumented in this encounter Care Teams Hostage Negotiator Relationship Specialty Start Date End Date Smitha Coyne DO PCP - General 06/15/20 12/25/22 documented as of this encounter
--- OUTSIDE RECORDS SUMMARY | 2025-05-15 22:35 | XMS_ITS | Encounter Summary ---
Author Organization [employer] Address [address] [facility] 7t [place] [address] Care Team Providers Care Southeast Regional Sales Manager Name Role Phone MirlandeSmitha grande Primary Care Provider Harini Marshall PharmD Unavailable [phone] Encounter Details Date Type Department Care Team ([facility] Contact Info) Description 10/03/2022 Orders Only [facility] MEDICINE [address] [place] [address] Alexa Gramajo FNP [address] [place] [address] Social History Tobacco Use Types Packs/Day Years [...] Upcoming Encounters Date Type Department Care Team ([facility] Contact Info) Description 08/20/2025 2:30 PM EDT Office Visit [facility] OPTOMETRY [address] [place] [address] Kayleigh Martínez, OD [address] [place] [address] documented as of this encounter Visit Diagnoses Not on filedocumented in this encounter Care Teams Southeast Regional Sales Manager Relationship Specialty Start Date End Date Smitha Coyne DO [address] [place], [place] [phone] PCP - General Family Medicine 06/05/18 Harini Marshall, Ronaldo [address] [place] [phone] Pharmacist Internal Medicine 08/22/23 09/21/23 Elza Au Concrete Block Layer 07/04/23 10/03/23 documented as of this encounter
--- OUTSIDE RECORDS SUMMARY | 2025-05-15 22:35 | XMS_ITS | Encounter Summary ---
Author Organization [facility] Address [address] [address] Phone Care Team Providers Care Steam Generating Powerplant Mechanic Name Role Phone Unavailable Primary Care Provider Unavailabl e Encounter Details Date Type Department Care Team (Late st Contact Info) Description 04/08/2025 TCM in Dialysis Clinic [facility] [address] [address] Paramjit Thompson MD [address] [address] Social History Tobacco Use Types Packs/Day [...] on file documented as of this encounter Progress Notes * Paramjit Thompson MD - 04/08/2025 12:00 AM EST Patient: Nyla Wiley : 1970 Note Type: Dialysis TCM Service Date: 04/08/2025 The patient was seen for a vkcw-[id number] visit as part of Transitional Care Management services. Attending Terrazzo Tile Maker: PARAMJIT THOMPSON MD Dialysis Location: [facility] DIALYSIS Schedule: Shift: 2 INTERACTIVE CONTACT This gmlv-je-[id number] visit occurred within 2 business days of the patient?s discharge. HOSPITALIZATION SUMMARY Patient transitioned from: Hospital Patient transitioned to: Other (see comments) Admit Date: 04/05/2025 Discharge Date: 04/07/2025 Discharged info reviewed: No outstanding diagnostic tests and treatments HOME MEDICATIONS Discharge med list reviewed - changes reconciled and discussed with patient. PHYSICAL EXAM Exam performed. Vital Signs Reviewed. CV - Blood pressure noted. No edema. EXT - No ulcers. CARE COORDINATION Post-discharge follow-up appointments reviewed with the patient. VISIT DIAGNOSES CPT Code 49845 - High complexity, seen within 7 days of discharge. N18.6 End stage renal disease Signed by: PARAMJIT THOMPSON MD on 04/08/2025 at 05:44:29 PM Transcribed by: PARAMJIT THOMPSON MD on 04/08/2025 at 05:44:29 PM documented in this encounter Plan of Treatment Not on file documented as of this encounter Visit Diagnoses Not on filedocumented in this encounter
--- OUTSIDE RECORDS SUMMARY | 2025-05-15 22:35 | XMS_ITS | Encounter Summary ---
Author Organization [employer] Address [address] [facility] 7[address] [place] [address] Care Team Providers Care Strip Machine Tender Name Role Phone Smitha Coyne DO Primary Care Provider [phone] Harini Marshall PharmD Unavailable [phone] Reason for Visit * Reason Onset Date Comments Med Refill 09/23/2022 Encounter Details Date Type Department Care Team (Late st Contact Info) Description 09/23/2022 Telephone [facility] MEDICINE [address] [place], [place] [phone] Smitha Coyne DO [address] [place], [place] [phone] Med Refill Social History Tobacco Use Types [...] - 09/23/2022 3:57 PM EDT Tc from [facility] requesting a PA for medication lansoprazole (Prevacid) [address] capsule documented in this encounter Plan of Treatment Upcoming Encounters Date Type Department Care Team (Late st Contact Info) Description 08/20/2025 2:30 PM EDT Office Visit [facility] OPTOMETRY [address] [place], [place] [phone] Kayleigh Martínez, OD [address] [place] [address] documented as of this encounter Visit Diagnoses Not on filedocumented in this encounter Care Teams Strip Machine Tender Relationship Specialty Start Date End Date Smitha Coyne DO [address] [place] [address] PCP - General Family Medicine 06/05/18 Harini Marshall PharmD [address] [place] [address] Pharmacist Internal Medicine 08/22/23 09/21/23 Elza Au Porter Baggage 07/04/23 10/03/23 documented as of this encounter
--- OUTSIDE RECORDS SUMMARY | 2025-05-15 22:35 | XMS_ITS | Encounter Summary ---
Author Organization [facility] Address [address] [place] [address] Phone Care Team Providers Care Heater Helper Forge Name Role Phone Smitha Coyne DO Primary Care Provider Unava ilable Encounter Details Date Type Department Care Team ([facility] st Contact Info) Description 08/04/2021 Telephone [facility] [address] [place] [phone] Mynor Mcgill MD [address] [facility] [address] [place] [address] Social History Tobacco Use Types [...] on file documented as of this encounter Functional Status documented as of this encounter Miscellaneous Notes * Telephone Encounter - Keiry Krishnan - 08/04/2021 3:27 PM EST Pt called, she would like to speka with you reg her CT scan from 07/19/21. Please call her back at [phone] pt will be unavalible after 4 today documented in this encounter Plan of Treatment Not on file documented as of this encounter Visit Diagnoses Not on filedocumented in this encounter Care Teams Heater Helper Forge Relationship Specialty Start Date End Date Smitha Coyne DO PCP - General 06/15/20 12/25/22 documented as of this encounter
--- OUTSIDE RECORDS SUMMARY | 2025-05-15 22:35 | XMS_ITS | Clinical Summary ---
Author Organization [facility] Address [address] [phone] Phone Care Team Providers Care Forestry Instructor Name Role Phone Unavailable Primary Care Provider [...] Encounters Date Type Department Care Team Description 04/30/2025 Treatment [facility] [address] [place] [phone] Paramjit Thompson MD End stage renal disease; Dependence on renal dialysis 04/26/2025 Treatment [facility] [place] [id number] [phone] Paramjit Thompson MD End stage renal disease; Dependence on renal dialysis 04/19/2025 Treatment [facility] [address] [place] [phone] Paramjit Thompson MD End stage renal disease; Dependence on renal dialysis 04/08/2025 TCM in Dialysis Clinic [facility] [place] [phone] [phone] Paramjit Thompson MD 04/08/2025 Treatment [facility] [address] [phone] Paramjit Thompson MD End stage renal disease; Dependence on renal dialysis 03/29/2025 Refill [facility] [address] [facility] [address] [place] [address] Amarilis De León RN 03/25/2025 Treatment [facility] [address] [phone] Paramjit Thompson MD End stage renal disease; Dependence on renal dialysis 03/22/2025 Treatment [facility] [address] [phone] Paramjit Thompson MD End stage renal disease; Dependence on renal dialysis 03/13/2025 Treatment [facility] [address] [phone] Paramjit Thompson MD End stage renal disease; Dependence on renal dialysis 03/08/2025 Treatment [facility] [address] [phone] Paramjit Thompson MD End stage renal disease; Dependence on renal dialysis 03/01/2025 Treatment [facility] [address] [phone] Paramjit Thompson MD End stage renal disease; Dependence on renal dialysis 02/22/2025 Treatment [facility] [address] [phone] Paramjit Thompson MD End stage renal disease; Dependence on renal dialysis 02/15/2025 Treatment [facility] [address] [phone] Paramjit Thompson MD End stage renal disease; [...] Procedure Name Priority Date/Time Associated Diagnosis Comments HEPATITIS B SURFACE ANTIGEN W/REFL CONFIRM Routine 05/08/2025 3:00 AM EST TRANSFERRIN SATURATION Routine 3:00 AM EST PROTEIN, TOTAL, SERUM Routine 05/08/2025 3:00 AM EST MAGNESIUM Routine 05/08/2025 3:00 AM EST ELECTROLYTE PANEL Routine 05/08/2025 3:0 0 AM EST LACTATE DEHYDROGENASE Routine 05/08/2025 3:00 AM EST GLUCOSE, RANDOM Routine 05/08/2025 3:00 AM EST LIH (HC) Routine 05/08/2025 3:00 AM EST BUN/CREATININE RATIO Routine 05/08/2025 3:00 AM EST CREATININE, SERUM Routine 05/08/2025 3:0 0 AM EST AST Routine 05/08/2025 3:00 AM EST BILIRUBIN, TOTAL Routine 05/08/2025 3:00 AM EST ALT Routine 05/08/2025 3:00 AM EST ALKALINE PHOSPHATASE Routine 05/08/2025 3:00 AM EST CALCIUM PHOSPHORUS PRODUCT, ADJUSTED (HC) Routine 05/08/2025 3:00 AM EST FERRITIN Routine 05/08/2025 3:00 AM EST CBC AND DIFFERENTIAL Routine 05/08/2025 3:00 AM EST KT/V NATURAL LOG, URR (HC) Routine 05/08/2025 3:00 AM EST HEMOGLOBIN Routine 04/30/2025 3:00 AM EST PHOSPHATE ( PHOSPHORUS) Routine 04/28/2025 3:00 AM EST LIH () Routine 04/28/2025 3:00 AM EST HEMOGLOBIN Routine 04/26/2025 3:00 AM EST COLLECTION DATE () Routine 04/26/2025 3:00 AM EST HEMOGLOBIN Routine 04/24/2025 3:00 AM EST LIH () Routine 04/19/2025 3:00 AM EST COLLECTION DATE () Routine 04/19/2025 3:00 AM EST KT/V NATURAL LOG, URR () Routine 04/19/2025 3:00 AM EST PROTEIN, TOTAL, SERUM Routine 04/10/2025 3:00 AM EST TRANSFERRIN SATURATION Routine 3:00 AM EST ELECTROLYTE PANEL Routine 04/10/2025 3:0 0 AM EST MAGNESIUM Routine 04/10/2025 3:00 AM EST LIH () Routine 04/10/2025 3:00 AM EST LACTATE DEHYDROGENASE Routine 04/10/2025 3:00 AM EST GLUCOSE, RANDOM Routine 04/10/2025 3:00 AM EST CREATININE, SERUM Routine 04/10/2025 3:0 0 AM EST BILIRUBIN, TOTAL Routine 04/10/2025 3:00 AM EST BUN/CREATININE RATIO Routine 04/10/2025 3:00 AM EST AST Routine 04/10/2025 3:00 AM EST ALT Routine 04/10/2025 3:00 AM EST ALKALINE PHOSPHATASE Routine 04/10/2025 3:00 AM EST CALCIUM PHOSPHORUS PRODUCT, ADJUSTED (HC) Routine 04/10/2025 3:00 AM EST FERRITIN Routine 04/10/2025 3:00 AM EST HEPATITIS B SURFACE ANTIGEN W/REFL CONFIRM Routine 04/10/2025 3:00 AM EST CBC AND DIFFERENTIAL Routine 04/10/2025 3:00 AM EST KT/V NATURAL LOG, URR (HC) Routine 04/10/2025 3:00 AM EST LIH (HC) Routine 03/27/2025 3:00 AM EDT [...] EDT POTASSIUM Routine 02/13/2025 3:00 AM EDT from Last 3 Months Results * LI (05/08/2025 3:00 AM EST) Only the most recent of11 resultswithin the time period is included. Lipemia Normal Normal [facility] Icterus Normal Normal [facility] Hemolysis Normal Normal [facility] 05/08/2025 3:00 AM EST 05/09/2025 2:09 PM EST us Paramjit Thompson MD LAB HISTORICA [id number] RESULTS Final Result [facility] [address] [place] [address] * Kt/V Natural Log, URR (05/08/2025 3:00 AM EST) Only the most recent of4 resultswithin the time period is included. Treatment Time 233 min [facility] Pre-Weight, lb 129.0 kg [facility] Post-Weight, lb 127.8 kg [facility] Ultrafiltration Rate 2 <=13 mL/kg/hr [facility] Comment: Recommend achieving Ultrafiltration Rate (UFR) <=10 mL/kg/hr References: Sofie SAMANO et al. Kidney Int. 2010; 79(2):250-257 BUN Post Dialysis 7 7 - 25 mg/dL [facility] BUN 25 7 - 25 mg/dL [facility] UREA REDUCTION RATIO (%) 72 >=65 % [facility] Kt/V Natural Log 1.42 >=1.2 [facility] 05/08/2025 3:00 AM EST 05/09/2025 1:21 PM EST Paramjit Thompson MD LAB HISTORICA [id number] RESULTS Final Result Performing Organization Address [facility] de Phone Number [facility] [address] [place] [address] * Calcium Phosphorus Product, Adjusted (05/08/2025 3:00 AM EST) Only the most recent of3 resultswithin the time period is included. Albumin 4.3 3.6 - 5.4 g/dL [facility] Calcium 9.4 8.6 - 10.3 mg/dL [facility] Phosphorus, Serum 4.3 2.5 - 5.0 mg/dL [facility] Ca*PO4 40.4 <55.0 mg2/dL2 [facility] Calcium, Adjusted Total 9.4 8.6 - 10.3 mg/dL [facility] CA*PO4 CORRCTD 40.4 <55.0 mg2/dL2 [facility] 05/08/2025 3:00 AM EST 05/09/2025 2:09 PM EST Paramjit Thompson MD LAB HISTORICA [id number] RESULTS Final Result Performing Organization Address [facility] Co de Phone Number [facility] [address] [place] [address] * Hepatitis B Surface Ag w/Reflex Confirmation (05/08/2025 3:00 AM EST) Only the most recent of3 resultswithin the time period is included. Hep B Surface Antigen Negative Negative [facility] 05/08/2025 3:00 AM EST 05/09/2025 2:09 PM EST Paramjit Thompson MD LAB BLOOD ORDERABLES Final Result Performing Organization Address [facility] Co de Phone Number [facility] [address] [place] [address] * BUN/CREATININE RATIO (05/08/2025 3:00 AM EST) Only the most recent of3 resultswithin the time period is included. BUN/Creatinine Ratio 2.8 <=23.0 [facility] 05/08/2025 3:00 AM EST 05/09/2025 2:09 PM EST Paramjit Thompson MD LAB HISTORICA [id number] RESULTS Final Result Performing Organization Address [facility] de Phone Number [facility] [address] [place] [address] * (ABNORMAL) TSAT (05/08/2025 3:00 AM EST) Only the most recent of3 resultswithin the time period is included. Iron 38(L) 50 - 170 ug/dL [facility] Transferrin 182(L) 250 - 380 mg/dL [facility] TIBC 255 211 - 406 ug/dL [facility] Iron Saturation (TSat) 15(L) 22 - 52 % [facility] 05/08/2025 3:00 AM EST 05/09/2025 2:09 PM EST us Paramjit Thompson MD LAB BLOOD ORDERABLES Final Result Performing Organization Address [facility] Co de Phone Number [facility] [address] [place] [address] * (ABNORMAL) CBC and Differential (05/08/2025 3:00 AM EST) Only the most recent of3 resultswithin the time period is included. DIFFERENTIAL MANUAL, 2 Not Indicated [facility] White Blood Cells 6.5 4.0 - 10.0 K/uL [facility] RBC 4.04 3.93 - 5.22 M/uL [facility] Hgb 10.5(L) 11.2 - 15.7 g/dL [facility] Hemoglobin x 3 31.5(L) 33.6 - 47.1 g/dL [facility] Hematocrit 36.0 34.1 - 44.9 % [facility] MCV 89.1 79.4 - 94.8 fL [facility] MCH 26.0 25.6 - 32.2 pg [facility] MCHC 29.2(L) 32.2 - 35.5 g/dL [facility] RDW 19.6(H) 11.7 - 14.4 % [facility] Platelets 155(L) 182 - 369 K/uL [facility] MPV 10.2 9.2 - 12.8 fL [facility] Neutrophils Relative 76.8(H) 34.0 - 71.1 % [facility] Lymphocytes Relative 11.0(L) 19.3 - 51.7 % [facility] Monocytes 7.4 4.7 - 12.5 % [facility] Eosinophils Relative 3.2 0.7 - 5.8 % [facility] Basophils Relative 1.1 0.1 - 1.2 % [facility] Immature Granulocytes 0.5 0.0 - 1.0 % [facility] 05/08/2025 3:00 AM EST 05/09/2025 2:10 PM EST us Paramjit Thompson MD LAB BLOOD ORDERABLES Final Result [facility] [address] [place] [address] * ALT (05/08/2025 3:00 AM EST) Only the most recent of3 resultswithin the time period is included. ALT (SGPT) 13 10 - 49 U/L [facility] 05/08/2025 3:00 AM EST 05/09/2025 2:09 PM EST us Paramjit Thompson MD LAB BLOOD ORDERABLES Final Result Performing Organization Address [facility] de Phone Number [facility] [address] [place] [address] * AST (05/08/2025 3:00 AM EST) Only the most recent of3 resultswithin the time period is included. AST (SGOT) 25 <34 U/L [facility] 05/08/2025 3:00 AM EST 05/09/2025 2:09 PM EST us Paramjit Thompson MD LAB BLOOD ORDERABLES Final Result Performing Organization Address [facility] Phone Number [facility] [address] [place] [address] * Protein, total (05/08/2025 3:00 AM EST) Only the most recent of3 resultswithin the time period is included. Total Protein 6.8 6.4 - 8.9 g/dL [facility] 05/08/2025 3:00 AM EST 05/09/2025 2:09 PM EST us Paramjit Thompson MD LAB BLOOD ORDERABLES Final Result Performing Organization Address [facility] de Phone Number [facility] [address] [place] [address] * (ABNORMAL) Alkaline phosphatase (05/08/2025 3:00 AM EST) Only the most recent of3 resultswithin the time period is included. Alkaline Phosphatase 125(H) 46 - 116 U/L [facility] 05/08/2025 3:00 AM EST 05/09/2025 2:09 PM EST us Paramjit Thompson MD LAB BLOOD ORDERABLES Final Result Performing Organization Address [facility] de Phone Number [facility] [address] [place] [address] * (ABNORMAL) Magnesium (05/08/2025 3:00 AM EST) Only the most recent of3 resultswithin the time period is included. Magnesium 1.7(L) 1.9 - 2.7 mg/dL [facility] 05/08/2025 3:00 AM EST 05/09/2025 2:09 PM EST Paramjit Thompson MD LAB BLOOD ORDERABLES Final Result Performing Organization Address [facility] de Phone Number [facility] [address] [place] [address] * Lactate dehydrogenase (05/08/2025 3:00 AM EST) Only the most recent of3 resultswithin the time period is included. LDH 185 120 - 246 U/L [facility] 05/08/2025 3:00 AM EST 05/09/2025 2:09 PM EST Paramjit Thompson MD LAB BLOOD ORDERABLES Final Result Performing Organization Address [facility] Phone Number [facility] [address] [place] [address] * (ABNORMAL) Glucose, random (05/08/2025 3:00 AM EST) Only the most recent of3 resultswithin the time period is included. Glucose 173(H) 70 - 99 mg/dL [facility] Comment: ADA guidelines outline the following fasting glucose ranges: Normal: <100 Prediabetes: 100-125 Diabetes: >125 05/08/2025 3:00 AM EST 05/09/2025 2:09 PM EST us Paramjit Thompson MD LAB BLOOD ORDERABLES Final Result Performing Organization Address [facility] de Phone Number [facility] [address] [place] [address] * (ABNORMAL) Ferritin (05/08/2025 3:00 AM EST) Only the most recent of3 resultswithin the time period is included. Ferritin 1,696(H) 10 - 291 ng/mL [facility] 05/08/2025 3:00 AM EST 05/09/2025 2:09 PM EST Paramjit Thompson MD LAB BLOOD ORDERABLES Final Result Performing Organization Address [facility] Co de Phone Number [facility] [address] [place] [address] * (ABNORMAL) Creatinine, serum (05/08/2025 3:00 AM EST) Only the most recent of3 resultswithin the time period is included. Creatinine 8.78(H) 0.55 - 1.02 mg/dL [facility] 05/08/2025 3:00 AM EST 05/09/2025 2:09 PM EST Paramjit Thompson MD LAB BLOOD ORDERABLES Final Result Performing Organization Address [facility] de Phone Number [facility] [address] [place] [address] * (ABNORMAL) Bilirubin, total (05/08/2025 3:00 AM EST) Only the most recent of3 resultswithin the time period is included. Total Bilirubin 0.2(L) 0.3 - 1.2 mg/dL [facility] 05/08/2025 3:00 AM EST 05/09/2025 2:09 PM EST Paramjit Thompson MD LAB BLOOD ORDERABLES Final Result Performing Organization Address [facility] Co de Phone Number [facility] [address] [place] [address] * (ABNORMAL) Electrolyte panel (05/08/2025 3:00 AM EST) Only the most recent of3 resultswithin the time period is included. Sodium 140 136 - 145 mEq/L [facility] Potassium 4.1 3.4 - 5.0 mEq/L [facility] Chloride 94(L) 98 - 107 mEq/L [facility] Bicarbonate (CO2) 29 21 - 31 mEq/L [facility] Anion Gap 17(H) 3 - 14 mEq/L [facility] 05/08/2025 3:00 AM EST 05/09/2025 2:09 PM EST Paramjit Thompson MD LAB BLOOD ORDERABLES Final Result Performing Organization Address [facility] Co de Phone Number [facility] [address] [place] [address] * (ABNORMAL) Hemoglobin (04/30/2025 3:00 AM EST) Only the most recent of7 resultswithin the time period is included. Hgb 10.1(L) 11.2 - 15.7 g/dL [facility] Hemoglobin x 3 30.3(L) 33.6 - 47.1 g/dL [facility] 04/30/2025 3:00 AM EST 05/02/2025 1:05 PM EST Paramjit Thompson MD LAB BLOOD ORDERABLES Final Result Performing Organization Address [facility] Co de Phone Number [facility] [address] [place] [address] * Phosphorus (04/28/2025 3:00 AM EST) Phosphorus, Serum 4.2 2.5 - 5.0 mg/dL [facility] 04/28/2025 3:00 AM EST 04/29/2025 2:18 PM EST Paramjit Thompson MD LAB BLOOD ORDERABLES Final Result Performing Organization Address [facility] Co de Phone Number [facility] [address] [place] [address] * Collection Date (04/26/2025 3:00 AM EST) Only the most recent of4 resultswithin the time period is included. Collection Date See Comment [facility] Comment: Patient sample received may exceed specimen stability, based on the collection date electronically provided. When reviewing patient results, verify collection information and consider specimen stability before acting on any critical or panic results. 04/26/2025 3:00 AM EST us Paramjit Thompson MD LAB HISTORICA [id number] RESULTS Final Result Performing Organization Address [facility] Co de Phone Number [facility] [address] [place] [address] * Potassium (03/27/2025 3:00 AM EDT) Only the most recent of6 resultswithin the time period is included. Potassium 3.7 3.4 - 5.0 mEq/L [facility] 03/27/2025 3:00 AM EDT 03/28/2025 12:34 PM EDT us Paramjit Thompson MD LAB BLOOD ORDERABLES Final Result Performing Organization Address [facility] de Phone Number [facility] [address] [place] [address] * PTH, Intact (03/06/2025 3:00 AM EDT) PTH, Intact 418 160 - 721 pg/mL [facility] Comment: Suggested (KDIGO) ESRD maintenance range is two to nine times the upper normal limit (80.1 pg/mL) for the laboratory. 03/06/2025 3:00 AM EDT 03/07/2025 12:20 PM EDT us Paramjit Thompson MD LAB BLOOD ORDERABLES Final Result Performing Organization Address [facility] Co de Phone Number [facility] [address] [place] [address] * (ABNORMAL) Hemoglobin A1c (03/06/2025 3:00 AM EDT) Hemoglobin A1C 8.1(H) <5.7 % [facility] Comment: Methodology: Enzymatic Normal: <5.7% Prediabetes: 5.7-6.4% Diabetes: >6.4% Diabetic Glucose Control Evaluation: Therapeutic action suggested at >8.0% ADA recommends a glycemic goal of <7.0% 03/06/2025 3:00 AM EDT 03/07/2025 12:18 PM EDT Paramjit Thompson MD LAB BLOOD ORDERABLES Final Result Performing Organization Address [facility] Co de Phone Number [facility] [address] [place] [address] * (ABNORMAL) Lipid panel (03/06/2025 3:00 AM [...] BLOOD ORDERABLES Final Result Performing Organization Address [facility] de Phone Number [facility] [address] [place] [address] from Last 3 Months Insurance [place]
== END 2025-05-14 15:03 ==
LOC: HO.HOSX 15:02
PROVIDERS: Visit Provider Physician Assistant
DX: S42.292D Other displaced fracture of upper end of left humerus, subsequent encounter for fracture with routine healing (principal)
CPT/HCPCS: 73030